=== PATIENT | female | born 1965 | race Caucasian/White ===

== ENCOUNTER 2021-10-08 17:11 | Inpatient (IN) | payer BC, SELFPAY ==
[2021-10-08] VITALS (8 sets, daily range): BP systolic 150–184; BP diastolic 95–110; PULSE 74–87; RESP 16–22; TEMP 36.3; O2SAT 95–100; BMI 22.3
--- NOTE | 2021-10-08 17:26 | CRLHL7_ITS ---
For Patients: As a result of the Century Cures Act, medical imaging exams and procedure reports are released immediately into your electronic medical record. You may view this report before your referring provider. If you have questions, please contact your health care provider. INDICATION: Abdominal pain. COMPARISON: CT dated August 09, 2015. TECHNIQUE: One view, 2 images of the abdomen. FINDINGS: Right lower lobe nodular opacity. Old right rib fracture. Right total hip arthroplasty. No definite acute osseous abnormality. Overall paucity of bowel gas limits evaluation of bowel gas pattern. Bilateral sacroiliac sclerosis. Scattered vascular calcifications. IMPRESSION: 1. Positive bowel gas limits evaluation of bowel gas pattern. 2. Nodular right lower lobe pulmonary opacity. Recommend further evaluation with cross-sectional imaging on a nonemergent basis. Dictated by Bay Cordero MD @ 10/08/2021 7:18:07 PM (Electronically Signed)
[2021-10-08 17:41] LABS: Lactate* 2.6 mmol/L (0.5-1.9)
[2021-10-08 17:42] LABS: Basophils Percent Auto 0.1 % (0.0-3.0); Eosinophils Percent Auto 0.2 % (0.0-7.0); Hematocrit 35.7 % (33.0-51.0); Hemoglobin* 12.1 gm/dL (12.0-16.0); Immature Granulocytes Abs Auto 0.04 K/uL (0.00-0.30); Lymphocytes Percent Auto 8.5 % (20-44); Mean Corpuscular HGB Conc 34 gm/dL (32-36); Mean Corpuscular Hemoglobin 32 pg (26-34); Mean Corpuscular Volume 96 fL (80-100); Monocytes Percent Auto 7.6 % (0.0-11.0); Neutrophils Percent Auto 83.3 % (42.0-72.0); Platelet Count* 247 K/uL (140-440); RDW Coefficient of Variation % 11.8 % (11.5-15.5); Red Blood Count 3.74 m/uL (4.00-5.20); White Blood Count* 11.77 K/uL (4.50-11.00)
[2021-10-08 17:43] LABS: Slide Review Reflex No
[2021-10-08] MEDS: FAMOTIDINE 20 MG TABLET PO (17:49)
[2021-10-08] MEDS: ONDANSETRON 2 MG/ML inj 4 MG IVP ×2 (17:51→20:37)
[2021-10-08] MEDS: 0.9 % SODIUM CHLORIDE 1000 ml 1,000 ML IV ×2 (17:51→20:14)
[2021-10-08] MEDS: LORazepam 2 MG/ML inj 0.5 MG IVP (17:52)
[2021-10-08 18:01] LABS: Ethanol* < 0.01 % (0.01-0.03)
[2021-10-08 18:18] LABS: Albumin* 2.9 g/dL (3.3-5.0); Chloride* 106 mmol/L (96-114)
--- NOTE | 2021-10-08 18:18 | ED.GENADULT ---
HPI - General Adult General Chief complaint: Nausea/Vomiting Stated complaint: Vomiting, Diarrhea Time Seen by Provider: 10/08/21 17:16 Source: patient History of Present Illness HPI narrative: 56-year-old female coming in today concerned about 3 days of vomiting. She states that she had a lot of diarrhea yesterday as well but has had no stool output today. She states that everything hurts from her neck all the way down to her pelvis. She states that this has happened to her many times in the past and has been occurring about every 2 months. She does have a history of alcohol use disorder, last drink was 4 days ago. She states that she has not been able to keep down anything in the last 3 days. She denies any fevers or chills. No headache or blurry vision. No blood in her vomit or stool. Related Data Home Medications Medication Instructions Recorded Confirmed famotidine 20 mg tablet mg 10/08/21 gabapentin 300 mg capsule mg 10/08/21 metoprolol tartrate 50 mg tablet mg 10/08/21 sertraline 100 mg tablet mg 10/08/21 Allergies Allergy/AdvReac Type Severity Reaction Status Date / Time No Known Allergies Allergy Verified 10/08/21 17:19 Review of Systems Status of ROS: Reports: 10 or more systems reviewed and unremarkable except as noted in History and below PFSH [facility] Social History Smoking Status: Unknown if ever smoked Do you use any of these nicotine containing products: None Second hand tobacco smoke exposure: No How often do you have a drink containing alcohol: 4 or more times a week How many standard drinks containing alcohol do you have on a typical day: 3 or 4 How often do you have six or more drinks on one occasion: Daily or almost daily AUDIT-C Alcohol total score: 9 Non-prescribed substance use: marijuana (any form) service: No Exam Narrative: Exam Narrative: Thin, well-developed patient. She is moaning and grunting uncontrollably and when I approached the bed she grabs my hand and tells me that she is going to hyperventilate. Answers questions appropriately between moans and groans. HEENT: Normocephalic atraumatic. Pupils are equally round reactive to light. Extraocular muscles are intact. Conjunctivae are moist without any icterus noted. Slightly dry mucous membranes. Posterior pharynx is normal. Neck is soft without any lymphadenopathy or thyromegaly. No masses are appreciated. Edentulous. Cardiovascular: Heart is regular rate and rhythm S1 and S2 are present without any murmurs. Lungs: Clear to auscultation bilaterally no wheezes rhonchi or rales are appreciated. Patient takes deep breaths without any discomfort. Abdomen: Soft nondistended with normal bowel sounds. There is no peritoneal signs and no guarding however the patient increases her moaning when gentle touching of the abdomen occurs. She also jumps in pain when I put the stethoscope gently on her chest wall. Extremities: Bilateral lower extremities are without edema. Normal DP and PT pulses. Skin: Well perfused without any obvious rashes. Const: Vital Signs, click to edit/add: Vital Signs - 24 hr 10/08/21 17:14 10/08/21 18:29 10/08/21 19:00 Temperature 97.3 F L Pulse Rate [Left P ulse Oximeter] 87 82 76 Respiratory Rate 22 16 16 Blood Pressure [Ri ght Upper Arm] 161/95 H 157/100 H 184/110 H Pulse Oximetry 100 100 99 Oxygen Delivery Me thod Room Air Room Air Room Air 10/08/21 19:04 10/08/21 19:30 10/08/21 20:17 Temperature Pulse Rate [Left P ulse Oximeter] 82 74 83 Respiratory Rate 16 16 22 Blood Pressure [Ri ght Upper Arm] 183/105 H 182/109 H 176/101 H Pulse Oximetry 95 100 100 Oxygen Delivery Me thod Room Air Room Air Room Air 10/08/21 20:30 Temperature Pulse Rate [Left P ulse Oximeter] 83 Respiratory Rate 20 Blood Pressure [Ri ght Upper Arm] 150/103 H Pulse Oximetry 100 Oxygen Delivery Me thod Room Air Course Course Hospital Course: IV was started and patient received a L of normal saline IV Zofran as well as IV Ativan. She felt significantly better after treatment. Her labs shows significantly elevated lipase at over 8000, hypokalemia, hypomagnesemia. Because of this she was also given magnesium replacement IV. And a 2 L of normal saline was started. In upright view of the abdomen was done which did not show any abnormality, did show some pulmonary nodularity which is not new. Vital Signs Vital signs: Initial Vital Signs Temperature 97.3 F L 10/08/21 17:14 Temperature Source Temporal Artery Scan 10/08/21 17:14 Pulse Rate 87 10/08/21 17:14 Pulse Rhythm 10/08/21 17:14 Pulse Strength 3+ Normal 10/08/21 17:14 Respiratory Rate 22 10/08/21 17:14 Blood Pressure 161/95 H 10/08/21 17:14 Blood Pressure Mean 117 10/08/21 17:14 Pulse Oximetry 100 10/08/21 17:14 Oxygen Delivery Method 10/08/21 17:14 Vital Signs Temperature 97.3 F L 10/08/21 17:14 Pulse Rate 87 10/08/21 17:14 Respiratory Rate 22 10/08/21 17:14 Blood Pressure 161/95 H 10/08/21 17:14 Pulse Oximetry 100 10/08/21 17:14 Oxygen Delivery Method 10/08/21 17:14 Temperature 97.3 F L 10/08/21 17:14 Pulse Rate 83 10/08/21 20:30 Respiratory Rate 20 10/08/21 20:30 Blood Pressure 150/103 H 10/08/21 20:30 Pulse Oximetry 100 10/08/21 20:30 Oxygen Delivery Method 10/08/21 20:30 Medical Decision Making MDM Narrative Medical decision making narrative: 56-year-old female with probable alcoholic pancreatitis. She also has hypokalemia, hypomagnesemia, malnutrition. Patient will be admitted for further management. Medical Records Medical records reviewed: Yes I reviewed the patient's medical records Lab Data Lab results reviewed: Yes I reviewed the patient's lab results Labs: Lab Results 10/08/21 10/08/21 10/08/21 Range/Units 17:27 17:36 17:36 WBC 11.77 H (4.50-11.00) K/uL RBC 3.74 L (4.00-5.20) m/uL Hgb 12.1 (12.0-16.0) gm/dL Hct 35.7 (33.0-51.0) % MCV 96 (80-100) fL MCH 32 (26-34) pg MCHC 34 (32-36) gm/dL RDW Coeff of Silvia 11.8 (11.5-15.5) % Plt Count 247 (140-440) K/uL Neut % (Auto) 83.3 H (42.0-72.0) % Lymph % (Auto) 8.5 L (20-44) % [place] % (Auto) 7.6 (0.0-11.0) % Eos % (Auto) 0.2 (0.0-7.0) % Baso % (Auto) 0.1 (0.0-3.0) % Neut # (Auto) 9.80 H (1.7-7.0) K/uL Lymph # (Auto) 1.00 (0.90-2.90) K/uL [place] # (Auto) 0.90 (0.00-0.90) K/UL Eos # (Auto) 0.00 (0.00-0.50) K/uL Baso # (Auto) 0.00 (0.00-0.30) K/uL Abs Immat Gran (auto) 0.04 (0.00-0.30) K/uL Sodium 136 (135-149) mmol/L Potassium 3.2 L (3.6-5.1) mmol/L Chloride 106 (96-114) mmol/L Carbon Dioxide 20 (20-32) mmol/L BUN 7 (7-30) mg/dL Creatinine 0.6 (0.5-1.5) mg/dL Estimated Creat Clear 90.41 Estimated GFR 105 ml/min Glucose 132 H (60-115) mg/dL Lactate (0.5-1.9) mmol/L Calcium 7.5 L (8.4-10.6) mg/dL Ionized Calcium Janette (1.11-1.30) mmol/L Magnesium 0.5 L* (1.5-2.6) mg/dL Total Bilirubin 0.5 (0.1-1.5) mg/dL Direct Bilirubin 0.2 (0.0-0.5) mg/dL AST 30 (12-35) U/L ALT 23 (4-35) U/L Alkaline Phosphatase 202 H (40-150) U/L C-Reactive Protein 1.9 H (0.5-1.0) mg/dL Total Protein 6.6 (6.0-8.3) g/dL Albumin 2.9 L (3.3-5.0) g/dL Lipase 8584 H (23-300) U/L Urine Color Yellow (Yellow) Urine Appearance Slightly Cloudy A (Clear) Urine pH 7.5 (5.0-8.5) Ur Specific [place] 1.020 (1.000-1.030) Urine Protein Negative (Negative) Urine Glucose (UA) Negative (Negative) Urine Ketones Negative (Negative) Urine Blood Trace-intact A (Negative) Urine Nitrite Positive A (Negative) Urine Bilirubin Negative (Negative) Urine Urobilinogen 0.2 (0.2-1.0) Ur Leukocyte Esterase 1+ A (Negative) Urine RBC 25-50 A (0-2) Urine WBC 5-10 A (0-5) Ur Squamous Epith Cells Moderate A (None-Few) Urine Bacteria Many A (None) Ethyl Alcohol (0.01-0.03) % SARS-CoV-2 (PCR) (Negative) 10/08/21 10/08/21 10/08/21 Range/Units 17:36 17:36 17:36 WBC (4.50-11.00) K/uL RBC (4.00-5.20) m/uL Hgb (12.0-16.0) gm/dL Hct (33.0-51.0) % MCV (80-100) fL MCH (26-34) pg MCHC (32-36) gm/dL RDW Coeff of Silvia (11.5-15.5) % Plt Count (140-440) K/uL Neut % (Auto) (42.0-72.0) % Lymph % (Auto) (20-44) % [place] % (Auto) (0.0-11.0) % Eos % (Auto) (0.0-7.0) % Baso % (Auto) (0.0-3.0) % Neut # (Auto) (1.7-7.0) K/uL Lymph # (Auto) (0.90-2.90) K/uL [place] # (Auto) (0.00-0.90) K/UL Eos # (Auto) (0.00-0.50) K/uL Baso # (Auto) (0.00-0.30) K/uL Abs Immat Gran (auto) (0.00-0.30) K/uL Sodium (135-149) mmol/L Potassium (3.6-5.1) mmol/L Chloride (96-114) mmol/L Carbon Dioxide (20-32) mmol/L BUN (7-30) mg/dL Creatinine (0.5-1.5) mg/dL Estimated Creat Clear Estimated GFR ml/min Glucose (60-115) mg/dL Lactate 2.6 H (0.5-1.9) mmol/L Calcium (8.4-10.6) mg/dL Ionized Calcium Janette 0.97 L (1.11-1.30) mmol/L Magnesium (1.5-2.6) mg/dL Total Bilirubin (0.1-1.5) mg/dL Direct Bilirubin (0.0-0.5) mg/dL AST (12-35) U/L ALT (4-35) U/L Alkaline Phosphatase (40-150) U/L C-Reactive Protein (0.5-1.0) mg/dL Total Protein (6.0-8.3) g/dL Albumin (3.3-5.0) g/dL Lipase (23-300) U/L Urine Color (Yellow) Urine Appearance (Clear) Urine pH (5.0-8.5) Ur Specific [place] (1.000-1.030) Urine Protein (Negative) Urine Glucose (UA) (Negative) Urine Ketones (Negative) Urine Blood (Negative) Urine Nitrite (Negative) Urine Bilirubin (Negative) Urine Urobilinogen (0.2-1.0) Ur Leukocyte Esterase (Negative) Urine RBC (0-2) Urine WBC (0-5) Ur Squamous Epith Cells (None-Few) Urine Bacteria (None) Ethyl Alcohol < 0.01 L (0.01-0.03) % SARS-CoV-2 (PCR) (Negative) 10/08/21 10/08/21 Range/Units 17:36 19:38 WBC (4.50-11.00) K/uL RBC (4.00-5.20) m/uL Hgb (12.0-16.0) gm/dL Hct (33.0-51.0) % MCV (80-100) fL MCH (26-34) pg MCHC (32-36) gm/dL RDW Coeff of Silvia (11.5-15.5) % Plt Count (140-440) K/uL Neut % (Auto) (42.0-72.0) % Lymph % (Auto) (20-44) % [place] % (Auto) (0.0-11.0) % Eos % (Auto) (0.0-7.0) % Baso % (Auto) (0.0-3.0) % Neut # (Auto) (1.7-7.0) K/uL Lymph # (Auto) (0.90-2.90) K/uL [place] # (Auto) (0.00-0.90) K/UL Eos # (Auto) (0.00-0.50) K/uL Baso # (Auto) (0.00-0.30) K/uL Abs Immat Gran (auto) (0.00-0.30) K/uL Sodium (135-149) mmol/L Potassium (3.6-5.1) mmol/L Chloride (96-114) mmol/L Carbon Dioxide (20-32) mmol/L BUN (7-30) mg/dL Creatinine (0.5-1.5) mg/dL Estimated Creat Clear Estimated GFR ml/min Glucose (60-115) mg/dL Lactate (0.5-1.9) mmol/L Calcium (8.4-10.6) mg/dL Ionized Calcium Janette (1.11-1.30) mmol/L Magnesium Cancelled (1.5-2.6) mg/dL Total Bilirubin (0.1-1.5) mg/dL Direct Bilirubin (0.0-0.5) mg/dL AST (12-35) U/L ALT (4-35) U/L Alkaline Phosphatase (40-150) U/L C-Reactive Protein (0.5-1.0) mg/dL Total Protein (6.0-8.3) g/dL Albumin (3.3-5.0) g/dL Lipase (23-300) U/L Urine Color (Yellow) Urine Appearance (Clear) Urine pH (5.0-8.5) Ur Specific [place] (1.000-1.030) Urine Protein (Negative) Urine Glucose (UA) (Negative) Urine Ketones (Negative) Urine Blood (Negative) Urine Nitrite (Negative) Urine Bilirubin (Negative) Urine Urobilinogen (0.2-1.0) Ur Leukocyte Esterase (Negative) Urine RBC (0-2) Urine WBC (0-5) Ur Squamous Epith Cells (None-Few) Urine Bacteria (None) Ethyl Alcohol (0.01-0.03) % SARS-CoV-2 (PCR) Negative SARS-CoV-2 (Negative) Discharge Plan Discharge Clinical Impression: Pancreatitis Patient Disposition: Admitted As Inpatient Condition: Stable
[2021-10-08 18:19] LABS: Potassium* 3.2 mmol/L (3.6-5.1); Sodium* 136 mmol/L (135-149)
[2021-10-08 18:21] LABS: Creatinine* 0.6 mg/dL (0.5-1.5); Est. Creatinine Clearance* 90.41; Estimated Glomerular Filt Rate 105 ml/min
[2021-10-08 18:22] LABS: Alanine Aminotransferase* 23 U/L (4-35); Alkaline Phosphatase* 202 U/L (40-150); Aspartate Amino Transferase* 30 U/L (12-35); Bilirubin Direct* 0.2 mg/dL (0.0-0.5); Bilirubin Total* 0.5 mg/dL (0.1-1.5); Blood Urea Nitrogen* 7 mg/dL (7-30); Calcium* 7.5 mg/dL (8.4-10.6); Carbon Dioxide* 20 mmol/L (20-32); Glucose* 132 mg/dL (60-115); Total Protein* 6.6 g/dL (6.0-8.3)
[2021-10-08 18:24] LABS: C Reactive Protein* 1.9 mg/dL (0.5-1.0)
[2021-10-08 18:28] LABS: Appearance Urine Slightly Cloudy (Clear); Bilirubin Urine Negative (Negative); Blood Urine Trace-intact (Negative); Color Urine Yellow (Yellow); Glucose Urine Negative (Negative); Ketones Urine Negative (Negative); Leukocyte Esterase Urine 1+ (Negative); Nitrite Urine Positive (Negative); Protein Urine Negative (Negative); Urobilinogen Urine 0.2 (0.2-1.0); pH Urine 7.5 (5.0-8.5)
[2021-10-08 18:36] LABS: Ionized Calcium* 0.97 mmol/L (1.11-1.30)
[2021-10-08 18:57] LABS: Bacteria Urine Many; RBC Urine 25-50 (0-2); Squamous Epithelial Cell Urine Moderate (None-Few)
[2021-10-08 19:22] LABS: Lipase* 8584 U/L (23-300)
[2021-10-08 19:23] LABS: Magnesium* 0.5 mg/dL (1.5-2.6)
[2021-10-08] MEDS: MAGNESIUM SULFATE 2 GM/50 ML PIGGYBACK IVPB (20:15)
[2021-10-08 20:33] LABS: SARS PCR* Negative SARS-CoV-2 (Negative)
--- NOTE | 2021-10-08 20:45 | CRLHL7_ITS ---
For Patients: As a result of the Cures Act, medical imaging exams and procedure reports are released immediately into your electronic medical record. You may view this report before your referring provider. If you have questions, please contact your health care provider. HISTORY: Pancreatitis. History of gallstones. TECHNIQUE: Limited abdominal ultrasound. COMPARISON: CT 08/09/2015. FINDINGS: The pancreatic tail is obscured by bowel gas. No abnormality involving the visualized portions of pancreas. There is no intrahepatic biliary ductal dilatation. The extrahepatic bile duct diameter is mildly prominent measuring 8 mm. No gallstones or gallbladder wall thickening. No surrounding fluid. There is a calcification within the right hepatic lobe adjacent to the gallbladder fossa which may reflect a calcified granuloma. A few hypoechoic liver lesions are present likely correlating with the cysts seen on the prior CT. These measure up to 1.7 cm in size. No abnormality involving the included portion the right kidney. IMPRESSION: 1. Normal gallbladder, without findings of cholelithiasis or acute cholecystitis. 2. Mildly prominent extrahepatic bile duct measuring 8 mm. No intrahepatic biliary ductal dilatation. 3. No pancreatic ductal dilatation or peripancreatic fluid. Dictated by Juan David Kelley MD @ 10/08/2021 10:42:19 PM Dictated by: Juan David Kelley MD @ 10/08/2021 22:42:25 (Electronically Signed)
[2021-10-08] MEDS: LORazepam 2 MG/ML inj 1 MG IVP (20:55)
--- NOTE | 2021-10-08 22:04 | P.IMHP_ITS ---
Hospitalist- H&P: HPI History of Present Illness Date Seen: 10/08/21 Chief complaint: Vomiting, Diarrhea Narrative: April Lucas is a 56 year old female [facility] Medical History (Updated 10/08/21 @ 22:38 by Robert Darling MD) Acalculous cholecystitis Alcoholism Chronic diarrhea Closed fracture of second cervical vertebra without spinal cord injury Clostridioides difficile diarrhea Gallstone pancreatitis Gastroesophageal reflux disease Generalized anxiety disorder Hypertension Hypomagnesemia Major depressive disorder Monoclonal gammopathy Nontoxic single thyroid nodule Pancreatitis, alcoholic, acute Peripheral neuropathy Sacroiliitis, not elsewhere classified Tobacco dependence Urinary tract infection Visual impairment Social History What is your current living situation: I presently have a place to live Smoking Status: Current every day smoker What tobacco products do you use: cigarettes Smoking packs per day: 1 Smoking cigarettes per day: 20.0 Years smoked: 30 Smoking pack-years: 30.00 Do you use any of these nicotine containing products: None Second hand tobacco smoke exposure: No How often do you have a drink containing alcohol: 4 or more times a week How many standard drinks containing alcohol do you have on a typical day: 5 or 6 How often do you have six or more drinks on one occasion: Daily or almost daily AUDIT-C Alcohol total score: 10 Non-prescribed substance use: marijuana (any form) Are you now , , , , never or living with a partner: Social isolation score (0-1 are the most socially isolated patients): 0 service: No Living Situation What is your current living situation: I presently have a place to live Tobacco Smoking Status: Current every day smoker What tobacco products do you use: cigarettes Smoking packs per day: 1 Smoking cigarettes per day: 20.0 Years smoked: 30 Smoking pack-years: 30.00 Do you use any of these nicotine containing products: None Second hand tobacco smoke exposure: No Alcohol - AUDIT-C How often do you have a drink containing alcohol: 4 or more times a week How many standard drinks containing alcohol do you have on a typical day: 5 or 6 How often do you have six or more drinks on one occasion: Daily or almost daily AUDIT-C Alcohol total score: 10 Source: Developed by Judith Blanchard DR et al (1998). The AUDIT alcohol consumption questions (AUDIT-C): An effective brief screening test for problem drinking. Card Tape Converter [employer] Quality Improvement Project (ACQUIP). [employer] Med. 158:1789- 95. Drugs Non-prescribed substance use: marijuana (any form) Family and Community Support - NHANES Are you now , , , , never or living with a partner: Social isolation score (0-1 are the most socially isolated patients): 0 US History service: No Meds Home Medications and Allergies Home Medications Medication Instructions Recorded Confirmed Type famotidine 20 mg tablet mg 10/08/21 History gabapentin 300 mg capsule mg 10/08/21 History metoprolol tartrate 50 mg tablet mg 10/08/21 History sertraline 100 mg tablet mg 10/08/21 History Allergies Allergy/AdvReac Type Severity Reaction Status Date / Time No Known Allergies Allergy Verified 10/08/21 17:19 Exam Const: Vital Signs, click to edit/add: Vital Signs - 24 hr 10/08/21 17:14 10/08/21 18:29 10/08/21 19:00 Temperature 97.3 F L Pulse Rate [Left P ulse Oximeter] 87 82 76 Respiratory Rate 22 16 16 Blood Pressure [Ri ght Upper Arm] 161/95 H 157/100 H 184/110 H Pulse Oximetry 100 100 99 Oxygen Delivery Me thod Room Air Room Air Room Air 10/08/21 19:04 10/08/21 19:30 10/08/21 20:17 Temperature Pulse Rate [Left P ulse Oximeter] 82 74 83 Respiratory Rate 16 16 22 Blood Pressure [Ri ght Upper Arm] 183/105 H 182/109 H 176/101 H Pulse Oximetry 95 100 100 Oxygen Delivery Hi thod Room Air Room Air Room Air 10/08/21 20:30 Temperature Pulse Rate [Left P ulse Oximeter] 83 Respiratory Rate 20 Blood Pressure [Ri ght Upper Arm] 150/103 H Pulse Oximetry [facility] - H&P: Result Labs Labs: Short CBC 10/08/21 Range/Units 17:36 WBC 11.77 H (4.50-11.00) K/uL Hgb 12.1 (12.0-16.0) gm/dL Hct 35.7 (33.0-51.0) % Plt Count 247 (140-440) K/uL BMP 10/08/21 17:36 Sodium 136 Potassium 3.2 L Chloride 106 Carbon Dioxide 20 BUN 7 Creatinine 0.6 Glucose 132 H Calcium 7.5 L Liver Function 10/08/21 Range/Units 17:36 Total Bilirubin 0.5 (0.1-1.5) mg/dL Direct Bilirubin 0.2 (0.0-0.5) mg/dL AST 30 (12-35) U/L ALT 23 (4-35) U/L Alkaline Phosphatase 202 H (40-150) U/L Albumin 2.9 L (3.3-5.0) g/dL Urine 10/08/21 Range/Units 17:27 Urine Color Yellow (Yellow) Urine Appearance Slightly Cloudy A (Clear) Urine pH 7.5 (5.0-8.5) Ur Specific [place] 1.020 (1.000-1.030) Urine Protein Negative (Negative) Urine Glucose (UA) Negative (Negative)
--- NOTE | 2021-10-08 22:07 | W.PC.EDHO ---
Primary Language: Preferred Language: Orientation Status: [x] Alert & Oriented [] Slight Confusion [] Known Dx Dementia Transfers By: [x] Assist of 1 [] Assist of 2 [] Lift Active Medications Discontinued Medications Generic Name Dose Route Start Last Admin Trade Name Akil PRN Reason Stop Dose Admin Famotidine 20 mg 10/08/21 17:31 10/08/21 17:49 Famotidine 20 Mg Tablet PO 10/08/21 17:32 20 mg ONCE ONE Administration Sodium Chloride 1,000 mls @ 1,000 mls/hr 10/08/21 17:30 10/08/21 20:00 0.9 % Sodium Chloride 1000 Ml IV 10/08/21 18:29 Infused .Q1H DEVEN Infusion Sodium Chloride 1,000 mls @ 1,000 mls/hr 10/08/21 19:30 10/08/21 20:14 0.9 % Sodium Chloride 1000 Ml IV 10/08/21 20:29 1,000 mls/hr .Q1H DEVEN Administration Lorazepam 0.5 mg 10/08/21 17:27 10/08/21 17:52 Lorazepam 2 Mg/Ml Inj IVP 10/08/21 17:28 0.5 mg ONCE ONE Administration Lorazepam 1 mg 10/08/21 20:45 10/08/21 20:55 Lorazepam 2 Mg/Ml Inj IVP 10/08/21 20:46 1 mg ONCE ONE Administration Magnesium Sulfate 2 gm 10/08/21 19:26 10/08/21 20:15 Magnesium Sulfate 2 Gm/50 Ml Piggyback IVPB 10/08/21 19:27 2 gm ONCE ONE Administration Ondansetron HCl 4 mg 10/08/21 17:26 10/08/21 17:51 Ondansetron 2 Mg/Ml Inj IVP 10/08/21 17:27 4 mg ONCE ONE Administration Ondansetron HCl 4 mg 10/08/21 20:23 10/08/21 20:37 Ondansetron 2 Mg/Ml Inj IVP 10/08/21 20:24 4 mg ONCE ONE Administration Description of Symptoms ED Triage Present Problem From home, called EMS due to N/V/D x3days - Has Description not improved. states it happened after eating a burger Pain Pain Intensity 8 Pain Scale Used Numeric (1 - 10) IV Insertion/Site Date of IV Line Insertion [ 10/08/21 Right Forearm] Oxygen Administration Pulse Oximetry 100 Pulse Oximetry 100 Pulse Oximetry 100 Pulse Oximetry 95 Pulse Oximetry 99 Pulse Oximetry 100 Pulse Oximetry 100 Oxygen Delivery Method Room Air Oxygen Delivery Method Room Air Oxygen Delivery Method Room Air Oxygen Delivery Method Room Air Oxygen Delivery Method Room Air Oxygen Delivery Method Room Air Oxygen Delivery Method Room Air
--- NOTE | 2021-10-08 22:10 | PM.IMHP1 ---
Hospitalist- H&P: HPI History of Present Illness Time Seen by Provider: 20:30 Date Seen: 10/08/21 Chief complaint: Vomiting, Diarrhea Narrative: April Lucas is a 56 year old woman who presents to our emergency department with the 3-4 day history of nausea, vomiting, diarrhea, dry heaves, decreased oral intake, inability to take her usual medications, abdominal pain. Claims to not have been able to keep anything down for the last 3 days. Denies fever, rigors, diaphoresis. No recent febrile illness. No recent trauma or injury. With a vomiting and diarrhea she denies any blood loss. On day 2 and 3 of her current illness she did have black stools. She tells me she has had several similar presentations in the past. She states that she has had these episodes roughly every 2-3 months over the past year. She acknowledges having a history of alcohol-induced pancreatitis. Her outside medical records also indicate that she has previously had gallstone induced pancreatitis. Denies having had a cholecystectomy in the past. Review of past imaging confirms presence of sludge in history of gallstones. Has not had imaging for a number of years that I am aware of. Patient ordinarily drinks a minimum of 5-6 beers per day. Denies history of alcohol withdrawal on the 1 hand. On the other hand she acknowledges chronic anxiety that worsens when she is not drinking. Denies history of delirium tremens or alcohol withdrawal seizures. Review of Systems Status of ROS: Reports: 10 or more systems reviewed and unremarkable except as noted in History and below Narrative: With the nausea, vomiting, dry heaves, and retching she states she has had more abdominal pain. She thought it was all muscular. When resolved. She presents for further assessment thinking it might be a recurrence of her pancreatitis. Additionally this past May she sustained a fall in which she had a closed fracture of her C2 vertebral body. Current heaving and retching seems to is exacerbated this discomfort. Heretofore she has been healing well in that regard. Most recently assessed for this at [facility], [place], [place], on 08/17/2021. Has had no complications from this aside from the pain. Specifically denies chest heaviness, pressure, tightness, or pain. Denies syncope or near-syncope. Denies orthostasis. Acknowledges sense of dry mouth. Becoming increasingly anxious. Denies cough or shortness of breath that is different from her baseline. Denies palpitations. Acknowledges a sense of increasing weakness. Has been unable to take any of her oral medications over the last 3-4 days. Denies any focal motor neurologic deficits. Denies any arthralgias. Has not had any recent trauma or injury, aside from the fall that she sustained on 06/16/2021 resulting in the C2 vertebral body closed fracture. No rashes. Denies heat or cold intolerance. Denies polyuria, polydipsia, or polyphagia. Denies any recent weight loss or weight gain. Over the last couple weeks has had intermittent dysuria, urgency, frequency. She states she feels like she has a bladder infection although she never sought medical attention for the same. [facility] Medical History (Updated 10/08/21 @ 22:38 by Robert Darling MD) Acalculous cholecystitis Alcoholism Chronic diarrhea Closed fracture of second cervical vertebra without spinal cord injury Clostridioides difficile diarrhea Gallstone pancreatitis Gastroesophageal reflux disease Generalized anxiety disorder Hypertension Hypomagnesemia Major depressive disorder Monoclonal gammopathy Nontoxic single thyroid nodule Pancreatitis, alcoholic, acute Peripheral neuropathy Sacroiliitis, not elsewhere classified Tobacco dependence Urinary tract infection Visual impairment Social History What is your current living situation: I presently have a place to live Smoking Status: Current every day smoker What tobacco products do you use: cigarettes Smoking packs per day: 1 Smoking cigarettes per day: 20.0 Years smoked: 30 Smoking pack-years: 30.00 Do you use any of these nicotine containing products: None Second hand tobacco smoke exposure: No How often do you have a drink containing alcohol: 4 or more times a week How many standard drinks containing alcohol do you have on a typical day: 5 or 6 How often do you have six or more drinks on one occasion: Daily or almost daily AUDIT-C Alcohol total score: 10 Non-prescribed substance use: marijuana (any form) Are you now , , , , never or living with a partner: Social isolation score (0-1 are the most socially isolated patients): 0 service: No Living Situation What is your current living situation: I presently have a place to live Tobacco Smoking Status: Current every day smoker What tobacco products do you use: cigarettes Smoking packs per day: 1 Smoking cigarettes per day: 20.0 Years smoked: 30 Smoking pack-years: 30.00 Do you use any of these nicotine containing products: None Second hand tobacco smoke exposure: No Alcohol - AUDIT-C How often do you have a drink containing alcohol: 4 or more times a week How many standard drinks containing alcohol do you have on a typical day: 5 or 6 How often do you have six or more drinks on one occasion: Daily or almost daily AUDIT-C Alcohol total score: 10 Source: Developed by Judith Blacnhard DR et al (1998). The AUDIT alcohol consumption questions (AUDIT-C): An effective brief screening test for problem drinking. [employer] (ACQUIP). [employer]. 158:1789-95. Drugs Non-prescribed substance use: marijuana (any form) Family and Community Support - NHANES Are you now , , , , never or living with a partner: Social isolation score (0-1 are the most socially isolated patients): 0 US History service: No Meds Home Medications and Allergies Home Medications Medication Instructions Recorded Confirmed Type famotidine 20 mg tablet mg 10/08/21 History gabapentin 300 mg capsule mg 10/08/21 History metoprolol tartrate 50 mg tablet mg 10/08/21 History sertraline 100 mg tablet mg 10/08/21 History Allergies Allergy/AdvReac Type Severity Reaction Status Date / Time No Known Allergies Allergy Verified 10/08/21 17:19 Exam Narrative: Exam Narrative: Appears uncomfortable. Unable to get comfortable. Appears anxious. Nevertheless is cooperative. Mood and affect are congruent. Alert, oriented to self, place, time, situation. No icterus, jaundice, petechiae, cyanosis, or other skin rashes. No tremor, asterixis, or ataxia. Moves all 4 extremities. Antalgia with movement. External auditory canals are clear tympanic membranes normal hearing is mildly decreased symmetrically bilaterally. Midline nasal septum. Buccal mucosa is dry. No oropharyngeal lesions. Neck is supple. Midline trachea. No JVD, hepatojugular reflux, or carotid bruits. Lungs are clear to auscultation, without any wheezing, rhonchi, or rales. Chest is hypertympanitic. No CVA tenderness. Heart tones with regular rhythm, normal S1-S2. No obvious murmur, gallop, or rub. Abdomen with active bowel sounds. Subjective discomfort to palpation in the epigastrium. No rebound or guarding. No obvious organomegaly. No masses. Extremities without edema. Palpable pulses upper and lower extremities. Const: Vital Signs, click to edit/add: Vital Signs - 24 hr 10/08/21 17:14 10/08/21 18:29 10/08/21 19:00 Temperature 97.3 F L Pulse Rate [Left P ulse Oximeter] 87 82 76 Respiratory Rate 22 16 16 Blood Pressure [Ri ght Upper Arm] 161/95 H 157/100 H 184/110 H Pulse Oximetry 100 100 99 Oxygen Delivery Me thod Room Air Room Air Room Air 10/08/21 19:04 10/08/21 19:30 10/08/21 20:17 Temperature Pulse Rate [Left P ulse Oximeter] 82 74 83 Respiratory Rate 16 16 22 Blood Pressure [Ri ght Upper Arm] 183/105 H 182/109 H 176/101 H Pulse Oximetry 95 100 100 Oxygen Delivery Me thod Room Air Room Air Room Air 10/08/21 20:30 Temperature Pulse Rate [Left P ulse Oximeter] 83 Respiratory Rate 20 Blood Pressure [Ri ght Upper Arm] 150/103 H Pulse Oximetry 100 Oxygen Delivery Me thod Room Air Hospitalist - H&P: Result Labs Labs: Short CBC 10/08/21 Range/Units 17:36 WBC 11.77 H (4.50-11.00) K/uL Hgb 12.1 (12.0-16.0) gm/dL Hct 35.7 (33.0-51.0) % Plt Count 247 (140-440) K/uL BMP 10/08/21 17:36 Sodium 136 Potassium 3.2 L Chloride 106 Carbon Dioxide 20 BUN 7 Creatinine 0.6 Glucose 132 H Calcium 7.5 L Liver Function 10/08/21 Range/Units 17:36 Total Bilirubin 0.5 (0.1-1.5) mg/dL Direct Bilirubin 0.2 (0.0-0.5) mg/dL AST 30 (12-35) U/L ALT 23 (4-35) U/L Alkaline Phosphatase 202 H (40-150) U/L Albumin 2.9 L (3.3-5.0) g/dL Urine 10/08/21 Range/Units 17:27 Urine Color Yellow (Yellow) Urine Appearance Slightly Cloudy A (Clear) Urine pH 7.5 (5.0-8.5) Ur Specific [place] 1.020 (1.000-1.030) Urine Protein Negative (Negative) Urine Glucose (UA) Negative (Negative) Assessment and Plan Assessment and plan (1) Pancreatitis, alcoholic, acute: Status: Acute Assessment and Plan: 1. History of alcohol-induced pancreatitis as well as gallstone pancreatitis. Has not had a prior cholecystectomy. 2. Last imaging of the abdomen in our system is from several years ago, CT scan as well as ultrasound. These have both demonstrated sludge in the gallbladder. 3. Will repeat ultrasound of the abdomen. 4. Consider CT scan of abdomen and pelvis. 5. NPO for now. Attempt to advance to clear liquids tomorrow morning. 6. Analgesics and antiemetics p.r.n.. (2) Personal history of gallstones: Status: Acute Assessment and Plan: 1. I ordered an ultrasound of the abdomen. Await this result. 2. Consider CT scan of abdomen and pelvis. (3) Alcoholism: Status: Acute Assessment and Plan: 1. Longstanding active problem for the patient. 2. No prior treatment. 3. Patient is pre-contemplative for getting help for this. 4. CIWA driven alcohol withdrawal protocol with lorazepam. 5. Ordinarily takes gabapentin 600 mg 3 times a day. Has not taking it for the last 3-4 days. Given her dehydrated state I will restarted at 300 mg 3 times a day for now. Ordinarily takes this for peripheral neuropathy. (4) Abdominal pain: Status: Acute Assessment and Plan: 1. Likely multifactorial including from the acute pancreatitis as well as her heaving. 2. From the musculoskeletal perspective will use warm pack and cold pack p.r.n.. (5) Nausea & vomiting: Status: Acute Assessment and Plan: 1. Antiemetics p.r.n.. 2. Lorazepam per CIWA driven protocol. 3. Treat with pantoprazole 40 mg IV daily while NPO for possible alcoholic gastritis. 4. Restart her famotidine 20 mg orally twice daily. (6) Dehydration: Status: Acute Assessment and Plan: 1. IV fluids. Bolus given. We will treat with normal saline overnight any way and consider extending IV fluids longer depending how she responds to interventions. 2. Check orthostatic blood pressures and pulses tomorrow morning. (7) Hypomagnesemia: Status: Acute Assessment and Plan: 1. Received 2 g of magnesium sulfate in the ER. 2. Ordered 2 more g of magnesium sulfate. 3. Restart her oral magnesium oxide. 4. Recheck magnesium in the morning. (8) Gastroesophageal reflux disease: Status: Acute Assessment and Plan: 1. Continue with her famotidine 20 mg orally twice daily (9) Tobacco dependence: Status: Acute Assessment and Plan: 1. Nicotine patch 21 mg daily. 2. Patient not interested in smoking cessation at this time. 3. Patient had what appears to be a nodule in the right lower lung with abdominal x-ray at this time. I compared to a screening CT scan of the chest that she just had in latter part of June of 2021 which was entirely normal. I do not believe there is the need to follow this at this time. (10) Generalized anxiety disorder: Status: Acute Assessment and Plan: 1. Restart sertraline 100 mg daily. 2. Lorazepam p.r.n. per CIWA driven protocol for now. (11) Major depressive disorder: Status: Acute Assessment and Plan: 1. Restart sertraline 100 mg daily. (12) Urinary tract infection: Status: Acute Assessment and Plan: 1. Await urine culture. 2. Start ceftriaxone 1 g IV daily for now. (13) Hypertension: Status: Acute Assessment and Plan: 1. Restart her metoprolol at half the usual dose. Ordinarily takes 50 mg of the tartrate formula twice daily. For now will restarted at 25 mg twice daily. Consider resume usual dose as warranted. (14) Hypokalemia: Status: Acute Assessment and Plan: 1. Potassium supplementation and monitoring. (15) Chronic diarrhea: Status: Acute Assessment and Plan: 1. Check stool for C diff. 2. Loperamide p.r.n. for diarrhea. Plan 1. Reviewed my impression and plans with the patient. 2. Patient agreeable to above stated plans and recommendations. 3. Patient directs that her best friend be her power of compliance attorney for health should that be necessary. Her best friend's 1st name is Ashely. Patient requests full resuscitation in the event of cardiopulmonary demise. Patient acknowledges having a daughter and a stepdaughter. of cancer in the past. 4. Her primary care physician is now Dr. Kwon at [facility] in [facility]. She will have follow-up with Dr. Kwon.
[2021-10-09] VITALS (9 sets, daily range): BP systolic 124–156; BP diastolic 72–93; PULSE 68–88; RESP 16–20; TEMP 36.4–37.2; O2SAT 97–99; BMI 22.3
[2021-10-09] MEDS: NICOTINE 21 MG PATCH 1 PATCH TRANSDERMA (01:15)
[2021-10-09] MEDS: THIAMINE 100 MG TABLET PO ×2 (01:16→21:54)
[2021-10-09] MEDS: PANTOPRAZOLE SODIUM 40 MG INJ IVP (01:17)
[2021-10-09] MEDS: ACETAMINOPHEN 325 MG TABLET 650 MG PO ×4 (01:17→19:01)
[2021-10-09] MEDS: 0.9 % SODIUM CHLORIDE 1000 ml 1,000 ML 125 ML IV ×2 (01:25→13:51)
[2021-10-09] MEDS: cefTRIAXone 1 GM in 0.9 % SODIUM CHLORIDE Mini-bag 100 ML IVPB ×2 (01:42→21:51)
[2021-10-09] MEDS: MAGNESIUM IV 2 GM/50 ML PIGGYBACK IVPB (02:26)
[2021-10-09] MEDS: POTASSIUM CHLORIDE 10 MEQ, LIDOCAINE 1 % 1 ML in 0.9 % SODIUM CHLORIDE 100 ml 100 ML 106 MEQ IVPB ×4 (04:51→20:28)
--- NOTE | 2021-10-09 05:45 | PC.NURSE ---
00-0700 Pt. rested well in between cares. Denies pain, mild Nausea w/dry heaves initially has since resolved. NPO during noc. Up to bathroom several times w/SBA w/cane tolerated activity fair. Still waiting for C-Diff sample.
[2021-10-09 06:46] LABS: HCO3 VBG 28 mmol/L (21-28); PCO2 VBG 39 mmHG (40-50); PO2 VBG 54.4 mmHG (25-47); pH VBG 7.464 (7.32-7.43)
[2021-10-09 07:00] LABS: Hematocrit 37.4 % (33.0-51.0); Hemoglobin* 12.6 gm/dL (12.0-16.0); Mean Corpuscular HGB Conc 34 gm/dL (32-36); Mean Corpuscular Hemoglobin 33 pg (26-34); Mean Corpuscular Volume 97 fL (80-100); Platelet Count* 234 K/uL (140-440); Red Blood Count 3.87 m/uL (4.00-5.20)
[2021-10-09 07:04] LABS: Slide Review Reflex No
[2021-10-09 07:06] LABS: Albumin* 2.9 g/dL (3.3-5.0); Chloride* 103 mmol/L (96-114)
[2021-10-09 07:07] LABS: Sodium* 136 mmol/L (135-149)
[2021-10-09 07:09] LABS: Creatinine* 0.5 mg/dL (0.5-1.5); Est. Creatinine Clearance* 108.49; Estimated Glomerular Filt Rate 110 ml/min
[2021-10-09 07:10] LABS: Alanine Aminotransferase* 13 U/L (4-35); Alkaline Phosphatase* 230 U/L (40-150); Aspartate Amino Transferase* 39 U/L (12-35); Bilirubin Direct* 0.3 mg/dL (0.0-0.5); Bilirubin Total* 0.5 mg/dL (0.1-1.5); Blood Urea Nitrogen* 4 mg/dL (7-30); Carbon Dioxide* 27 mmol/L (20-32); Glucose* 102 mg/dL (60-115); Phosphorus* 2.9 mg/dL (2.5-4.5); Total Protein* 6.6 g/dL (6.0-8.3)
[2021-10-09 07:11] LABS: Calcium* 7.1 mg/dL (8.4-10.6); Iron* 66 ug/dL (37-170); Magnesium* 2.2 mg/dL (1.5-2.6)
[2021-10-09 07:13] LABS: C Reactive Protein* 2.3 mg/dL (0.5-1.0)
[2021-10-09 07:16] LABS: Potassium* 2.8 mmol/L (3.6-5.1)
--- NOTE | 2021-10-09 07:19 | PC.NURSE ---
Critical value reported by lab - Potassium 2.8, Dr. Kirby notified.
[2021-10-09 07:20] LABS: Percent Iron Saturation 34 % (20-50); Total Iron Binding Capacity 198 ug/dL (265-497)
--- NOTE | 2021-10-09 07:23 | PM.IMPN1 ---
Progress Note: A&P Assessment and plan (1) Pancreatitis, alcoholic, acute: Status: Acute Assessment and Plan: Lipase is trending down. Continue IV fluids and sips and chips. May advanced clears as she tolerates. P.r.n. meds reviewed for pain and nausea control. Imaging reviewed from admission. (2) Peripheral neuropathy: Status: Acute Assessment and Plan: Gabapentin had not been taken for 3 days. We initially reduced her home dose at admission. I can increase this tomorrow back to her baseline home dose. (3) Generalized anxiety disorder: Status: Acute Assessment and Plan: Significant. Following. (4) Hypokalemia: Status: Acute Assessment and Plan: Lower this morning. However replacement had not yet completed. Checking again at 4:00 p.m. today. (5) C. difficile diarrhea: Status: Acute Assessment and Plan: Previous history. Will start oral vancomycin. (6) UTI (urinary tract infection): Status: Acute Assessment and Plan: ua is concerning for UTI. awaiting culture. on rocephin 1 gram q24 Subjective Date Seen: 10/09/21 Interval history: Daily Progress Note - Hospital Medicine Day #: 2 Rocephin Day 2 Vanco Day 1 CC: pancreatitis. abdominal pain. now +C. Diff. OVERNIGHT UPDATES FROM STAFF & MED, LAB, IMAGING UPDATES Patient was resting with lights off during rounds this morning. She states that she just had a small emesis. She is noting increased abdominal pain. OT and PT worked with patient. I saw her ambulating in the halls. She does report in falls in the last 6 months. However her alcohol intake is unpredictable. 00-0700 Pt. rested well in between cares. Denies pain, mild Nausea w/dry heaves initially has since resolved. NPO during noc. Up to bathroom several times w/SBA w/cane tolerated activity fair. Still waiting for C-Diff sample. I reviewed her vitals Afebrile. Pulse 68. Respirations 18. White count is about the same, 11,000 Venous blood gas reassuring Initially this morning there was a potassium that came back at 2.8, however she was in midst of IV replacement bumps. This will be recheck this afternoon. Lactate returned normal this morning. Magnesium returned normal this morning. CRP is only mildly elevated and essentially the same from last night Notably her lipase has dropped from 8500 down to 4000 The diff positive at 11 30 this morning Review of Systems: See subjective Cardiac: No new chest pain/pressure/palpitations. Respiratory: no new dyspnea. GI: Continued abdominal pain Objective: Older than stated age. Thin. Tired appearing Vitals: see above Lungs: Clear. Cardiac: S1S2. Abdomen: Soft but tender to palpation in the midepigastric and upper left quadrant. No edema Disposition/Potential discharge - Likely to return to previous living situation. Total time is 35 minutes with greater than 50% spent in counseling and coordination of care. Exam Const: Vital Signs, click to edit/add: Vital Signs - 24 hr 10/08/21 17:14 10/08/21 18:29 10/08/21 19:00 Temperature 97.3 F L Pulse Rate [Left P ulse Oximeter] 87 82 76 Respiratory Rate 22 16 16 Blood Pressure [Le ft Arm] Blood Pressure [Ri ght Upper Arm] 161/95 H 157/100 H 184/110 H Pulse Oximetry 100 100 99 Oxygen Delivery Me thod Room Air Room Air Room Air 10/08/21 19:04 10/08/21 19:30 10/08/21 20:17 Temperature Pulse Rate [Left P ulse Oximeter] 82 74 83 Respiratory Rate 16 16 22 Blood Pressure [Le ft Arm] Blood Pressure [Ri ght Upper Arm] 183/105 H 182/109 H 176/101 H Pulse Oximetry 95 100 100 Oxygen Delivery Me thod Room Air Room Air Room Air 10/08/21 20:30 10/08/21 23:22 10/09/21 00:30 Temperature 98.6 F Pulse Rate [Left P ulse Oximeter] 83 75 Respiratory Rate 20 18 20 Blood Pressure [Le ft Arm] Blood Pressure [Ri ght Upper Arm] 150/103 H 155/102 H Pulse Oximetry 100 99 99 Oxygen Delivery Me thod Room Air Room Air Room Air 10/09/21 00:00 10/09/21 02:00 10/09/21 03:00 Temperature 98.6 F 98.9 F 98.1 F Pulse Rate [Left P ulse Oximeter] 69 75 Respiratory Rate 20 20 18 Blood Pressure [Le ft Arm] 128/76 139/72 149/89 H Blood Pressure [Ri ght Upper Arm] Pulse Oximetry 99 98 97 Oxygen Delivery Me thod Room Air Room Air Room Air 10/09/21 01:00 Temperature Pulse Rate [Left P ulse Oximeter] Respiratory Rate 18 Blood Pressure [Le ft Arm] Blood Pressure [Ri ght Upper Arm] Pulse Oximetry 99 Oxygen Delivery Or thod Room Air Labs Labs: Laboratory Results - last 24 hr 10/08/21 10/08/21 10/08/21 17:27 17:36 17:36 WBC 11.77 H RBC 3.74 L Hgb 12.1 Hct 35.7 MCV 96 MCH 32 MCHC 34 RDW Coeff of Silvia 11.8 Plt Count 247 Neut % (Auto) 83.3 H Lymph % (Auto) 8.5 L [place] % (Auto) 7.6 Eos % (Auto) 0.2 Baso % (Auto) 0.1 Neut # (Auto) 9.80 H Lymph # (Auto) 1.00 [place] # (Auto) 0.90 Eos # (Auto) 0.00 Baso # (Auto) 0.00 Abs Immat Gran (auto) 0.04 VBG pH VBG pCO2 VBG pO2 VBG HCO3 Sodium 136 Potassium 3.2 L Chloride 106 Carbon Dioxide 20 BUN 7 Creatinine 0.6 Estimated Creat Clear 90.41 Estimated GFR 105 Glucose 132 H Lactate Calcium 7.5 L Ionized Calcium Janette Phosphorus Magnesium 0.5 L* Iron Total Bilirubin 0.5 Direct Bilirubin 0.2 AST 30 ALT 23 Alkaline Phosphatase 202 H C-Reactive Protein 1.9 H Total Protein 6.6 Albumin 2.9 L Lipase 8584 H Urine Color Yellow Urine Appearance Slightly Cloudy A Urine pH 7.5 Ur Specific [place] 1.020 Urine Protein Negative Urine Glucose (UA) Negative Urine Ketones Negative Urine Blood Trace-intact A Urine Nitrite Positive A Urine Bilirubin Negative Urine Urobilinogen 0.2 Ur Leukocyte Esterase 1+ A Urine RBC 25-50 A Urine WBC 5-10 A Ur Squamous Epith Cells Moderate A Urine Bacteria Many A Ethyl Alcohol SARS-CoV-2 (PCR) 10/08/21 10/08/21 10/08/21 17:36 17:36 17:36 WBC RBC Hgb Hct MCV MCH MCHC RDW Coeff of Silvia Plt Count Neut % (Auto) Lymph % (Auto) [place] % (Auto) Eos % (Auto) Baso % (Auto) Neut # (Auto) Lymph # (Auto) [place] # (Auto) Eos # (Auto) Baso # (Auto) Abs Immat Gran (auto) VBG pH VBG pCO2 VBG pO2 VBG HCO3 Sodium Potassium Chloride Carbon Dioxide BUN Creatinine Estimated Creat Clear Estimated GFR Glucose Lactate 2.6 H Calcium Ionized Calcium Janette 0.97 L Phosphorus Magnesium Iron Total Bilirubin Direct Bilirubin AST ALT Alkaline Phosphatase C-Reactive Protein Total Protein Albumin Lipase Urine Color Urine Appearance Urine pH Ur Specific [place] Urine Protein Urine Glucose (UA) Urine Ketones Urine Blood Urine Nitrite Urine Bilirubin Urine Urobilinogen Ur Leukocyte Esterase Urine RBC Urine WBC Ur Squamous Epith Cells Urine Bacteria Ethyl Alcohol < 0.01 L SARS-CoV-2 (PCR) 10/08/21 10/08/21 10/09/21 17:36 19:38 06:27 WBC 11.80 H RBC 3.87 L Hgb 12.6 Hct 37.4 MCV 97 MCH 33 MCHC 34 RDW Coeff of Silvia Plt Count 234 Neut % (Auto) Lymph % (Auto) [place] % (Auto) Eos % (Auto) Baso % (Auto) Neut # (Auto) Lymph # (Auto) [place] # (Auto) Eos # (Auto) Baso # (Auto) Abs Immat Gran (auto) VBG pH VBG pCO2 VBG pO2 VBG HCO3 Sodium Potassium Chloride Carbon Dioxide BUN Creatinine Estimated Creat Clear Estimated GFR Glucose Lactate Calcium Ionized Calcium Janette Phosphorus Magnesium Cancelled Iron Total Bilirubin Direct Bilirubin AST ALT Alkaline Phosphatase C-Reactive Protein Total Protein Albumin Lipase Urine Color Urine Appearance Urine pH Ur Specific [place] Urine Protein Urine Glucose (UA) Urine Ketones Urine Blood Urine Nitrite Urine Bilirubin Urine Urobilinogen Ur Leukocyte Esterase Urine RBC Urine WBC Ur Squamous Epith Cells Urine Bacteria Ethyl Alcohol SARS-CoV-2 (PCR) Negative SARS-CoV-2 10/09/21 10/09/21 10/09/21 06:27 06:27 06:27 WBC RBC Hgb Hct MCV MCH MCHC RDW Coeff of Silvia Plt Count Neut % (Auto) Lymph % (Auto) [place] % (Auto) Eos % (Auto) Baso % (Auto) Neut # (Auto) Lymph # (Auto) [place] # (Auto) Eos # (Auto) Baso # (Auto) Abs Immat Gran (auto) VBG pH 7.464 H VBG pCO2 39 L VBG pO2 54.4 H VBG HCO3 28 Sodium 136 Potassium 2.8 L* Chloride 103 Carbon Dioxide 27 BUN 4 L Creatinine 0.5 Estimated Creat Clear 108.49 Estimated GFR 110 Glucose 102 Lactate Calcium 7.1 L Ionized Calcium Janette Phosphorus 2.9 Magnesium 2.2 Iron 66 Total Bilirubin 0.5 Direct Bilirubin 0.3 AST 39 H ALT 13 Alkaline Phosphatase 230 H C-Reactive Protein 2.3 H Total Protein 6.6 Albumin 2.9 L Lipase Urine Color Urine Appearance Urine pH Ur Specific [place] Urine Protein Urine Glucose (UA) Urine Ketones Urine Blood Urine Nitrite Urine Bilirubin Urine Urobilinogen Ur Leukocyte Esterase Urine RBC Urine WBC Ur Squamous Epith Cells Urine Bacteria Ethyl Alcohol SARS-CoV-2 (PCR)
[2021-10-09 07:40] LABS: Lactate* 0.8 mmol/L (0.5-1.9)
[2021-10-09 07:41] LABS: Lipase* 3935 U/L (23-300)
[2021-10-09 07:43] LABS: Erythrocyte SedimentationRate* 48 mm/hr (2-20)
[2021-10-09] MEDS: MAGNESIUM OXIDE 400 MG TABLET PO ×2 (08:24→21:53)
[2021-10-09] MEDS: METOPROLOL TARTRATE 25 MG TABLET PO ×2 (08:24→21:53)
[2021-10-09] MEDS: GABAPENTIN 300 MG CAPSULE PO ×3 (08:25→21:52)
[2021-10-09] MEDS: MULTIVITAMIN/MINERALS 1 TABLET 1 TAB PO (08:25)
[2021-10-09] MEDS: FAMOTIDINE 20 MG TABLET PO (08:25)
[2021-10-09] MEDS: SERTRALINE 100 MG TABLET PO (08:26)
[2021-10-09] MEDS: FOLIC ACID 1 MG TABLET PO (08:26)
[2021-10-09] MEDS: OXYCODONE 5 MG TABLET PO ×2 (10:34→21:52)
[2021-10-09] MEDS: ONDANSETRON ODT 4 MG TAB PO ×2 (10:34→21:51)
[2021-10-09 12:59] LABS: CDIFFEPI 027 PRESUMPTIVE NEGATIVE (Negative)
[2021-10-09 13:04] LABS: C.Difficile POSITIVE (Negative)
[2021-10-09] MEDS: VANCOMYCIN 125 MG CAPSULE PO ×3 (14:46→22:11)
[2021-10-09] MEDS: 0.9 % SODIUM CHLORIDE 1000 ml 1,000 ML 75 ML IV (16:06)
[2021-10-09 17:18] LABS: Chloride* 100 mmol/L (96-114); Sodium* 135 mmol/L (135-149)
[2021-10-09 17:21] LABS: Creatinine* 0.5 mg/dL (0.5-1.5); Est. Creatinine Clearance* 108.49; Estimated Glomerular Filt Rate 110 ml/min
[2021-10-09 17:22] LABS: Blood Urea Nitrogen* 6 mg/dL (7-30); Calcium* 6.8 mg/dL (8.4-10.6); Carbon Dioxide* 27 mmol/L (20-32); Glucose* 90 mg/dL (60-115)
[2021-10-09 17:32] LABS: Potassium* 2.5 mmol/L (3.6-5.1)
[2021-10-09] MEDS: POTASSIUM BICARB 25 MEQ EFFERVESCENT TAB PO ×3 (19:00→22:53)
--- NOTE | 2021-10-09 19:22 | PC.NURSE ---
shift note 07-19: SBA with cane and IV pole. CDIff Pos, having liquid stools. Tolerating clear liquid diet. pt fatigued and napping throughout the day. C/o nausea in the AM, since has resolved after dose of Zofran. Oxy given x 1 for c/o 7/10 generalized pain. VSS. BP elevated.
--- NOTE | 2021-10-09 23:41 | PC.NURSE ---
Shift note [id number]. Patient was alert and oriented x4. VSS. Received potassium IV and oral for supplementation. Continues to have loose stools x1 this shift. She received zofran for nausea. She received oxycodone for abdominal and back pain. She was pleasant and cooperative with cares.
[2021-10-10] VITALS (18 sets, daily range): BP systolic 119–148; BP diastolic 80–85; PULSE 63–83; RESP 16; TEMP 36.6–37; O2SAT 96–98
[2021-10-10] MEDS: ACETAMINOPHEN 325 MG TABLET 650 MG PO ×4 (00:33→18:59)
[2021-10-10] MEDS: POTASSIUM BICARB 25 MEQ EFFERVESCENT TAB PO (00:33)
[2021-10-10] MEDS: 0.9 % SODIUM CHLORIDE 1000 ml 1,000 ML 75 ML IV ×2 (03:00→17:59)
[2021-10-10] MEDS: OXYCODONE 5 MG TABLET PO ×2 (05:12→20:50)
[2021-10-10 06:54] LABS: Ionized Calcium* 0.91 mmol/L (1.11-1.30)
[2021-10-10 07:00] LABS: Basophils Absolute Auto 0.01 K/uL (0.00-0.30); Basophils Percent Auto 0.1 % (0.0-3.0); Eosinophils Percent Auto 1.9 % (0.0-7.0); Hematocrit 36.7 % (33.0-51.0); Hemoglobin* 12.1 gm/dL (12.0-16.0); Immature Granulocytes Abs Auto 0.11 K/uL (0.00-0.30); Lymphocytes Absolute Auto 2.28 K/uL (0.90-2.90); Lymphocytes Percent Auto 21.1 % (20-44); Mean Corpuscular HGB Conc 33 gm/dL (32-36); Mean Corpuscular Hemoglobin 33 pg (26-34); Mean Corpuscular Volume 100 fL (80-100); Monocytes Percent Auto 7.4 % (0.0-11.0); Neutrophils Absolute Auto 7.39 K/uL (1.7-7.0); Neutrophils Percent Auto 68.5 % (42.0-72.0); Platelet Count* 205 K/uL (140-440); RDW Coefficient of Variation % 12.1 % (11.5-15.5); Red Blood Count 3.67 m/uL (4.00-5.20); White Blood Count* 10.79 K/uL (4.50-11.00)
[2021-10-10 07:12] LABS: Slide Review Reflex No
[2021-10-10 07:16] LABS: Albumin* 2.6 g/dL (3.3-5.0); Potassium* 3.9 mmol/L (3.6-5.1)
[2021-10-10 07:19] LABS: Magnesium* 1.3 mg/dL (1.5-2.6)
[2021-10-10 07:22] LABS: C Reactive Protein* 4.4 mg/dL (0.5-1.0)
[2021-10-10 07:29] LABS: NT Pro B Type NatriureticPept* 578 PG/mL (0-125)
--- NOTE | 2021-10-10 07:31 | PC.NURSE ---
Shift note: The pt had x2 liquid stool throughout the shift. She has been reporting mild to moderated abdominal pain, neck and back pain- the pain has been well managed with PRN pain medication. She denied short of breath and chest pain. She denied urine frequency, burn and urgency.
[2021-10-10] MEDS: FAMOTIDINE 20 MG TABLET PO (09:05)
[2021-10-10] MEDS: FOLIC ACID 1 MG TABLET PO (09:05)
[2021-10-10] MEDS: METOPROLOL TARTRATE 25 MG TABLET PO ×2 (09:05→20:50)
[2021-10-10] MEDS: SERTRALINE 100 MG TABLET PO (09:05)
[2021-10-10] MEDS: MAGNESIUM OXIDE 400 MG TABLET PO ×2 (09:05→18:00)
[2021-10-10] MEDS: MULTIVITAMIN/MINERALS 1 TABLET 1 TAB PO (09:05)
[2021-10-10] MEDS: GABAPENTIN 300 MG CAPSULE PO ×3 (09:05→20:50)
[2021-10-10] MEDS: VANCOMYCIN 125 MG CAPSULE PO ×4 (09:05→20:51)
--- NOTE | 2021-10-10 10:55 | PM.IMPN1 ---
Progress Note: A&P Assessment and plan (1) Pancreatitis, alcoholic, acute: Status: Acute Assessment and Plan: Clinically improving. Lipase is been decreasing. Next is due this afternoon. Advanced diet. (2) C. difficile diarrhea: Status: Acute Assessment and Plan: Oral vancomycin. Patient feels improved. Track I's and O's and volume status. (3) Hypokalemia: Status: Acute Assessment and Plan: Trend in follow (4) Hypocalcemia: Status: Acute Assessment and Plan: Calcium gluconate, trended follow-up (5) Hypomagnesemia: Status: Acute Assessment and Plan: IV magnesium replacement, trended follow (6) UTI (urinary tract infection): Status: Acute Assessment and Plan: Looked at the sensitivities. Stopping ceftriaxone. Starting ciprofloxacin. (7) Peripheral neuropathy: Status: Acute Assessment and Plan: Continue gabapentin (8) Generalized anxiety disorder: Status: Acute Assessment and Plan: Continue home meds Subjective Date Seen: 10/10/21 Interval history: Daily Progress Note - Hospital Medicine Day #: 3 Rocephin Day 2, completed therapy. Day 1 Cipro. UC pos for Klebsiella. Vanco Day 2 CC: pancreatitis. abdominal pain. now +C. Diff. several electrolyte abnl. OVERNIGHT UPDATES FROM STAFF & MED, LAB, IMAGING UPDATES Patient looks brighter today. She feels better. She is asking for advancement in her diet. She continued to have liquid stools. This is her 2nd lifetime occurrence for C diff. no evidence of alcohol withdrawal. Her abdominal pain is much less. 140/80 66 Afebrile Room air White count is down to 10.7 Hemoglobin stable Blood gas stable Potassium had dipped down to 2.5 and now today is up to 3.9 with supplementation Serum calcium 6.8, ionized calcium 0.9 Magnesium 1.3 Klebsiella growing in her urine culture, pansensitive other than ampicillin Review of Systems: See subjective Cardiac: No new chest pain/pressure/palpitations. Respiratory: no new dyspnea. GI: Continued abdominal pain Objective: Older than stated age. Thin. Tired appearing Vitals: see above Lungs: Clear. Cardiac: S1S2. Abdomen: Soft but tender to palpation in the midepigastric and upper left quadrant. No edema Disposition/Potential discharge - Likely to return to previous living situation. Total time is 35 minutes with greater than 50% spent in counseling and coordination of care. Exam Const: Vital Signs, click to edit/add: Vital Signs - 24 hr 10/09/21 11:00 10/09/21 15:00 10/09/21 15:00 Temperature 98.1 F 97.6 F Pulse Rate [Left P ulse Oximeter] 68 68 Respiratory Rate 18 18 18 Blood Pressure [Le ft Arm] 156/93 H 124/85 Pulse Oximetry 97 97 Oxygen Delivery Me thod Room Air Room Air 10/09/21 20:36 10/10/21 00:29 10/10/21 00:30 Temperature 98.3 F 98.4 F Pulse Rate [Left P ulse Oximeter] 76 75 75 Respiratory Rate 16 16 16 Blood Pressure [Le ft Arm] 142/85 H 148/81 H Pulse Oximetry 97 97 Oxygen Delivery Me thod Room Air Room Air 10/10/21 00:33 10/10/21 00:46 10/10/21 05:07 Temperature 98.4 F 98.4 F 98.6 F Pulse Rate [Left P ulse Oximeter] 75 63 Respiratory Rate 16 16 Blood Pressure [Le ft Arm] 148/81 H 128/80 Pulse Oximetry 97 96 Oxygen Delivery Me thod Room Air Room Air 10/10/21 05:11 10/10/21 07:00 10/10/21 07:48 Temperature 98.6 F 98.1 F Pulse Rate [Left P ulse Oximeter] 63 75 75 Respiratory Rate 16 16 16 Blood Pressure [Le ft Arm] 128/80 138/85 Pulse Oximetry 96 97 Oxygen Delivery Me thod Room Air Room Air 10/10/21 09:25 Temperature 98.1 F Pulse Rate [Left P ulse Oximeter] Respiratory Rate Blood Pressure [Le ft Arm] Pulse Oximetry Oxygen Delivery Me thod Labs Labs: Laboratory Results - last 24 hr 10/09/21 10/09/21 10/10/21 11:24 16:48 06:23 WBC 10.79 RBC 3.67 L Hgb 12.1 Hct 36.7 MCV 100 MCH 33 MCHC 33 RDW Coeff of Silvia 12.1 Plt Count 205 Neut % (Auto) 68.5 Lymph % (Auto) 21.1 Jackson % (Auto) 7.4 Eos % (Auto) 1.9 Baso % (Auto) 0.1 Neut # (Auto) 7.39 H Lymph # (Auto) 2.28 Jackson # (Auto) 0.80 Eos # (Auto) 0.20 Baso # (Auto) 0.01 Abs Immat Gran (auto) 0.11 Sodium 135 Potassium 2.5 L* Chloride 100 Carbon Dioxide 27 BUN 6 L Creatinine 0.5 Estimated Creat Clear 108.49 Estimated GFR 110 Glucose 90 Calcium 6.8 L Ionized Calcium Janette Magnesium C-Reactive Protein NT-Pro-B Natriuret Pep Albumin Stl C.difficile Tox PCR POSITIVE A* St C. diff Tox Epid 027 PRESUMPTIVE NEGATIVE 10/10/21 10/10/21 06:23 06:23 WBC RBC Hgb Hct MCV MCH MCHC RDW Coeff of Silvia Plt Count Neut % (Auto) Lymph % (Auto) Jackson % (Auto) Eos % (Auto) Baso % (Auto) Neut # (Auto) Lymph # (Auto) Jackson # (Auto) Eos # (Auto) Baso # (Auto) Abs Immat Gran (auto) Sodium Potassium 3.9 Chloride Carbon Dioxide BUN Creatinine Estimated Creat Clear Estimated GFR Glucose Calcium Ionized Calcium Janette 0.91 L Magnesium 1.3 L C-Reactive Protein 4.4 H NT-Pro-B Natriuret Pep 578 H Albumin 2.6 L Stl C.difficile Tox PCR St C. diff Tox Epid 027
[2021-10-10] MEDS: CIPROFLOXACIN 250 MG TABLET PO ×2 (10:58→20:50)
[2021-10-10] MEDS: MAGNESIUM IV 2 GM/50 ML PIGGYBACK IVPB (11:01)
--- NOTE | 2021-10-10 15:18 | PC.NURSE ---
shift note 07-15: SBA with gb and walker. Calls appropriately. Pt conversing more today, states she is feeling better. No c/o n/v. 200mL yellow urine output per void, x3. 1x loose green stool. Pt has been continent. Rating chronic back & neck pain 7/10. Stating abd pain is 5/10, scheduled tylenol & PRN oxy. BP 130s/80s. VSS.
[2021-10-10 16:57] LABS: Ionized Calcium* 1.07 mmol/L (1.11-1.30)
[2021-10-10 17:15] LABS: Chloride* 99 mmol/L (96-114); Potassium* 3.7 mmol/L (3.6-5.1); Sodium* 133 mmol/L (135-149)
[2021-10-10 17:17] LABS: Creatinine* 0.5 mg/dL (0.5-1.5); Est. Creatinine Clearance* 108.49; Estimated Glomerular Filt Rate 110 ml/min; Lipase* 1893 U/L (23-300)
[2021-10-10 17:18] LABS: Blood Urea Nitrogen* 9 mg/dL (7-30); Carbon Dioxide* 27 mmol/L (20-32); Glucose* 106 mg/dL (60-115); Magnesium* 2.1 mg/dL (1.5-2.6)
--- NOTE | 2021-10-10 18:45 | ED.NURSE ---
Addendum entered by Diana Whitt RN 10/10/21 18:47: MS shift nurse note. not ED Nurse note. Original Note: pt denies any concerns this shift, pt tolerated muffin without complaints - advanced to mac&cheese eating slowly -denies complaints.
[2021-10-10] MEDS: THIAMINE 100 MG TABLET PO (20:51)
[2021-10-11 00:52] VITALS: TEMP 36.6
[2021-10-11] MEDS: ACETAMINOPHEN 325 MG TABLET 650 MG PO ×2 (00:52→06:27)
[2021-10-11 02:37] VITALS: BP 128/77; PULSE 77; RESP 16; TEMP 36.6; O2SAT 97
[2021-10-11 02:38] VITALS: BP 128/77; PULSE 77; RESP 16; TEMP 36.6; O2SAT 97
--- NOTE | 2021-10-11 04:21 | PC.NURSE ---
Pt rested well this night. CIWA unremarkable. Mild to no Agitation. Pain controlled. No N/V. Pt up IND in room. Afebrile.
[2021-10-11 07:00] VITALS: BP 153/87; PULSE 76; RESP 16; TEMP 36.9; O2SAT 96
[2021-10-11 07:12] LABS: Hematocrit 36.9 % (33.0-51.0); Hemoglobin* 12.1 gm/dL (12.0-16.0); Mean Corpuscular HGB Conc 33 gm/dL (32-36); Mean Corpuscular Hemoglobin 33 pg (26-34); Mean Corpuscular Volume 100 fL (80-100); Platelet Count* 221 K/uL (140-440); Red Blood Count 3.69 m/uL (4.00-5.20); White Blood Count* 10.85 K/uL (4.50-11.00)
[2021-10-11 07:27] LABS: Slide Review Reflex No
[2021-10-11 07:32] LABS: Ionized Calcium* 0.99 mmol/L (1.11-1.30)
[2021-10-11] MEDS: 0.9 % SODIUM CHLORIDE 1000 ml 1,000 ML 75 ML IV (07:39)
[2021-10-11 08:10] LABS: Chloride* 101 mmol/L (96-114); Potassium* 3.8 mmol/L (3.6-5.1); Sodium* 132 mmol/L (135-149)
[2021-10-11 08:13] LABS: Creatinine* 0.5 mg/dL (0.5-1.5); Est. Creatinine Clearance* 108.49; Estimated Glomerular Filt Rate 110 ml/min; Lipase* 1432 U/L (23-300)
[2021-10-11 08:14] LABS: Blood Urea Nitrogen* 9 mg/dL (7-30); Calcium* 7.4 mg/dL (8.4-10.6); Carbon Dioxide* 28 mmol/L (20-32); Glucose* 83 mg/dL (60-115); Magnesium* 1.5 mg/dL (1.5-2.6)
[2021-10-11 08:17] LABS: C Reactive Protein* 8.8 mg/dL (0.5-1.0)
[2021-10-11] MEDS: SERTRALINE 100 MG TABLET PO (08:52)
[2021-10-11] MEDS: CIPROFLOXACIN 250 MG TABLET PO (08:52)
[2021-10-11] MEDS: FOLIC ACID 1 MG TABLET PO (08:52)
[2021-10-11] MEDS: GABAPENTIN 300 MG CAPSULE PO (08:52)
[2021-10-11] MEDS: FAMOTIDINE 20 MG TABLET PO (08:52)
[2021-10-11] MEDS: METOPROLOL TARTRATE 25 MG TABLET PO (08:52)
[2021-10-11] MEDS: VANCOMYCIN 125 MG CAPSULE PO (08:52)
--- NOTE | 2021-10-11 11:13 | PC.SOCIAL ---
[facility] transport will arrive at noon to [facility] pt. Pt.'s insurance covers transport.
--- NOTE | 2021-10-11 12:03 | PC.NURSE ---
Pt. discharged at 12:00. IV in right and left arm removed, intact. Discharge instructions given and signed. Belonging list signed. Pt. Alert and Oriented x3, ambulated in hallway with therapy and tolerated well. Pt. Afebrile this shift and vitals stable. Pt. has not had any loose BM this shift.
--- NOTE | 2021-10-11 12:58 | NUTR.NU ---
RDN with MD consult for EtOHism nausea, vomiting, diarrhea, and chronic low magnesium. RDN attempted to visit with patient, however patient was already discharged.
--- NOTE | 2021-10-11 13:37 | P.DS_ITS ---
DS: Providers Provider Date Seen: 10/11/21 Date of admission: 10/08/21 21:47 Primary care physician: Not a Local Provider Admitting Clinician: Robert Darling MD Consults: 10/08/21 21:47 Consult to Nutrition [CONS] Routine Comment: Reason for consult:: Miscellaneous Comment: alcoholism, n/v, diarrhea, chonic low Magnesium 10/09/21 05:34 Consult to Occupational Therapy [CONS] Routine Comment: Reason(s) for OT Consult:: Evaluate and Treat Any Restrictions?:: No Restrictions Consult to Physical Therapy [CONS] Routine Comment: Reason(s) for PT Consult:: Evaluate and Treat Any Restrictions?:: See Comment Comment: pt. uses cane and has past history of falls. Date unknown Attending Physician on discharge: Sherry Kirby MD [facility] Date of Discharge: 10/11/21 DS: Diagnosis Discharge Diagnosis (1) Pancreatitis, alcoholic, acute: Status: Acute (2) C. difficile diarrhea: Status: Acute (3) Hypokalemia: Status: Acute (4) Hypocalcemia: Status: Acute (5) Hypomagnesemia: Status: Acute (6) UTI (urinary tract infection): Status: Acute (7) Peripheral neuropathy: Status: Acute (8) Generalized anxiety disorder: Status: Acute DS: Summary Hospital Course Hospital Course: HOSPITALIST DISCHARGE SUMMARY ATTENDING PHYSICIAN: Sehrry Kirby MD FINAL DIAGNOSIS: Acute alcoholic pancreatitis C difficile colitis Urinary tract infection Hypokalemia Hypocalcemia Hypomagnesemia Chronic alcoholism HOSPITAL FOLLOWUP ISSUES: 1. Alcohol abstinence. Recommended patient return to outpatient treatment. Realign with a support group/a. 2. PCP to recheck electrolytes, refer to GI if diarrhea continues and to support alcohol abstinence REFERRALS WHILE ADMITTED: OT and PT REFERRALS AFTER DISCHARGE: Return to PCP BRIEF HOSPITAL COURSE: 56-year-old Yessy presented with acute abdominal pain. She was diagnosed with acute pancreatitis related to alcohol intake. She was managed conservatively with IV fluids, antiemetics and pain management. Unfortunately she was also diagnosed with a UTI and C difficile colitis. Her UTI was covered at 1st with IV Rocephin and then transition based sensitivities to oral ciprofloxacin. The patient had her 1st bout of C diff last spring. This was successfully treated. She started having diarrhea here during her pancreatitis convalescence, this was treated with oral vancomycin. She did not have any significant alcohol withdrawal. Alcohol abstinence was stressed to the patient. At discharge her diarrhea was already improving, she was tolerating a normal diet and her dysuria was also improved. VITAL SIGN, MEDICATION, LAB/MICRO, IMAGING SUMMARY (full details available in account tabs or by records request) 153/87. Pulse 77. Respiratory rate 16, unlabored. Room air sats 96%. Afe brile. On discharge, CBC was unremarkable. Sodium is chronically low but stable at 132 at discharge. Her calcium remains low. Ionized calcium 0.9. She was discharged on calcium carbonate. Her magnesium was normal. Potassium normal. Normal renal function. Lipase down trended. C reactive protein down trended. Urine culture grew Klebsiella, pansensitive except for ampicillin Abdominal ultrasound MPRESSION: 1. Normal gallbladder, without findings of cholelithiasis or acute cholecystitis. 2. Mildly prominent extrahepatic bile duct measuring 8 mm. No intrahepatic biliary ductal dilatation. 3. No pancreatic ductal dilatation or peripancreatic fluid. DISCHARGE MEDICATIONS: See Reconciled list REVIEW OF SYSTEMS No new chest pain or dyspnea Pain controlled No voiding difficulties Tolerating diet challenge PHYSICAL EXAM: CONSTITUTIONAL: No acute distress. Walking the halls. Tolerating a normal diet. VITAL SIGNS: see record. HEENT: Normocephalic, atraumatic. PERRL, EOMI, conjunctivae pink, no scleral icterus. Ears and nose externally normal. Pharynx normal. NECK: No JVD. No carotid bruit, no thyromegaly, no adenopathy. CHEST: Clear to auscultation bilaterally. HEART: S1 and S2 normal. No edema. ABDOMEN: Soft, nontender. Normal bowel sounds. MUSCULOSKELETAL: No gross joint deformity or swelling. NEURO: Cranial nerves intact. Grossly intact. No asymmetric findings. SKIN: No rashes, petechiae, concerning changes PSYCHIATRIC: Mood euthymic. DISPOSITION: home Time spent on discharge 37 minutes. Status at Discharge Functional status at discharge: independent ambulation Overall status at discharge: patient is progressing back to baseline Time Spent with Patient Time attestation: Total time spent providing and/or coordinating discharge services: Time spent: Greater than 30 minutes Exam Const: Vital Signs, click to edit/add: Vital Signs - 24 hr 10/10/21 15:23 10/10/21 16:02 10/10/21 19:32 Temperature 98.2 F 98.1 F Pulse Rate [Left P ulse Oximeter] 66 66 83 Respiratory Rate 16 16 16 Blood Pressure [Le ft Arm] 140/80 H 119/85 Pulse Oximetry 98 98 Oxygen Delivery Me thod Room Air Room Air 10/10/21 19:00 10/10/21 20:49 10/10/21 22:05 Temperature 98.1 F 98.1 F 98 F Pulse Rate [Left P ulse Oximeter] 83 73 Respiratory Rate 16 16 Blood Pressure [Le ft Arm] 119/85 143/80 H Pulse Oximetry 98 97 Oxygen Delivery Me thod Room Air Room Air 10/10/21 22:21 10/10/21 22:23 10/11/21 00:52 Temperature 98 F 98 F Pulse Rate [Left P ulse Oximeter] 73 73 Respiratory Rate 16 16 Blood Pressure [Le ft Arm] 143/80 H Pulse Oximetry 97 Oxygen Delivery Me thod Room Air 10/11/21 02:37 10/11/21 02:38 10/11/21 07:00 Temperature 98 F 98 F 98.4 F Pulse Rate [Left P ulse Oximeter] 77 77 76 Respiratory Rate 16 16 16 Blood Pressure [Le ft Arm] 128/77 128/77 153/87 H Pulse Oximetry 97 97 96 Oxygen Delivery Me thod Room Air Room Air Room Air 10/11/21 07:00 Temperature Pulse Rate [Left P ulse Oximeter] 76 Respiratory Rate 16 Blood Pressure [Le ft Arm] Pulse Oximetry Oxygen Delivery Me thod DS: Data Data Completed and Pending Labs on day of discharge: Labs from last 24 hours 10/11/21 10/11/21 10/11/21 06:25 06:25 06:25 WBC 10.85 RBC 3.69 L Hgb 12.1 Hct 36.9 MCV 100 MCH 33 MCHC 33 Plt Count 221 Sodium 132 L Potassium 3.8 Chloride 101 Carbon Dioxide 28 BUN 9 Creatinine 0.5 Estimated Creat Clear 108.49 Estimated GFR 110 Glucose 83 Calcium 7.4 L Ionized Calcium Janette 0.99 L Magnesium 1.5 C-Reactive Protein 8.8 H Lipase 1432 H 10/10/21 10/10/21 16:49 16:49 WBC RBC Hgb Hct MCV MCH MCHC Plt Count Sodium 133 L Potassium 3.7 Chloride 99 Carbon Dioxide 27 BUN 9 Creatinine 0.5 Estimated Creat Clear 108.49 Estimated GFR 110 Glucose 106 Calcium 8.0 L Ionized Calcium Janette 1.07 L Magnesium 2.1 C-Reactive Protein Lipase 1893 H Discharge Plan Discharge Disposition: Home, Self-Care Date of Admission: 10/08/21 21:47 Attending Provider on Discharge: Sherry Kirby Primary Care Provider: Provider,Not a Local Condition: Stable Anticipated Discharge Date/Time: 10/11/21 11:23 Discharge Medications: New ciprofloxacin HCl 250 mg Tablet 250 mg PO BID Qty: 10 0RF vancomycin 125 mg Capsule 125 mg PO QID Qty: 56 0RF folic acid 1 mg Tablet 1 mg PO DAILY Qty: 30 0RF ondansetron 4 mg Tablet,Disintegrating 4 mg PO Q4H PRNQty: 30 0RF calcium carbonate-vitamin D3 [Oyster Shell Calcium-Vit D3] 500 mg-5 mcg (200 unit) Tablet 2 tab PO BID@1200,1800 Qty: 120 0RF Continued sertraline 100 mg tablet 100 mg PO DAILY metoprolol tartrate 50 mg tablet 50 mg PO BID gabapentin 300 mg capsule 600 mg PO TID Rx Instructions: TOTAL DOSE = 700MG TID famotidine 20 mg tablet 20 mg PO BID gabapentin 100 mg capsule 100 mg PO TID Rx Instructions: TOTAL DOSE = 700MG TID acetaminophen 500 mg tablet 1,000 mg PO Q6H PRN cholecalciferol (vitamin D3) 50 mcg (2,000 unit) capsule 2,000 unit PO HS loperamide 2 mg capsule 2 mg PO PRN Mag-Delay 64 mg tablet,delayed release (DR/EC) 128 mg PO DAILY multivitamin with folic acid [Tab-A-Bob] 400 mcg tablet 1 tab PO DAILY Discharge Orders: Discharge Order (Routine); Ordered 10/11/21 Ordered By: Sherry Kirby Patient Education: Ciprofloxacin (By mouth), Folic Acid (By mouth), Ondansetron (By mouth), Vancomycin (By mouth), Calcium/Vitamin D Supplement (By mouth) (Lenin-Citrate, Lenin-Citrate..., Pancreatitis (DC) Activity Restrictions/Additional Instructions: 1. For the CDIFF diarrhea/loose stools. Please take all the oral vancomycin. It's tough to take a pill 4 times a day. If you forget, it's ok just take two the next dose. 2. For the UTI, complete all the Cipro. 3. For your health, join AA. Stop drinking 100%. Activity Level: Activity as Tolerated Discharge Diet: Regular Follow Up Appointments: Provider,Not a Local [Primary Care Provider] - Forms: [employer] Info Instructions
== END 2021-10-11 12:00 | disposition home or self-care (01) | DRG 282 ==
LOC: ED 21:08 → MEDSURG 22:16
PROVIDERS: Family Medicine; Admitting Provider Internal Medicine; Emergency Provider Family Medicine; Visit Provider Internal Medicine
DX: K85.20 Alcohol induced acute pancreatitis without necrosis or infection (principal); F10.20 Alcohol dependence, uncomplicated; E87.6 Hypokalemia; E46 Unspecified protein-calorie malnutrition; E83.42 Hypomagnesemia; E83.51 Hypocalcemia; E86.0 Dehydration; A04.72 Enterocolitis due to Clostridium difficile, not specified as recurrent; N39.0 Urinary tract infection, site not specified; B96.1 Klebsiella pneumoniae [K. pneumoniae] as the cause of diseases classified elsewhere; D47.2 Monoclonal gammopathy; F32.9 Major depressive disorder, single episode, unspecified; F41.1 Generalized anxiety disorder; F17.200 Nicotine dependence, unspecified, uncomplicated; E04.1 Nontoxic single thyroid nodule; G62.9 Polyneuropathy, unspecified; H54.7 Unspecified visual loss; I10 Essential (primary) hypertension; K21.9 Gastro-esophageal reflux disease without esophagitis; F17.210 Nicotine dependence, cigarettes, uncomplicated
CPT/HCPCS: 36415; 74019; 76705; 80048; 80076; 81001; 82040; 82077; 82330; 82803; 83540; 83550; 83605; 83690; 83735; 83880; 84100; 84132; 85025; 85027; 85651; 86140; 87086; 87186; 87493; 87635; 97110; 97116; 97161; 97165; 97535; 99284; 99285; A9153; A9270; C9113; J0610; J0696; J2060; J2405; J3475; J3480; J7030; S4990

== ENCOUNTER 2022-01-02 07:51 | Inpatient (IN) | payer BC, SELFPAY ==
[2022-01-02] VITALS (22 sets, daily range): BP systolic 144–178; BP diastolic 86–116; PULSE 83–126; RESP 12–32; TEMP 36.1–36.8; O2SAT 96–100; BMI 21.5; BMI 22.6
[2022-01-02 08:19] LABS: HCO3 VBG 21 mmol/L (21-28); Lactate* 1.9 mmol/L (0.5-1.9); PCO2 VBG 21 mmHG (40-50); PO2 VBG 47.6 mmHG (25-47); pH VBG 7.597 (7.32-7.43)
[2022-01-02 08:22] LABS: Basophils Absolute Auto 0.01 K/uL (0.00-0.30); Basophils Percent Auto 0.1 % (0.0-3.0); Eosinophils Absolute Auto 0.01 K/uL (0.00-0.50); Eosinophils Percent Auto 0.1 % (0.0-7.0); Hematocrit 41.1 % (33.0-51.0); Hemoglobin* 13.9 gm/dL (12.0-16.0); Immature Granulocytes Abs Auto 0.05 K/uL (0.00-0.30); Immature Granulocytes Pct Auto 0.5 %; Lymphocytes Percent Auto 9.8 % (20-44); Mean Corpuscular HGB Conc 34 gm/dL (32-36); Mean Corpuscular Hemoglobin 32 pg (26-34); Mean Corpuscular Volume 95 fL (80-100); Monocytes Percent Auto 6.9 % (0.0-11.0); Neutrophils Percent Auto 82.6 % (42.0-72.0); Platelet Count* 278 K/uL (140-440); RDW Coefficient of Variation % 12.7 % (11.5-15.5); Red Blood Count 4.33 m/uL (4.00-5.20); White Blood Count* 10.39 K/uL (4.50-11.00)
[2022-01-02 08:24] LABS: Slide Review Reflex No
--- NOTE | 2022-01-02 08:24 | ED_ITS ---
HPI - General Adult General Time Seen by Provider: 08:25 Date Seen: 01/02/22 Chief complaint: Abdominal Pain Stated complaint: NVD Time Seen by Provider: 01/02/22 08:03 Source: patient and RN notes reviewed Mode of arrival: EMS Limitations: no limitations History of Present Illness HPI narrative: Patient is a 56-year-old female brought in by EMS from home for abdominal pain, pain going into her chest and going into her neck. She has had nausea vomiting diarrhea reportedly but no blood. No fevers. She states she is coughing some. She was hospitalized this past September with pancreatitis and she wonders if it is pancreatitis. She had told this to EMS and nursing. She is quietly resting but is soon as I walk in and introduced myself she started moaning loudly. Her moaning interferes with her ability to converse with me. She sits up an states she has a cramp in her side and is feeling nauseated. She attempts to dry heaves but has no vomiting. She has been drinking vodka daily until Monday. She is a smoker as well. She tells me that she has never went to treatment for alcohol but AC notation of outpatient treatment in her last records in September. Related Data Home Medications Medication Instructions Recorded Confirmed famotidine 20 mg tablet 20 mg PO BID 10/08/21 10/09/21 gabapentin 300 mg capsule 600 mg PO TID 10/08/21 10/09/21 metoprolol tartrate 50 mg tablet 50 mg PO BID 10/08/21 10/09/21 sertraline 100 mg tablet 100 mg PO DAILY 10/08/21 10/09/21 acetaminophen 500 mg tablet 1,000 mg PO Q6H PRN 10/09/21 10/09/21 cholecalciferol (vitamin D3) 50 2,000 unit PO HS 10/09/21 10/09/21 mcg (2,000 unit) capsule gabapentin 100 mg capsule 100 mg PO TID 10/09/21 10/09/21 loperamide 2 mg capsule 2 mg PO PRN 10/09/21 10/09/21 magnesium chloride 64 mg 128 mg PO DAILY 10/09/21 10/09/21 (magnesium chloride) tablet,delayed release (Mag-Delay) multivitamin with folic acid 400 1 tab PO DAILY 10/09/21 10/09/21 mcg tablet (Tab-A-Bob) Previous Rx's Medication Instructions Recorded calcium carbonate 500 mg-vitamin 2 tab PO BID@1200,1800 #120 tabs 10/11/21 D3 5 mcg (200 unit) tablet (Oyster Shell Calcium-Vitamin D3) ciprofloxacin HCl 250 mg tablet 250 mg PO BID #10 tabs 10/11/21 folic acid 1 mg tablet 1 mg PO DAILY #30 tabs 10/11/21 ondansetron 4 mg disintegrating 4 mg PO Q4H PRN #30 tabs 10/11/21 tablet vancomycin 125 mg capsule 125 mg PO QID #56 caps 10/11/21 Allergies Allergy/AdvReac Type Severity Reaction Status Date / Time No Known Allergies Allergy Verified 10/08/21 17:19 Review of Systems Status of ROS: Reports: unobtainable due to medical condition [facility] Medical History (Updated 01/02/22 @ 12:59 by Kirstie Walker MD) Acalculous cholecystitis Alcoholism Chronic diarrhea Closed fracture of second cervical vertebra without spinal cord injury Clostridioides difficile diarrhea Gallstone pancreatitis Gastroesophageal reflux disease Generalized anxiety disorder Hypertension Hypokalemia Hypomagnesemia Major depressive disorder Monoclonal gammopathy Nontoxic single thyroid nodule Pancreatitis, alcoholic, acute Peripheral neuropathy Personal history of gallstones Sacroiliitis, not elsewhere classified Tobacco dependence Urinary tract infection Visual impairment Social History What is your current living situation: I presently have a place to live Highest level of school completed/degree received: GED or equivalent Smoking Status: Current every day smoker What tobacco products do you use: cigarettes Smoking packs per day: 1 Smoking cigarettes per day: 20.0 Years smoked: 30 Smoking pack-years: 30.00 Do you use any of these nicotine containing products: None Second hand tobacco smoke exposure: Yes How often do you have a drink containing alcohol: 4 or more times a week Alcohol type: hard liquor Alcohol type details: vodka How many standard drinks containing alcohol do you have on a typical day: 5 or 6 How often do you have six or more drinks on one occasion: Daily or almost daily AUDIT-C Alcohol total score: 10 Non-prescribed substance use: marijuana (any form) Caffeine: Yes (1 cup a day) Are you now , , , , never or living with a partner: Social isolation score (0-1 are the most socially isolated patients): 0 service: No Exam Const: Vital Signs, click to edit/add: Vital Signs - 24 hr 01/02/22 07:57 01/02/22 08:07 01/02/22 13:04 Temperature 97 F L Pulse Rate 104 H Pulse Rate [Apical ] 100 Respiratory Rate 24 Blood Pressure 169/96 H Blood Pressure [Le ft Upper Arm] 168/100 H Pulse Oximetry 100 99 97 Oxygen Delivery Me thod Room Air 01/02/22 13:05 Temperature Pulse Rate 126 H Pulse Rate [Apical ] Respiratory Rate Blood Pressure Blood Pressure [Le ft Upper Arm] Pulse Oximetry 97 Oxygen Delivery Me thod Documenting provider has reviewed patient's vital signs: yes Common normals: oriented x3 and alert General appearance: in distress and appears older than stated age HENMT: Common normals: normocephalic, head/scalp atraumatic, hearing grossly normal bilaterally, external ears normal, external nose normal, nasal mucous membranes and turbinates normal and moist oral mucous membranes Head and scalp: normocephalic and atraumatic Nose: external nose normal and nasal mucous membranes and turbinates normal External ear: external ears normal Eye: Common normals: PERRL, EOMs intact bilaterally, conjunctivae normal and no scleral icterus Conjunctiva: conjunctiva(e) normal Pupil: PERRL Neck & C-Spine: Common normals: full ROM, no lymphadenopathy, supple, no meningeal signs, no JVD and thyroid normal Thyroid: thyroid normal Chest: Common normals: inspection of chest normal and palpation of chest normal Resp: Common normals: normal respiratory effort, no retractions, no use of accessory muscles and clear to auscultation bilaterally Auscultation: clear to auscultation bilaterally Other: Is able to roll to her side to allow me to listen to her lungs. She is able to refrain from moaning when asked to do so I could listen to her heart and lungs. Cardio: Common normals: no JVD GI: Common normals: Normal to inspection, nondistended, normoactive bowel sounds present and soft to palpation Palpation: soft Other: Moans throughout abdominal exam. She had abdominal cramp in the muscle when she attempted to sit up which confounded the examination. An never did fill palpable muscle spasm. She had some generalized tenderness throughout her upper abdomen but I cannot say that there was any rebound or guarding. Did not feel any masses. Extremity: Other: Her lower extremities are quite thin. She has some bruising on the left outer leg. Muscle mass is minimal but there is no calf tenderness. Neuro: Common normals: oriented x3, moves all extremities, no focal motor deficits and no sensory deficits noted Sensorium/orientation: alert Meningeal signs: no meningeal signs Course Course Hospital Course: She had abdominal imaging with an ultrasound last hospitalization to rule out gallstone pancreatitis. Will get appropriate labs. EMS did start a L of fluid in the a given her Zofran and fentanyl EN route. With this muscle cramping in her history of hypo magnesemia, I am going to order 2 g IV magnesium. She will be on cardiac monitoring and pulse oximetry. Will look at EKG as well as troponin to ensure no complicating cardiac disease. My presumption is she has pancreatitis with pain radiating to chest and neck. I will do portable chest x- ray, will screen for COVID. Alcoholic gastritis is always a possibility as well. There is reportedly no blood with emesis which is reassuring. She reportedly had C difficile and a UTI last hospitalization in September. We will certainly check for C diff if we see any evidence of diarrhea, will obtain a urinalysis. Reevaluation(s) Reevaluation #1: Repeat EKG at 11:24 a.m. is showing sinus rhythm, 95 beats per minute. Nonspecific ST changes. QTC remains prolonged at 505 milliseconds. Her magnesium came back critically low at 0.8. She is already completed her 1st 2 g IV magnesium when this 2nd EKG was done. Follow-up 3 hour troponin is negative. I have just spoken with the hospitalist and she will assume care. I am ordering 4 g IV magnesium upon my discussion with her. Dr. Kirby will be assuming care. Time: 12:57 Vital Signs Vital signs: Initial Vital Signs Temperature 97 F L 01/02/22 07:57 Temperature Source Temporal Artery Scan 01/02/22 07:57 Pulse Rate 100 01/02/22 07:57 Pulse Rhythm 01/02/22 07:57 Respiratory Rate 24 01/02/22 07:57 Blood Pressure 168/100 H 01/02/22 07:57 Blood Pressure Mean 122 01/02/22 07:57 Blood Pressure Position Supine 01/02/22 07:57 Pulse Oximetry 100 01/02/22 07:57 Oxygen Delivery Method 01/02/22 07:57 Vital Signs Temperature 97 F L 01/02/22 07:57 Pulse Rate 100 01/02/22 07:57 Respiratory Rate 24 01/02/22 07:57 Blood Pressure 168/100 H 01/02/22 07:57 Pulse Oximetry 100 01/02/22 07:57 Oxygen Delivery Method 01/02/22 07:57 Temperature 97 F L 01/02/22 07:57 Pulse Rate 126 H 01/02/22 13:05 Respiratory Rate 24 01/02/22 07:57 Blood Pressure 169/96 H 01/02/22 13:04 Pulse Oximetry 97 01/02/22 13:05 Oxygen Delivery Method 01/02/22 07:57 Medical Decision Making Medical Records Medical records reviewed: Yes I reviewed the patient's medical records Medical records narrative: Did go back and the patient's old chart an EKG from 01/27/2019 was sinus tachycardia 111 beats per minute, QT corrected was 448 milliseconds. In June of 2014 her QT corrected was 453 milliseconds and she was in normal sinus rhythm at 73 beats per minute. Old chart reviewed at 10:20 a.m.. Lab Data Lab results reviewed: Yes I reviewed the patient's lab results Labs: Lab Results 01/02/22 01/02/22 01/02/22 Range/Units 08:08 08:13 08:13 WBC 10.39 (4.50-11.00) K/uL RBC 4.33 (4.00-5.20) m/uL Hgb 13.9 (12.0-16.0) gm/dL Hct 41.1 (33.0-51.0) % MCV 95 (80-100) fL MCH 32 (26-34) pg MCHC 34 (32-36) gm/dL RDW Coeff of Silvia 12.7 (11.5-15.5) % Plt Count 278 (140-440) K/uL Neut % (Auto) 82.6 H (42.0-72.0) % Lymph % (Auto) 9.8 L (20-44) % Vermilion % (Auto) 6.9 (0.0-11.0) % Eos % (Auto) 0.1 (0.0-7.0) % Baso % (Auto) 0.1 (0.0-3.0) % Neut # (Auto) 8.60 H (1.7-7.0) K/uL Lymph # (Auto) 1.00 (0.90-2.90) K/uL Vermilion # (Auto) 0.70 (0.00-0.90) K/UL Eos # (Auto) 0.01 (0.00-0.50) K/uL Baso # (Auto) 0.01 (0.00-0.30) K/uL Abs Immat Gran (auto) 0.05 (0.00-0.30) K/uL Imm/Tot Granulo (auto) 0.5 % ESR 48 H (2-20) mm/hr VBG pH (7.32-7.43) VBG pCO2 (40-50) mmHG VBG pO2 (25-47) mmHG VBG HCO3 (21-28) mmol/L Sodium (135-149) mmol/L Potassium (3.6-5.1) mmol/L Chloride (96-114) mmol/L Carbon Dioxide (20-32) mmol/L BUN (7-30) mg/dL Creatinine (0.5-1.5) mg/dL Estimated Creat Clear Estimated GFR ml/min Glucose (60-115) mg/dL Lactate (0.5-1.9) mmol/L Calcium (8.4-10.6) mg/dL Magnesium (1.5-2.6) mg/dL Total Bilirubin (0.1-1.5) mg/dL AST (12-35) U/L ALT (4-35) U/L Alkaline Phosphatase (40-150) U/L C-Reactive Protein (0.5-1.0) mg/dL Total Protein (6.0-8.3) g/dL Albumin (3.3-5.0) g/dL Lipase (23-300) U/L Ethyl Alcohol (0.01-0.03) % SARS-CoV-2 (PCR) Negative SARS-CoV-2 (Negative) POC Troponin I (0.01-0.04) ng/ml 01/02/22 01/02/22 01/02/22 Range/Units 08:13 08:13 08:13 WBC (4.50-11.00) K/uL RBC (4.00-5.20) m/uL Hgb (12.0-16.0) gm/dL Hct (33.0-51.0) % MCV (80-100) fL MCH (26-34) pg MCHC (32-36) gm/dL RDW Coeff of Silvia (11.5-15.5) % Plt Count (140-440) K/uL Neut % (Auto) (42.0-72.0) % Lymph % (Auto) (20-44) % Vermilion % (Auto) (0.0-11.0) % Eos % (Auto) (0.0-7.0) % Baso % (Auto) (0.0-3.0) % Neut # (Auto) (1.7-7.0) K/uL Lymph # (Auto) (0.90-2.90) K/uL Vermilion # (Auto) (0.00-0.90) K/UL Eos # (Auto) (0.00-0.50) K/uL Baso # (Auto) (0.00-0.30) K/uL Abs Immat Gran (auto) (0.00-0.30) K/uL Imm/Tot Granulo (auto) % ESR (2-20) mm/hr VBG pH 7.597 H (7.32-7.43) VBG pCO2 21 L (40-50) mmHG VBG pO2 47.6 H (25-47) mmHG VBG HCO3 21 (21-28) mmol/L Sodium 137 (135-149) mmol/L Potassium 3.6 (3.6-5.1) mmol/L Chloride 102 (96-114) mmol/L Carbon Dioxide 18 L (20-32) mmol/L BUN 10 (7-30) mg/dL Creatinine 0.6 (0.5-1.5) mg/dL Estimated Creat Clear 90.41 Estimated GFR 105 ml/min Glucose 130 H (60-115) mg/dL Lactate 1.9 (0.5-1.9) mmol/L Calcium 9.0 (8.4-10.6) mg/dL Magnesium 0.8 L* (1.5-2.6) mg/dL Total Bilirubin 1.0 (0.1-1.5) mg/dL AST 36 H (12-35) U/L ALT 23 (4-35) U/L Alkaline Phosphatase 184 H (40-150) U/L C-Reactive Protein 2.9 H (0.5-1.0) mg/dL Total Protein 8.2 (6.0-8.3) g/dL Albumin 4.1 (3.3-5.0) g/dL Lipase 124 (23-300) U/L Ethyl Alcohol < 0.01 L (0.01-0.03) % SARS-CoV-2 (PCR) (Negative) POC Troponin I 0.00 L (0.01-0.04) ng/ml 01/02/22 Range/Units 11:15 WBC (4.50-11.00) K/uL RBC (4.00-5.20) m/uL Hgb (12.0-16.0) gm/dL Hct (33.0-51.0) % MCV (80-100) fL MCH (26-34) pg MCHC (32-36) gm/dL RDW Coeff of Silvia (11.5-15.5) % Plt Count (140-440) K/uL Neut % (Auto) (42.0-72.0) % Lymph % (Auto) (20-44) % Vermilion % (Auto) (0.0-11.0) % Eos % (Auto) (0.0-7.0) % Baso % (Auto) (0.0-3.0) % Neut # (Auto) (1.7-7.0) K/uL Lymph # (Auto) (0.90-2.90) K/uL Vermilion # (Auto) (0.00-0.90) K/UL Eos # (Auto) (0.00-0.50) K/uL Baso # (Auto) (0.00-0.30) K/uL Abs Immat Gran (auto) (0.00-0.30) K/uL Imm/Tot Granulo (auto) % ESR (2-20) mm/hr VBG pH (7.32-7.43) VBG pCO2 (40-50) mmHG VBG pO2 (25-47) mmHG VBG HCO3 (21-28) mmol/L Sodium (135-149) mmol/L Potassium (3.6-5.1) mmol/L Chloride (96-114) mmol/L Carbon Dioxide (20-32) mmol/L BUN (7-30) mg/dL Creatinine (0.5-1.5) mg/dL Estimated Creat Clear Estimated GFR ml/min Glucose (60-115) mg/dL Lactate (0.5-1.9) mmol/L Calcium (8.4-10.6) mg/dL Magnesium (1.5-2.6) mg/dL Total Bilirubin (0.1-1.5) mg/dL AST (12-35) U/L ALT (4-35) U/L Alkaline Phosphatase (40-150) U/L C-Reactive Protein (0.5-1.0) mg/dL Total Protein (6.0-8.3) g/dL Albumin (3.3-5.0) g/dL Lipase (23-300) U/L Ethyl Alcohol (0.01-0.03) % SARS-CoV-2 (PCR) (Negative) POC Troponin I 0.00 L (0.01-0.04) ng/ml Imaging Data Chest x-ray: Attestation: I have reviewed the pertinent imaging results. My impression: I see no evidence of congestive changes, pneumonia my preliminary read. Radiologist's impression: Patient: ALYX CORDOBA Facility:?[facility] Patient ID:?[id number] Site Patient ID:?[id number]. Site :?[id number] Study:?XRay Chest PORTABLE-01/02/2022 9:10:27 AM Ordering Physician:?Aaron Thacker Final Report: INDICATION: Chest pain TECHNIQUE: Chest 1 view. COMPARISON: 10/06/2019 FINDINGS: The heart size and central vascular pattern remains stable and within the normal range. The lungs are clear. No pleural effusion is evident. Old healed left posterior lateral rib fractures are again seen. IMPRESSION: Stable radiographic findings without acute cardiopulmonary disease noted. Dictated by Brandon Méndez MD @ 01/02/2022 10:27:50 AM (Electronic Signature) ECG Data Attestation: I personally reviewed and interpreted this ECG as follows: (Sinus tachycardia, 101 beats per minute. QT corrected 508 milliseconds. Flipped T- waves V1 through V3. Nonspecific ST segment changes.) Prior ECG tracings: not available for review Critical Care Time Critical Care Time Critical Care Time: No Discharge Plan Discharge Clinical Impression: Alcohol use disorder, Cramps, muscle, general, Hypomagnesemia Patient Disposition: Admitted As Inpatient Condition: Improved
[2022-01-02 08:38] LABS: Albumin* 4.1 g/dL (3.3-5.0); Chloride* 102 mmol/L (96-114)
[2022-01-02 08:39] LABS: Potassium* 3.6 mmol/L (3.6-5.1); Sodium* 137 mmol/L (135-149)
[2022-01-02 08:41] LABS: Alkaline Phosphatase* 184 U/L (40-150); Aspartate Amino Transferase* 36 U/L (12-35); Carbon Dioxide* 18 mmol/L (20-32); Creatinine* 0.6 mg/dL (0.5-1.5); Est. Creatinine Clearance* 90.41; Estimated Glomerular Filt Rate 105 ml/min; Total Protein* 8.2 g/dL (6.0-8.3)
[2022-01-02 08:42] LABS: Alanine Aminotransferase* 23 U/L (4-35); Blood Urea Nitrogen* 10 mg/dL (7-30); Glucose* 130 mg/dL (60-115); Lipase* 124 U/L (23-300)
[2022-01-02] MEDS: LORazepam 2 MG/ML inj 0.5 MG IVP (08:43)
--- NOTE | 2022-01-02 08:43 | CRLHL7_ITS ---
For Patients: As a result of the Century Cures Act, medical imaging exams and procedure reports are released immediately into your electronic medical record. You may view this report before your referring provider. If you have questions, please contact your health care provider. INDICATION: Chest pain TECHNIQUE: Chest 1 view. COMPARISON: 10/06/2019 FINDINGS: The heart size and central vascular pattern remains stable and within the normal range. The lungs are clear. No pleural effusion is evident. Old healed left posterior lateral rib fractures are again seen. IMPRESSION: Stable radiographic findings without acute cardiopulmonary disease noted. Dictated by Brandon Méndez MD @ 01/02/2022 10:27:50 AM (Electronically Signed)
[2022-01-02 08:44] LABS: C Reactive Protein* 2.9 mg/dL (0.5-1.0)
[2022-01-02] MEDS: MAGNESIUM SULFATE 2 GM/50 ML PIGGYBACK IVPB (08:45)
[2022-01-02 08:55] LABS: Ethanol* < 0.01 % (0.01-0.03)
[2022-01-02 09:05] LABS: Erythrocyte SedimentationRate* 48 mm/hr (2-20)
[2022-01-02 09:06] LABS: SARS PCR* Negative SARS-CoV-2 (Negative)
[2022-01-02 09:08] LABS: Magnesium* 0.8 mg/dL (1.5-2.6)
[2022-01-02] MEDS: PANTOPRAZOLE SODIUM 40 MG INJ IVP (09:29)
--- NOTE | 2022-01-02 09:41 | ED.NURSE ---
is much quieter now. did have 1000 ns hanging from ems. is to complete this liter that was to be given over [address] mosqueda. this is being done. is getting 2 grams over 2 hours of magnesium.
[2022-01-02 13:27] LABS: Appearance Urine Cloudy (Clear); Bilirubin Urine Negative (Negative); Blood Urine Negative (Negative); Color Urine Yellow (Yellow); Glucose Urine Negative (Negative); Ketones Urine Trace (Negative); Leukocyte Esterase Urine Trace (Negative); Nitrite Urine Negative (Negative); Protein Urine Negative (Negative); Specific Gravity Urine 1.025 (1.000-1.030); Urobilinogen Urine 0.2 (0.2-1.0); pH Urine 7.5 (5.0-8.5)
--- NOTE | 2022-01-02 13:31 | ED.NURSE ---
Bed request sent and floor notified.
--- NOTE | 2022-01-02 13:50 | ED.NURSE ---
has been feeling better, less cramping. report was given to indira gonzáles.
[2022-01-02 14:03] LABS: Fine Granular Casts Urine Few; RBC Urine 0-2 (0-2); Squamous Epithelial Cell Urine Many (None-Few)
--- NOTE | 2022-01-02 14:05 | W.PC.EDHO ---
Primary Language: Preferred Language: Orientation Status: [] Alert & Oriented [] Slight Confusion [] Known Dx Dementia Transfers By: [] Assist of 1 [] Assist of 2 [] Lift Active Medications Discontinued Medications Generic Name Dose Route Start Last Admin Trade Name Akil PRN Reason Stop Dose Admin Lorazepam 0.5 mg 01/02/22 08:33 01/02/22 08:43 Lorazepam 2 Mg/Ml Inj IVP 01/02/22 08:34 0.5 mg ONCE ONE Administration Magnesium Sulfate 2 gm 01/02/22 08:32 01/02/22 08:45 Magnesium Sulfate 2 Gm/50 Ml Piggyback IVPB 01/02/22 08:33 2 gm ONCE ONE Administration Magnesium Sulfate 4 gm 01/02/22 12:54 01/02/22 13:24 Magnesium Sulf 4 G/100 Ml Bag IVPB 01/02/22 12:55 4 gm ONCE ONE Administration Pantoprazole Sodium 40 mg 01/02/22 08:45 01/02/22 09:29 Pantoprazole Sodium 40 Mg Inj IVP 01/02/22 08:46 40 mg ONCE ONE Administration Description of Symptoms ED Triage Present Problem known alcoholic comes to ed via ems with n/v/d, Description upper abd and neck pain. is moaning upon arrival. has been ill for 2-3 days. unable to take her meds and last drink was monday. drinks daily along with marijuana use. lives alone. thinks this may be pancreatitis. has cramping in abd and legs. ED Triage Date of Onset of 12/31/21 Symptoms Female History Patient No Patient No Pain Pain Description [Upper Sharp,Dull, Achy Abdomen] Pain Description [Upper Sharp,Dull, Achy,Acute Abdomen] Pain Intensity [Upper Abdomen] 9 Pain Intensity [Upper Abdomen] 9 Pain Intensity 4 Pain Intensity 4 Pain Intensity 8 Pain Intensity 9 Pain Scale Used [Upper Abdomen Numeric (1 - 10) ] Pain Scale Used [Upper Abdomen Numeric (1 - 10) ] Pain Scale Used Numeric (1 - 10) Pain Scale Used Numeric (1 - 10) Oxygen Administration Pulse Oximetry 97 Pulse Oximetry 97 Pulse Oximetry 96 Pulse Oximetry 96 Pulse Oximetry 100 Pulse Oximetry 98 Pulse Oximetry 96 Pulse Oximetry 96 Pulse Oximetry 97 Pulse Oximetry 98 Pulse Oximetry 99 Pulse Oximetry 100 Oxygen Delivery Method Room Air Oxygen Delivery Method Room Air Oxygen Delivery Method Room Air Oxygen Delivery Method Room Air Oxygen Delivery Method Room Air Oxygen Delivery Method Room Air Oxygen Delivery Method Room Air Oxygen Delivery Method Room Air Oxygen Delivery Method Room Air Oxygen Delivery Method Room Air Cardiac Monitoring EKG Method 12 Lead EKG Method 12 Lead
--- NOTE | 2022-01-02 14:15 | PM.IMHP1 ---
Hospitalist- H&P: HPI History of Present Illness Date Seen: 01/03/22 Chief complaint: NVD Narrative: ADMISSION HISTORY AND PHYSICAL - HOSPITALIST Chief Complaint: Overall body pain nausea. I am dehydrated. HPI: April is a 56-year-old chronic alcoholic, chronic hypertension chronic pain who presents with 2 days of nausea vomiting and body pain. Her pain is everywhere, [id number]. She states she was in her baseline health 3 nights ago and that was her last drink. She woke up Monday morning which was 2 days ago, 12/31/2021, with nausea and vomiting. She said she had a mucousy emesis that was unfamiliar to anything she has ever seen before. No blood. She is having some diarrhea. She has had no appetite. She has been trying to take sips of water. She smokes marijuana daily for chronic pain. She denies any significant past history with alcohol withdrawal. No history of seizures. No falls or recent trauma. She has adentulous wearing upper and lower dentures for some time. She lives alone. She recognizes her daughter who lives in done this, as her point of contact. I've updated the PFSH, medications and allergies in the [place] tabs. INVESTIGATIONS: LABS/MICRO/ECG/IMAGING Afebrile Hypertensive at 169/96, 68/104 Tachycardic 93-126 Respiratory rate 12 Pulse ox 97% on room air CBC unremarkable. Hemoglobin 13.9 Metabolic alkalosis with a pH of 7.6, pCO2 21, bicarb 21 Electrolytes reveal an acidosis with a CO2 of 18 Glucose 130 Magnesium 0.8 Normal calcium Mild bump in her AST which is not new, 36 Mild bump in her CRP, 2.9 Normal lipase Negative troponin UA shows trace ketones, trace LE, negative nitrite no evidence of infection with white blood cells or bacteria Portable chest x-ray No new acute disease Alcohol level, undetectable REVIEW OF SYSTEMS: 12-point ROS completed with patient and negative unless otherwise stated in HPI or below. PHYSICAL EXAM: CODE STATUS: CONSTITUTIONAL: Conversive, good historian. A/O. Knows setting and context. VITAL SIGNS: see record. HEENT: Normocephalic, atraumatic. PERRL, EOMI, conjunctivae pink, no scleral icterus. Ears and nose externally normal. Pharynx normal. NECK: No JVD. No carotid bruit, no thyromegaly, no adenopathy. CHEST: Clear to auscultation bilaterally HEART: S1 and S2 normal. No harsh murmurs. Edema MUSCULOSKELETAL: No gross joint deformity or swelling. NEURO: Cranial nerves intact. Grossly intact. No asymmetric findings. SKIN: No rashes, petechiae, concerning changes PSYCHIATRIC: Euthymic. ADMIT TO MEDSURG: CCU FLOOR CARE DVT: Lovenox GI: PO intake Time spent: 70 minutes examining patient, conferring with family and patient, care staff, developing care plan [facility] Medical History (Updated 01/02/22 @ 14:58 by Sherry Kirby MD) Acalculous cholecystitis Chronic diarrhea Closed fracture of second cervical vertebra without spinal cord injury Clostridioides difficile diarrhea Edentulous Gallstone pancreatitis Gastroesophageal reflux disease Generalized anxiety disorder Hypertension Hypokalemia Hypomagnesemia Major depressive disorder Marijuana dependence Monoclonal gammopathy Nontoxic single thyroid nodule Pancreatitis, alcoholic, acute Peripheral neuropathy Personal history of gallstones Sacroiliitis, not elsewhere classified Tobacco dependence Visual impairment Social History What is your current living situation: I presently have a place to live Highest level of school completed/degree received: GED or equivalent Smoking Status: Current every day smoker What tobacco products do you use: cigarettes Smoking packs per day: 20 Smoking cigarettes per day: 400.0 Years smoked: 30 Smoking pack-years: 600.00 Do you use any of these nicotine containing products: None Second hand tobacco smoke exposure: Yes How often do you have a drink containing alcohol: 4 or more times a week Alcohol type: hard liquor Alcohol type details: vodka How many standard drinks containing alcohol do you have on a typical day: 5 or 6 How often do you have six or more drinks on one occasion: Daily or almost daily AUDIT-C Alcohol total score: 10 Non-prescribed substance use: marijuana (any form) Non-prescribed substance use details: 3-4 pinches per day Caffeine: Yes (1 cup a day) Are you now , , , , never or living with a partner: Social isolation score (0-1 are the most socially isolated patients): 0 service: No Meds Home Medications and Allergies Home Medications Medication Instructions Recorded Confirmed Type famotidine 20 mg tablet 20 mg PO BID 10/08/21 01/02/22 History gabapentin 300 mg capsule 600 mg PO TID 10/08/21 01/02/22 History metoprolol tartrate 50 mg tablet 50 mg PO BID 10/08/21 01/02/22 History sertraline 100 mg tablet 100 mg PO DAILY 10/08/21 01/02/22 History acetaminophen 500 mg tablet 500 mg PO DAILY 10/09/21 01/02/22 History cholecalciferol (vitamin D3) 50 2,000 unit PO HS 10/09/21 01/02/22 History mcg (2,000 unit) capsule gabapentin 100 mg capsule 100 mg PO TID 10/09/21 01/02/22 History loperamide 2 mg capsule 2 mg PO QID PRN 10/09/21 01/02/22 History multivitamin with folic acid 400 1 tab PO DAILY 10/09/21 01/02/22 History mcg tablet (Tab-A-Bob) lisinopril 5 mg tablet 5 mg PO DAILY 01/02/22 01/02/22 History meloxicam 7.5 mg tablet 7.5 mg PO DAILY 01/02/22 01/02/22 History Allergies Allergy/AdvReac Type Severity Reaction Status Date / Time No Known Allergies Allergy Verified 10/08/21 17:19 Exam Const: Vital Signs, click to edit/add: Vital Signs - 24 hr 01/02/22 07:57 01/02/22 08:07 01/02/22 13:04 Temperature 97 F L Pulse Rate 104 H Pulse Rate [Apical ] 100 Respiratory Rate 24 Blood Pressure 169/96 H Blood Pressure [Le ft Upper Arm] 168/100 H Pulse Oximetry 100 99 97 Oxygen Delivery Me od Room Air 01/02/22 13:05 01/02/22 08:30 01/02/22 11:00 Temperature Pulse Rate 126 H Pulse Rate [Apical ] 106 H Respiratory Rate 32 H 17 Blood Pressure Blood Pressure [Le ft Upper Arm] 151/116 H 157/87 H Pulse Oximetry 97 98 98 [facility] 01/02/22 09:00 01/02/22 09:30 01/02/22 10:00 Temperature Pulse Rate Pulse Rate [Apical ] 96 100 104 H Respiratory Rate 17 23 18 Blood Pressure Blood Pressure [Le ft Upper Arm] 178/95 H 158/91 H 157/86 H Pulse Oximetry 97 96 Oxygen Delivery Me thod Room Air Room Air Room Air 01/02/22 10:30 01/02/22 11:30 01/02/22 12:00 Temperature Pulse Rate Pulse Rate [Apical ] 103 H 113 H 100 Respiratory Rate 13 18 26 H Blood Pressure Blood Pressure [Le ft Upper Arm] 151/96 H 168/104 H 164/95 H Pulse Oximetry 96 100 96 Oxygen Delivery Me thod Room Air Room Air Room Air 01/02/22 12:30 Temperature Pulse Rate Pulse Rate [Apical ] 93 Respiratory Rate 12 Blood Pressure Blood Pressure [Le ft Upper Arm] 162/96 H Pulse Oximetry 96 Oxygen Delivery Me thod Room Air Hospitalist - H&P: Result Labs Labs: Short CBC 01/02/22 Range/Units 08:13 WBC 10.39 (4.50-11.00) K/uL Hgb 13.9 (12.0-16.0) gm/dL Hct 41.1 (33.0-51.0) % Plt Count 278 (140-440) K/uL BMP 01/02/22 08:13 Sodium 137 Potassium 3.6 Chloride 102 Carbon Dioxide 18 L BUN 10 Creatinine 0.6 Glucose 130 H Calcium 9.0 Liver Function 01/02/22 Range/Units 08:13 Total Bilirubin 1.0 (0.1-1.5) mg/dL AST 36 H (12-35) U/L ALT 23 (4-35) U/L Alkaline Phosphatase 184 H (40-150) U/L Albumin 4.1 (3.3-5.0) g/dL Urine 01/02/22 Range/Units 13:20 Urine Color Yellow (Yellow) Urine Appearance Cloudy A (Clear) Urine pH 7.5 (5.0-8.5) Ur Specific [place] 1.025 (1.000-1.030) Urine Protein Negative (Negative) Urine Glucose (UA) Negative (Negative) Assessment and Plan Assessment and plan (1) Hypomagnesemia: Problem comment: -severe. 0.8 upon arrival to the ED. questionable QT prolongation. Place her on telemetry. IV replacement ongoing today. Will recheck tonight. Continue oral replacement. Significant volume contraction secondary to nausea and vomiting. Ongoing IV replacement. Protonix, Zofran. Status: Acute (2) Alcohol use disorder: Problem comment: -[place] protocols. IV thiamin. P.o. of folic acid. P.o. multivitamin. Status: Acute (3) Marijuana dependence: Problem comment: Noted Status: Acute (4) Hypertension: Problem comment: Restart home meds. If she has to nauseous or vomits, we can do Lopressor IV Status: Acute (5) Major depressive disorder: Status: Acute (6) Generalized anxiety disorder: Status: Acute (7) Peripheral neuropathy: Status: Acute (8) Gastroesophageal reflux disease: Status: Acute (9) Tobacco dependence: Problem comment: Patient declined tobacco supplementation Status: Acute (10) Edentulous: Status: Acute
[2022-01-02] MEDS: THIAMINE 250 MG in 0.9 % SODIUM CHLORIDE 100 ml 100 ML 102.5 MG IVPB (16:48)
[2022-01-02] MEDS: 0.9 % SODIUM CHLORIDE 1000 ml 1,000 ML IV (16:48)
[2022-01-02] MEDS: ONDANSETRON ODT 4 MG TAB PO (17:18)
--- NOTE | 2022-01-02 18:35 | PC.NURSE ---
shift note: pt admit to rm [facility]3 via wc. pt states she has a DOTY. Pt states nausea resolved. IV to rt hand. #22 to lt FA placed. LS dim. HR regular. scattered scabbing to rt foot and lower lira.
[2022-01-02 20:33] LABS: Magnesium* 2.5 mg/dL (1.5-2.6)
[2022-01-02] MEDS: GABAPENTIN 100 MG CAPSULE PO (21:06)
[2022-01-02] MEDS: METOPROLOL TARTRATE 50 MG TABLET PO (21:07)
[2022-01-02] MEDS: FAMOTIDINE 20 MG TABLET PO (21:07)
[2022-01-02] MEDS: GABAPENTIN 300 MG CAPSULE 600 MG PO (21:07)
[2022-01-02 21:49] LABS: Barbiturate Screen Urine Negative (Negative); Cocaine Screen Urine Negative (Negative); Methadone Screen Urine Negative (Negative); Opiate Screen Urine Negative (Negative); Oxycodone Screen Urine Negative (Negative); Phencyclidine Screen Urine Negative (Negative); Tricyclic Antidepressant Urine Negative (Negative)
[2022-01-02 21:51] LABS: Amphetamine Screen Urine POSITIVE (Negative); Benzodiazepines Screen Urine POSITIVE (Negative); Cannabinoid Screen Urine POSITIVE (Negative); Methamphetamines Screen Urine POSITIVE (Negative)
[2022-01-03 03:00] VITALS: BP 135/84; PULSE 74; RESP 18; TEMP 36.6; O2SAT 97
--- NOTE | 2022-01-03 05:11 | PC.NURSE ---
Shift note: Pt is calm in room. Ambulate independently with standby assist. Denied any pain, n/v. Systolic Bp has been recorded above 140. Pt was awake most of the shift. Daily wt checked thi morning was 131.8Lb.
[2022-01-03 07:16] VITALS: PULSE 91
[2022-01-03 07:30] VITALS: BP 145/91; PULSE 77; RESP 16; RESP 18; TEMP 37; O2SAT 98
[2022-01-03 07:47] LABS: HCO3 VBG 25 mmol/L (21-28); Ionized Calcium* 1.04 mmol/L (1.11-1.30); PCO2 VBG 34 mmHG (40-50); PO2 VBG 62.2 mmHG (25-47); pH VBG 7.468 (7.32-7.43)
[2022-01-03 08:03] LABS: Albumin* 3.6 g/dL (3.3-5.0)
[2022-01-03 08:04] LABS: Chloride* 100 mmol/L (96-114); Potassium* 3.2 mmol/L (3.6-5.1); Sodium* 130 mmol/L (135-149)
[2022-01-03 08:06] LABS: Aspartate Amino Transferase* 30 U/L (12-35); Bilirubin Total* 0.6 mg/dL (0.1-1.5); Carbon Dioxide* 23 mmol/L (20-32); Creatinine* 0.6 mg/dL (0.5-1.5); Est. Creatinine Clearance* 90.41; Estimated Glomerular Filt Rate 105 ml/min; INR 0.97 (0.91-1.10); Prothrombin Time 13.5 Seconds; Total Protein* 7.2 g/dL (6.0-8.3)
[2022-01-03 08:07] LABS: Alanine Aminotransferase* 18 U/L (4-35); Alkaline Phosphatase* 152 U/L (40-150); Blood Urea Nitrogen* 7 mg/dL (7-30); Calcium* 7.9 mg/dL (8.4-10.6); Glucose* 93 mg/dL (60-115); Magnesium* 1.7 mg/dL (1.5-2.6)
[2022-01-03] MEDS: MAGNESIUM OXIDE 400 MG TABLET 800 MG PO (09:03)
[2022-01-03] MEDS: ACETAMINOPHEN 500 MG TABLET PO (09:03)
[2022-01-03] MEDS: FAMOTIDINE 20 MG TABLET PO (09:03)
[2022-01-03] MEDS: SERTRALINE 100 MG TABLET PO (09:04)
[2022-01-03] MEDS: GABAPENTIN 100 MG CAPSULE PO (09:04)
[2022-01-03] MEDS: GABAPENTIN 300 MG CAPSULE 600 MG PO (09:04)
[2022-01-03] MEDS: METOPROLOL TARTRATE 50 MG TABLET PO (09:04)
[2022-01-03] MEDS: MULTIVITAMIN/MINERALS 1 TABLET 1 TAB PO (09:04)
[2022-01-03] MEDS: lisinopriL 5 MG TABLET PO (09:04)
[2022-01-03] MEDS: KETOROLAC 30 MG/ML inj IVP (09:05)
[2022-01-03] MEDS: FOLIC ACID 1 MG TABLET PO (09:05)
[2022-01-03] MEDS: OMEPRAZOLE 20 MG CAPSULE DR 40 MG PO (09:21)
[2022-01-03] MEDS: MAGNESIUM OXIDE 400 MG TABLET PO (10:31)
[2022-01-03] MEDS: SODIUM CHLORIDE 1 GM TABLET PO (10:31)
[2022-01-03 10:38] VITALS: BP 169/96; PULSE 83; RESP 18; TEMP 36.6
[2022-01-03 11:00] VITALS: BP 133/92; PULSE 81; RESP 18; TEMP 36.6; O2SAT 96
--- NOTE | 2022-01-03 12:10 | PC.SOCIAL ---
Addendum entered by ROSY Fish 01/03/22 12:18: Crm System Administrator has viewed and agrees with this note. Original Note: Discharge planning: Social work met with pt. this morning to arrange for discharge transportation. Pt. is familiar with using medical assistance transportation, and requested that social work arrange this for her. Social work arranged transport through [employer] ([phone]) for discharge at 1pm today. Social work to follow up as needed.
--- NOTE | 2022-01-03 13:57 | P.DS_ITS ---
DS: Providers Provider Date Seen: 01/03/22 Date of admission: 01/02/22 14:59 Primary care physician: Nick Kwon MD Admitting Clinician: Sherry Kirby MD Consults: 01/02/22 14:19 Consult to Occupational Therapy [CONS] Routine Comment: Reason(s) for OT Consult:: Evaluate and Treat Any Restrictions?:: No Restrictions Consult to Physical Therapy [CONS] Routine Comment: Reason(s) for PT Consult:: Evaluate and Treat Any Restrictions?:: No Restrictions Consult to [employer] [CONS] Routine Comment: Reason for Consult:: Social Service Consult Attending Physician on discharge: Sherry Kirby MD Date of Discharge: 01/03/22 DS: Diagnosis Discharge Diagnosis (1) Hypomagnesemia: Status: Acute Problem details: -severe. replaced with 6 grams IV. clinically much improved. (2) Alcohol use disorder: Status: Acute Problem details: -[place] protocols. IV thiamin. P.o. of folic acid. P.o. multivitamin. NO EVIDENCE OF WITHDRAWAL DURING THIS ADMISSION (3) Substance abuse: Status: Acute Problem details: meth, alcohol, THC, tobacco UDS showed meth, THC (4) Edentulous: Status: Acute (5) Major depressive disorder: Status: Acute (6) Generalized anxiety disorder: Status: Acute (7) Hypertension: Status: Acute Problem details: (8) Peripheral neuropathy: Status: Acute DS: Summary Hospital Course Hospital Course: HOSPITALIST DISCHARGE SUMMARY ATTENDING PHYSICIAN: Sherry Kirby MD FINAL DIAGNOSIS: Hypomagnesemia, severe Multiple substance abuse history HOSPITAL FOLLOWUP ISSUES: 1. Electrolyte management: Patient should have her magnesium and BMP followed up in the next week. 2. Healthy living: Patient looks malnourished, edentulous, multiple substance abuse noted. REFERRALS WHILE ADMITTED: None REFERRALS AFTER DISCHARGE: PCP BRIEF HOSPITAL COURSE: 56-year-old with a known history of multiple substance abuse dependence presented by EMS for abdominal pain. Etiology was felt to be severe hypomagnesemia, dehydration from nausea vomiting x2 days. Patient felt much improved with magnesium replacement in IV fluids. She was observed overnight and on discharge had a normal magnesium. It was noted that she did have a mildly depressed sodium and potassium. She is on supplements for all of these electrolyte disorders. She should have a follow-up within 1-2 weeks to recheck these especially if she begins to have vomiting or any problems eating. We explained the role of drugs and destruction on her body. Patient seemed noncommittal. SUBSTANTIVE NOTATIONS ON IMAGING, LAB, MICROBIOLOGY/PATHOLOGY STUDIES: DISCHARGE MEDICATIONS: See Reconciled list - SIGNIFICANT CHANGES: Taking magnesium in smaller but more frequent doses was suggested. Four hundred t.i.d. to q.i.d.. Salt tabs. REVIEW OF SYSTEMS No new chest pain or dyspnea Pain controlled No voiding difficulties Tolerating diet challenge PHYSICAL EXAM: CONSTITUTIONAL: Stable. No pain. VITAL SIGNS: see record. HEENT: Normocephalic, atraumatic. PERRL, EOMI, conjunctivae pink, no scleral icterus. Ears and nose externally normal. Pharynx normal. NECK: No JVD. No carotid bruit, no thyromegaly, no adenopathy. CHEST: Clear to auscultation bilaterally. HEART: S1 and S2 normal. ABDOMEN: Soft, nontender. Normal bowel sounds. MUSCULOSKELETAL: No gross joint deformity or swelling. NEURO: Cranial nerves intact. Grossly intact. No asymmetric findings. SKIN: No rashes, petechiae, concerning changes PSYCHIATRIC: Mood euthymic. DISPOSITION: Home by medical assistance transport Time spent on discharge 37 minutes. Status at Discharge Functional status at discharge: independent ambulation Overall status at discharge: patient is progressing back to baseline Time Spent with Patient Time attestation: Total time spent providing and/or coordinating discharge services: Time spent: Greater than 30 minutes Exam Const: Vital Signs, click to edit/add: Vital Signs - 24 hr 01/02/22 14:10 01/02/22 14:19 01/02/22 14:19 Temperature 98.1 F 98.2 F Pulse Rate Pulse Rate [Left B rachial] 106 H 106 H Respiratory Rate 16 18 Blood Pressure Blood Pressure [Le ft Arm] 157/93 H 157/93 H Pulse Oximetry 100 100 100 Oxygen Delivery Me thod Room Air Room Air Room Air 01/02/22 14:23 01/02/22 18:27 01/02/22 15:00 Temperature 98.2 F Pulse Rate Pulse Rate [Left B rachial] 106 H Respiratory Rate 18 18 Blood Pressure Blood Pressure [Le ft Arm] 157/93 H Pulse Oximetry 100 100 Oxygen Delivery Me thod Room Air Room Air 01/02/22 19:00 01/02/22 23:00 01/02/22 23:00 Temperature 98.1 F 98.1 F Pulse Rate 83 Pulse Rate [Left B rachial] 96 83 Respiratory Rate 18 18 Blood Pressure Blood Pressure [Le ft Arm] 144/90 H 164/94 H Pulse Oximetry 100 98 Oxygen Delivery Id thod Room Air Room Air 01/03/22 03:00 01/02/22 19:30 01/02/22 23:30 Temperature 98 F 98.1 F 98 F Pulse Rate Pulse Rate [Left B rachial] 74 96 83 Respiratory Rate 18 18 18 Blood Pressure Blood Pressure [Le ft Arm] 135/84 144/90 H 165/94 H Pulse Oximetry 97 100 98 Oxygen Delivery Id thod Room Air Room Air Room Air 01/03/22 03:00 01/03/22 10:38 01/03/22 07:30 Temperature 98 F 98 F 98.6 F Pulse Rate 83 Pulse Rate [Left B rachial] 74 77 Respiratory Rate 18 18 16 Blood Pressure 169/96 H Blood Pressure [Le ft Arm] 135/84 145/91 H Pulse Oximetry 97 [facility] 01/03/22 07:30 01/03/22 07:16 01/03/22 11:00 Temperature 98.6 F 98 F Pulse Rate 91 Pulse Rate [Left B rachial] 77 81 Respiratory Rate 18 18 Blood Pressure Blood Pressure [Le ft Arm] 145/91 H 133/92 H Pulse Oximetry 98 [facility] 01/03/22 11:00 Temperature 98 F Pulse Rate Pulse Rate [Left B rachial] 81 Respiratory Rate 18 Blood Pressure Blood Pressure [Le ft Arm] 133/92 H Pulse Oximetry 96 [facility] DS: Data Data Completed and Pending Labs on day of discharge: Labs from last 24 hours 01/03/22 01/03/22 01/03/22 07:41 07:41 07:41 INR VBG pH 7.468 H VBG pCO2 34 L VBG pO2 62.2 H VBG HCO3 25 Sodium 130 L Potassium 3.2 L Chloride 100 Carbon Dioxide 23 BUN 7 Creatinine 0.6 Estimated Creat Clear 90.41 Estimated GFR 105 Glucose 93 Calcium 7.9 L Ionized Calcium Janette 1.04 L Magnesium 1.7 Total Bilirubin 0.6 AST 30 ALT 18 Alkaline Phosphatase 152 H Total Protein 7.2 Albumin 3.6 TSH 2.330 Urine Color Urine Appearance Urine pH Ur Specific [place] Urine Protein Urine Glucose (UA) Urine Ketones Urine Blood Urine Nitrite Urine Bilirubin Urine Urobilinogen Ur Leukocyte Esterase Urine RBC Urine WBC Ur Squamous Epith Cells Urine Bacteria Fine Granular Casts Urine Opiates Screen Ur Oxycodone Screen Urine Methadone Screen Ur Propoxyphene Screen Ur Barbiturates Screen U Tricyclic Antidepress Ur Phencyclidine Scrn Ur Amphetamines Screen U Methamphetamines Scrn U Benzodiazepines Scrn Urine Cocaine Screen U Marijuana (THC) Screen Ur Drug Screen Comment 01/03/22 01/02/22 01/02/22 07:41 20:12 14:23 INR 0.97 VBG pH VBG pCO2 VBG pO2 VBG HCO3 Sodium Potassium Chloride Carbon Dioxide BUN Creatinine Estimated Creat Clear Estimated GFR Glucose Calcium Ionized Calcium Janette Magnesium 2.5 Total Bilirubin AST ALT Alkaline Phosphatase Total Protein Albumin TSH Urine Color Urine Appearance Urine pH Ur Specific [place] Urine Protein Urine Glucose (UA) Urine Ketones Urine Blood Urine Nitrite Urine Bilirubin Urine Urobilinogen Ur Leukocyte Esterase Urine RBC Urine WBC Ur Squamous Epith Cells Urine Bacteria Fine Granular Casts Urine Opiates Screen Negative Ur Oxycodone Screen Negative Urine Methadone Screen Negative Ur Propoxyphene Screen Negative Ur Barbiturates Screen Negative U Tricyclic Antidepress Negative Ur Phencyclidine Scrn Negative Ur Amphetamines Screen POSITIVE A* U Methamphetamines Scrn POSITIVE A* U Benzodiazepines Scrn POSITIVE A* Urine Cocaine Screen Negative U Marijuana (THC) Screen POSITIVE A* Ur Drug Screen Comment See Note 01/02/22 13:20 INR VBG pH VBG pCO2 VBG pO2 VBG HCO3 Sodium Potassium Chloride Carbon Dioxide BUN Creatinine Estimated Creat Clear Estimated GFR Glucose Calcium Ionized Calcium Janette Magnesium Total Bilirubin AST ALT Alkaline Phosphatase Total Protein Albumin TSH Urine Color Yellow Urine Appearance Cloudy A Urine pH 7.5 Ur Specific [place] 1.025 Urine Protein Negative Urine Glucose (UA) Negative Urine Ketones Trace A Urine Blood Negative Urine Nitrite Negative Urine Bilirubin Negative Urine Urobilinogen 0.2 Ur Leukocyte Esterase Trace A Urine RBC 0-2 Urine WBC 2-5 Ur Squamous Epith Cells Many A Urine Bacteria None Fine Granular Casts Few A Urine Opiates Screen Ur Oxycodone Screen Urine Methadone Screen Ur Propoxyphene Screen Ur Barbiturates Screen U Tricyclic Antidepress Ur Phencyclidine Scrn Ur Amphetamines Screen U Methamphetamines Scrn U Benzodiazepines Scrn Urine Cocaine Screen U Marijuana (THC) Screen Ur Drug Screen Comment Discharge Plan Discharge Disposition: Home, Self-Care Date of Admission: 01/02/22 14:59 Attending Provider on Discharge: Sherry Kirby Primary Care Provider: Nick Kwon Condition: Improved Anticipated Discharge Date/Time: 01/03/22 09:37 Discharge Medications: New magnesium oxide 400 mg (241.3 mg magnesium) Tablet 400 mg PO TID Qty: 90 11RF sodium chloride 1,000 mg Tablet,Soluble 1 g PO TIDWM Qty: 90 11RF Continued lisinopril 5 mg tablet 5 mg PO DAILY meloxicam 7.5 mg tablet 7.5 mg PO DAILY sertraline 100 mg tablet 100 mg PO DAILY metoprolol tartrate 50 mg tablet 50 mg PO BID gabapentin 300 mg capsule 600 mg PO TID Rx Instructions: TOTAL DOSE = 700MG TID famotidine 20 mg tablet 20 mg PO BID gabapentin 100 mg capsule 100 mg PO TID Rx Instructions: TOTAL DOSE = 700MG TID acetaminophen 500 mg tablet 500 mg PO DAILY cholecalciferol (vitamin D3) 50 mcg (2,000 unit) capsule 2,000 unit PO HS loperamide 2 mg capsule 2 mg PO QID PRN multivitamin with folic acid [Tab-A-Bob] 400 mcg tablet 1 tab PO DAILY folic acid 1 mg Tablet 1 mg PO DAILY Qty: 30 0RF ondansetron 4 mg Tablet,Disintegrating 4 mg PO Q4H PRNQty: 30 0RF calcium carbonate-vitamin D3 [[place]yster [place] Calcium-Vit D3] 500 mg-5 mcg (200 unit) Tablet 2 tab PO BID@1200,1800 Qty: 120 0RF Discontinued Mag-Delay 64 mg tablet,delayed release (DR/EC) 128 mg PO DAILY Discharge Orders: Discharge Order (Routine); Ordered 01/03/22 Ordered By: Sherry Kirby Patient Education: Magnesium Oxide (By mouth), Sodium Chloride (By mouth), Pancreatitis (DC), Abuse of Alcohol (DC) Additional Instructions: Your magnesium and sodium are low (chronically low, but at times severely low) - please stop drinking alcohol and using amphetamines. These are affecting your essential electrolytes. Please eat a balance of protein, vegetables, fruits. Stay hydrated. Salty snacks are definitely recommended. Your magnesium supplement works better in 3-4x a day in smaller (400mg) doses. Activity Level: Activity as Tolerated Discharge Diet: High Protein/High Calorie Follow Up Appointments: Nick Kwon MD [Primary Care Provider] - 01/17/22 10:20 am (PLEASE ARRIVE AT 10:00AM FOR A 10:20AM APPOINTMENT) Forms: [employer] Info Instructions
--- NOTE | 2022-01-03 14:01 | PC.NURSE ---
Pt calm and cooperative with nsg interventions. Eval by Dr. Kirby hospitalist this am. Please see Emar for medications given on day shift. Tele indicates NSR. Pt denied CP or SOB. Poor appetite persists. Pt verbalized understanding of d/c diagnosis, home meds, new prescriptions, f/up appt and sx to report urgently. Pt counseled to stop drinking secondary to pancreatitis, stop smoking I have the patches at home. Dietary instruction on high protein choices. Pt received her green wallet back with 279 dollars in mancini. Discharged via w/c per outside transporting service to [facility] in [place] at 13:37 pm.
== END 2022-01-03 13:37 | disposition home or self-care (01) | DRG 425 ==
LOC: ED 12:59 → MEDSURG 13:20
PROVIDERS: Admitting Provider Family Medicine; Emergency Provider Family Medicine; PCP Family Medicine; Visit Provider Family Medicine
DX: E83.42 Hypomagnesemia (principal); F10.20 Alcohol dependence, uncomplicated; F12.20 Cannabis dependence, uncomplicated; E86.0 Dehydration; E87.3 Alkalosis; R25.2 Cramp and spasm; G89.29 Other chronic pain; G62.9 Polyneuropathy, unspecified; F41.1 Generalized anxiety disorder; I10 Essential (primary) hypertension; F32.9 Major depressive disorder, single episode, unspecified; D47.2 Monoclonal gammopathy; E04.1 Nontoxic single thyroid nodule; F15.10 Other stimulant abuse, uncomplicated; F17.210 Nicotine dependence, cigarettes, uncomplicated; K21.9 Gastro-esophageal reflux disease without esophagitis
CPT/HCPCS: 36415; 71045; 80053; 80306; 81001; 82077; 82330; 82803; 83605; 83690; 83735; 84443; 85025; 85610; 85651; 86140; 87635; 93005; 94761; 97161; 97165; 99284; 99285; A9153; A9270; C9113; J1885; J2060; J3411; J3475; J7030

== ENCOUNTER 2022-07-22 06:05 | Observation (INO) | payer BC, SELFPAY ==
[2022-07-22] VITALS (8 sets, daily range): BP systolic 138–170; BP diastolic 72–104; PULSE 66–91; RESP 16–24; TEMP 36.1–36.9; O2SAT 96–99; BMI 22.7
--- NOTE | 2022-07-22 06:27 | ED.GENADULT ---
HPI - General Adult General Date Seen: 07/22/22 <Brandon Amaya MD - Last Filed: 07/22/22 23:02> Chief complaint: Abdominal Pain <Brandon Amaya MD - Last Filed: 07/22/22 23:02> Stated complaint: abdominal pain <Brandon Amaya MD - Last Filed: 07/22/22 23:02> Time Seen by Provider: 07/22/22 06:08 <Brandon Amaya MD - Last Filed: 07/22/22 23:02> Source: patient <Brandon Amaya MD - Last Filed: 07/22/22 23:02> Mode of arrival: EMS <Brandon Amaya MD - Last Filed: 07/22/22 23:02> Limitations: no limitations <Brandon Amaya MD - Last Filed: 07/22/22 23:02> History of Present Illness HPI narrative: Patient is a 57-year-old female with a history of marijuana, methamphetamine, alcohol abuse who comes in with complaints of nausea, vomiting, abdominal pain for the past two days. She claims to have had no alcohol since 07/19/2022 but says that she drank a lot that night. She smokes marijuana daily. She denies methamphetamine use. Her PCP is Dr. Kwon in [place] but she tells me that she likes the [facility] better. She is brought in by EMS. She complains of abdominal pain but cannot localize that. She has not taken anything for pain or for nausea. She says that she has not had anything to eat or drink for the past two days. She is moaning constantly while I am in the room but stops as soon as I leave. <Brandon Amaya MD - Last Filed: 07/22/22 23:02> Related Data Home medications: Home Medications Medication Instructions Recorded Confirmed famotidine 20 mg tablet 20 mg PO BID 10/08/21 07/22/22 gabapentin 300 mg capsule 600 mg PO TID 10/08/21 07/22/22 metoprolol tartrate 50 mg tablet 50 mg PO BID 10/08/21 07/22/22 sertraline 100 mg tablet 100 mg PO DAILY 10/08/21 07/22/22 acetaminophen 500 mg tablet 500 mg PO DAILY 10/09/21 07/22/22 cholecalciferol (vitamin D3) 50 2,000 unit PO HS 10/09/21 07/22/22 mcg (2,000 unit) capsule gabapentin 100 mg capsule 100 mg PO TID 10/09/21 07/22/22 loperamide 2 mg capsule 2 mg PO QID PRN 10/09/21 07/22/22 multivitamin with folic acid 400 1 tab PO DAILY 10/09/21 07/22/22 mcg tablet (Tab-A-Bob) lisinopril 5 mg tablet 5 mg PO DAILY 01/02/22 07/22/22 meloxicam 7.5 mg tablet 7.5 mg PO DAILY 01/02/22 07/22/22 Previous Rx's Medication Instructions Recorded calcium carbonate 500 mg-vitamin 2 tab PO BID@1200,1800 #120 tabs 10/11/21 D3 5 mcg (200 unit) tablet (Oyster Shell Calcium-Vitamin D3) folic acid 1 mg tablet 1 mg PO DAILY #30 tabs 10/11/21 ondansetron 4 mg disintegrating 4 mg PO Q4H PRN #30 tabs 10/11/21 tablet magnesium oxide 400 mg (241.3 mg 400 mg PO TID #90 tabs 01/03/22 magnesium) tablet sodium chloride 1,000 mg soluble 1 g PO TIDWM #90 tabs 01/03/22 tablet magnesium gluconate 27.5 mg 27.5 mg PO BID #60 tabs 07/22/22 magnesium (500 mg) tablet ondansetron 4 mg disintegrating 4 mg PO BID-TID PRN nausea and 07/22/22 tablet vomiting #14 tabs potassium chloride 10 mEq 10 meq PO BID #60 caps 07/22/22 capsule,extended release <Brandon Amaya MD - Last Filed: 07/22/22 23:02> Allergies/adverse reactions: Allergies Allergy/AdvReac Type Severity Reaction Status Date / Time No Known Allergies Allergy Verified 10/08/21 17:19 <Brandon Amaya MD - Last Filed: 07/22/22 23:02> Review of Systems Narrative: She acknowledges anxiety, depression, chronic abdominal pain. No recent changes in her medication. She was last seen here about six months ago. Review of systems is difficult to obtain because of the continuous moaning. <Brandon Amaya MD - Last Filed: 07/22/22 23:02> [facility] Medical History: Medical History Substance abuse ?F19.10 - Other psychoactive substance abuse, uncomplicated (ICD-10) Marijuana dependence ?F12.20 - Cannabis dependence, uncomplicated (ICD-10) Edentulous ?K08.109 - Complete loss of teeth, unspecified cause, unspecified class (ICD-10) Chronic diarrhea ?K52.9 - Noninfective gastroenteritis and colitis, unspecified (ICD-10) Hypokalemia ?E87.6 - Hypokalemia (ICD-10) Personal history of gallstones ?Z87.19 - Personal history of other diseases of the digestive system (ICD-10) Visual impairment ?H54.7 - Unspecified visual loss (ICD-10) Closed fracture of second cervical vertebra without spinal cord injury ?S12.100A - Unspecified displaced fracture of second cervical vertebra, initial encounter for closed fracture (ICD-10) Major depressive disorder ?F32.9 - Major depressive disorder, single episode, unspecified (ICD-10) Generalized anxiety disorder ?F41.1 - Generalized anxiety disorder (ICD-10) Hypertension ?I10 - Essential (primary) hypertension (ICD-10) Hypomagnesemia ?E83.42 - Hypomagnesemia (ICD-10) Sacroiliitis, not elsewhere classified ?M46.1 - Sacroiliitis, not elsewhere classified (ICD-10) Peripheral neuropathy ?G62.9 - Polyneuropathy, unspecified (ICD-10) Monoclonal gammopathy ?D47.2 - Monoclonal gammopathy (ICD-10) Gastroesophageal reflux disease ?K21.9 - Gastro-esophageal reflux disease without esophagitis (ICD-10) Nontoxic single thyroid nodule ?E04.1 - Nontoxic single thyroid nodule (ICD-10) Acalculous cholecystitis ?K81.9 - Cholecystitis, unspecified (ICD-10) Clostridioides difficile diarrhea ?A04.72 - Enterocolitis due to Clostridium difficile, not specified as recurrent (ICD-10) Tobacco dependence ?F17.200 - Nicotine dependence, unspecified, uncomplicated (ICD-10) Pancreatitis, alcoholic, acute ?K85.20 - Alcohol induced acute pancreatitis without necrosis or infection (ICD-10) Gallstone pancreatitis ?K85.10 - Biliary acute pancreatitis without necrosis or infection (ICD-10) <Brandon Amaya MD - Last Filed: 07/22/22 23:02> Family History: Family History (Updated 07/22/22 @ 15:18 by Tejas Vinson MD) Mother Lung cancer Ovarian cancer <Brandon Amaya MD - Last Filed: 07/22/22 23:02> Social History: Social History (Updated 07/22/22 @ 15:20 by Tejas Vinson MD) Narrative: She lives alone in [place]. She sees a doctor at the [facility] in [place] for primary care. Her daughter Lauren Sanabria is healthcare power of contracts attorney. Code status is full. She drinks about 5 alcoholic beverages a day. She uses cannabis about twice a day. She has 2 children and 5 grandchildren. She is disabled. What is your current living situation: I presently have a place to live Highest level of school completed/degree received: GED or equivalent Smoking Status: Current every day smoker What tobacco products do you use: cigarettes Smoking packs per day: 20 Smoking cigarettes per day: 400.0 Years smoked: 30 Smoking pack-years: 600.00 Do you use any of these nicotine containing products: None Second hand tobacco smoke exposure: Yes How often do you have a drink containing alcohol: 4 or more times a week Alcohol type: hard liquor Alcohol type details: vodka How many standard drinks containing alcohol do you have on a typical day: 5 or 6 How often do you have six or more drinks on one occasion: Daily or almost daily AUDIT-C Alcohol total score: 10 Non-prescribed substance use: marijuana (any form) Non-prescribed substance use details: 3-4 pinches per day Caffeine: Yes (1 cup a day) Are you now , , , , never or living with a partner: Social isolation score (0-1 are the most socially isolated patients): 0 service: No <Brandon Amaya MD - Last Filed: 07/22/22 23:02> Exam Narrative: Exam Narrative: Vitals noted. She is moaning constantly but can stop and answer questions. HEENT: Conjunctiva clear. Tympanic membranes are pearly white bilaterally. She is edentulous. Posterior pharynx is clear without erythema or exudate. She does not appear dehydrated. Neck is supple without adenopathy, thyromegaly, carotid bruit. Lungs: Clear to auscultation in all ken. No wheezes, rales, rhonchi. Heart: Regular rate and rhythm without murmur. Abdomen: Soft with complaints of mild diffuse tenderness. Bowel sounds are normal. No palpable masses. Extremities: No cyanosis or edema. Good distal pulses. Skin: She has scattered bruises. Neurologic: Moaning constantly. She does answer questions appropriately. No localizing numbness, weakness. No tremor. Neurologic exam is nonfocal. <Brandon Amaya MD - Last Filed: 07/22/22 23:02> Const: Vital Signs, click to edit/add: Vital Signs - 24 hr 07/22/22 06:08 07/22/22 10:58 07/22/22 13:47 Temperature 96.9 F L Pulse Rate [Left P ulse Oximeter] 91 78 80 Respiratory Rate 24 18 18 Blood Pressure [Ri ght Upper Arm] 145/104 H 170/103 H 168/97 H Pulse Oximetry 99 96 Oxygen Delivery Me thod Room Air Room Air <Brandon Amaya MD - Last Filed: 07/22/22 23:02> Vital Signs, click to edit/add: Vital Signs - 24 hr 07/22/22 06:08 07/22/22 10:58 07/22/22 13:47 Temperature 96.9 F L Pulse Rate [Left P ulse Oximeter] 91 78 80 Respiratory Rate 24 18 18 Blood Pressure [Ri ght Upper Arm] 145/104 H 170/103 H 168/97 H Pulse Oximetry 99 96 Oxygen Delivery Me thod Room Air Room Air <Jerrod Aponte MD - Last Filed: 07/22/22 13:26> Course Course Hospital Course: Patient seen and examined. She is given 1 L of lactated Ringer's. She received fentanyl and Zofran from EMS. I will hold off on a CT at this time and see what her labs show 1st. <Brandon Amaya MD - Last Filed: 07/22/22 23:02> Reevaluation(s) Reevaluation #1: Magnesium level came back at 0.7. He is given 2 g of magnesium sulfate IV. During her last hospitalization she required a total of 6 g. CBC is unremarkable. Potassium is 3.2 and replacement is ordered. <Brandon Amaya MD - Last Filed: 07/22/22 23:02> Reevaluation #2: Patient is still having nausea. Compazine 10 mg IV is given. CT of the abdomen and pelvis with IV contrast is ordered. <Brandon Amaya MD - Last Filed: 07/22/22 23:02> Reevaluation #3: Patient is a benign examination on exam today. She is taking oral fluids we will increase her diet. If she is able to tolerate a diet, we can discharge her, on oral magnesium potassium replacement. I had social Work see her also, to talk to her about her alcohol intake, and the need for treatment. Patient was very noncommittal over this. <Jerrod Aponte MD - Last Filed: 07/22/22 13:26> Time: 12:45 <Jerrod Aponte MD - Last Filed: 07/22/22 13:26> Additional Reevaluation(s): Patient is still nauseated, does not think she can go home, and says she does not feel safe I do not think it is unreasonable to mid her, but I do think it is going to be a very short-term admission, and she needs to really strongly consider getting treatment for her issues that are causing this. I did discuss this with hospitalist. is accepting <Jerrod Aponte MD - Last Filed: 07/22/22 13:26> Vital Signs Vital signs: Initial Vital Signs Temperature 96.9 F L 07/22/22 06:08 Temperature Source Temporal Artery Scan 07/22/22 06:08 Pulse Rate 91 07/22/22 06:08 Pulse Rhythm Regular 07/22/22 06:08 Respiratory Rate 24 07/22/22 06:08 Blood Pressure 145/104 H 07/22/22 06:08 Blood Pressure Mean 117 H 07/22/22 06:08 Blood Pressure Position Semi-Fowlers 07/22/22 06:08 Pulse Oximetry 99 07/22/22 06:08 Oxygen Delivery Method Room Air 07/22/22 06:08 Vital Signs Temperature 96.9 F L 07/22/22 06:08 Pulse Rate 91 07/22/22 06:08 Respiratory Rate 24 07/22/22 06:08 Blood Pressure 145/104 H 07/22/22 06:08 Pulse Oximetry 99 07/22/22 06:08 Oxygen Delivery Method Room Air 07/22/22 06:08 Temperature 98 F 07/22/22 19:00 Pulse Rate 88 07/22/22 19:00 Respiratory Rate 16 07/22/22 19:00 Blood Pressure 143/72 H 07/22/22 19:00 Pulse Oximetry 96 07/22/22 19:00 Oxygen Delivery Method Room Air 07/22/22 19:00 <Brandon Amaya MD - Last Filed: 07/22/22 23:02> Initial Vital Signs Temperature 96.9 F L 07/22/22 06:08 Temperature Source Temporal Artery Scan 07/22/22 06:08 Pulse Rate 91 07/22/22 06:08 Pulse Rhythm Regular 07/22/22 06:08 Respiratory Rate 24 07/22/22 06:08 Blood Pressure 145/104 H 07/22/22 06:08 Blood Pressure Mean 117 H 07/22/22 06:08 Blood Pressure Position Semi-Fowlers 07/22/22 06:08 Pulse Oximetry 99 07/22/22 06:08 Oxygen Delivery Method Room Air 07/22/22 06:08 Vital Signs Temperature 96.9 F L 07/22/22 06:08 Pulse Rate 91 07/22/22 06:08 Respiratory Rate 24 07/22/22 06:08 Blood Pressure 145/104 H 07/22/22 06:08 Pulse Oximetry 99 07/22/22 06:08 Oxygen Delivery Method Room Air 07/22/22 06:08 Temperature 98 F 07/22/22 19:00 Pulse Rate 88 07/22/22 19:00 Respiratory Rate 16 07/22/22 19:00 Blood Pressure 143/72 H 07/22/22 19:00 Pulse Oximetry 96 07/22/22 19:00 Oxygen Delivery Method Room Air 07/22/22 19:00 <Jerrod Aponte MD - Last Filed: 07/22/22 13:26> Medical Decision Making Lab Data Labs: Lab Results 07/22/22 07/22/22 07/22/22 Range/Units 06:39 06:39 07:30 WBC 8.72 (4.50-11.00) K/uL RBC 3.71 L (4.00-5.20) m/uL Hgb 12.5 (12.0-16.0) gm/dL Hct 37.6 (33.0-51.0) % MCV 101 H (80-100) fL MCH 34 (26-34) pg MCHC 33 (32-36) gm/dL RDW Coeff of Silvia 11.8 (11.5-15.5) % Plt Count 293 (140-440) K/uL Neut % (Auto) 81.7 H (42.0-72.0) % Lymph % (Auto) 8.8 L (20-44) % Boyd % (Auto) 8.7 (0.0-11.0) % Eos % (Auto) 0.1 (0.0-7.0) % Baso % (Auto) 0.1 (0.0-3.0) % Neut # (Auto) 7.10 H (1.7-7.0) K/uL Lymph # (Auto) 0.80 L (0.90-2.90) K/uL Boyd # (Auto) 0.80 (0.00-0.90) K/UL Eos # (Auto) 0.01 (0.00-0.50) K/uL Baso # (Auto) 0.01 (0.00-0.30) K/uL Sodium 139 (135-149) mmol/L Potassium 3.2 L (3.6-5.1) mmol/L Chloride 106 (96-114) mmol/L Carbon Dioxide 21 (20-32) mmol/L BUN 9 (7-30) mg/dL Creatinine 0.6 (0.5-1.5) mg/dL Estimated GFR 105 ml/min Glucose 140 H (60-115) mg/dL Calcium 8.3 L (8.4-10.6) mg/dL Magnesium 0.7 L* Cancelled (1.5-2.6) mg/dL Total Bilirubin 0.9 (0.1-1.5) mg/dL AST 25 (12-35) U/L ALT 18 (4-35) U/L Alkaline Phosphatase 158 H (40-150) U/L Total Protein 7.2 (6.0-8.3) g/dL Albumin 3.4 (3.3-5.0) g/dL Amylase 82 (18-89) U/L Lipase 168 (23-300) U/L Urine Opiates Screen Negative (Negative) Ur Oxycodone Screen Negative (Negative) Urine Methadone Screen Negative (Negative) Ur Propoxyphene Screen Negative (Negative) Ur Barbiturates Screen Negative (Negative) U Tricyclic Antidepress Negative (Negative) Ur Phencyclidine Scrn Negative (Negative) Ur Amphetamines Screen Negative (Negative) U Methamphetamines Scrn Negative (Negative) U Benzodiazepines Scrn Negative (Negative) Urine Cocaine Screen Negative (Negative) U Marijuana (THC) Screen POSITIVE A* (Negative) Ur Drug Screen Comment See Note Ethyl Alcohol < 0.01 L (0.01-0.03) % 07/22/22 Range/Units 10:20 WBC (4.50-11.00) K/uL RBC (4.00-5.20) m/uL Hgb (12.0-16.0) gm/dL Hct (33.0-51.0) % MCV (80-100) fL MCH (26-34) pg MCHC (32-36) gm/dL RDW Coeff of Silvia (11.5-15.5) % Plt Count (140-440) K/uL Neut % (Auto) (42.0-72.0) % Lymph % (Auto) (20-44) % Boyd % (Auto) (0.0-11.0) % Eos % (Auto) (0.0-7.0) % Baso % (Auto) (0.0-3.0) % Neut # (Auto) (1.7-7.0) K/uL Lymph # (Auto) (0.90-2.90) K/uL Boyd # (Auto) (0.00-0.90) K/UL Eos # (Auto) (0.00-0.50) K/uL Baso # (Auto) (0.00-0.30) K/uL Sodium (135-149) mmol/L Potassium (3.6-5.1) mmol/L Chloride (96-114) mmol/L Carbon Dioxide (20-32) mmol/L BUN (7-30) mg/dL Creatinine (0.5-1.5) mg/dL Estimated GFR ml/min Glucose (60-115) mg/dL Calcium (8.4-10.6) mg/dL Magnesium 1.3 L (1.5-2.6) mg/dL Total Bilirubin (0.1-1.5) mg/dL AST (12-35) U/L ALT (4-35) U/L Alkaline Phosphatase (40-150) U/L Total Protein (6.0-8.3) g/dL Albumin (3.3-5.0) g/dL Amylase (18-89) U/L Lipase (23-300) U/L Urine Opiates Screen (Negative) Ur Oxycodone Screen (Negative) Urine Methadone Screen (Negative) Ur Propoxyphene Screen (Negative) Ur Barbiturates Screen (Negative) U Tricyclic Antidepress (Negative) Ur Phencyclidine Scrn (Negative) Ur Amphetamines Screen (Negative) U Methamphetamines Scrn (Negative) U Benzodiazepines Scrn (Negative) Urine Cocaine Screen (Negative) U Marijuana (THC) Screen (Negative) Ur Drug Screen Comment Ethyl Alcohol (0.01-0.03) % <Brandon Amaya MD - Last Filed: 07/22/22 23:02> Lab Results 07/22/22 07/22/22 07/22/22 Range/Units 06:39 06:39 07:30 WBC 8.72 (4.50-11.00) K/uL RBC 3.71 L (4.00-5.20) m/uL Hgb 12.5 (12.0-16.0) gm/dL Hct 37.6 (33.0-51.0) % MCV 101 H (80-100) fL MCH 34 (26-34) pg MCHC 33 (32-36) gm/dL RDW Coeff of Silvia 11.8 (11.5-15.5) % Plt Count 293 (140-440) K/uL Neut % (Auto) 81.7 H (42.0-72.0) % Lymph % (Auto) 8.8 L (20-44) % Boyd % (Auto) 8.7 (0.0-11.0) % Eos % (Auto) 0.1 (0.0-7.0) % Baso % (Auto) 0.1 (0.0-3.0) % Neut # (Auto) 7.10 H (1.7-7.0) K/uL Lymph # (Auto) 0.80 L (0.90-2.90) K/uL Boyd # (Auto) 0.80 (0.00-0.90) K/UL Eos # (Auto) 0.01 (0.00-0.50) K/uL Baso # (Auto) 0.01 (0.00-0.30) K/uL Sodium 139 (135-149) mmol/L Potassium 3.2 L (3.6-5.1) mmol/L Chloride 106 (96-114) mmol/L Carbon Dioxide 21 (20-32) mmol/L BUN 9 (7-30) mg/dL Creatinine 0.6 (0.5-1.5) mg/dL Estimated GFR 105 ml/min Glucose 140 H (60-115) mg/dL Calcium 8.3 L (8.4-10.6) mg/dL Magnesium 0.7 L* Cancelled (1.5-2.6) mg/dL Total Bilirubin 0.9 (0.1-1.5) mg/dL AST 25 (12-35) U/L ALT 18 (4-35) U/L Alkaline Phosphatase 158 H (40-150) U/L Total Protein 7.2 (6.0-8.3) g/dL Albumin 3.4 (3.3-5.0) g/dL Amylase 82 (18-89) U/L Lipase 168 (23-300) U/L Urine Opiates Screen Negative (Negative) Ur Oxycodone Screen Negative (Negative) Urine Methadone Screen Negative (Negative) Ur Propoxyphene Screen Negative (Negative) Ur Barbiturates Screen Negative (Negative) U Tricyclic Antidepress Negative (Negative) Ur Phencyclidine Scrn Negative (Negative) Ur Amphetamines Screen Negative (Negative) U Methamphetamines Scrn Negative (Negative) U Benzodiazepines Scrn Negative (Negative) Urine Cocaine Screen Negative (Negative) U Marijuana (THC) Screen POSITIVE A* (Negative) Ur Drug Screen Comment See Note Ethyl Alcohol < 0.01 L (0.01-0.03) % 07/22/22 Range/Units 10:20 WBC (4.50-11.00) K/uL RBC (4.00-5.20) m/uL Hgb (12.0-16.0) gm/dL Hct (33.0-51.0) % MCV (80-100) fL MCH (26-34) pg MCHC (32-36) gm/dL RDW Coeff of Silvia (11.5-15.5) % Plt Count (140-440) K/uL Neut % (Auto) (42.0-72.0) % Lymph % (Auto) (20-44) % Boyd % (Auto) (0.0-11.0) % Eos % (Auto) (0.0-7.0) % Baso % (Auto) (0.0-3.0) % Neut # (Auto) (1.7-7.0) K/uL Lymph # (Auto) (0.90-2.90) K/uL Boyd # (Auto) (0.00-0.90) K/UL Eos # (Auto) (0.00-0.50) K/uL Baso # (Auto) (0.00-0.30) K/uL Sodium (135-149) mmol/L Potassium (3.6-5.1) mmol/L Chloride (96-114) mmol/L Carbon Dioxide (20-32) mmol/L BUN (7-30) mg/dL Creatinine (0.5-1.5) mg/dL Estimated GFR ml/min Glucose (60-115) mg/dL Calcium (8.4-10.6) mg/dL Magnesium 1.3 L (1.5-2.6) mg/dL Total Bilirubin (0.1-1.5) mg/dL AST (12-35) U/L ALT (4-35) U/L Alkaline Phosphatase (40-150) U/L Total Protein (6.0-8.3) g/dL Albumin (3.3-5.0) g/dL Amylase (18-89) U/L Lipase (23-300) U/L Urine Opiates Screen (Negative) Ur Oxycodone Screen (Negative) Urine Methadone Screen (Negative) Ur Propoxyphene Screen (Negative) Ur Barbiturates Screen (Negative) U Tricyclic Antidepress (Negative) Ur Phencyclidine Scrn (Negative) Ur Amphetamines Screen (Negative) U Methamphetamines Scrn (Negative) U Benzodiazepines Scrn (Negative) Urine Cocaine Screen (Negative) U Marijuana (THC) Screen (Negative) Ur Drug Screen Comment Ethyl Alcohol (0.01-0.03) % <Jerrod Aponte MD - Last Filed: 07/22/22 13:26> ECG Data Attestation: I personally reviewed and interpreted this ECG as follows: <Jerrod Aponte MD - Last Filed: 07/22/22 13:26> Prior ECG tracings: not available for review <Jerrod Aponte MD - Last Filed: 07/22/22 13:26> Interpretation: EKG shows normal sinus rhythm, there is some and min no acute changes ventricular rate 78 QT and QTC are normal <Jerrod Aponte MD - Last Filed: 07/22/22 13:26> Discharge Plan Discharge Clinical Impression: Marijuana dependence, Alcohol use disorder, Abdominal pain, Vomiting, Hypomagnesemia <Brandon Amaya MD - Last Filed: 07/22/22 23:02> Patient Disposition: Admitted As Inpatient <Brandon Amaya MD - Last Filed: 07/22/22 23:02> Condition: Improved <Brandon Amaya MD - Last Filed: 07/22/22 23:02> Discharge Diet: Regular <Brandon Amaya MD - Last Filed: 07/22/22 23:02> Regular <Jerrod Aponte MD - Last Filed: 07/22/22 13:26>
[2022-07-22 06:53] LABS: Basophils Absolute Auto 0.01 K/uL (0.00-0.30); Basophils Percent Auto 0.1 % (0.0-3.0); Eosinophils Absolute Auto 0.01 K/uL (0.00-0.50); Eosinophils Percent Auto 0.1 % (0.0-7.0); Hematocrit 37.6 % (33.0-51.0); Hemoglobin* 12.5 gm/dL (12.0-16.0); Immature Granulocytes Abs Auto 0.05 K/uL (0.00-0.30); Immature Granulocytes Pct Auto 0.6 %; Lymphocytes Percent Auto 8.8 % (20-44); Mean Corpuscular HGB Conc 33 gm/dL (32-36); Mean Corpuscular Hemoglobin 34 pg (26-34); Mean Corpuscular Volume 101 fL (80-100); Monocytes Percent Auto 8.7 % (0.0-11.0); Neutrophils Percent Auto 81.7 % (42.0-72.0); Platelet Count* 293 K/uL (140-440); RDW Coefficient of Variation % 11.8 % (11.5-15.5); Red Blood Count 3.71 m/uL (4.00-5.20); White Blood Count* 8.72 K/uL (4.50-11.00)
[2022-07-22 06:55] LABS: Slide Review Reflex No
[2022-07-22 07:02] LABS: Albumin* 3.4 g/dL (3.3-5.0)
[2022-07-22 07:03] LABS: Chloride* 106 mmol/L (96-114); Potassium* 3.2 mmol/L (3.6-5.1); Sodium* 139 mmol/L (135-149)
[2022-07-22 07:05] LABS: Amylase* 82 U/L (18-89); Bilirubin Total* 0.9 mg/dL (0.1-1.5); Carbon Dioxide* 21 mmol/L (20-32); Creatinine* 0.6 mg/dL (0.5-1.5); Estimated Glomerular Filt Rate 105 ml/min; Total Protein* 7.2 g/dL (6.0-8.3)
[2022-07-22 07:06] LABS: Alanine Aminotransferase* 18 U/L (4-35); Alkaline Phosphatase* 158 U/L (40-150); Aspartate Amino Transferase* 25 U/L (12-35); Blood Urea Nitrogen* 9 mg/dL (7-30); Calcium* 8.3 mg/dL (8.4-10.6); Glucose* 140 mg/dL (60-115); Lipase* 168 U/L (23-300)
[2022-07-22 07:14] LABS: Ethanol* < 0.01 % (0.01-0.03); Magnesium* 0.7 mg/dL (1.5-2.6)
[2022-07-22 07:46] LABS: Amphetamine Screen Urine Negative (Negative); Barbiturate Screen Urine Negative (Negative); Benzodiazepines Screen Urine Negative (Negative); Cocaine Screen Urine Negative (Negative); Methadone Screen Urine Negative (Negative); Methamphetamines Screen Urine Negative (Negative); Opiate Screen Urine Negative (Negative); Oxycodone Screen Urine Negative (Negative); Phencyclidine Screen Urine Negative (Negative); Tricyclic Antidepressant Urine Negative (Negative)
--- NOTE | 2022-07-22 07:48 | CRLHL7_ITS ---
For Patients: As a result of the Century Cures Act, medical imaging exams and procedure reports are released immediately into your electronic medical record. You may view this report before your referring provider. If you have questions, please contact your health care provider. INDICATION: Abdomen pain and vomiting TECHNIQUE: Axial images were obtained from the diaphragm to the pubic symphysis. Reformats were obtained in the coronal and sagittal plane. IV Contrast: 66 cc Isovue 370 Oral Contrast: None COMPARISON: Abdomen and pelvis CT 08/09/2015 FINDINGS: Lower chest: Unremarkable. Liver: Normal in contour with multiple cysts within the right lobe, largest measuring 16 millimeters. Several hypodense lesions measure less than 1 centimeter and are too small for characterization. Statistically speaking, in the absence of a known primary malignancy these would likely represent incidental findings. Gallbladder and bile ducts: Gallbladder wall thickness upper normal. No pericholecystic inflammation or calcified stones. Spleen: Unremarkable. Normal in size without mass. Pancreas: Unremarkable. No mass or inflammation. Adrenal glands: Unremarkable. No nodules. Kidneys: Mild renal cortical thinning, no hydronephrosis. Vasculature: Atherosclerosis without abdominal aortic aneurysm. GI tract: Stomach is unremarkable. No dilated loops of large or small intestine. Appendix unremarkable. Colonic diverticulosis Pelvis: Pelvic floor laxity noted (series 5, image 85). Bones: Status post right total hip replacement. IMPRESSION: 1. Colonic diverticulosis without CT evidence of diverticulitis. 2. Pelvic floor laxity with low position of the bladder and cervix. 3. Status post right total hip replacement. Please note that all CT scans at this facility use dose modulation, iterative reconstruction, and/or weight-based dosing when appropriate to reduce radiation dose to as low as reasonably achievable. Dictated by Amilcar Lopez MD @ 07/22/2022 9:18:47 AM (Electronically Signed)
[2022-07-22 07:49] LABS: Cannabinoid Screen Urine POSITIVE (Negative)
[2022-07-22] MEDS: LACTATED RINGERS 500 ML 500 ML IV (08:00)
[2022-07-22] MEDS: PROCHLORPERAZINE 5 MG/ML VIAL 10 MG IV (08:00)
[2022-07-22] MEDS: POTASSIUM CHLORIDE 10 MEQ CAPSULE ER 40 MEQ PO (08:30)
--- NOTE | 2022-07-22 11:52 | PC.SOCIAL ---
Received referral from Dirk Metcalf. Met with patient and discussed stressors and addictions. Patient with think about getting help. 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 Offered to call. Patient declined and would like to take information home and look at it herself.
[2022-07-22 12:53] LABS: Magnesium* 1.3 mg/dL (1.5-2.6)
[2022-07-22] MEDS: MAGNESIUM OXIDE 400 MG TABLET PO ×2 (13:14→20:17)
--- NOTE | 2022-07-22 15:11 | PM.IMHP1 ---
Hospitalist- H&P: HPI History of Present Illness Date Seen: 07/22/22 Chief complaint: abdominal pain Narrative: April Lucas is a 57 year old female with alcohol use disorder admitted from the hospital for 2-3 days of generalized abdominal pain and intractable nausea vomiting and diarrhea. Patient reports that she was generally doing well up until about 3 days ago. At that time she had onset of vomiting and diarrhea. It was nonbloody emesis and no blood in her stool or melena. She has felt hot and cold but is not aware of having a definite fever. The abdominal pain is generalized. She thinks it might be recurrent pancreatitis which she has had in the past from ongoing alcohol abuse. She was also found to have severe hypo magnesemia. She has ongoing daily use of cannabis. She has had no alcohol in the last 3 days. She was last hospitalized here December of 2021 for similar problems. Review of Systems Narrative: She reports generally doing well other than the problems noted above. No chest pain, shortness of breath. No altered mental status. No trauma. [facility] Medical History Substance abuse ?F19.10 - Other psychoactive substance abuse, uncomplicated (ICD-10) Marijuana dependence ?F12.20 - Cannabis dependence, uncomplicated (ICD-10) Edentulous ?K08.109 - Complete loss of teeth, unspecified cause, unspecified class (ICD-10) Chronic diarrhea ?K52.9 - Noninfective gastroenteritis and colitis, unspecified (ICD-10) Hypokalemia ?E87.6 - Hypokalemia (ICD-10) Personal history of gallstones ?Z87.19 - Personal history of other diseases of the digestive system (ICD-10) Visual impairment ?H54.7 - Unspecified visual loss (ICD-10) Closed fracture of second cervical vertebra without spinal cord injury ?S12.100A - Unspecified displaced fracture of second cervical vertebra, initial encounter for closed fracture (ICD-10) Major depressive disorder ?F32.9 - Major depressive disorder, single episode, unspecified (ICD-10) Generalized anxiety disorder ?F41.1 - Generalized anxiety disorder (ICD-10) Hypertension ?I10 - Essential (primary) hypertension (ICD-10) Hypomagnesemia ?E83.42 - Hypomagnesemia (ICD-10) Sacroiliitis, not elsewhere classified ?M46.1 - Sacroiliitis, not elsewhere classified (ICD-10) Peripheral neuropathy ?G62.9 - Polyneuropathy, unspecified (ICD-10) Monoclonal gammopathy ?D47.2 - Monoclonal gammopathy (ICD-10) Gastroesophageal reflux disease ?K21.9 - Gastro-esophageal reflux disease without esophagitis (ICD-10) Nontoxic single thyroid nodule ?E04.1 - Nontoxic single thyroid nodule (ICD-10) Acalculous cholecystitis ?K81.9 - Cholecystitis, unspecified (ICD-10) Clostridioides difficile diarrhea ?A04.72 - Enterocolitis due to Clostridium difficile, not specified as recurrent (ICD-10) Tobacco dependence ?F17.200 - Nicotine dependence, unspecified, uncomplicated (ICD-10) Pancreatitis, alcoholic, acute ?K85.20 - Alcohol induced acute pancreatitis without necrosis or infection (ICD-10) Gallstone pancreatitis ?K85.10 - Biliary acute pancreatitis without necrosis or infection (ICD-10) Family History (Updated 07/22/22 @ 15:18 by Tejas Vinson MD) Mother Lung cancer Ovarian cancer Social History (Updated 07/22/22 @ 15:20 by Tejas Vinson MD) Narrative: She lives alone in [place]. She sees a doctor at the [facility] in [place] for primary care. Her daughter Lauren Lucas is healthcare power of insurance defense attorney. Code status is full. She drinks about 5 alcoholic beverages a day. She uses cannabis about twice a day. She has 2 children and 5 grandchildren. She is disabled. What is your current living situation: I presently have a place to live Highest level of school completed/degree received: GED or equivalent Smoking Status: Current every day smoker What tobacco products do you use: cigarettes Smoking packs per day: 20 Smoking cigarettes per day: 400.0 Years smoked: 30 Smoking pack-years: 600.00 Do you use any of these nicotine containing products: None Second hand tobacco smoke exposure: Yes How often do you have a drink containing alcohol: 4 or more times a week Alcohol type: hard liquor Alcohol type details: vodka How many standard drinks containing alcohol do you have on a typical day: 5 or 6 How often do you have six or more drinks on one occasion: Daily or almost daily AUDIT-C Alcohol total score: 10 Non-prescribed substance use: marijuana (any form) Non-prescribed substance use details: 3-4 pinches per day Caffeine: Yes (1 cup a day) Are you now , , , , never or living with a partner: Social isolation score (0-1 are the most socially isolated patients): 0 service: No Meds Home Medications and Allergies Home Medications Medication Instructions Recorded Confirmed Type famotidine 20 mg tablet 20 mg PO BID 10/08/21 07/22/22 History gabapentin 300 mg capsule 600 mg PO TID 10/08/21 07/22/22 History metoprolol tartrate 50 mg tablet 50 mg PO BID 10/08/21 07/22/22 History sertraline 100 mg tablet 100 mg PO DAILY 10/08/21 07/22/22 History acetaminophen 500 mg tablet 500 mg PO DAILY 10/09/21 07/22/22 History cholecalciferol (vitamin D3) 50 2,000 unit PO HS 10/09/21 07/22/22 History mcg (2,000 unit) capsule gabapentin 100 mg capsule 100 mg PO TID 10/09/21 07/22/22 History loperamide 2 mg capsule 2 mg PO QID PRN 10/09/21 07/22/22 History multivitamin with folic acid 400 1 tab PO DAILY 10/09/21 07/22/22 History mcg tablet (Tab-A-Bob) lisinopril 5 mg tablet 5 mg PO DAILY 01/02/22 07/22/22 History meloxicam 7.5 mg tablet 7.5 mg PO DAILY 01/02/22 07/22/22 History Allergies Allergy/AdvReac Type Severity Reaction Status Date / Time No Known Allergies Allergy Verified 10/08/21 17:19 Exam Narrative: Exam Narrative: She is alert and appears in no distress. She is not anxious or tremulous or agitated. Speech is normal. She is oriented to her circumstances. She gives her own history with fairly good detail. Head is without apparent external signs of trauma. Eyes normal. Sclerae nonicteric. Oropharynx is edentulous. Somewhat dry mucous membranes. No mucosal abnormalities. Neck is supple without mass or adenopathy. Respirations are clear to auscultation. Cardiovascular: S1, S2, regular rate and rhythm. No murmur gallop or rub. Abdomen: Bowel sounds active. Abdomen is soft. She reports mild diffuse tenderness. No focal tenderness. No peritonitis. I do not palpate a mass. External genitalia normal. Upper extremities are normal without apparent tremor. Lower extremities notable for no edema. She has intact sensation and pulses. Feet are warm to touch. She moves all 4 extremities well. Const: Vital Signs, click to edit/add: Vital Signs - 24 hr 07/22/22 06:08 07/22/22 10:58 07/22/22 13:47 Temperature 96.9 F L Pulse Rate [Left P ulse Oximeter] 91 78 80 Respiratory Rate 24 18 18 Blood Pressure [Ri ght Upper Arm] 145/104 H 170/103 H 168/97 H Pulse Oximetry 99 96 Oxygen Delivery Me thod Room Air Room Air Documenting provider has reviewed patient's vital signs: yes Hospitalist - H&P: Result Labs Labs: Short CBC 07/22/22 Range/Units 06:39 WBC 8.72 (4.50-11.00) K/uL Hgb 12.5 (12.0-16.0) gm/dL Hct 37.6 (33.0-51.0) % Plt Count 293 (140-440) K/uL BMP 07/22/22 06:39 Sodium 139 Potassium 3.2 L Chloride 106 Carbon Dioxide 21 BUN 9 Creatinine 0.6 Glucose 140 H Calcium 8.3 L Liver Function 07/22/22 Range/Units 06:39 Total Bilirubin 0.9 (0.1-1.5) mg/dL AST 25 (12-35) U/L ALT 18 (4-35) U/L Alkaline Phosphatase 158 H (40-150) U/L Albumin 3.4 (3.3-5.0) g/dL Imaging CT scan - abdomen: Radiologist's impression: INDICATION: Abdomen pain and vomiting TECHNIQUE: Axial images were obtained from the diaphragm to the pubic symphysis. Reformats were obtained in the coronal and sagittal plane. IV Contrast: 66 cc Isovue 370 Oral Contrast: None COMPARISON: Abdomen and pelvis CT 08/09/2015 FINDINGS: Lower chest: Unremarkable. Liver: Normal in contour with multiple cysts within the right lobe, largest measuring 16 millimeters. Several hypodense lesions measure less than 1 centimeter and are too small for characterization. Statistically speaking, in the absence of a known primary malignancy these would likely represent incidental findings. Gallbladder and bile ducts: Gallbladder wall thickness upper normal. No pericholecystic inflammation or calcified stones. Spleen: Unremarkable. Normal in size without mass. Pancreas: Unremarkable. No mass or inflammation. Adrenal glands: Unremarkable. No nodules. Kidneys: Mild renal cortical thinning, no hydronephrosis. Vasculature: Atherosclerosis without abdominal aortic aneurysm. GI tract: Stomach is unremarkable. No dilated loops of large or small intestine. Appendix unremarkable. Colonic diverticulosis Pelvis: Pelvic floor laxity noted (series 5, image 85). Bones: Status post right total hip replacement. IMPRESSION: 1. Colonic diverticulosis without CT evidence of diverticulitis. 2. Pelvic floor laxity with low position of the bladder and cervix. 3. Status post right total hip replacement. Assessment and Plan Assessment and plan (1) Vomiting: Problem comment: Cause for this is uncertain. Considerations include gastritis from alcohol abuse. Benign findings on CT scan make surgical emergency less likely. Lipase is also normal. Will attempt to feed tonight as her electrolytes and volume status are corrected. Symptomatic measures. Re-evaluate and further testing depending on her clinical course Status: Acute (2) Abdominal pain: Problem comment: Uncertain cause. Relatively benign exam. Symptomatic measures an outpatient followup Status: Acute (3) Substance abuse: Problem comment: meth, alcohol, THC, tobacco UDS showed meth, THC Status: Acute (4) Marijuana dependence: Problem comment: Noted. Uncertain if vomiting is related to chronic cannabis use Status: Acute (5) Alcohol use disorder: Problem comment: -CIWA protocols. IV thiamin. P.o. of folic acid. P.o. multivitamin. Does not currently appear to be in withdrawal Status: Acute (6) Hypomagnesemia: Problem comment: -severe. Recurrent problem over the past year. Status: Acute Plan Admit to the hospital for IV fluids including potassium, dextrose, magnesium. Monitor for nausea and vomiting and worsening abdominal pain. Alcohol withdrawal protocol with CIWA. Total time spent today is 70 minutes, 40 minutes in coordination of care discussing with patient other providers ongoing evaluation management of alcohol withdrawal, vomiting and electrolyte disorders
[2022-07-22] MEDS: 5 % DEX/0.9 SOD CHL+KCL 20 mEq 1,000 ML 200 ML IV (15:14)
[2022-07-22] MEDS: OMEPRAZOLE 20 MG CAPSULE DR 40 MG PO (15:52)
--- NOTE | 2022-07-22 19:46 | PC.NURSE ---
[id number]: Patient admitted to floor with n/v and abdominal pain. Patient had no episodes of n/v or abdominal since being admitted to floor. Patient continues to have diarrhea and patient states she has had this for 3 days now. Patient reports history of drinking alcohol. Patient has no tremors, hallucinations, sweats, and is vitally stable at this time. Patient with continuous fluids at this time. Patient with poor appetite but denies losing weight. Patient on tele and NSR. Will continue to monitor.
[2022-07-22] MEDS: MAGNESIUM IV 4 GM/100 ML PIGGYBACK IVPB (20:09)
[2022-07-22] MEDS: SODIUM CHLORIDE 0.9 % (FLUSH) 10 ML SYRINGE 5 ML IVF (20:10)
[2022-07-22] MEDS: GABAPENTIN 100 MG CAPSULE PO (20:16)
[2022-07-22] MEDS: GABAPENTIN 300 MG CAPSULE 600 MG PO (20:16)
[2022-07-22] MEDS: FAMOTIDINE 20 MG TABLET PO (20:17)
[2022-07-22] MEDS: METOPROLOL TARTRATE 50 MG TABLET PO (20:17)
[2022-07-22 20:26] LABS: Chloride* 106 mmol/L (96-114); Potassium* 3.4 mmol/L (3.6-5.1); Sodium* 137 mmol/L (135-149)
[2022-07-22 20:29] LABS: Calcium* 8.1 mg/dL (8.4-10.6)
[2022-07-22 20:30] LABS: Blood Urea Nitrogen* 5 mg/dL (7-30); Carbon Dioxide* 23 mmol/L (20-32); Creatinine* 0.5 mg/dL (0.5-1.5); Estimated Glomerular Filt Rate 109 ml/min
[2022-07-22 20:31] LABS: Glucose* 119 mg/dL (60-115)
[2022-07-22] MEDS: ACETAMINOPHEN 325 MG TABLET 650 MG PO (21:58)
[2022-07-22] MEDS: POTASSIUM BICARB 25 MEQ EFFERVESCENT TAB 50 MEQ PO (21:58)
[2022-07-23] MEDS: ACETAMINOPHEN 325 MG TABLET 650 MG PO (02:40)
[2022-07-23 03:00] VITALS: BP 142/84; PULSE 65; RESP 16; TEMP 36.7; O2SAT 96
[2022-07-23] MEDS: OMEPRAZOLE 20 MG CAPSULE DR 40 MG PO (06:18)
--- NOTE | 2022-07-23 06:37 | PC.NURSE ---
END OF SHIFT NOTE: PT PLEASANT AND COOPERATIVE WITH CARES. PT DENIES CP, SOB, N/V. AMBULATES INDEPENDENTLY WITHIN ROOM. VSS ON RA; AFEBRILE. PT C/O CHRONIC NECK & BACK PAIN 8-11/06 WITH RELIEF FROM PRN PAIN RELIEVER. CALL LIGHT WITHIN PT?S REACH.
[2022-07-23 06:46] LABS: Basophils Absolute Auto 0.02 K/uL (0.00-0.30); Basophils Percent Auto 0.2 % (0.0-3.0); Eosinophils Absolute Auto 0.16 K/uL (0.00-0.50); Eosinophils Percent Auto 1.5 % (0.0-7.0); Hematocrit 36.3 % (33.0-51.0); Hemoglobin* 11.9 gm/dL (12.0-16.0); Immature Granulocytes Abs Auto 0.03 K/uL (0.00-0.30); Immature Granulocytes Pct Auto 0.3 %; Lymphocytes Absolute Auto 2.37 K/uL (0.90-2.90); Lymphocytes Percent Auto 22.5 % (20-44); Mean Corpuscular HGB Conc 33 gm/dL (32-36); Mean Corpuscular Hemoglobin 34 pg (26-34); Mean Corpuscular Volume 104 fL (80-100); Monocytes Percent Auto 7.6 % (0.0-11.0); Neutrophils Absolute Auto 7.17 K/uL (1.7-7.0); Neutrophils Percent Auto 67.9 % (42.0-72.0); Platelet Count* 297 K/uL (140-440); RDW Coefficient of Variation % 11.9 % (11.5-15.5); White Blood Count* 10.55 K/uL (4.50-11.00)
[2022-07-23 06:47] LABS: Slide Review Reflex No
[2022-07-23 06:58] LABS: Chloride* 101 mmol/L (96-114)
[2022-07-23 06:59] LABS: Potassium* 3.8 mmol/L (3.6-5.1); Sodium* 134 mmol/L (135-149)
[2022-07-23 07:00] VITALS: BP 163/97; PULSE 73; RESP 16; TEMP 36.4; O2SAT 99
[2022-07-23 07:01] LABS: Creatinine* 0.5 mg/dL (0.5-1.5); Estimated Glomerular Filt Rate 109 ml/min
[2022-07-23 07:02] LABS: Blood Urea Nitrogen* 3 mg/dL (7-30); Calcium* 8.2 mg/dL (8.4-10.6); Carbon Dioxide* 25 mmol/L (20-32); Glucose* 86 mg/dL (60-115); Magnesium* 2.4 mg/dL (1.5-2.6)
[2022-07-23 07:34] VITALS: PULSE 63
[2022-07-23] MEDS: FOLIC ACID 1 MG TABLET PO (08:34)
[2022-07-23] MEDS: lisinopriL 5 MG TABLET PO (08:34)
[2022-07-23] MEDS: MULTIVITAMIN/MINERALS 1 TABLET 1 TAB PO (08:34)
[2022-07-23] MEDS: FAMOTIDINE 20 MG TABLET PO (08:34)
[2022-07-23] MEDS: METOPROLOL TARTRATE 50 MG TABLET PO (08:34)
[2022-07-23] MEDS: SERTRALINE 100 MG TABLET PO (08:35)
[2022-07-23] MEDS: MAGNESIUM OXIDE 400 MG TABLET PO (08:35)
[2022-07-23] MEDS: GABAPENTIN 100 MG CAPSULE PO (08:35)
[2022-07-23] MEDS: GABAPENTIN 300 MG CAPSULE 600 MG PO (08:37)
[2022-07-23] MEDS: SODIUM CHLORIDE 0.9 % (FLUSH) 10 ML SYRINGE 5 ML IVF (08:37)
[2022-07-23] MEDS: MELOXICAM 15 MG TABLET PO (08:51)
[2022-07-23] MEDS: POTASSIUM CHLORIDE 10 MEQ/100 ML PIGGYBACK 100 MEQ IVPB ×2 (10:03→12:05)
[2022-07-23 11:00] VITALS: BP 134/100; PULSE 88; RESP 18; TEMP 36.7; O2SAT 97
--- NOTE | 2022-07-23 12:56 | P.DS_ITS ---
DS: Providers Provider Time Seen by Provider: 09:08 Date Seen: 07/23/22 Date of admission: 07/22/22 14:27 Primary care physician: Nick Kwon MD Admitting Clinician: Tejas Vinson MD Attending Physician on discharge: Raine Floyd MD Date of Discharge: 07/23/22 DS: Diagnosis Discharge Diagnosis (1) Vomiting: Status: Resolved Problem details: Cause for this is uncertain. Considerations include gastritis from alcohol abuse. Benign findings on CT scan make surgical emergency less likely. Lipase is also normal. Resolved with symptomatic measures. (2) Abdominal pain: Status: Resolved Problem details: Uncertain cause. Relatively benign exam. Resolved with symptomatic measures. (3) Substance abuse: Status: Chronic Problem details: meth, alcohol, THC, tobacco UDS showed meth, THC (4) Marijuana dependence: Status: Chronic Problem details: Noted. Uncertain if vomiting is related to chronic cannabis use (5) Edentulous: Status: Chronic (6) Alcohol use disorder: Status: Chronic Problem details: Did not appear to go through withdrawal here - Discussed cessation and abstinence. Patient is in pre contemplation stage and declines any help quitting; she does not think she will quit. (7) Hypomagnesemia: Status: Acute Problem details: -severe. Recurrent problem over the past year. (8) Hypokalemia: Status: Acute Problem details: Improving with supplementation. Did not tolerate oral supplements due to probable GERD. (9) Major depressive disorder: Status: Chronic (10) Generalized anxiety disorder: Status: Chronic (11) Hypertension: Status: Chronic Problem details: (12) Peripheral neuropathy: Status: Chronic (13) Gastroesophageal reflux disease: Status: Chronic (14) Tobacco dependence: Status: Chronic Problem details: Patient declined tobacco supplementation DS: Summary Hospital Course Hospital Course: This is a 57-year-old female with history of alcohol use disorder who was admitted to the hospital for couple days of generalized abdominal pain and intractable vomiting and diarrhea. It was nonbloody. The she did not have a definite fever. She has a history of recurrent pancreatitis, but lipase was unremarkable. She did have severe hypo magnesemia, similar to what she has had in the past. She has ongoing daily use of cannabis. Her last drink of alcohol was 3 days prior to admission. She was admitted on IV fluid with potassium and magnesium replacement. She tolerated only some of the potassium orally, but had severe GERD symptoms for which he was switched to IV replacement. Her magnesium normalized with replacement. Nausea vomiting and abdominal pain resolved and she was able to tolerate a regular diet. She is discharged home in stable condition. Time Spent with Patient Time attestation: Total time spent providing and/or coordinating discharge services: Exam Narrative: Exam Narrative: General: No acute distress. Awake, alert, oriented x3. No pallor. No jaundice. Oropharynx: Clear. Mucous membranes moist. Cardiovascular: Regular rate and rhythm. No murmurs, gallops, or rubs. Respiratory: Clear to auscultation bilaterally. No wheezes or crackles. Abdomen: Bowel sounds present. Soft, nondistended, nontender. Extremities: No pedal edema. Const: Vital Signs, click to edit/add: Vital Signs - 24 hr 07/22/22 13:47 07/22/22 15:00 07/22/22 15:07 Temperature 97 F L 97 F L Pulse Rate Pulse Rate [Left P ulse Oximeter] 80 Pulse Rate [Pulse Oximeter] 81 81 Respiratory Rate 18 18 18 Blood Pressure [Le ft Arm] 167/94 H 167/94 H Blood Pressure [Ri ght Upper Arm] 168/97 H Pulse Oximetry 98 [facility] 07/22/22 15:07 07/22/22 16:12 07/22/22 19:00 Temperature 98 F Pulse Rate 72 Pulse Rate [Left P ulse Oximeter] Pulse Rate [Pulse Oximeter] 88 Respiratory Rate 18 16 Blood Pressure [Le ft Arm] 143/72 H Blood Pressure [Ri ght Upper Arm] Pulse Oximetry 98 96 [facility] Room Air 07/22/22 23:00 07/22/22 23:00 07/22/22 23:00 Temperature 98.4 F Pulse Rate 67 Pulse Rate [Left P ulse Oximeter] Pulse Rate [Pulse Oximeter] 66 66 Respiratory Rate 20 20 Blood Pressure [Le ft Arm] 138/80 Blood Pressure [Ri ght Upper Arm] Pulse Oximetry 97 Oxygen Delivery Mi thod Room Air 07/23/22 03:00 07/23/22 07:00 07/23/22 07:34 Temperature 98.1 F 97.6 F Pulse Rate 63 Pulse Rate [Left P ulse Oximeter] Pulse Rate [Pulse Oximeter] 65 73 Respiratory Rate 16 16 Blood Pressure [Le ft Arm] 142/84 H 163/97 H Blood Pressure [Ri ght Upper Arm] Pulse Oximetry 96 99 Oxygen Delivery Me thod Room Air Room Air Documenting provider has reviewed patient's vital signs: yes DS: Data Data Completed and Pending Labs on day of discharge: Labs from last 24 hours 07/23/22 07/22/22 06:01 20:09 WBC 10.55 RBC 3.50 L Hgb 11.9 L Hct 36.3 MCV 104 H MCH 34 MCHC 33 RDW Coeff of Silvia 11.9 Plt Count 297 Neut % (Auto) 67.9 Lymph % (Auto) 22.5 [place] % (Auto) 7.6 Eos % (Auto) 1.5 Baso % (Auto) 0.2 Neut # (Auto) 7.17 H Lymph # (Auto) 2.37 [place] # (Auto) 0.80 Eos # (Auto) 0.16 Baso # (Auto) 0.02 Sodium 134 L 137 Potassium 3.8 3.4 L Chloride 101 106 Carbon Dioxide 25 23 BUN 3 L 5 L Creatinine 0.5 0.5 Estimated Creat Clear 107.20 107.20 Estimated GFR 109 109 Glucose 86 119 H Calcium 8.2 L 8.1 L Magnesium 2.4 Discharge Plan Discharge Disposition: Home, Self-Care Date of Admission: 07/22/22 14:27 Attending Provider on Discharge: Raine Floyd Primary Care Provider: Nick Kwon Condition: Improved Anticipated Discharge Date/Time: 07/23/22 13:06 Discharge Medications: New magnesium gluconate 27.5 mg magne- sium (500 mg) tablet 27.5 mg PO BID Qty: 60 0RF potassium chloride 10 mEq capsule, extended release 10 meq PO BID Qty: 60 3RF ondansetron 4 mg tablet,disintegrating 4 mg PO BID-TID PRN (Reason: nausea and vomiting) Qty: 14 0RF omeprazole 20 mg Capsule,Delayed Release(Dr/Ec) 40 mg PO DAILY@0700 Qty: 60 0RF Continued lisinopril 5 mg tablet 5 mg PO DAILY meloxicam 7.5 mg tablet 7.5 mg PO DAILY magnesium oxide 400 mg (241.3 mg magnesium) Tablet 400 mg PO TID Qty: 90 11RF sodium chloride 1,000 mg Tablet,Soluble 1 g PO TIDWM Qty: 90 11RF sertraline 100 mg tablet 100 mg PO DAILY metoprolol tartrate 50 mg tablet 50 mg PO BID gabapentin 300 mg capsule 600 mg PO TID Rx Instructions: TOTAL DOSE = 700MG TID famotidine 20 mg tablet 20 mg PO BID gabapentin 100 mg capsule 100 mg PO TID Rx Instructions: TOTAL DOSE = 700MG TID acetaminophen 500 mg tablet 500 mg PO DAILY cholecalciferol (vitamin D3) 50 mcg (2,000 unit) capsule 2,000 unit PO HS loperamide 2 mg capsule 2 mg PO QID PRN multivitamin with folic acid [Tab-A-Bob] 400 mcg tablet 1 tab PO DAILY folic acid 1 mg Tablet 1 mg PO DAILY Qty: 30 0RF ondansetron 4 mg Tablet,Disintegrating 4 mg PO Q4H PRNQty: 30 0RF calcium carbonate-vitamin D3 [Oyster Shell Calcium-Vit D3] 500 mg-5 mcg (200 unit) Tablet 2 tab PO BID@1200,1800 Qty: 120 0RF Discharge Orders: Discharge Order (Routine); Ordered 07/23/22 Ordered By: Raine Floyd Patient Education: Abuse of Alcohol (DC), At-Risk Alcohol Use (ED), Cannabis Use Disorder (ED), Alcohol Withdrawal (DC), Abdominal Pain (ED), Polysubstance Use Disorder (ED), Hypomagnesemia (ED), Alcohol Use Disorder (ED) Additional Instructions: Home rest and use of potassium and magnesium, strongly suggest treatment for your alcohol issues. This is going to get better on its own, would recommend do talk with her primary care physician about this. I have given you prescription for some nausea medicine you may use also. Again please see the words of the social group worker also and considering some options available. Strongly suggest abstaining from Cannabis, alcohol, and methamphetamines. Take all medications as prescribed. Activity Level: No Restrictions Discharge Diet: Regular Follow Up Appointments: Nick Kwon MD [Primary Care Provider] - (5-7 days) Forms: [facility] Info Instructions
[2022-07-23 13:28] VITALS: PULSE 63; RESP 16; TEMP 36.4
--- NOTE | 2022-07-23 15:36 | PC.NURSE ---
Alert and oriented x 3. Denies any abdominal pain or nausea. Patient does report pain to neck and back, which is chronic pain for her at baseline. Bowel sounds active x 4 quadrants, patient ate breakfast at 1100 and consumed 50%, tolerated well. Lung sounds clear. Left wrist IV infiltrated, IV discontinued and new IV placed in right wrist. Patient received IV potassium prior to discharge. Discharged to home, wheelchair and transported in friend's private vehicle.
== END 2022-07-23 14:55 | disposition home or self-care (01) ==
LOC: ED 13:23 → MEDSURG 14:28
PROVIDERS: Family Medicine; Admitting Provider Family Medicine; Emergency Provider Family Medicine; PCP Family Medicine; Visit Provider Family Medicine
DX: E83.42 Hypomagnesemia (principal); R11.10 Vomiting, unspecified; R10.9 Unspecified abdominal pain; E87.6 Hypokalemia; F10.90 Alcohol use, unspecified, uncomplicated; F19.10 Other psychoactive substance abuse, uncomplicated; F12.20 Cannabis dependence, uncomplicated; K08.109 Complete loss of teeth, unspecified cause, unspecified class; F32.9 Major depressive disorder, single episode, unspecified; F41.1 Generalized anxiety disorder; I10 Essential (primary) hypertension; G62.9 Polyneuropathy, unspecified; K21.9 Gastro-esophageal reflux disease without esophagitis; R11.0 Nausea; F17.200 Nicotine dependence, unspecified, uncomplicated; Z87.19 Personal history of other diseases of the digestive system; Z80.1 Family history of malignant neoplasm of trachea, bronchus and lung; Z80.41 Family history of malignant neoplasm of ovary; Z96.641 Presence of right artificial hip joint
CPT/HCPCS: 36415; 74177; 80048; 80053; 80306; 82077; 82150; 83690; 83735; 85025; 93005; 99283; 99285; G0378; A9153; A9270; J0780; J3411; J3475; J3480; J7030; J7120; Q9967

== ENCOUNTER 2022-12-31 03:24 | Emergency (ER) | payer OTHER, SELFPAY ==
[2022-12-31] VITALS (8 sets, daily range): BP systolic 145–158; BP diastolic 87–100; PULSE 89–108; RESP 16–22; TEMP 36.7; O2SAT 94–100
--- NOTE | 2022-12-31 03:31 | CRLHL7_ITS ---
For Patients: As a result of the Century Cures Act, medical imaging exams and procedure reports are released immediately into your electronic medical record. You may view this report before your referring provider. If you have questions, please contact your health care provider. INDICATION: Abdominal pain. Vomiting. TECHNIQUE: CT abdomen and pelvis acquired with 64 cc Isovue 370 IV contrast. COMPARISON: 07/22/2022, 08/09/2015. FINDINGS: Lower chest: Unremarkable. Liver: Unchanged multiple circumscribed homogeneous low-density findings scattered throughout the liver consistent with cysts. Focal fatty infiltration in the medial segment of the left hepatic lobe adjacent to the intersegmental fissure. Gallbladder and bile ducts: Unremarkable. No stones or inflammation. No biliary dilatation. Pancreas: Unremarkable. No mass or inflammation. Spleen: Unremarkable. Normal in size. No masses. Adrenal glands: Unremarkable. No nodules. Kidneys: Unremarkable. No suspicious masses, stones, or hydronephrosis. GI tract: Sigmoid diverticulosis. Normal bowel caliber. No sign inflammation. Normal appendix. Vasculature: Abdominal aorta is normal in caliber. Mesenteric arteries are patent. Lymph nodes: No lymphadenopathy. Peritoneum/Abdominal Wall: Unremarkable. No sign of mass or infiltration. No free air or significant free fluid. Pelvis: Unchanged low lying urinary bladder, vagina and rectum on the sagittal series consistent with pelvic organ prolapse. Bones: Unchanged L1 anterior inferior vertebral body Schmorl`s node. IMPRESSION: No imaging findings to explain the clinical history. No significant interval changes compared to the most recent prior study of 07/22/2022. Please note that all CT scans at this facility use dose modulation, iterative reconstruction, and/or weight-based dosing when appropriate to reduce radiation dose to as low as reasonably achievable. Dictated by Abundio Sheets MD @ 12/31/2022 4:25:16 AM (Electronically Signed)
--- NOTE | 2022-12-31 03:33 | ED_ITS ---
HPI - General Adult General Chief complaint: Nausea/Vomiting Stated complaint: Nausea Vomiting Time Seen by Provider: 12/31/22 03:31 History of Present Illness HPI narrative: Patient is a 57-year-old woman with history of pancreatitis as well as chronic alcohol use who presents with acute abdominal pain. She was seen yesterday at the [place] emergency room apparently had long evaluation was told to go home. Patient then called for an ambulance and was transported at her request is [facility] although she lives in [place]. She states she has had some occasional loose stools. She has been vomiting as well. She has had no fevers no chills no night sweats no chest pain no shortness of breath. The pain is in the mid abdomen and sharp with radiation through to her back. She states that she has not been drinking recently. No other symptoms been noted. Patient has had this same presentation many times. Related Data Home Medications Medication Instructions Recorded Confirmed famotidine 20 mg tablet 20 mg PO BID 10/08/21 07/22/22 gabapentin 300 mg capsule 600 mg PO TID 10/08/21 07/22/22 metoprolol tartrate 50 mg tablet 50 mg PO BID 10/08/21 07/22/22 sertraline 100 mg tablet 100 mg PO DAILY 10/08/21 07/22/22 acetaminophen 500 mg tablet 500 mg PO DAILY 10/09/21 07/22/22 cholecalciferol (vitamin D3) 50 2,000 unit PO HS 10/09/21 07/22/22 mcg (2,000 unit) capsule gabapentin 100 mg capsule 100 mg PO TID 10/09/21 07/22/22 loperamide 2 mg capsule 2 mg PO QID PRN 10/09/21 07/22/22 multivitamin with folic acid 400 1 tab PO DAILY 10/09/21 07/22/22 mcg tablet (Tab-A-Bob) lisinopril 5 mg tablet 5 mg PO DAILY 01/02/22 07/22/22 meloxicam 7.5 mg tablet 7.5 mg PO DAILY 01/02/22 07/22/22 Previous Rx's Medication Instructions Recorded calcium carbonate 500 mg-vitamin 2 tab PO BID@1200,1800 #120 tabs 10/11/21 D3 5 mcg (200 unit) tablet (Oyster Shell Calcium-Vitamin D3) folic acid 1 mg tablet 1 mg PO DAILY #30 tabs 10/11/21 ondansetron 4 mg disintegrating 4 mg PO Q4H PRN #30 tabs 10/11/21 tablet magnesium oxide 400 mg (241.3 mg 400 mg PO TID #90 tabs 01/03/22 magnesium) tablet sodium chloride 1,000 mg soluble 1 g PO TIDWM #90 tabs 01/03/22 tablet magnesium gluconate 27.5 mg 27.5 mg PO BID #60 tabs 07/22/22 magnesium (500 mg) tablet ondansetron 4 mg disintegrating 4 mg PO BID-TID PRN nausea and 07/22/22 tablet vomiting #14 tabs potassium chloride 10 mEq 10 meq PO BID #60 caps 07/22/22 capsule,extended release omeprazole 20 mg capsule,delayed 40 mg (2 x 20 mg) PO DAILY@0700 07/23/22 release #60 caps Allergies Allergy/AdvReac Type Severity Reaction Status Date / Time No Known Allergies Allergy Verified 10/08/21 17:19 Review of Systems Status of ROS: Reports: 10 or more systems reviewed and unremarkable except as noted in History and below [facility] Medical History Substance abuse ?F19.10 - Other psychoactive substance abuse, uncomplicated (ICD-10) Marijuana dependence ?F12.20 - Cannabis dependence, uncomplicated (ICD-10) Edentulous ?K08.109 - Complete loss of teeth, unspecified cause, unspecified class (ICD- 10) Chronic diarrhea ?K52.9 - Noninfective gastroenteritis and colitis, unspecified (ICD-10) Personal history of gallstones ?Z87.19 - Personal history of other diseases of the digestive system (ICD-10) Visual impairment ?H54.7 - Unspecified visual loss (ICD-10) Closed fracture of second cervical vertebra without spinal cord injury ?S12.100A - Unspecified displaced fracture of second cervical vertebra, initial encounter for closed fracture (ICD-10) Major depressive disorder ?F32.9 - Major depressive disorder, single episode, unspecified (ICD-10) Generalized anxiety disorder ?F41.1 - Generalized anxiety disorder (ICD-10) Hypertension ?I10 - Essential (primary) hypertension (ICD-10) Hypomagnesemia ?E83.42 - Hypomagnesemia (ICD-10) Sacroiliitis, not elsewhere classified ?M46.1 - Sacroiliitis, not elsewhere classified (ICD-10) Peripheral neuropathy ?G62.9 - Polyneuropathy, unspecified (ICD-10) Monoclonal gammopathy ?D47.2 - Monoclonal gammopathy (ICD-10) Gastroesophageal reflux disease ?K21.9 - Gastro-esophageal reflux disease without esophagitis (ICD-10) Nontoxic single thyroid nodule ?E04.1 - Nontoxic single thyroid nodule (ICD-10) Acalculous cholecystitis ?K81.9 - Cholecystitis, unspecified (ICD-10) Clostridioides difficile diarrhea ?A04.72 - Enterocolitis due to Clostridium difficile, not specified as recurrent (ICD-10) Tobacco dependence ?F17.200 - Nicotine dependence, unspecified, uncomplicated (ICD-10) Pancreatitis, alcoholic, acute ?K85.20 - Alcohol induced acute pancreatitis without necrosis or infection (ICD-10) Gallstone pancreatitis ?K85.10 - Biliary acute pancreatitis without necrosis or infection (ICD-10) Family History Mother Lung cancer Ovarian cancer Social History Narrative: She lives alone in [place]. She sees a doctor at the [facility] in [place] for primary care. Her daughter Lauren Sanabria is healthcare power of criminal defense attorney. Code status is full. She drinks about 5 alc oholic beverages a day. She uses cannabis about twice a day. She has 2 children and 5 grandchildren. She is disabled. What is your current living situation?: I presently have a place to live Highest level of school completed/degree received: GED or equivalent Smoking Status: Current every day smoker What tobacco products do you use: cigarettes Smoking packs per day: 20 Smoking cigarettes per day: 400.0 Years smoked: 30 Smoking pack-years: 600.00 Do you use any of these nicotine containing products: None Second hand tobacco smoke exposure: Yes How often do you have a drink containing alcohol: 4 or more times a week Alcohol type: hard liquor Alcohol type details: vodka How many standard drinks containing alcohol do you have on a typical day: 5 or 6 How often do you have six or more drinks on one occasion: Daily or almost daily AUDIT-C Alcohol total score: 10 Non-prescribed substance use: marijuana (any form) Non-prescribed substance use details: 3-4 pinches per day Caffeine: Yes (1 cup a day) Are you now , , , , never or living with a partner: Social isolation score (0-1 are the most socially isolated patients): 0 service: No Exam Narrative: Exam Narrative: EXAM GENERAL: Patient is hysterically moaning. EYES: No scleral icterus. LYMPH: No supraclavicular or cervical lymphadenopathy. SKIN: Visible skin seen during exam normal or with benign process only. EXT: No dependent lower extremity pedal edema. HEART: Regular rate and rhythm with no murmurs, rubs, or gallops. LUNGS: Clear to auscultation bilaterally with no crackles or wheezes. ABD: Soft, non tender, non distended. PSYCH: Good eye contact, speech is not pressured. Neurologic cranial nerves 2-12 grossly intact no focal deep Const: Vital Signs, click to edit/add: Vital Signs - 24 hr 12/31/22 03:33 Temperature 98.1 F Pulse Rate [Right Pulse Oximeter] 108 H Respiratory Rate 22 Blood Pressure [Le ft Upper Arm] 145/94 H Pulse Oximetry 98 Oxygen Delivery Me thod Room Air Course Course ED Course: Patient seen and examined. Will treat with normal saline Ativan and bowel rest for now. CBC CMP amylase lipase UA lactate CT of the abdomen pelvis pending. Vital Signs Vital signs: Initial Vital Signs Temperature 98.1 F 12/31/22 03:33 Temperature Source Temporal Artery Scan 12/31/22 03:33 Pulse Rate 108 H 12/31/22 03:33 Pulse Rhythm Regular 12/31/22 03:33 Respiratory Rate 22 12/31/22 03:33 Blood Pressure 145/94 H 12/31/22 03:33 Blood Pressure Mean 111 H 12/31/22 03:33 Blood Pressure Position High-Fowlers 12/31/22 03:33 Pulse Oximetry 98 12/31/22 03:33 Oxygen Delivery Method Room Air 12/31/22 03:33 Vital Signs Temperature 98.1 F 12/31/22 03:33 Pulse Rate 108 H 12/31/22 03:33 Respiratory Rate 22 12/31/22 03:33 Blood Pressure 145/94 H 12/31/22 03:33 Pulse Oximetry 98 12/31/22 03:33 Oxygen Delivery Method Room Air 12/31/22 03:33 Temperature 98.1 F 12/31/22 03:33 Pulse Rate 108 H 12/31/22 03:33 Respiratory Rate 22 12/31/22 03:33 Blood Pressure 145/94 H 12/31/22 03:33 Pulse Oximetry 98 12/31/22 03:33 Oxygen Delivery Method Room Air 12/31/22 03:33 Medical Decision Making MDM Narrative Medical decision making narrative: Patient is a 57-year-old woman who does hours ago was discharged from the [place] ER with abdominal pain. She comes in tonight writhing in screening with abdominal pain. Her CT of the abdomen pelvis is normal. She does have some mild leukocytosis as well as a potassium of 2.8. Patient is treated with hydration as well as supplementation of potassium both oral and IV. She is now asymptomatic would like to go home. She states she has a primary care and can falls and has noted low potassium in the past. I would, rather than sending her home with potassium as I do think that he is somewhat of a risk for med management, prefer that we have her potassium checked early this coming week at her primary care office. She does have a primary care and can falls. Other than that she is feeling much better she is no longer screaming or writhing. Workup is otherwise unremarkable she will receive both IV and oral potassium will be discharged home with close outpatient follow-up and repeat potassium. Differential Diagnosis Differential Diagnosis: Acute abdomen appendicitis perforated viscus bowel obstruction urinary tra Lab Data Labs: Lab Results 12/31/22 Range/Units 03:47 WBC 12.35 H (4.50-11.00) K/uL RBC 3.60 L (4.00-5.20) m/uL Hgb 11.7 L (12.0-16.0) gm/dL Hct 35.4 (33.0-51.0) % MCV 98 (80-100) fL MCH 33 (26-34) pg MCHC 33 (32-36) gm/dL RDW Coeff of Silvia 12.6 (11.5-15.5) % Plt Count 443 H (140-440) K/uL Neut % (Auto) 81.5 H (42.0-72.0) % Lymph % (Auto) 12.1 L (20-44) % [place] % (Auto) 5.7 (0.0-11.0) % Eos % (Auto) 0.2 (0.0-7.0) % Baso % (Auto) 0.1 (0.0-3.0) % Neut # (Auto) 10.10 H (1.7-7.0) K/uL Lymph # (Auto) 1.50 (0.90-2.90) K/uL [place] # (Auto) 0.70 (0.00-0.90) K/UL Eos # (Auto) 0.00 (0.00-0.50) K/uL Baso # (Auto) 0.00 (0.00-0.30) K/uL Abs Immat Gran (auto) 0.00 (0.00-0.30) K/uL Imm/Tot Granulo (auto) 0.4 % Sodium 134 L (135-149) mmol/L Potassium 2.8 L* (3.6-5.1) mmol/L Chloride 97 (96-114) mmol/L Carbon Dioxide 20 (20-32) mmol/L Anion Gap 17 H (7-15) mEq/L BUN 4 L (7-30) mg/dL Creatinine 0.5 (0.5-1.5) mg/dL Estimated GFR 109 ml/min Glucose 126 H (60-115) mg/dL Lactate 1.6 (0.5-1.9) mmol/L Calcium 8.4 (8.4-10.6) mg/dL Total Bilirubin 0.6 (0.1-1.5) mg/dL AST 54 H (12-35) U/L ALT 19 (4-35) U/L Alkaline Phosphatase 224 H (40-150) U/L Total Protein 7.4 (6.0-8.3) g/dL Albumin 3.2 L (3.3-5.0) g/dL Amylase 70 (18-89) U/L Lipase 43 (23-300) U/L Discharge Plan Discharge Clinical Impression: Abdominal pain Patient Disposition: Home, Self-Care Condition: Stable Instructions: Abdominal Pain (ED) Additional Instructions: Advanced diet as tolerate Continue current medications Avoid alcohol Follow-up with primary care in the next 2-3 days with repeat potassium. Activity Level: No Restrictions Discharge Diet: Regular Prescriptions: No Action lisinopril 5 mg tablet 5 mg PO DAILY meloxicam 7.5 mg tablet 7.5 mg PO DAILY magnesium oxide 400 mg (241.3 mg magnesium) Tablet 400 mg PO TID Qty: 90 11RF sodium chloride 1,000 mg Tablet,Soluble 1 g PO TIDWM Qty: 90 11RF magnesium gluconate 27.5 mg magne- sium (500 mg) tablet 27.5 mg PO BID Qty: 60 0RF potassium chloride 10 mEq capsule, extended release 10 meq PO BID Qty: 60 3RF ondansetron 4 mg tablet,disintegrating 4 mg PO BID-TID PRN (Reason: nausea and vomiting) Qty: 14 0RF omeprazole 20 mg Capsule,Delayed Release(Dr/Ec) 40 mg PO DAILY@0700 Qty: 60 0RF sertraline 100 mg tablet 100 mg PO DAILY metoprolol tartrate 50 mg tablet 50 mg PO BID gabapentin 300 mg capsule 600 mg PO TID Rx Instructions: TOTAL DOSE = 700MG TID famotidine 20 mg tablet 20 mg PO BID gabapentin 100 mg capsule 100 mg PO TID Rx Instructions: TOTAL DOSE = 700MG TID acetaminophen 500 mg tablet 500 mg PO DAILY cholecalciferol (vitamin D3) 50 mcg (2,000 unit) capsule 2,000 unit PO HS loperamide 2 mg capsule 2 mg PO QID PRN multivitamin with folic acid [Tab-A-Bob] 400 mcg tablet 1 tab PO DAILY folic acid 1 mg Tablet 1 mg PO DAILY Qty: 30 0RF ondansetron 4 mg Tablet,Disintegrating 4 mg PO Q4H PRNQty: 30 0RF calcium carbonate-vitamin D3 [Oyster Shell Calcium-Vit D3] 500 mg-5 mcg (200 unit) Tablet 2 tab PO BID@1200,1800 Qty: 120 0RF Follow Up/Referrals: Nick Kwon MD [Primary Care Provider] - Stand Alone Forms: [facility] Info Instructions
[2022-12-31] MEDS: LORazepam 2 MG/ML inj 1 MG IVP (03:46)
[2022-12-31] MEDS: 0.9 % SODIUM CHLORIDE 1000 ml 1,000 ML IV (03:47)
[2022-12-31 03:53] LABS: Lactate* 1.6 mmol/L (0.5-1.9)
[2022-12-31 03:55] LABS: Basophils Percent Auto 0.1 % (0.0-3.0); Eosinophils Percent Auto 0.2 % (0.0-7.0); Hematocrit 35.4 % (33.0-51.0); Hemoglobin* 11.7 gm/dL (12.0-16.0); Immature Granulocytes Pct Auto 0.4 %; Lymphocytes Percent Auto 12.1 % (20-44); Mean Corpuscular HGB Conc 33 gm/dL (32-36); Mean Corpuscular Hemoglobin 33 pg (26-34); Mean Corpuscular Volume 98 fL (80-100); Monocytes Percent Auto 5.7 % (0.0-11.0); Neutrophils Percent Auto 81.5 % (42.0-72.0); Platelet Count* 443 K/uL (140-440); RDW Coefficient of Variation % 12.6 % (11.5-15.5); White Blood Count* 12.35 K/uL (4.50-11.00)
[2022-12-31 04:04] LABS: Slide Review Reflex No
[2022-12-31 04:08] LABS: Albumin* 3.2 g/dL (3.3-5.0); Chloride* 97 mmol/L (96-114)
[2022-12-31 04:09] LABS: Sodium* 134 mmol/L (135-149)
[2022-12-31 04:11] LABS: Alkaline Phosphatase* 224 U/L (40-150); Amylase* 70 U/L (18-89); Anion Gap 17 mEq/L (7-15); Aspartate Amino Transferase* 54 U/L (12-35); Bilirubin Total* 0.6 mg/dL (0.1-1.5); Blood Urea Nitrogen* 4 mg/dL (7-30); Carbon Dioxide* 20 mmol/L (20-32); Creatinine* 0.5 mg/dL (0.5-1.5); Estimated Glomerular Filt Rate 109 ml/min; Glucose* 126 mg/dL (60-115); Total Protein* 7.4 g/dL (6.0-8.3)
[2022-12-31 04:12] LABS: Alanine Aminotransferase* 19 U/L (4-35); Calcium* 8.4 mg/dL (8.4-10.6); Lipase* 43 U/L (23-300)
[2022-12-31 04:15] LABS: Potassium* 2.8 mmol/L (3.6-5.1)
[2022-12-31 04:51] LABS: Appearance Urine Cloudy (Clear); Bilirubin Urine 1+ (Negative); Blood Urine Trace-intact (Negative); Color Urine Yellow (Yellow); Glucose Urine Negative (Negative); Ketones Urine Negative (Negative); Leukocyte Esterase Urine 1+ (Negative); Nitrite Urine Negative (Negative); Protein Urine 1+ (Negative); Specific Gravity Urine 1.015 (1.000-1.030); Urobilinogen Urine 0.2 (0.2-1.0); pH Urine 7.5 (5.0-8.5)
[2022-12-31] MEDS: POTASSIUM CHLORIDE 10 MEQ/100 ML PIGGYBACK 100 MEQ IVPB (05:05)
[2022-12-31 05:11] LABS: Bacteria Urine Many; RBC Urine 0-2 (0-2); Squamous Epithelial Cell Urine Few (None-Few); WBC Urine 25-50 (0-5)
[2022-12-31] MEDS: POTASSIUM CHLORIDE 10 MEQ CAPSULE ER 20 MEQ PO (06:06)
[2022-12-31] MEDS: ONDANSETRON 2 MG/ML inj 4 MG IVP (07:16)
--- NOTE | 2022-12-31 07:28 | ED.NURSE ---
pt dc done by previous shift. pt then had vomitting and diarrhea. will recheck labs. pt lying in bed moaning. speech difficult to understand due to moaning and no teetch. c/o abd pain 12/06
[2022-12-31 08:04] LABS: Ethanol* < 0.01 % (0.01-0.03)
[2022-12-31] MEDS: LORazepam 2 MG/ML inj 0.5 MG IVP (08:09)
[2022-12-31 08:10] LABS: Chloride* 105 mmol/L (96-114); Sodium* 134 mmol/L (135-149)
[2022-12-31] MEDS: cefTRIAXone 1 GM in 0.9 % SODIUM CHLORIDE Mini-bag 100 ML IVPB (08:10)
[2022-12-31 08:13] LABS: Anion Gap 10 mEq/L (7-15); Blood Urea Nitrogen* 4 mg/dL (7-30); Carbon Dioxide* 19 mmol/L (20-32); Creatinine* 0.5 mg/dL (0.5-1.5); Estimated Glomerular Filt Rate 109 ml/min; Glucose* 116 mg/dL (60-115)
[2022-12-31 08:17] LABS: Potassium* 2.9 mmol/L (3.6-5.1)
--- NOTE | 2022-12-31 08:20 | ED.NURSE ---
Dr Pulido informed of K+ of 2.9.
[2022-12-31] MEDS: POTASSIUM BICARB 25 MEQ EFFERVESCENT TAB PO (08:28)
--- NOTE | 2022-12-31 09:21 | ED.NURSE ---
pt expected cab voucher to get home. said she tried calling for ride and could not find one. states she has no money with her. asked pt what her plan was to get home when she came here from [place]. pt says she knows we always give vouchers and planned on that. pt told that is not appropriate. told her this will be the last time we can give her a voucher. pt did not have money to get for zofran instymeds, paper copy given for pt to take to pharmacy.
== END 2022-12-31 09:32 | disposition home or self-care (01) ==
LOC: ED 05:27
PROVIDERS: Emergency Provider Internal Medicine; PCP Family Medicine
DX: R10.9 Unspecified abdominal pain (principal)
CPT/HCPCS: 36415; 74177; 80048; 80053; 81003; 81015; 82077; 82150; 83605; 83690; 85025; 87086; 87186; 96365; 96367; 96375; 99283; 99284; 99285; A9270; J0696; J2060; J2405; J3480; J7030; Q9967

== ENCOUNTER 2024-08-20 18:32 | Outpatient (CLI) | payer OTHER, SELFPAY | END 2024-08-20 18:33 | disposition home or self-care (01) | LOC: AMB 08-22 12:13 | PROVIDERS: PCP Family Medicine; Visit Provider Emergency Medicine Emergency Medical Services | DX: M54.9 Dorsalgia, unspecified (principal); R11.0 Nausea; R19.7 Diarrhea, unspecified | CPT/HCPCS: A0425; A0429 ==

== ENCOUNTER 2024-08-20 19:16 | Emergency (ER) | payer OTHER, SELFPAY ==
--- OUTSIDE RECORDS SUMMARY | 2024-07-15 14:45 | XMS_ITS | Encounter Summary ---
Author Organization [facility] er Address [address] [place] [address] Care Team Providers Care Laminating Machine Operator Name Role Phone Nick Kwon MD Primary Care Provider [phone] Encounter Details Date Type Department Care Team (Late st Contact Info) Description 07/15/2024 2:45 PM CDT Lab [place] [address] [place] [address] Exocrine pancreatic insufficiency; Essential hypertension Social History Tobacco Use Types Packs/Day Years Used Date Smoking Tobacco: Every Day Cigarettes 1 30 Smokeless Tobacco: Never Alcohol Use Standard Drinks/Week Comments Yes 7 (1 standard drink = 0.6 oz pur e alcohol) Social Connection and Isolat ion Panel [NHANES] Answer Date Recorded In a typical week, how many times do you talk on the phone with family, friends, or neighbors? More than three times a week 06/08/2023 How often do you get togethe r with friends or relatives? Twice a week 06/08/2023 How often do you attend [facility] or judaism services? Never 06/08/2023 Do you belong to any clubs o r organizations such as orthodox groups, unions, fraternal or athletic groups, or school groups? No 06/08/2023 How often do you attend meet ings of the clubs or organizations you belong to? Patient declined 06/08/2023 Are you , , di vorced, , never , or living with a partner? 06/08/2023 AUDIT-C Answer Date Recorded Q1: How often do you have a drink containing alcohol? 4 or more times a week 06/08/2023 Q2: How many drinks containi ng alcohol do you have on a typical day when you are drinking? 3 or 4 4 Q3: How often do you have si x or more drinks on one occasion? Daily or almost daily 06/08/2023 Overall Financial Resource Strain (CARDIA) Answe r Date Recorded How hard is it for you to pa y for the very basics like food, housing, medical care, and heating? Somewhat hard 06/08/2023 PHQ-2 Answer Date Recorded PHQ-9 Total Score 14 02/07/2024 [facility] - Occupational Stress Questionnaire Answer Date Recorded Do you feel stress - tense, restless, nervous, or anxious, or unable to sleep at night because your mind is troubled all the time - these days? Very much 06/08/2023 Exercise Vital Sign Answer Date Recorde d On average, how many days pe r week do you engage in moderate to strenuous exercise (like a brisk walk)? 0 days 06/08/2023 On average, how many minutes do you engage in exercise at this level? 10 min 06/08/2023 Hunger Vital Sign Answer Date Recorded Within the past 12 months, y ou worried that your food would run out before you got the money to buy more. Patient declined Within the past 12 months, t he food you bought just didn't last and you didn't have money to get more. Patient declined 12/2023 PRAPARE - Transportation Answer Date Re corded In the past 12 months, has l ack of transportation kept you from medical appointments or from getting medications? No 05/28 In the past 12 months, has l ack of transportation kept you from meetings, work, or from getting things needed for daily living? Yes 06/08/2023 Housing Stability Vital Sign Answer Gino e Recorded In the last 12 months, was t here a time when you were not able to pay the mortgage or rent on time? Yes 06/08/2023 In the last 12 months, how many places have you lived? 1 06/08/2023 In the last 12 months, was t here a time when you did not have a steady place to sleep or slept in a senior care (including now)? No 06/08/2023 Comments No Sex and Gender Information Value Date Recorded Sex Assigned at Not on file Legal Sex Female 11:28 AM CDT Gender Identity Not on file Sexual Orientation Not on file documented as of this encounter Plan of Treatment Not on file documented as of this encounter Procedures Procedure Name Priority Date/Time Associated Diagnosis Comments LIPID PANEL Routine 07/15/2024 2:50 PM CDT Essential hypertension ESTIMATED GLOMERULAR FILTRATION RATE (EGFR) Routine 07/15/2024 2:49 PM CDT Exocrine pancreatic insufficiency PHOSPHORUS Routine 07/15/2024 2:49 PM CDT Exocrine pancreatic insufficiency MAGNESIUM Routine 07/15/2024 2:49 PM CDT Exocrine pancreatic insufficiency CK Routine 07/15/2024 2:49 PM CDT Exocrine pancreatic insufficiency ALBUMIN Routine 07/15/2024 2:49 PM CDT Exocrine pancreatic insufficiency BASIC METABOLIC PANEL Routine 07/15/2024 2:49 PM CDT Exocrine pancreatic insufficiency documented in this encounter Results * Lipid panel (07/15/2024 2:50 PM CDT) Cholesterol 194 0 - 199 mg/dL 07/16/2024 1:47 PM CDT [facility] Comment: Recommended by National Cholesterol Education Program (ATP III) -------- Cholesterol Ranges -------- <200 Desirable 200-239 Borderline high >=240 High Triglycerides 104 0 - 149 mg/dL 07/16/2024 1:47 PM CDT [facility] Comment: -------- TRIG Ranges -------- <150 Normal 150-199 Borderline high 200-499 High >=500 Very high HDL 119 40 - 250 mg/dL 07/16/2024 1:58 PM T [facility] Comment: -------- HDL Ranges -------- <40 Low 40-59 Normal >=60 Optimal LDL Calculated 54 0 - 99 mg/dL 07/16/2024 1:58 PM CDT [facility] Comment: -------- LDL Ranges -------- <100 Optimal 100-129 Near optimal/above optimal 130-159 Borderline high 160-189 High >=190 Very high Fasting? Yes 07/15/2024 2:50 PM CDT [facility] Blood 07/15/2024 2:50 PM CDT 07/16/2024 12:50 PM CDT Nick Kwon MD LAB BLOOD ORDERABLES Final R esult Performing Organization Address [facility] de Phone Number [facility] [address] [place] [phone] * Estimated Glomerular Filtration Rate (eGFR) (07/15/2024 2:49 PM CDT) Estimated Glomerular Filtration Rate (eGFR) >60 07/16/2024 1:48 PM CDT [facility] Comment: GFR calculated from serum creatinine value Chronic Kidney Disease less than 60 mL/min/1.73 m2 Kidney Failure less than 15 mL/min/1.73 m2 Note: effective 02/23/2022: 2020 CKD-EPI Equation used 07/15/2024 2:49 PM CDT 07/15/2024 2:49 PM CDT Nick Kwon MD LAB BLOOD ORDERABLES Final R esult Performing Organization Address [facility] Co de Phone Number [facility] [address] [place] [address] * CK (07/15/2024 2:49 PM CDT) Total CK 149 30 - 159 U/L 07/16/2024 2:13 PM CDT [facility] Blood (Blood, Venous) 07/15/2024 2:49 PM CDT 07/16/2024 12:53 PM CDT Nick Kwon MD LAB BLOOD ORDERABLES Final R esult Performing Organization Address [facility] de Phone Number [facility] [address] [place] [phone] * (ABNORMAL) Magnesium (07/15/2024 2:49 PM CDT) Magnesium 1.5(L) 1.6 - 2.3 mg/dL 07/16/2024 1:48 PM CDT [facility] Blood (Blood, Venous) 07/15/2024 2:49 PM CDT 07/16/2024 12:53 PM CDT Nick Kwon MD LAB BLOOD ORDERABLES Final R esult Performing Organization Address [facility] Phone Number [facility] [address] [place] [phone] * (ABNORMAL) Phosphorus (07/15/2024 2:49 PM CDT) Phosphorus 4.7(H) 2.5 - 4.5 mg/dL 07/16/2024 1:48 PM CDT [facility] Blood (Blood, Venous) 07/15/2024 2:49 PM CDT 07/16/2024 12:53 PM CDT Nick Kwon MD LAB BLOOD ORDERABLES Final R esult Performing Organization Address [facility] de Phone Number [facility] [address] [place] [phone] * (ABNORMAL) Albumin (07/15/2024 2:49 PM CDT) Albumin, Serum 3.4(L) 3.5 - 5.0 g/dL 07/16/2024 1:48 PM CDT [facility] Blood (Blood, Venous) 07/15/2024 2:49 PM CDT 07/16/2024 12:53 PM CDT Nick Kwon MD LAB BLOOD ORDERABLES Final R esult Performing Organization Address [facility] Co de Phone Number [facility] [address] [place] [address] * (ABNORMAL) Basic metabolic panel (07/15/2024 2:49 PM CDT) Sodium 131(L) 135 - 145 mEq/L 07/16/2024 1:48 PM CDT [facility] Potassium 3.9 3.5 - 5.1 mEq/L 07/16/2024 1:48 PM CDT [facility] Chloride 96(L) 98 - 107 mEq/L 07/16/2024 1:48 PM CDT [facility] CO2 25 22 - 29 mmol/L 07/16/2024 1:48 PM T [facility] Creatinine 0.73 0.40 - 1.20 mg/dL 07/16/2024 1:48 PM CDT [facility] BUN 8 5 - 25 mg/dL 07/16/2024 1:48 PM T [facility] Glucose 109(H) 70 - 100 mg/dL 07/16/2024 1:48 PM T [facility] Calcium, Total,S 9.3 8.4 - 10.2 mg/dL 07/16/2024 1:48 PM T [facility] Anion Gap 10 4 - 13 07/16/2024 1:48 PM T [facility] Comment: The anion gap is calculated with the following formula: AGAP = Na ? (Cl + CO2). Fasting? Yes 07/15/2024 2:49 PM CDT [facility] ATCHISON Blood (Blood, Venous) 07/15/2024 2:49 PM CDT 07/16/2024 12:53 PM CDT us Nick Kwon MD LAB BLOOD ORDERABLES Final R esult [facility]IND[facility] MOROCHO [address] [place] [address] [facility] [address] [place] [address] documented in this encounter Visit Diagnoses Diagnosis Exocrine pancreatic insufficiency Other specified disease of pancreas Essential hypertension Unspecified essential hypertension documented in this encounter Care Teams Laminating Machine Operator Relationship Specialty Start Date End Date Nick Kwon MD [address] [place] [id number] PCP - General 12/15/22 documented as of this encounter
--- OUTSIDE RECORDS SUMMARY | 2024-08-20 19:18 | XMS_ITS | Encounter Summary ---
Author Organization [facility] er Address [address] [place] [address] Care Team Providers Care Dental Technologist Name Role Phone Nick Kwon MD Primary Care Provider [phone] Reason for Visit * Reason Comments Med Refill Encounter Details Date Type Department Care Team (Late st Contact Info) Description 02/13/2024 Refill [place] [address] [place] [address] Nick Kwon MD [address] [facility] [address] [place] [address] Essential hypertension Social History Tobacco Use Types Packs/Day Years Used Date Smoking Tobacco: Every Day Cigarettes 1 30 Smokeless Tobacco: Never Alcohol Use Standard Drinks/Week Comments Yes 20 (1 standard drink = 0.6 oz pu re alcohol) Social Connection and Isolat ion Panel [NHANES] Answer Date Recorded In a typical week, how many times do you talk on the phone with family, friends, or neighbors? More than three times a week 06/08/2023 How often do you get togethe r with friends or relatives? Twice a week 06/08/2023 How often do you attend chur ch or mandaen services? Never 06/08/2023 Do you belong to any clubs o r organizations such as gnosticist groups, unions, fraternal or athletic groups, or [...] when you are drinking? 3 or 4 Q3: How often do you have si x or more drinks on one occasion? Daily or almost daily 06/08/2023 Overall Financial Resource Strain (CARDIA) Answe r Date Recorded How hard is it for you to pa y for the very basics like food, housing, medical care, and heating? Somewhat hard 06/08/2023 PHQ-2 Answer Date Recorded PHQ-9 Total Score 14 02/07/2024 [facility] - Occupational Stress Questionnaire Answer Date Recorded [...] place to sleep or slept in a usp (including now)? No 06/08/2023 Comments No Sex and Gender Information Value Date Recorded Sex Assigned at Not on file Legal Sex Female 11:28 AM CDT Gender Identity Not on file Sexual Orientation Not on file documented as of this encounter Miscellaneous Notes * Telephone Encounter - lAyssa BartonSHIRA - 02/15/2024 3:12 PM CST Upcoming appointment with provider: none Last visit in provider department: 02/07/2024 Last visit requested medication was discussed: 02/07/2024 Last Rx: Discontinued by: Nick Kwon MD on 02/07/2024 Requested Prescriptions Pending Prescriptions Disp Refills amLODIPine (NORVASC) 2.5 MG tablet [Pharmacy Med Name: AMLODIPINE BESYLATE 2.5MG TABS] 30 tablet 0 Sig: TAKE ONE TABLET BY MOUTH EVERY DAY Labs: 01/26/24 1150 Potassium, P 3.6 - 5.2 mmol/L 3.6 Sodium, P 135 - 145 mmol/L 137 Chloride, P 98 - 107 mmol/L 102 Bicarbonate, P 22 - 29 mmol/L 23 Anion Gap, P 7 - 15 12 BUN (Blood Urea Nitrogen), P 6 - 21 mg/dL 5 Low Creatinine 0.59 - 1.04 mg/dL 0.69 Estimated GFR (eGFR) >=60 mL/min/BSA >90 Comment: Estimated GFR calculated using the 2020 CKD_EPI creatinine equation. Calcium, Total, P 8.6 - 10.0 mg/dL 8.2 Low Glucose, P 70 - 140 mg/dL 108 Protein, Total, P 6.3 - 7.9 g/dL 6.8 Albumin, P 3.5 - 5.0 g/dL 2.8 Low Aspartate Aminotransferase (AST), P 8 - 43 U/L 51 High Alkaline Phosphatase, P 35 - 104 U/L 229 High Alanine Aminotransferase (ALT), P 7 - 45 U/L 23 Bilirubin, Total, P 0.0 - 1.2 mg/dL 0.4 Vitals: BP Readings from Last 2 Encounters: 02/07/24 102/69 06/08/23 (!) 142/89 Last Controlled Substance Agreement (CSA): Last Random Urine Drug Screen (RUDS): RANCE POLICY ISSUE CLERK documented in this encounter Plan of Treatment Not on file documented as of this encounter Visit Diagnoses Diagnosis Essential hypertension Unspecified essential hypertension documented in this encounter Care Teams Dental Technologist Relationship Specialty Start Date End Date Nick Kwon MD [address] [place] [address] PCP - General 12/15/22 documented as of this encounter
--- OUTSIDE RECORDS SUMMARY | 2024-08-20 19:18 | XMS_ITS | Encounter Summary ---
Author Organization [facility] er Address [address] [place] [address] Care Team Providers Care Obgyn Specialist Name Role Phone Nick Kwon MD Primary Care Provider [phone] Reason for Visit * Reason Comments Med Refill Encounter Details Date Type Department Care Team (Late st Contact Info) Description 11/21/2023 Refill [place] [address] [place] [id number] Nick Kwon MD [address] [facility] [address] [place] [address] Degenerative joint disease of sacroiliac joint Social History Tobacco Use Types Packs/Day Years [...] often do you attend chur ch or taoist services? Never 06/08/2023 Do you belong to any clubs o r organizations such as episcopalian groups, unions, fraternal or athletic groups, or [...] PHQ-2 Answer Date Recorded PHQ-9 Total Score 9 06/08/2023 [facility] of Occupat ional Health - Occupational Stress Questionnaire Answer Date [...] place to sleep or slept in a custodial (including now)? No 06/08/2023 Comments No Sex and Gender Information Value Date Recorded Sex Assigned at Not on file Legal Sex Female 11:28 AM CDT Gender Identity Not on file Sexual Orientation Not on file documented as of this encounter Miscellaneous Notes * Telephone Encounter - Donna Moreira - 11/27/2023 7:55 AM CDT Duplicate encounter - see prior registry message. * Telephone Encounter - Venus Stephenson RN - 11/24/2023 4:52 PM CDT Please call patient to assist with scheduling appointment * Telephone Encounter - Tee Lambert LPN - 11/22/2023 11:32 AM CDT Patient is due for OV and fasting lab appointment now . PSR: Please contact patient to assist with scheduling. Upcoming appointment with provider: Visit date not found Last visit in provider department: 06/08/2023 Last visit requested medication was discussed: 06/08/2023 Last Rx: #100 with 3 refills 06/08/2023 Requested Prescriptions Pending Prescriptions Disp Refills acetaminophen (TYLENOL) 500 MG tablet [Pharmacy Med Name: ACETAMINOPHEN 500MG TABS] 100 tablet 3 Sig: TAKE ONE TABLET BY MOUTH EVERY 6 HOURS NEEDED; MAXIMUM ACETAMINOPHEN DOSE: 4000MG IN 24 HOURS. Labs: n/a Vitals: BP Readings from Last 2 Encounters: 06/08/23 (!) 142/89 03/09/23 125/76 Last Controlled Substance Agreement (CSA): Last Random Urine Drug Screen (RUDS): documented in this encounter Plan of Treatment Not on file documented as of this encounter Visit Diagnoses Diagnosis Degenerative joint disease of sacroiliac joint documented in this encounter Care Teams Obgyn Specialist Relationship Specialty Start Date End Date Nick Kwon MD [address] [place] [address] PCP - General 12/15/22 documented as of this encounter
--- OUTSIDE RECORDS SUMMARY | 2024-08-20 19:18 | XMS_ITS | Clinical Summary ---
Author Organization [facility] er Address [address] [place] [address] Care Team Providers Care Yoke Setter Name Role Phone Nick Kwon MD Primary Care Provider Allergies No known active allergies Medications sertraline (ZOLOFT) 100 MG tabletIndication s:Anxiety disorder, unspecified type Take 1 tablet (100 mg total) by mouth 1 (one) time each day 90 tablet 3 024 Active acetaminophen (TYLENOL) 500 MG tabletIndication s:Degenerative joint disease of sacroiliac joint TAKE ONE TABLET BY MOUTH EVERY 6 HOURS NEEDED - MAXIMUM ACETAMINOPHEN DOSE 4000MG/24 HOURS. 100 tablet 024 Active magnesium oxide (MAG-OX) 400 MG tabletIndication s:Hypomagnesemia TAKE 1 TABLET (400 MG) BY MOUTH 3 TIMES A DAY 270 tablet 3 024 Active metoprolol tartrate (LOPRESSOR) 50 MG tabletIndication s:Primary hypertension Take 1 tablet (50 mg total) by mouth 2 (two) times a day 180 tablet 3 024 Active Cholecalciferol (Vitamin D) 50 MCG (2000 UT) capsuleIndicatio ns:Vitamin D deficiency Take 2,000 Units by mouth 1 (one) time each day 90 capsule 3 024 Active famotidine (PEPCID/ZANTAC 360) 20 MG tabletIndication s:Gastroesophage al reflux disease without esophagitis Take 1 tablet (20 mg total) by mouth 2 (two) times a day if needed for heartburn 180 tablet 3 024 Active folic acid (FOLVITE) 1 MG tabletIndication s:Alcohol abuse Take 1 tablet (1 mg total) by mouth 1 (one) time each day 90 tablet 3 024 Active Multiple Vitamin (tab-a-lakeisha/beta carotene) tabletIndication s:Diarrhea, unspecified type TAKE ONE TABLET BY MOUTH EVERY DAY 90 tablet 3 025 Active Thiamine HCl (vitamin B-1) 100 MG tabletIndication s:Exocrine pancreatic insufficiency Take 1 tablet (100 mg total) by mouth 1 (one) time each day 30 tablet 2 025 2025 Active pancrelipase, Rxd-Yzlk-Pcew, (CREON) [id number] units capsuleIndicatio ns:Exocrine pancreatic insufficiency Take 1 capsule (24,000 Units total) by mouth 2 (two) times a day with meals 60 capsule 2 025 Active oxybutynin (DITROPAN) 5 MG tabletIndication s:Urge incontinence Take 1 tablet (5 mg total) by mouth 2 (two) times a day 60 tablet 2 025 Active pancrelipase, Ihs-Trah-Xfzn, (Creon) [id number] units capsuleIndicatio ns:Exocrine pancreatic insufficiency Take 1 capsule (12,000 Units total) by mouth with snacks for snacks (2 snacks per day) 60 capsule 2 025 Active loperamide (IMODIUM) 2 MG capsuleIndicatio ns:Chronic diarrhea TAKE ONE CAPSULE BY MOUTH FOUR TIMES A DAY FOR DIARRHEA 120 capsule 025 Active gabapentin (NEURONTIN) 300 MG capsuleIndicatio ns:Neuropathy TAKE ONE CAPSULE BY MOUTH THREE TIMES A DAY 90 capsule 1 025 Active meloxicam (MOBIC) 15 MG tabletIndication s:Pain in joint, multiple sites TAKE ONE TABLET BY MOUTH EVERY DAY WITH FOOD 90 tablet 025 Active meloxicam (MOBIC) 15 MG tabletIndication s:Pain in joint, multiple sites TAKE 1 TABLET (15 MG) BY MOUTH ONE TIME EACH DAY. Take with food. 30 tablet 5 024 2024 Discontinued gabapentin (NEURONTIN) 300 MG capsuleIndicatio ns:Neuropathy TAKE ONE CAPSULE BY MOUTH THREE TIMES A DAY 99 capsule 025 2024 Discontinued Active Problems Problem Noted Date Diagnosed Date Protein-calorie malnutrition 06/07/2024 Exocrine pancreatic insufficiency 06/07/2024 Urge incontinence 06/07/2024 Arthropathy of both hips 06/07/2024 Infection of right prosthetic hip joint 06/13/19 24 H/O degenerative disc disease 06/24/2022 Closed fracture of second cervical vertebra 05/29 Enterocolitis due to Clostri dium difficile, not specified as recurrent 06/20/2021 Osteoporosis 06/17/2021 Acute pancreatitis 02/27/2021 Ganglion cyst of wrist, left 11/10/2020 Anxiety disorder, unspecified 10/10/2019 Displaced fracture of base o f neck of right femur, subsequent encounter for closed fracture with routine healing 10/10/2019 Low back pain 10/10/2019 Other idiopathic peripheral autonomic neuropathy 10/10/2019 Presence of right artificial hip joint 0 Unspecified fracture of the lower end of right radius, subsequent encounter for closed fracture with routine healing 10/10/2019 Primary osteoarthritis of right hip 03/25/2015 Degenerative joint disease of sacroiliac joint 0 03/25/2015 Overview (04/14/2020): Neg and spondylolarthropathy workup with rheum in 2013. GERD (gastroesophageal reflux disease) 5 Acalculous cholecystitis 07/11/2014 Thyroid nodule 12/23/2013 Overview (04/14/2020): Small cystic nodule in the superior right lobe of the thyroid measuring 5 mm Normal thyroid labs 12/20/2013 Nontoxic single thyroid nodule 12/23/2013 Overview (06/29/2021): Small cystic nodule in the superior right lobe of the thyroid measuring 5 mm Normal thyroid labs 12/20/2013 Small cystic nodule in the superior right lobe of the thyroid measuring 5 mm Normal thyroid labs 12/20/2013 Chronic right hip pain 05/08/2013 Overview (11/10/2020): Greater Trochanteric Bursitis vs other. Greater Trochanteric Bursa injections: Mar 15, 2011, Sep 2012, April 2013, September 2013, June 2014. Inflammatory arthropathy 03/24/2013 Overview (04/14/2020): MRI shows inflammatory Arthropathy Feb 2013, referred to Rheumatology. Monoclonal gammopathy 03/15/2013 Overview (11/10/2020): Feb 2013: Diagnosis per Dr. Melendrez, neurologist, Patient to See Dr. Rosa for consult. Right shoulder pain 01/07/2013 Overview (11/10/2020): Nov 2012: right subacromial bursa injection with 80% improvement. Dec 2013: right subacromial bursa injection. Neuropathy 09/18/2012 Overview (04/14/2020): Hands and feet. January 2013: neurology consult, Dr. Melendrez. April 2013: gabapentin (neurontin) increased to 300mg three times daily. Hypomagnesemia 04/15/2011 Tobacco use disorder 04/15/2011 Nicotine dependence 04/15/2011 Osteitis condensans 03/15/2011 Overview (04/14/2020): 2011: left > right iliac spine. Alcohol use disorder 12/15/2009 Overview (06/07/2024): 4 mixed drinks per day Essential hypertension 12/15/2009 Encounters Date Type Department Care Team Description 08/14/2024 Refill [place] [address] [place] [address] Nick Kwon MD Pain in joint, multiple sites 07/23/2024 Results Follow-Up [place] [address] [place] [address] Nick Kwon MD 07/20/2024 Refill [place] [address] [place] [address] Nick Kwon MD Neuropathy 07/15/2024 2:45 PM CDT Lab [place] [address] [place] [address] Exocrine pancreatic insufficiency; Essential hypertension 06/16/[address] [address] Nick Kwon MD Neuropathy 06/14/2024 Telephone [facility] [address] [place] [phone] Nilda Waters MD medical cannabis certification 06/10/2024 Refill [place] [address] [address] Nick Kwon MD Chronic diarrhea 06/07/[address] [address] Nick Kwon MD [place] [phone] sweet ([facility]) 06/06/2024 3:20 PM CDT Office Visit [address] [address] Nick Kwon MD Exocrine pancreatic insufficiency (Primary Dx); Protein-calorie malnutrition, unspecified severity; Urge incontinence; Presence of right artificial hip joint; Chronic right hip pain; Degenerative joint disease of sacroiliac joint; Arthropathy of both hips; Alcohol use disorder 06/06/[address] [address] Nick Kwon MD DME from Last 3 Months Immunizations Immunization Administration Dates Next Due DTaP 12/15/2009 PPD Test 10/11/2019 Tdap 12/15/2009 Family History Medical History Relation Comments Hypertension Maternal Grandfather Cancer Mother OVARIAN, STOMACH , LUNG Relation Status Comments Brother CAR ACCIDENT Daughter Alive Father Alive Maternal Grandfather Mother Social History Tobacco Use Types Packs/Day Years Used Date Smoking Tobacco: Every Day Cigarettes 1 30 Smokeless Tobacco: Never Tobacco Cessation:Ready to Q uit: Not Asked; Counseling Given: Not Answered Alcohol Use Standard Drinks/Week Comments Yes 7 [...] often do you attend chur ch or adventist services? Never 06/08/2023 Do you belong to any clubs o r organizations such as buddhist groups, unions, fraternal or athletic groups, or [...] Date Recorded PHQ-9 Total Score 14 02/07/2024 [facility]at ional Health - Occupational Stress [...] place to sleep or slept in a halfway (including now)? No 06/08/2023 Comments No Sex and Gender Information Value Date Recorded Sex Assigned at Not on file Legal Sex Female 11:28 AM CDT Gender Identity Not on file Sexual Orientation Not on file Last Filed Vital Signs Vital Sign Reading Time Taken Comments Blood Pressure 123/73 07/18/2024 2:32 PM CDT Pulse 88 07/18/2024 2:32 PM CDT Temperature 36.4 C (97.5 F) 07/18/2024 2:32 PM CDT Respiratory Rate 14 07/18/2024 2:32 PM CDT Oxygen Saturation 94% 07/18/2024 2:32 PM CDT Inhaled Oxygen Concentration - - Weight 59 kg (130 lb) 07/18/2024 2:32 PM CDT Height 162.6 cm (5' 4) 07/18/2024 2:32 PM CDT Body Mass Index 22.31 07/18/2024 2:32 PM CDT Plan of Treatment Health Maintenance Due Date Last Done Comments CT Colonography 1965 FIT-DNA 1965 Sigmoidoscopy 1965 iFOBT 1965 Pneumococcal Vaccine: 50+ Years (1 of 2 - PCV) 01/24/1984 Zoster Vaccines (1 of 2) 2015 Mammogram 02/06/2018 02/06/2017, 02/06/2017 DTaP,Tdap,and Td Vaccines (3 - Td or Tdap) 12/16/2019 12/15/2009, 12/15/2009 Pap Smear 02/01/2020 01/31/2017 COVID-19 Vaccine (2023-2 5 season) 2023 06/06/2020, 05/16/2020 Colonoscopy 08/18/2024 08/18/2014 Colorectal Cancer Screening 08/18/2024 Influenza Vaccine (Season Ended) 2024 HPV Vaccines Aged Out No longer eligi ble based on patient's age to complete this topic Procedures Procedure Name Priority Date/Time Associated Diagnosis [...] 07/15/2024 2:49 PM CDT Exocrine pancreatic insufficiency from Last 3 Months Results * Lipid panel (07/15/2024 2:50 PM CDT) Cholesterol 194 0 - 199 mg/dL 07/16/2024 1:47 PM CDT [facility] Comment: Recommended by National Cholesterol Education Program (ATP III) -------- Cholesterol Ranges -------- <200 Desirable 200-239 Borderline high >=240 High Triglycerides 104 0 - 149 mg/dL 07/16/2024 1:47 PM CDT [facility] Comment: -------- TRIG Ranges -------- <150 Normal 150-199 Borderline high 200-499 High >=500 Very high HDL 119 40 - 250 mg/dL 07/16/2024 1:58 PM CDT [facility] Comment: -------- HDL Ranges -------- <40 Low 40-59 Normal >=60 Optimal LDL Calculated 54 0 - 99 mg/dL 07/16/2024 1:58 PM CDT [facility] Comment: -------- LDL Ranges -------- <100 Optimal 100-129 Near optimal/above optimal 130-159 Borderline high 160-189 High >=190 Very high Fasting? Yes 07/15/2024 2:50 PM CDT [facility] Blood 07/15/2024 2:50 PM CDT 07/16/2024 12:50 PM CDT Nick Kwon MD LAB BLOOD ORDERABLES Final R [facility] Performing Organization Address [facility] de Phone Number [facility] [address] [place] [address] * Estimated Glomerular Filtration Rate (eGFR) (07/15/2024 2:49 PM CDT) Estimated Glomerular Filtration Rate (eGFR) >60 07/16/2024 1:48 PM CDT [facility] Comment: GFR calculated from serum creatinine value Chronic Kidney Disease less than 60 mL/min/1.73 m2 Kidney Failure less than 15 mL/min/1.73 m2 Note: effective 02/23/2022: 2020 CKD-EPI Equation used 07/15/2024 2:49 PM CDT 07/15/2024 2:49 PM CDT Nick Kwon MD LAB BLOOD ORDERABLES Final R esult Performing Organization Address [facility] de Phone Number [facility] [address] [place] [phone] * (ABNORMAL) Phosphorus (07/15/2024 2:49 PM CDT) Phosphorus 4.7(H) 2.5 - 4.5 mg/dL 07/16/2024 1:48 PM CDT [facility] Blood (Blood, Venous) 07/15/2024 2:49 PM CDT 07/16/2024 12:53 PM CDT Nick Kwon MD LAB BLOOD ORDERABLES Final R esult Performing Organization Address [facility]/ZIP Co de Phone Number [facility] [address] [place] [phone] * (ABNORMAL) Magnesium (07/15/2024 2:49 PM CDT) Magnesium 1.5(L) 1.6 - 2.3 mg/dL 07/16/2024 1:48 PM CDT [facility] Blood (Blood, Venous) 07/15/2024 2:49 PM CDT 07/16/2024 12:53 PM CDT Nick Kwon MD LAB BLOOD ORDERABLES Final R esult Performing Organization Address [facility]/ZIP Co de Phone Number [facility] [address] [place] [phone] * CK (07/15/2024 2:49 PM CDT) Total CK 149 30 - 159 U/L 07/16/2024 2:13 PM CDT [facility] Blood (Blood, Venous) 07/15/2024 2:49 PM CDT 07/16/2024 12:53 PM CDT Nick Kwon MD LAB BLOOD ORDERABLES Final R esult Performing Organization Address [facility] Co de Phone Number [facility] [address] [place] [phone] * (ABNORMAL) Albumin (07/15/2024 2:49 PM CDT) Albumin, Serum 3.4(L) 3.5 - 5.0 g/dL 07/16/2024 1:48 PM CDT [facility] Blood (Blood, Venous) 07/15/2024 2:49 PM CDT 07/16/2024 12:53 PM CDT Nick Kwon MD LAB BLOOD ORDERABLES Final R esult [facility] [address] [place] [address] * (ABNORMAL) Basic metabolic panel (07/15/2024 2:49 PM CDT) Sodium 131(L) 135 - 145 mEq/L 07/16/2024 1:48 PM CDT [facility] Potassium 3.9 3.5 - 5.1 mEq/L 07/16/2024 1:48 PM CDT [facility] Chloride 96(L) 98 - 107 mEq/L 07/16/2024 1:48 PM T [facility] CO2 25 22 - 29 mmol/L 07/16/2024 1:48 PM T [facility] Creatinine 0.73 0.40 - 1.20 mg/dL 07/16/2024 1:48 PM T [facility] BUN 8 5 - 25 mg/dL 07/16/2024 1:48 PM T [facility] Glucose 109(H) 70 - 100 mg/dL 07/16/2024 1:48 PM T [facility] Calcium, Total,S 9.3 8.4 - 10.2 mg/dL 07/16/2024 1:48 PM T [facility] Anion Gap 10 4 - 13 07/16/2024 1:48 PM T [facility] Comment: The anion gap is calculated with the following formula: AGAP = Na ? (Cl + CO2). Fasting? Yes 07/15/2024 2:49 PM CDT [facility] Blood (Blood, Venous) 07/15/2024 2:49 PM CDT 07/16/2024 12:53 PM CDT Nick Kwon MD LAB BLOOD ORDERABLES Final R esult [facility] RAJINDER MOROCHO [address] [place] [address] [facility] [address] [place] [address] from Last 3 Months Insurance [facility] [employer] Care Teams Yoke Setter Relationship Specialty Start Date End Date Nick Kwon MD [address] [place] [address] PCP - General 12/15/22
--- OUTSIDE RECORDS SUMMARY | 2024-08-20 19:18 | XMS_ITS | Encounter Summary ---
Author Organization [facility] er Address [address] [place] [address] Care Team Providers Care Information Systems Supervisor Name Role Phone Nick Kwon MD Primary Care Provider Reason for Visit * Reason Onset Date Comments medical cannabis certification 06/14/2024 Encounter Details Date Type Department Care Team (Late st Contact Info) Description 06/14/2024 Telephone [facility] [address] [place] [phone] Nilda Waters MD [address] [place] [address] medical cannabis certification Social History Tobacco Use Types Packs/Day Years [...] often do you attend chur ch or jainism services? Never 06/08/2023 Do you belong to any clubs o r organizations such as muslim groups, unions, fraternal or athletic groups, or [...] Date Recorded PHQ-9 Total Score 14 02/07/2024 [facility] [place] [facility] Occupat ional [facility] - Occupational Stress [...] place to sleep or slept in a nursing home (including now)? No 06/08/2023 Comments No Sex and Gender Information Value Date Recorded Sex Assigned at Not on file Legal Sex Female 11:28 AM CDT Gender Identity Not on file Sexual Orientation Not on file documented as of this encounter Miscellaneous Notes * Telephone Encounter - Malou Burleson - 06/20/2024 3:30 PM CDT Patient called back and was notified she is not eligible for medical cannabis through [facility] at this time. She was given the phone number for [facility]. Patient verbalized understanding. * Telephone Encounter - Kia Terrell RN - 06/18/2024 9:43 AM CDT Phone message left for April to call AAS office regarding medical cannabis certification and thatrico does not qualify for certification at this tiime * Telephone Encounter - Bethany Gutiérrez APRN, CNP - 06/14/2024 12:34 PM CDT Given current alcohol use she would not be a candidate for medical cannabis certification through [facility]. * Telephone Encounter - Kia Terrell RN - 06/14/2024 11:30 AM CDT Medical Cannabis Screening Referring provider: Nick Kwon MD Referred Diagnosis: Chronic right hip pain Exclusion Criteria for Medical Cannabis - uncontrolled hypertension - chronic liver disease - Schizophrenia or Schizoaffective Disorder - Psychosis or family history of psychosis - Bipolar Disorder - History of polysubstance abuse/alcohol abuse/2+ alcoholic drinks daily. - History of DVT/Coagulation Disorder/Pulmonary Embolism. - /Breast- Feeding. - Age <25 years ago. - History of stroke or HI in the past year. Patient does not qualify for medical cannabis if any of the above are present. Progress note 06/06/24: Alcohol Use Disorder. Unable to cut down and has consequential medical problems. Consumes 4 mixed drinks daily, DX: Alcohol use disorder Please advise documented in this encounter Plan of Treatment Not on file documented as of this encounter Visit Diagnoses Not on filedocumented in this encounter Care Teams Information Systems Supervisor Relationship Specialty Start Date End Date Nick Kwon MD [address] [place] [address] PCP - General 12/15/22 documented as of this encounter
--- OUTSIDE RECORDS SUMMARY | 2024-08-20 19:18 | XMS_ITS | Encounter Summary ---
Author Organization [facility] er Address [address] [place] [address] Care Team Providers Care Miller Head Name Role Phone Nick Kwon MD Primary Care Provider Reason for Visit * Reason Comments Med Refill Encounter Details Date Type Department Care Team (Late st Contact Info) Description 09/22/2022 Refill [place] [address] [place] [id number] Nick Kwon MD [address] [facility] [address] [place] [address] Pain in joint, multiple sites Social History Tobacco Use Types Packs/Day Years Used Date Smoking Tobacco: Every Day Cigarettes 1 30 Smokeless Tobacco: Never Alcohol Use Standard Drinks/Week Comments Yes 20 (1 standard drink = 0.6 oz pu re alcohol) AUDIT-C Answer Date Recorded Q1: How often do you have a drink containing alcohol? 4 or more times a week 04/20/2020 Q2: How many drinks containi ng alcohol do you have on a typical day when you are drinking? 3 or 4 Q3: How often do you have si x or more drinks on one occasion? Not asked 04/20/2020 PHQ-2 Answer Date Recorded PHQ-9 Total Score 16 06/23/2022 Comments No Sex and Gender Information Value Date Recorded Sex Assigned at Not on file Legal Sex Female 11:28 AM CDT Gender Identity Not on file Sexual Orientation Not on file documented as of this encounter Miscellaneous Notes * Telephone Encounter - L, Tee Naranjo LPN - 09/22/2022 8:57 AM CDT Upcoming appointment with provider: Visit date not found Last visit in provider department: 06/23/2022 Last visit requested medication was discussed: 06/23/2022 Last Rx: #30 with 5 refills 01/17/2022 Requested Prescriptions Pending Prescriptions Disp Refills meloxicam (MOBIC) 15 MG tablet [Pharmacy Med Name: MELOXICAM 15MG TABS] 30 tablet 5 Sig: TAKE 1 TABLET (15 MG) BY MOUTH ONE TIME EACH DAY Labs: n/a Vitals: BP Readings from Last 2 Encounters: 06/23/22 (!) 146/86 04/15/22 (!) 155/98 Last Controlled Substance Agreement (CSA): not completed in last 12 months. Last Random Urine Drug Screen (RUDS): not completed in last 12 months. documented in this encounter Plan of Treatment Not on file documented as of this encounter Visit Diagnoses Diagnosis Pain in joint, multiple sites documented in this encounter Care Teams Miller Head Relationship Specialty Start Date End Date Nick Kwon MD [address] [place] [address] PCP - General 12/15/22 documented as of this encounter
--- OUTSIDE RECORDS SUMMARY | 2024-08-20 19:18 | XMS_ITS | Encounter Summary ---
Author Organization [facility] er Address [address] [place] [address] Care Team Providers Care Script Worker Name Role Phone Nick Kwon MD Primary Care Provider [phone] Reason for Visit * Reason Comments Med Refill Encounter Details Date Type Department Care Team (Late st Contact Info) Description 08/14/2024 Refill [place] [address] [place] [address] Nick Kwon MD [address] [facility] [address] [place] [address] Pain in joint, multiple sites Social History [...] often do you attend chur ch or moravian services? Never 06/08/2023 Do you belong to any clubs o r organizations such as alevism groups, unions, fraternal or athletic groups, or [...] Date Recorded PHQ-9 Total Score 14 02/07/2024 [facility] of Occupat ional [facility] - Occupational Stress Questionnaire Answer Date [...] place to sleep or slept in a mcc (including now)? No 06/08/2023 Comments No Sex and Gender Information Value Date Recorded Sex Assigned at Not on file Legal Sex Female 11:28 AM CDT Gender Identity Not on file Sexual Orientation Not on file documented as of this encounter Miscellaneous Notes * Telephone Encounter - Lashonda López - 08/20/2024 11:27 AM CDT LMTCB to schedule re-check OV. * Telephone Encounter - Elizabeth Dunbar MA - 08/20/2024 10:27 AM CDT Patient is due for appointment. PSR: Please contact patient to assist with scheduling. Return in about 1 month (around 07/06/2024). Upcoming appointment with provider: Visit date not found Last visit in provider department: 06/06/2024 Last visit requested medication was discussed: 06/06/2024 Last Rx: 02/07/2024 # 30, 5 refill Requested Prescriptions Pending Prescriptions Disp Refills meloxicam (MOBIC) 15 MG tablet [Pharmacy Med Name: MELOXICAM 15MG TABS] 30 tablet 5 Sig: TAKE ONE TABLET BY MOUTH EVERY DAY WITH FOOD Labs: Vitals: BP Readings from Last 2 Encounters: 07/18/24 123/73 06/06/24 118/69 Last Controlled Substance Agreement (CSA): Last Random Urine Drug Screen (RUDS): documented in this encounter Plan of Treatment Not on file documented as of this encounter Visit Diagnoses Diagnosis Pain in joint, multiple sites documented in this encounter Care Teams Script Worker Relationship Specialty Start Date End Date Nick Kwon MD [address] [facility] [address] [place] [address] PCP - General 12/15/22 documented as of this encounter
--- OUTSIDE RECORDS SUMMARY | 2024-08-20 19:18 | XMS_ITS | Encounter Summary ---
Author Organization [facility] er Address [address] [place] [address] Care Team Providers Care Bender Machine Operator Name Role Phone Nick Kwon MD Primary Care Provider [phone] Reason for Visit * Reason Comments Med Refill Encounter Details Date Type Department Care Team (Late st Contact Info) Description 06/10/2024 Refill [place] [address] [place] [phone] Nick Kwon MD [address] [facility] 20 [place] [address] Chronic diarrhea Social History Tobacco Use Types Packs/Day Years [...] often do you attend chur ch or orthodoxy services? Never 06/08/2023 Do you belong to any clubs o r organizations such as yarsanism groups, unions, fraternal or athletic groups, or [...] Date Recorded PHQ-9 Total Score 14 02/07/2024 [facility] of Occupat ional [facility] - Occupational Stress Questionnaire Answer Date Recorded [...] place to sleep or slept in a retirement (including now)? No 06/08/2023 Comments No Sex and Gender Information Value Date Recorded Sex Assigned at Not on file Legal Sex Female 11:28 AM CDT Gender Identity Not on file Sexual Orientation Not on file documented as of this encounter Miscellaneous Notes * Telephone Encounter - Kanchan Vicente - 07/10/2024 3:03 PM CDT scheduled * Telephone Encounter - Italia Souza LPN, RN Student - 07/09/2024 3:09 PM CDT Please call patient and set up and appointment for her a few days prior to the appointment (lab draw). * Telephone Encounter - Nick Kwon MD - 07/09/2024 3:04 PM CDT Yes to be done prior to appointment a few days * Telephone Encounter - Lashonda López - 07/09/2024 2:30 PM CDT Scheduled re-check appt w/Dr. Kwon on 07.18.24. Lab orders had been entered; are these to be done prior to the above appt date (was on worklist). Advise. * Telephone Encounter - Shelly Floyd - 07/03/2024 11:25 AM CDT Tried calling patient, unable to get through and will try again later. * Telephone Encounter - Mecca Kwok LPN - 06/13/2024 3:29 PM CDT Patient will be due for appointment. Return in about 1 month (around 07/06/2024) PSR: Please contact patient to assist with scheduling. Upcoming appointment with provider: Visit date not found Last visit in provider department: 06/06/24 -follow-up after hospitalization for dehydration with diarrhea, nausea, vomiting, and cough Last visit requested medication was discussed: 06/06/24 Post-discharge, managed diarrhea with loperamide, no further vomiting, normal bowel movements except slightly loose stool today. Last Rx: LOPERAMIDE HCL 2MG CAPS 05/07/24 #120 no refills Dx: Chronic diarrhea [K52.9] Requested Prescriptions Pending Prescriptions Disp Refills loperamide (IMODIUM) 2 MG capsule [Pharmacy Med Name: LOPERAMIDE HCL 2MG CAPS] 120 capsule 0 Sig: TAKE ONE CAPSULE BY MOUTH FOUR TIMES A DAY FOR DIARRHEA Vitals: BP Readings from Last 2 Encounters: 06/06/24 118/69 02/07/24 102/69 documented in this encounter Plan of Treatment Not on file documented as of this encounter Visit Diagnoses Diagnosis Chronic diarrhea Diarrhea documented in this encounter Care Teams Bender Machine Operator Relationship Specialty Start Date End Date Nick Kwon MD [address] [facility] [address] [place] [address] PCP - General 12/15/22 documented as of this encounter
--- OUTSIDE RECORDS SUMMARY | 2024-08-20 19:18 | XMS_ITS | Encounter Summary ---
Author Organization [facility] er Address [address] [place] [address] Care Team Providers Care Electric Brain Wave Equipment Mechanic Name Role Phone Nick Kwon MD Primary Care Provider [phone] Reason for Visit * Reason Comments Med Refill Encounter Details Date Type Department Care Team (Late st Contact Info) Description 07/20/2024 Refill [place] [address] [address] Nick Kwon MD [facility] [address] [place] [address] Neuropathy Social History Tobacco Use Types Packs/Day Years [...] often do you attend chur ch or zoroastrian services? Never 06/08/2023 Do you belong to any clubs o r organizations such as presybeterian groups, unions, fraternal or athletic groups, or [...] Date Recorded PHQ-9 Total Score 14 02/07/2024 [facility] - [facility]ational [facility] Questionnaire Answer Date [...] * Telephone Encounter - Lashonda López - 07/25/2024 9:33 AM CDT LMTCB to schedule F/U OV w/Dr. [facility]. * Telephone Encounter - Lashon Orozco RN - 07/24/2024 2:27 PM CDT Patient is due for (follow up for pancreatic insufficiency) appointment. PSR: Please contact patient to assist with scheduling. Upcoming appointment with provider: Visit date not found Last visit in provider department: 06/07/2024 Last visit requested medication was discussed:06/06/24 Last Rx: 06/21/24 Requested Prescriptions Pending Prescriptions Disp Refills gabapentin (NEURONTIN) 300 MG capsule [Pharmacy Med Name: GABAPENTIN 300MG CAPS] 99 capsule 0 Sig: TAKE ONE CAPSULE BY MOUTH THREE TIMES A DAY Labs: Vitals: BP Readings from Last 2 Encounters: 07/18/24 123/73 06/06/24 118/69 documented in this encounter Plan of Treatment Not on file documented as of this encounter Visit Diagnoses Diagnosis Neuropathy Mononeuritis of unspecified site documented in this encounter Care Teams Electric Brain Wave Equipment Mechanic Relationship Specialty Start Date End Date Nick Kwon MD [address] [facility] [address] [place] [address] PCP - General 12/15/22 documented as of this encounter
--- OUTSIDE RECORDS SUMMARY | 2024-08-20 19:18 | XMS_ITS | Clinical Summary ---
Author Organization [employer] [facility] Address [facility] [place] [address] Care Team Providers Care Tube Blower Name Role Phone Yung Melendrez MD Unavailable Jonnie Nichole DO Unavailable [phone] Timbo Rosa MD Unavailable Rupert Mcdermott MD Unavailable Jose Juan Espino MD Unavailable Freeman Ayala MD Unavailable [phone] Cher JONES MD, [facility] Provi edward Allergies No known active allergies Medications multivitamin (MVI) tabletIndications: Alcohol abuse TAKE 1 TABLET BY MOUTH EVERY DAY 90 tablet 2 04/03/19 20 Active famotidine (PEPCID) 20 mg tablet Take 1 Tablet (20 mg) by mouth 2 times daily. 0 07/21/19 22 Active loperamide (IMODIUM) 2 mg capsule Take 2 mg by mouth 4 times daily if needed for Diarrhea. Take 2 capsules (4mg) orally with 1st loose stool, then 1 capsule (2mg) with other loose stools. Max 16 mg in 24 hrs. Active metoprolol tartrate (LOPRESSOR) 50 mg tabletIndications: Hypertension, unspecified type Take 1 Tablet (50 mg) by mouth two times daily. 120 Tablet 3 12:40 PM PRISON GUARD 02/25/20 23 Active sertraline (ZOLOFT) 100 mg tabletIndications: Anxiety Take 1 Tablet (100 mg) by mouth every morning. 60 Tablet 3 12:40 PM PRISON GUARD 02/25/20 23 Active sennosides-docusat e (SENOKOT S) (8.6-50 mg) tabletIndications: Prosthetic hip infection, initial encounter Take 1-3 Tablets by mouth 2 times daily if needed for Constipation. 20 Tablet 3 3:44 PM PRISON GUARD 02/25/20 23 Active magnesium oxide (MAG-OX 400) 400 mg tabletIndications: Hypomagnesemia Take 1 Tablet (400 mg) by mouth three times daily. 03/06/19 24 Active Side RailsIndications:D islocation of prosthesis of right hip joint As directed. Bed rail 03/06/19 24 Active durable medical equipment (DME)Indications:D islocation of prosthesis of right hip joint Mobility standing aide for couch 03/06/19 24 Active durable medical equipment (DME)Indications:D islocation of prosthesis of right hip joint Wheelchair cushion 03/06/19 24 Active Elevated Toilet Seat with ArmsIndications:Di slocation of prosthesis of right hip joint Oval toilet seat with arms for home use. 03/07/19 24 Active acetaminophen (TYLENOL EXTRA STRGTH) 500 mg tabletIndications: Closed dislocation of right hip, initial encounter (HC) Take 2 Tablets (1,000 mg) by mouth 4 times daily if needed for Pain. Max acetaminophen dose: 4000mg in 24 hrs. 03/20/19 24 Active meloxicam 15 mg tablet Take 15 mg by mouth once daily. 03/04/19 25 Active cholecalciferol 2,000 unit capsule Take 2,000 units by mouth once daily. Active folic acid 1 mg tablet Take 1 mg by mouth once daily. Active gabapentin 300 mg capsule Take 300 mg by mouth three times daily. Active ondansetron 4 mg disintegrating tabletIndications: Vomiting and diarrhea Place 1 Tablet (4 mg) on the tongue every 8 hours if needed for Nausea/Vomiting. 20 Tablet 05/27/19 25 Active Active Problems Problem Noted Date Diagnosed Date Hypomagnesemia 05/24/2024 Overview (05/24/2024): 05/24/2024 Magnesium=0.9 Hypokalemia 05/24/2024 Overview (05/24/2024): POTASSIUM (mmol/L) Date Value 05/24/2024 2.8 (L) 02/02/2021 4.0 Gastroenteritis 05/24/2024 Bacteriuria with pyuria 05/24/2024 Hypophosphatemia 05/24/2024 Overview (05/24/2024): 05/24/2024 Phosphorus=1.9 Acute alcohol intoxication 03/19/2023 Overview (03/19/2023): 03/18/23 BAL 0.153 Hyponatremia 03/19/2023 Overview (03/19/2023): SODIUM (mmol/L) Date Value 03/18/2023 131 (L) 02/02/2021 137 Closed dislocation of right hip 03/06/2023 Overview (03/19/2023): 03/19/2023 reduced in emergency department. 03/19/2023 xray: Successful reduction of previous dislocated right hip arthroplasty components. Alignment now appears normal on this single projection. No fractures. Anemia 03/06/2023 Overview (03/19/2023): HEMOGLOBIN (g/dL) Date Value 03/19/2023 8.6 (L) S/p I & D of R.HARISH; R.total hip revision w/ revision of R.hip acetabular liner & R. femoral head. Biopsy hip capsule for microbiology & pathology; wound vac for 12x2cm wound on02/17/[address] 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 MGUS (monoclonal gammopathy of unknown significa nce) 02/17/2023 Anxiety 10/07/2014 Neuropathy 09/18/2012 Vitamin D deficiency 04/15/2011 Tobacco use disorder 04/15/2011 Alcohol abuse 12/15/2009 HTN (hypertension) 12/15/2009 Resolved Problems Problem Noted Date Diagnosed Date Resolved Date Hypokalemia 03/06/2023 03/19/2023 Hypomagnesemia 03/06/2023 03/19/2023 Prosthetic hip infection, initial encounter 02/21/2023 03/19/2023 Infection and inflammatory r eaction due to internal right hip prosthesis, initial encounter 02/21/2023 03/19/2023 Mild osteoarthritis of right hip 03/25/2015 02/17/2023 Advanced bilateral sacroiliitis 03/25/2015 02/17/2023 Overview (03/25/2015): Neg and spondylolarthropathy workup with rheum in 2013. GERD (gastroesophageal reflux disease) 10/07/2014 02/17/2023 Acalculous cholecystitis 07/11/2014 Thyroid nodule 12/23/2013 02/17/2023 Overview (12/23/2013): Small cystic nodule in the superior right lobe of the thyroid measuring 5 mm Normal thyroid labs 12/20/2013 Right hip pain 05/08/2013 02/17/2023 Overview (07/02/2014): Greater Trochanteric Bursitis vs other. Greater Trochanteric Bursa injections: Mar 15, 2011, Sep 2012, April 2013, September 2013, June 2014. Inflammatory arthropathy 03/24/2013 Overview (03/24/2013): MRI shows inflammatory Arthropathy Feb 2013, referred to Rheumatology. Monoclonal gammopathy 03/15/20132022 Overview (03/15/2013): Feb 2013: Diagnosis per Dr. Melendrez, neurologist, Patient to See Dr. Rosa for consult. Right shoulder pain 01/07/2013 02/18/20 Overview (01/15/2014): Nov 2012: right subacromial bursa injection with 80% improvement. Dec 2013: right subacromial bursa injection. 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 Heartburn 12/15/2009 10/07/2014 Encounters Date Type Department Care Team Description 05/26/2024 9:00 AM CDT - 05/26/2024 11:59 PM CDT [facility] [facility] [place] [address] [place] [address] Cesar Amaya MD 05/25/2024 10:00 AM CDT - 05/25/2024 11:59 PM CDT Hospital Encounter [facility] [place] [facility] [address] [place] [address] Cesar Amaya MD 05/24/2024 11:22 AM CDT - 05/26/2024 2:42 PM CDT Hospital Encounter [facility] [address] [place] [address] Larissa Vyas PA Dubay, Kelly Sue, MD Hospitalist, [facility] Md Amaya, MD Meek Potter, Leonardo Brown, DO Vomiting and diarrhea (Primary Dx); Hypokalemia; Hypomagnesemia Discharge Disposition: Home Self Care 05/24/2024 Travel from Last 3 Months Immunizations Immunization Administration Dates Next Due Tdap 12/15/2009 Family History Medical History Relation Name Comments Cancer Mother ovarian in 30's , stomach CA/lung Lung cancer Mother terminal, 02/19/17 at age 74 Other Other No HD. No known anesthesia rxn, bleeding disorders, or blood clots Cancer-breast No Family History Relation Name Status Comments Brother (Age 17) car accide nt Father Mother Other Social History Tobacco Use Types Packs/Day Years Used Date Smoking Tobacco: Every Day Cigarettes 1 40 Smokeless Tobacco: Never Tobacco Cessation:Ready to Q uit: Not Asked; Counseling Given: Not Answered Alcohol Use Standard Drinks/Week Comments Yes 35 (1 standard drink = 0.6 oz pu re alcohol) about 4-[address] Dew/day PHQ-2 Answer Date Recorded PHQ-2 Score 2 11/01/2018 Social Connections Answer Date Recorded Do you often feel lonely or isolated from those around you? 0 05/24/2024 Financial Resource Strain Answer Date R ecorded Difficulty of Paying Living Expenses 3 05/24/2024 Difficulty of Paying Living Expenses Not on file 05/24/2024 Food Insecurity Answer Date Recorded Do you worry your food will run out before you are able to buy more? 1 05/24/2024 Transportation Needs Answer Date Record ed Does lack of transportation keep you from medica l appointments? 1 05/24/2024 Does lack of transportation keep you from work, meetings or getting things that you need? 1 05/24/2024 Housing Stability Answer Date Recorded What is your housing situation today? 1 05/24/2024 Interpersonal Safety Answer Date Record ed Are you being hit, kicked, p ushed or yelled at (see row info)? No 05/24/2024 Interpersonal Safety Abuse 12 - 18 Not on file 05/24/2024 Interpersonal Safety Ambulatory Vulnerability No t on file 05/24/2024 Utilities Answer Date Recorded Do you have trouble paying f or utilities (for example, heat, electricity, water, phone)? 1 05/24/2024 Comments No Sex and Gender Information Value Date Recorded Sex Assigned at Not on file Legal Sex Female 5:24 AM PRISON GUARD Gender Identity Not on file Sexual Orientation Not on file Obstetrics History Para Term AB IAB SAB Ectopic Multiple Livin g Live Births 1 1 1 Date Outcome GA Total Labor Labor/2nd/3rd Weight Sex Type Anes PTL Kristi A1 A5 Name Clin Living Last Filed Vital Signs Vital Sign Reading Time Taken Comments Blood Pressure 135/81 05/26/2024 7:51 AM CDT Pulse 94 05/26/2024 8:14 AM CDT Temperature 36.8 C (98.3 F) 05/26/2024 7:51 AM CDT Respiratory Rate 16 05/26/2024 7:51 AM CDT Oxygen Saturation 94% 05/26/2024 7:51 AM CDT Inhaled Oxygen Concentration - - Weight 60.8 kg (134 lb 0.6 oz) 05/26/2024 6:00 A M CDT Height 163.8 cm (5' 4.5) 05/25/2024 7:00 AM CDT Body Mass Index 22.65 05/25/2024 7:00 AM CDT Plan of Treatment Health Maintenance Due Date Last Done Comments HIV for age 15-65 01/24/1980 Hepatitis C screening for ag e 18-79 1983 Hepatitis B series for 19+ ( 1 of 3 - 19+ 3-dose series) 01/24/1984 Pneumococcal series for age 50+ (1 of 2 - PCV) 01/24/1984 Zoster (shingles) series for age 50+ (1 of 2) 2015 Mammogram for age 45-75 02/06/2018 02/07/20 17, 08/06/2015, 10/23/2013, Additional history exists BMI (ht and wt on same day) for age 18+ 11/02/2019 11/01/2018, 03/01/2018, 06/15/2017, Additional history exists Tetanus booster 12/16/2019 12/15/2009 Pap test for age 21-65 02/01/2020 7, 09/18/2012, 12/15/2009 Depression screening for age 12+ 02/02/2020 02/01/2019, 11/01/2018, 06/15/2017, Additional history exists Lipids for age 45-75 03/01/2023 03/01/2018, 01/31/2017, 07/24/2015, Additional history exists COVID-19 vaccine series ( season) 2023 06/06/2020, 05/16/2020 Influenza Vaccine (Season Ended) 2024 Colonoscopy through age 75 08/06/202508/06 (Completed outside of [facility]) Tdap Completed 12/15/2009 Medical Devices Implanted Type Area Revenue Stamp Cutter Device Identifier Shelf Expiration Date Model / Serial / Lot Head Hip Od32mm +5 02/09 Biolox Delta Ts Ceramic - [id number] Implanted:Qty: 1 on 02/17/2023 by Herber Abad MD at [facility] Right: Hip J [employer] J [employer] 12/27/2026 [id number] / / [id number] Pack[employer] Altrx Polyethylene Acet Liner Neutral 32mmid 48mmod Implanted:Qty: 1 on 02/17/2023 by Hreber Abad MD at [facility] Right: Hip 05/27/2025 [id number] / / [id number] Description:PINNACLE ALTRX P OLYETHYLENE ACET LINER NEUTRAL 32MMID 48MMOD Explanted Type Area Revenue Stamp Cutter Device Identifier Shelf Expiration Date Model / Serial / Lot Explant Explanted:Qty: 2 on 02/17/2023 by Herber Abad MD at [facility] Right: Hip Description:HEAD AND LINER Packwood Canc Bone Screw [id number] Explanted:Qty: 1 on 02/17/2023 at [facility] Right: Hip 10/28/2031 [id number] / / [id number] Description:PINNACLE CANC POLY NE SCREW [id number] Procedures Procedure Name Priority Date/Time Associated Diagnosis Comments SODIUM Early AM 05/26/2024 7:29 AM CDT CREATININE Early AM 05/26/2024 7:29 AM CDT WHITE BLOOD COUNT Early AM 05/26/2024 7:2 9 AM CDT HEMOGLOBIN Early AM 05/26/2024 7:29 AM CDT CK TOTAL Early AM 05/26/2024 7:29 AM CDT POTASSIUM Early AM 05/26/2024 7:29 AM CDT PHOSPHORUS Early AM 05/26/2024 7:29 AM CDT MAGNESIUM Early AM 05/26/2024 7:29 AM CDT PANCREATIC ELASTASE FECAL Today 05/25/2024 11:07 AM CDT CK TOTAL ZACKARY 05/25/2024 6:08 AM CDT PHOSPHORUS Timed 05/25/2024 6:08 AM CDT PLATELET COUNT Early AM 05/25/2024 6:08 AM CDT HEMOGLOBIN Early AM 05/25/2024 6:08 AM CDT WHITE BLOOD COUNT Early AM 05/25/2024 6:0 8 AM CDT MAGNESIUM Early AM 05/25/2024 6:08 AM CDT CREATININE Early AM 05/25/2024 6:08 AM CDT POTASSIUM Early AM 05/25/2024 6:08 AM CDT SODIUM Early AM 05/25/2024 6:08 AM CDT POTASSIUM Today 05/24/2024 7:21 PM CDT URINALYSIS MICROSCOPIC Timed 05/24/2024 2:36 PM CDT UA W/ SEDIMENT EXAM REFLEXED PER CRITERIA Today 05/24/2024 2:36 PM CDT URINE CULTURE ZACKARY 05/24/2024 12:20 PM CDT URINALYSIS MICROSCOPIC Timed 05/24/2024 12:20 PM CDT UA W/ SEDIMENT EXAM REFLEXED PER CRITERIA Today 05/24/2024 12:20 PM CDT PHOSPHORUS ZACKARY 05/24/2024 11:52 AM CDT MAGNESIUM STAT 05/24/2024 11:52 AM CDT BASIC METABOLIC PANEL STAT 05/24/2024 11:52 AM CDT COVID-19 MOLECULAR Today 05/24/2024 11 :42 AM CDT INFLUENZA A/B PCR Today 05/24/2024 11: 42 AM CDT EKG 12 LEAD STAT 05/24/2024 11:25 AM CDT SCAN-CARDIAC STRIP 05/24/2024 12 :00 AM CDT LIPID PANEL W REFLEX MEASURED LDL Routine 03/01/2018 12:10 PM PRISON GUARD Hypertension, unspecified type XR MAMMO BILAT SCREENING Routine 02/06/2017 10:14 AM PRISON GUARD Visit for screening mammogram DOLLY PUSHER THIN PREP PAP SCREEN IMAGED Routine 01/31/2017 2:59 PM PRISON GUARD Cervical cancer screening from Last 3 Months or Most Recently Relevant to Health Maintenance Results * WHITE BLOOD COUNT (05/26/2024 7:29 AM CDT) Only the most recent of2 resultswithin the time period is included. WHITE BLOOD COUNT 10.2 4.5 - 11.0 thou/cu mm 05/26/2024 8:09 AM CDT [facility] NRBC 0.0 % 05/26/2024 8:09 AM CDT [facility] ABS NRBC 0.0 thou /cu mm 05/26/2024 8:09 AM CDT [facility] Blood BLOOD SPECIMEN / Unknown Butterfly / Unknown 05/26/2024 7:29 AM CDT 05/26/2024 7:33 AM CDT us Leonardo Eden DO HEMATOLOGY Final Resu lt [facility] [address] [place] [address], * (ABNORMAL) HEMOGLOBIN (05/26/2024 7:29 AM CDT) Only the most recent of2 resultswithin the time period is included. HEMOGLOBIN 10.4(L) 12.0 - 16.0 g/dL 05/26/2024 8:11 AM CDT [facility] MCV 114(H) 80 - 100 fL 05/26/2024 8:11 AM CDT [facility] Blood BLOOD SPECIMEN / Unknown Butterfly / Unknown 05/26/2024 7:29 AM CDT 05/26/2024 7:33 AM CDT Leonardo Eden DO HEMATOLOGY Final Resu lt [facility] [address] [place] [address], * SODIUM (05/26/2024 7:29 AM CDT) Only the most recent of2 resultswithin the time period is included. SODIUM 137 136 - 145 mmol/L 05/26/2024 7:58 AM CDT [facility] Blood BLOOD SPECIMEN / Unknown Butterfly / Unknown 05/26/2024 7:29 AM CDT 05/26/2024 7:33 AM CDT Leonardo Eden DO CHEMISTRY Final Resu lt [facility] [address] [place] [address], [place] [phone] * POTASSIUM (05/26/2024 7:29 AM CDT) Only the most recent of3 resultswithin the time period is included. POTASSIUM 3.9 3.5 - 5.1 mmol/L 05/26/2024 7:58 AM CDT [facility] Blood BLOOD SPECIMEN / Unknown Butterfly / Unknown 05/26/2024 7:29 AM CDT 05/26/2024 7:33 AM CDT Leonardo Brown Meek DO CHEMISTRY Final Resu lt [facility] [address] [place] [address], * CREATININE (05/26/2024 7:29 AM CDT) Only the most recent of2 resultswithin the time period is included. eGFR >90 >90 mL/min/1.7 3m2 05/26/2024 7:58 AM CDT [facility] Comment:As of 2021, eG FR is calculated by the CKD-EPI creatinine equation without race adjustment. eGFR can be influenced by muscle mass, exercise, and diet. The reported eGFR is an estimation only and is only applicable if the renal function is stable. CREATININE 0.56 0.50 - 0.90 mg/dL 05/26/2024 7:58 AM CDT [facility] Blood BLOOD SPECIMEN / Unknown Butterfly / Unknown 05/26/2024 7:29 AM CDT 05/26/2024 7:33 AM CDT Leonardojavi Eden DO CHEMISTRY Final Resu lt [facility] [address] [place] [address], * PHOSPHORUS (05/26/2024 7:29 AM CDT) Only the most recent of3 resultswithin the time period is included. PHOSPHORUS 4.0 2.5 - 4.5 mg/dL 05/26/2024 7:58 AM CDT [facility] Blood BLOOD SPECIMEN / Unknown Butterfly / Unknown 05/26/2024 7:29 AM CDT 05/26/2024 7:33 AM CDT us Leonardo Eden DO CHEMISTRY Final Resu lt Performing Organization Address City/[facility]/ZIP Co de Phone Number [facility] [address] [place] [address], [place] [phone] * MAGNESIUM (05/26/2024 7:29 AM CDT) Only the most recent of3 resultswithin the time period is included. MAGNESIUM 1.7 1.6 - 2.6 mg/dL 05/26/2024 8:10 AM CDT [facility] Blood BLOOD SPECIMEN / Unknown Butterfly / Unknown 05/26/2024 7:29 AM CDT 05/26/2024 7:33 AM CDT us Leonardo Eden DO CHEMISTRY Final Resu lt Performing Organization Address [facility] Co de Phone Number [facility] [address] [place] [address], [place] [phone] * (ABNORMAL) CK TOTAL (05/26/2024 7:29 AM CDT) Only the most recent of2 resultswithin the time period is included. CK,TOTAL 2,450(H) 26 - 192 IU/L 05/26/2024 8:26 AM CDT [facility] Blood BLOOD SPECIMEN / Unknown Butterfly / Unknown 05/26/2024 7:29 AM CDT 05/26/2024 7:33 AM CDT us Leonardo Eden DO CHEMISTRY Final Resu lt Performing Organization Address City/[facility]/ZIP Co de Phone Number [facility] [address] [place] [address], [place] [phone] * (ABNORMAL) PANCREATIC ELASTASE FECAL (05/25/2024 11:07 AM CDT) Pancreatic Elast Fecal 24(L) >200 ug Elast./g 05/29/2024 2:08 PM CDT [facility] Comment: Stool of watery consistency received. Since watery stool is inherently dilute, low test results should be interpreted with caution. Retesting on formed stool, if possible, is recommended. Severe Pancreatic Insufficiency: <100 Moderate Pancreatic Insufficiency: 100 - 200 Normal: >200 Stool STOOL SPECIMEN / Unknown Non-Blood / Unknown 05/25/2024 11:07 AM CDT 05/25/2024 11:12 AM CDT Narrative [facility] - 05/29/2024 2:08 PM CDT Performed at: [address] [place], [place] [address] [address] [place] [id number] Casey Saw Operator: Tin Garcia MD, Phone: [phone] Leonardo Eden DO MICROBIOLOGY Final Resu lt [facility] [address] [place] [address], * PLATELET COUNT (05/25/2024 6:08 AM CDT) Pathologist [facility] PLATELET COUNT 235 140 - 440 thou/cu mm 05/25/2024 7:00 AM CDT [facility] MPV 9.7 6.5 - 11.0 fL 05/25/2024 7:00 AM CDT [facility] Blood BLOOD SPECIMEN / Unknown Butterfly / Unknown 05/25/2024 6:08 AM CDT 05/25/2024 6:29 AM CDT us Cesar Amaya MD HEMATOLOGY Final Resu lt [facility] [address] [place] [address], [place] [phone] * URINALYSIS MICROSCOPIC (05/24/2024 2:36 PM CDT) Only the most recent of2 resultswithin the time period is included. RBC 0-2 0-2, None Seen /HPF 05/24/2024 2:58 PM CDT [facility] WBC 3-5 0-2, 3-5, None Seen /HPF 05/24/2024 2:58 PM CDT [facility] BACTERIA Rare None Seen, Rare, Few Bacteria/H PF 05/24/2024 2:58 PM CDT [facility] EPITHELIAL CELLS None Seen None Seen, Few Epi/HPF 05/24/2024 2:58 PM CDT [facility] Urine URINE SPECIMEN / Unknown Non-Blood / Unknown 05/24/2024 2:36 PM CDT 05/24/2024 2:42 PM CDT us Larissa AGUIRRE URINE Final R esult [facility] [address] [place] [address], * (ABNORMAL) UA W/ SEDIMENT EXAM REFLEXED PER CRITERIA (05/24/2024 2:36 PM CDT) Only the most recent of2 resultswithin the time period is included. COLOR Yellow Yellow Color 05/24/2024 2:58 PM CDT [facility] CLARITY Clear Clear Clarity 05/24/2024 2:58 PM CDT [facility] SPECIFIC GRAVITY,URINE 1.015 1.010, 1.015, 1.020, 1.025 05/24/2024 2:58 PM CDT [facility] PH,URINE 6.5 6.0, 7.0, 8.0, 5.5, 6.5, 7.5, 8.5 05/24/2024 2:58 PM CDT [facility] UROBILINOGEN,Q UALITATIVE Normal Normal EU/dl 05/24/2024 2:58 PM CDT [facility] PROTEIN, URINE Negative Negative mg/dL 05/24/2024 2:58 PM CDT [facility] GLUCOSE, URINE Negative Negative mg/dL 05/24/2024 2:58 PM CDT [facility] KETONES,URINE Negative Negative mg/dL 05/24/2024 2:58 PM CDT [facility] BILIRUBIN,URIN E Negative Negative 05/24/2024 2:58 PM CDT [facility] OCCULT BLOOD,URINE Large(A) Negative 05/24/2024 2:58 PM CDT [facility] NITRITE Negative Negative 05/24/2024 2:58 PM CDT [facility] LEUKOCYTE ESTERASE Negative Negative 05/24/2024 2:58 PM CDT [facility] Urine URINE SPECIMEN / Unknown Non-Blood / Unknown 05/24/2024 2:36 PM CDT 05/24/2024 2:42 PM CDT Larissa AGUIRRE URINE Final R esult [facility] [address] [place] [address], * URINE CULTURE (05/24/2024 12:20 PM CDT) CULTURE 10-50,000 CFU/mL of multiple organisms, probable contaminants 05/25/2024 8:11 PM CDT [facility] Urine URINE SPECIMEN / Unknown Non-Blood / Unknown 05/24/2024 12:20 PM CDT 05/24/2024 12:23 PM CDT us Larissa AGUIRRE MICROBIOLOGY Final R esult [facility] [address] [place] [address], [place] * (ABNORMAL) BASIC METABOLIC PANEL (05/24/2024 11:52 AM CDT) SODIUM 139 136 - 145 mmol/L 05/24/2024 12:18 PM CDT [facility] POTASSIUM 2.8(L) 3.5 - 5.1 mmol/L 05/24/2024 12:18 PM CDT [facility] CHLORIDE 100 98 - 107 mmol/L 05/24/2024 12:18 PM CDT [facility] CO2,TOTAL 20(L) 22 - 29 mmol/L 05/24/2024 12:18 PM CDT [facility] ANION GAP 19(H) 5 - 18 05/24/2024 12:18 PM CDT [facility] GLUCOSE 138(H) 70 - 99 mg/dL 05/24/2024 12:18 PM CDT [facility] CALCIUM 8.3(L) 8.8 - 10.4 mg/dL 05/24/2024 12:18 PM CDT [facility] Comment: Reference ranges for this test were updated on 01/02/2024 to reflect our healthy population more accurately. Reference range changes are not retroactively applied to results, but previous results using the same methodology can be interpreted in the context of the new reference range. BUN 6 6 - 20 mg/dL 05/24/2024 12:18 PM CDT [facility] CREATININE 0.82 0.50 - 0.90 mg/dL 05/24/2024 12:18 PM CDT [facility] BUN/CREAT RATIO 7(L) 10 - 20 12:18 PM CDT [facility] eGFR 83(L) >90 mL/min/1.7 3m2 05/24/2024 12:18 PM CDT [facility] Comment:As of 2021, eG FR is calculated by the CKD-EPI creatinine equation without race adjustment. eGFR can be influenced by muscle mass, exercise, and diet. The reported eGFR is an estimation only and is only applicable if the renal function is stable. Blood BLOOD SPECIMEN / Unknown Venipuncture / Unknown 05/24/2024 11:52 AM CDT 05/24/2024 11:55 AM CDT Larissa AGUIRRE CHEMISTRY Final R esult Performing Organization Address City/[facility]/ZIP Co de Phone Number [facility] [address] [place] [address], * COVID-19 MOLECULAR (05/24/2024 11:42 AM CDT) COVID 19 [facility] MOLECULAR Not detected Not detected 05/24/2024 12:50 PM CDT [facility] TESTING LABORATORY [facility] 05/24/2024 12:50 PM CDT [facility] Comment:Specimen submitted t o [facility] for testing. Other SPECIMEN FROM NASOPHARYNGEAL STRUCTURE / Unknown Non-Blood / Unknown 05/24/2024 11:42 AM CDT 05/24/2024 11:45 AM CDT Larissa AGUIRRE MICROBIOLOGY Final R esult Performing Organization Address City/[facility]/ZIP Co de Phone Number [facility] [address] [place] [id number], * INFLUENZA A/B PCR (05/24/2024 11:42 AM CDT) INFLUENZA A PCR NOT Detected 05/24/2024 12:50 PM CDT [facility] INFLUENZA B PCR NOT Detected 05/24/2024 12:50 PM CDT [facility] Other SPECIMEN FROM NASOPHARYNGEAL STRUCTURE / Unknown Non-Blood / Unknown 05/24/2024 11:42 AM CDT 05/24/2024 11:45 AM CDT us Larissa AGUIRRE MICROBIOLOGY Final R esult [facility] [address] [place] [address], * EKG 12 LEAD (05/24/2024 11:25 AM CDT) Pathologist [facility] Interpretation Sinus tachycardia Nonspecific ST and T wave abnormality Abnormal ECG No previous ECGs available BEYOND NOW Ventricular Rate 105 BPM BEYOND NOW Atrial Rate 105 BPM BEYOND NOW P-R Interval 126 ms BEYOND NOW QRS Duration 58 ms BEYOND NOW QT 362 ms BEYOND NOW QTc 478 ms BEYOND NOW P [place] 62 degrees BEYOND NOW R [place] 74 degrees BEYOND NOW T [place] 90 degrees BEYOND NOW 05/24/2024 11:2 5 AM CDT 05/25/2024 12:15 AM CDT Narrative BEY[facility] NOW - 05/25/2024 12:15 AM CDT Test Indication: IRREGULAR HEART RATE us Cher Mclaughlin MD EKG ORD Final Result [facility] NOW [place], [place] * SCAN-CARDIAC STRIP (05/24/2024 12:00 AM CDT) Narrative 05/24/2024 12:00 AM CDT Ordered by an unspecified provider. us Other Clinical Staff OTHER Final Resul t * LIPID PANEL W REFLEX MEASURED LDL (03/01/2018 12:10 PM PRISON GUARD) CHOLESTEROL,TOTAL 174 100 - 199 mg/dL 03/01/2018 5:22 PM PRISON GUARD [facility] TRIGLYCERIDES 112 <150 mg/dL 03/01/2018 5:22 PM PRISON GUARD [facility] HDL CHOLESTEROL 77 >40 mg/dL 9 5:22 PM PRISON GUARD [facility] NON-HDL CHOLESTEROL 97 <145 mg/dl 03/01/2018 5:22 PM PRISON GUARD [facility] CHOL/HDL RATIO 2.26 <4.50 03/01/2018 5:22 PM PRISON GUARD [facility] LDL CHOLESTEROL 75 <=130 mg/dL 03/01/2018 5:22 PM PRISON GUARD [facility] PROVIDER ORDERED STATUS RANDOM 03/01/2018 5:22 PM PRISON GUARD [facility] Blood BLOOD SPECIMEN / Unknown Venipuncture / Unknown 03/01/2018 12:10 PM PRISON GUARD 03/01/2018 12:11 PM PRISON GUARD us Odalis Esteban MD CHEMISTRY Final R esult [facility] [address] [place] [address], [place] * XR MAMMO BILAT SCREENING (02/06/2017 10:14 AM PRISON GUARD) Anatomical Region Laterality Modality BREASTS, Breast Left, Breast Right Bilateral Mammography Impressions 02/06/2017 12:20 PM PRISON GUARD There is no radiographic evidence for malignancy. Recommend annual mammograms. A lay language report of this examination will be provided to the patient. MAMMOGRAM ASSESSMENT: ACR 2 Benign Narrative 02/06/2017 12:20 PM PRISON GUARD XR MAMMO BILAT SCREENING [[id number]] CLINICAL HISTORY: This is an asymptomatic 52 y.o. patient. INDICATION FOR EXAM: Mammogram Screening. TECHNIQUE: CC & MLO views were obtained. This digital study was evaluated with the assistance of Computer-Aided Detection. COMPARISON FILMS: Yes 08/06/15 [facility] 10/23/13 [facility] FINDINGS: Mammographically, the breast tissue is heterogeneously dense, which could obscure detection of small masses. No suspicious masses or microcalcifications. Benign appearing calcifications within both breasts. Jayla Lee NP MAMMO F inal Result * DOLLY PUSHER THIN PREP PAP SCREEN IMAGED (01/31/2017 2:59 PM PRISON GUARD) Case Report Gynecologic Cytology Report Case: [id number] Authorizing Provider: Jayla Williamson Collected: 01/31/2017 [facility] SAROJ Westfall Ordering Location: [facility] Received: 01/31/2017 [facility] First Screen: Wilbur Enrique Specimen: DOLLY PUSHER ThinPrep Vial Screening, Cervical 02/09/2017 11:37 AM PR[facility] GUARD [facility] INTERPRETATION/ RESULT NEGATIVE FOR INTRAEPITHELIAL LESION OR MALIGNANCY (NIL) (none) 02/09/2017 11:37 AM PR[facility] GUARD [facility] at [address] PRISON GUARD ORGANISM(S) Fungal organisms morphologically consistent with [place] species 02/09/2017 11:37 AM PRISON GUARD [facility] SPECIMEN ADEQUACY Satisfactory for evaluation Endocervical component present 02/09/2017 11:37 AM PR[facility] GUARD [facility] HPV REQUEST HPV if ASCUS 02/09/2017 11:37 AM PR[facility] GUARD [facility] Date of LMP Postmenopausal 7 11:37 AM PR[facility] GUARD [facility] Last Pap Date 201302/09/2017 11:37 AM PR[facility] GUARD [facility] Last Pap Result NIL 7 11:37 AM PR[facility] GUARD [facility] Abnormal Pap or Irving Bx in last 5 years No 02/09/2017 11:37 AM PR[facility] GUARD [facility] Menstrual Status Postmenopausal 02/09/2017 11:37 AM PR[facility] GUARD [facility] Irving Bx Done Today No 02/09/2017 11:37 AM PR[facility] GUARD [facility] Additional Information None given 02/09/2017 11:37 AM [facility] Automated Review Successful 02/09/2017 11:37 AM PRISON GUARD [facility]MS [facility]ORY Comment:Specimen processed s uccessfully by automated cyber security manager device, [employer] System, [employer] Note The pap test is a screening technique, not a diagnostic procedure. It is used primarily to screen for squamous cancers and precursor lesions. Published studies have shown that it is subject to both false negative and false positive results. The pap test should not be used as the sole means to diagnose or exclude pre-malignant and malignant lesions. Interpreted at [facility] (Central Lab, [facility], [facility], [facility], [facility], [facility], [facility]) 02/09/2017 11:37 AM [facility] Other (Cervical) 01/31/2017 2:59 PM PRISON GUARD 01/31/2017 3:00 PM PRISON GUARD Jayla Lee NP PATHOLOGY/CYTOLOG Y Final Result [facility] [address] [place] [address], from Last 3 Months or Most Recently Relevant to Health Maintenance Insurance [facility] Advance Directives * Full Code (Latest Code Status on File) Date Activated Date Inactivated Comments 05/24/2024 3:27 PM 05/26/2024 4:48 PM Question Answer Comments Code Status Discussion: Reviewed Preferences * Full Code Date Activated Date Inactivated Comments 03/19/2023 1:42 AM 03/20/2023 1:26 PM Question Answer Comments Code Status Discussion: Reviewed Preferences * Full Code Date Activated Date Inactivated Comments 03/06/2023 2:20 AM 03/07/2023 5:56 PM Question Answer Comments Code Status Discussion: Reviewed Preferences * Full Code Date Activated Date Inactivated Comments 02/17/2023 1:25 AM 02/24/2023 6:02 PM Question Answer Comments Code Status Discussion: Reviewed Preferences Care Teams Tube Blower Relationship Specialty Start Date End Date Nick Kwon II, MD [address] [place] [address] PCP - General Family Practice 02/24/23 Yung Melendrez MD Neurology 10/23/13 Jonnie Nichole DO Rheumatology 10/23/13 Timbo Rosa MD Oncology 10/23/13 Rupert Mcdermott MD [address] [place] [address] Family Practice 10/23/13 Jose Juan Espino MD [address] [place] [address] Sports Medicine 07/24/15 Freeman Ayala MD [address] [place] [address] Internal Medicine 07/24/15
--- OUTSIDE RECORDS SUMMARY | 2024-08-20 19:18 | XMS_ITS | Encounter Summary ---
Author Organization [facility] er Address [address] [place] [address] Care Team Providers Care Sales Developer Name Role Phone Nick Kwon MD Primary Care Provider [phone] Encounter Details Date Type Department Care Team (Late st Contact Info) Description 07/23/2024 Results Follow-Up [place] [address] [place] [address] [place] [address] [place] [phone] Social History Tobacco Use Types Packs/Day Years [...] 06/08/2023 How often do you attend chur or buddhism services? Never 06/08/2023 Do you belong to any clubs o r organizations such as sabianist groups, unions, fraternal or athletic groups, or [...] Date Recorded PHQ-9 Total Score 14 02/07/2024 [facility] - Occupational Stress [...] place to sleep or slept in a group home (including now)? No 06/08/2023 Comments No Sex and Gender Information Value Date Recorded Sex Assigned at Not on file Legal Sex Female 11:28 AM CDT Gender Identity Not on file Sexual Orientation Not on file documented as of this encounter Miscellaneous Notes * Telephone Encounter - López Lashonda - 07/29/2024 1:53 PM CDT Letter printed and put into rocket propellant plant supervisor bag to be mailed. * Result Encounter Note - Nick Kwon MD - 07/23/2024 10:52 AM CDT Please call patient and let her know that her sodium chloride (salt) levels are slightly low, her albumin (protein) level is slightly low and her phosphorus level is slightly elevated. I encourage her to schedule a follow up visit for high risk medication management (gabapentin, history of falls and alcohol use). I believe she was in clinic recently but left prior to being seen as we were runninga little late that day. documented in this encounter Plan of Treatment Not on file documented as of this encounter Visit Diagnoses Not on filedocumented in this encounter Care Teams Sales Developer Relationship Specialty Start Date End Date Nick Kwon MD [address] [place] [address] PCP - General 12/15/22 documented as of this encounter
[2024-08-20 19:19] VITALS: BP 123/94; PULSE 82; RESP 18; TEMP 36.7; O2SAT 97; BMI 21.5
--- OUTSIDE RECORDS SUMMARY | 2024-08-20 19:19 | XMS_ITS | Encounter Summary ---
Author Organization [facility] er Address [address] [place] [address] Care Team Providers Care Rug Weaver Name Role Phone Nick Kwon MD Primary Care Provider [phone] Reason for Visit * Reason Comments Med Refill Encounter Details Date Type Department Care Team (Late st Contact Info) Description 11/29/2021 Refill [place] [address] [address] Nick Kwon MD [address] [facility] [address] [place] [address] Anxiety disorder, unspecified type Social History Tobacco Use Types Packs/Day Years [...] Answer Date Recorded PHQ-9 Total Score 16 06/29/2021 Comments Unknown Sex and Gender Information Value Date Recorded Sex Assigned at Not on file Legal Sex Female 11:28 AM CDT Gender Identity Not on file Sexual Orientation Not on file documented as of this encounter Miscellaneous Notes * Telephone Encounter - Bethany Dunlap, MELISSA - 11/30/2021 3:38 PM CDT Last visit in provider department: 07/12/21 Last visit requested medication was discussed:06/29/21 Last Rx: 06/28/21 #90 1 refill Requested Prescriptions Pending Prescriptions Disp Refills ??? sertraline (ZOLOFT) 100 MG tablet [Pharmacy Med Name: SERTRALINE HCL 100MG TABS] 90 tablet 1 Sig: TAKE ONE-HALF TABLET BY MOUTH EVERY DAY FOR 8 DAYS, THEN TAKE 1 TABLET BY MOUTH EVERY DAY THEREAFTER Labs: Vitals: BP Readings from Last 2 Encounters: 07/12/21 100/60 06/29/21 124/80 06/29/21 PHQ9- 16 GAD7- 9 Upcoming appointment with provider: 12/02/2021 documented in this encounter Plan of Treatment Not on file documented as of this encounter Visit Diagnoses Diagnosis Anxiety disorder, unspecified type documented in this encounter Care Teams Rug Weaver Relationship Specialty Start Date End Date Nick Kwon MD [address] [place] [address] PCP - General 12/15/22 documented as of this encounter
--- OUTSIDE RECORDS SUMMARY | 2024-08-20 19:19 | XMS_ITS | Encounter Summary ---
Author Organization [facility] er Address [address] [place] [address] Care Team Providers Care Nursery Manager Name Role Phone Nick Kwon MD Primary Care Provider [phone] Reason for Visit * Reason Comments Med Refill Encounter Details Date Type Department Care Team (Late st Contact Info) Description 09/30/2021 Refill [place] [address] [address] Nick Kwon MD [address]05 [facility] [address] [place] [address] Diarrhea, unspecified type Social History Tobacco Use Types [...] encounter Miscellaneous Notes * Telephone Encounter - Elizabeth Dunbar MA - 10/01/2021 9:34 AM CDT Last visit in provider department: 07/12/2021 Last visit requested medication was discussed: 07/12/2021 Last Rx: 08/16/2021 # 30, no refill Requested Prescriptions Pending Prescriptions Disp Refills ??? loperamide (IMODIUM) 2 MG capsule [Pharmacy Med Name: LOPERAMIDE HCL 2MG CAPS] 30 capsule 0 Sig: TAKE 1 CAPSULE BY MOUTH 4 TIMES A DAY NEEDED FOR DIARRHEA Vitals: BP Readings from Last 2 Encounters: 07/12/21 100/60 06/29/21 124/80 Upcoming appointment with provider: Visit date not found documented in this encounter Plan of Treatment Not on file documented as of this encounter Visit Diagnoses Diagnosis Diarrhea, unspecified type documented in this encounter Care Teams Nursery Manager Relationship Specialty Start Date End Date Nick Kwon MD [address] [place] [address] PCP - General 12/15/22 documented as of this encounter
--- OUTSIDE RECORDS SUMMARY | 2024-08-20 19:19 | XMS_ITS | Encounter Summary ---
Author Organization [facility] er Address [address] [place] [address] Care Team Providers Care Printed Circuit Board Drafter Name Role Phone Nick Kwon MD Primary Care Provider [phone] Encounter Details Date Type Department Care Team ([facility] st Contact Info) Description 11/26/2021 Telephone [place] [address] [facility] [address] [place] [address] Charleen Figueroa MD Social History Tobacco Use Types Packs/Day Years [...] on filedocumented in this encounter Care Teams Printed Circuit Board Drafter Relationship Specialty Start Date End Date Nick Kwon MD [address] [facility] [address] [place] [address] PCP - General 12/15/22 documented as of this encounter
--- OUTSIDE RECORDS SUMMARY | 2024-08-20 19:19 | XMS_ITS | Encounter Summary ---
Author Organization [facility] er Address [address] [place] [address] Care Team Providers Care Automotive Warranty Administrator Name Role Phone Nick Kwon MD Primary Care Provider [phone] Reason for Visit * Reason Comments Med Refill Encounter Details Date Type Department Care Team (Late st Contact Info) Description 04/25/2022 Refill [place] [address] [address] Nick Kwon MD [address] [facility] [address] [place] [address] Diarrhea, unspecified type Social History Tobacco Use [...] Recorded PHQ-9 Total Score 16 06/29/2021 Comments No Sex and Gender Information Value Date Recorded Sex Assigned at Not on file Legal Sex Female 11:28 AM CDT Gender Identity Not on file Sexual Orientation Not on file documented as of this encounter Miscellaneous Notes * Telephone Encounter - Lucrecia Nash LPN - 04/29/2022 5:00 AM CST Upcoming appointment with provider: none Last visit in provider department: 04/15/2022 Last visit requested medication was discussed:01/17/2022 Last Rx: loperamide (IMODIUM) 2 MG 03/01/2022 # 30, 0 refills Requested Prescriptions Pending Prescriptions Disp Refills loperamide (IMODIUM) 2 MG capsule [Pharmacy Med Name: LOPERAMIDE HCL 2MG CAPS] 30 capsule 0 Sig: TAKE ONE CAPSULE BY MOUTH FOUR TIMES A DAY FOR DIARRHEA Labs: N/a Vitals: BP Readings from Last 2 Encounters: 04/15/22 (!) 155/98 01/17/22 (!) 152/91 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
--- OUTSIDE RECORDS SUMMARY | 2024-08-20 19:19 | XMS_ITS ---
Author Organization [facility] Care Team Providers Care Lifter Name Role Phone Danish Figueroa Unavailable Unavailable Allergies and adverse reactions No Known Allergies Care Team Name Role Address Phone Organization Dates [place] , [address], [place] (Office): : : : [facility] 10/10/2019 - 10/16/2019 Immunizations Immunization Status Vaccine Details Vaccine Code CodeSystem Gino e Notes TB 2 Step Mantoux Skin Test completed tuberculin skin test; unspecified formulation lotNumber: [id number] expiry: 11/26/2020 Given 0.1 ml Left Forearm intradermally Step 1 of Multi-step with next step required 98 CVX created date: 10/12/2019 consent date: 10/11/2019 administere d date: 10/12/2019 DTap completed created date: 10/11/2019 consent date: 10/11/2019 administere d date: 12/15/2009 Mental Status Section Date Assessment Total Score Description 10/16/2019 BIMS 15 cognitively int act CAM 0 No delirium ind icated PHQ-9 11 moderate depres jackson Problems Problem # Description Date of onset Resolved Date Code CodeSystem Concern Status 1 ALCOHOL ABUSE, UNCOMPLICATED 10/10/[address] active 2 ANXIETY DISORDER, UNSPECIFIED 10/10/[address] active 3 DISPLACED FRACTURE OF BASE OF NECK OF RIGHT FEMUR, SUBSEQUENT ENCOUNTER FOR CLOSED FRACTURE WITH ROUTINE HEALING 10/10/[address] active 4 ESSENTIAL (PRIMARY) HYPERTENSION 10/10/[address] active 5 GASTRO-ESOPHAGEAL REFLUX DISEASE WITHOUT ESOPHAGITIS 10/10/[address] active 6 HYPOMAGNESEMIA 10/10/[address] ac tive 7 LOW BACK PAIN 10/10/[address] act germania 8 NICOTINE DEPENDENCE, UNSPECIFIED, UNCOMPLICATED 10/10/[address] active 9 OTHER IDIOPATHIC PERIPHERAL AUTONOMIC NEUROPATHY 10/10/[address] active 10 PRESENCE OF RIGHT ARTIFICIAL HIP JOINT 10/10/[address] active 11 SACROILIITIS, NOT ELSEWHERE CLASSIFIED 10/10/[address] active 12 UNSPECIFIED FRACTURE OF THE LOWER END OF RIGHT RADIUS, SUBSEQUENT ENCOUNTER FOR CLOSED FRACTURE WITH ROUTINE HEALING 10/10/[address] active Reason for Referral No Reasons for Referral Entered Social History Social History Observation Description Start Date End Date Code Code System Current Smoking Status Tobacco smoking consumption unknown 917060813 SNOMED CT Sex Assigned At Female 1965 23178-5 [facility] Gender Identity Vital Signs Code Code System Vitals Name Values and Units Timing Information 9279-1 [facility] Respiratory Rate Value=16.0 Units=/m in 10/16/2019 8310-5 [facility] Body Temperature Value=97.3 Units= F 10/16/2019 8867-4 [facility] Heart rate Value=84.0 Units=/min 60310-8 [facility] O2 % BldC Oximetry Value=98.0 Units= % 10/16/2019 38924-4 [facility] Weight Yabkp=490.2 Units=Lbs 8302-2 [facility] Height Value=64.0 Units=Inches 10/12/2019 8462-4 [facility] Blood Pressure-Diastolic Value=66 Un its=mmHg 10/11/2019 8480-6 [facility] Blood Pressure-Systolic Ccxvt=211 Un its=mmHg 10/11/2019 62065-2 [facility] Pain Level Value=7.0 10/10/2019
--- NOTE | 2024-08-20 19:40 | ED.GENADULT ---
HPI - General Adult General Chief complaint: Nausea/Vomiting Stated complaint: Nausea, vomiting, back pain Time Seen by Provider: 08/20/24 19:26 History of Present Illness HPI narrative: This 59-year-old female comes in reporting nausea and vomiting and also states that she has chronic back pain which is severe at the moment. She does not report any particular injury event to trigger this. She states that she has had nausea and vomiting in the past. She reports that she did take Zofran this morning with some relief. She does use marijuana. She arrives here with normal vital signs. She did come by ambulance an IV has been established and she did already receive some IV fluids. Related Data Home Medications ?Medication ?Instructions ?Recorded ?Confirmed famotidine 20 mg tablet 20 mg PO BID 10/08/21 08/20/24 gabapentin 300 mg capsule 600 mg PO TID 10/08/21 08/20/24 metoprolol tartrate 50 mg tablet 50 mg PO BID 10/08/21 08/20/24 sertraline 100 mg tablet 100 mg PO DAILY 10/08/21 08/20/24 acetaminophen 500 mg tablet 500 mg PO DAILY 10/09/21 08/20/24 cholecalciferol (vitamin D3) 50 2,000 unit PO HS 10/09/21 08/20/24 mcg (2,000 unit) capsule gabapentin 100 mg capsule 100 mg PO TID 10/09/21 08/20/24 loperamide 2 mg capsule 2 mg PO QID PRN 10/09/21 08/20/24 multivitamin with folic acid 400 1 tab PO DAILY 10/09/21 08/20/24 mcg tablet (Tab-A-Bob) meloxicam 7.5 mg tablet 7.5 mg PO DAILY 01/02/22 08/20/24 Previous Rx's ?Medication ?Instructions ?Recorded calcium 500 mg (as 2 tab PO BID@1200,1800 #120 tabs 10/11/21 carbonate)-vitamin D3 5 mcg (200 unit) tablet (Oyster Shell Calcium-Vitamin D3) folic acid 1 mg tablet 1 mg PO DAILY #30 tabs 10/11/21 ondansetron 4 mg disintegrating 4 mg PO Q4H PRN #30 tabs 10/11/21 tablet magnesium oxide 400 mg (241.3 mg 400 mg PO TID #90 tabs 01/03/22 magnesium) tablet sodium chloride 1,000 mg soluble 1 g PO TIDWM #90 tabs 01/03/22 tablet magnesium gluconate 27.5 mg 27.5 mg PO BID #60 tabs 07/22/22 magnesium (500 mg) tablet potassium chloride 10 mEq 10 meq PO BID #60 caps 07/22/22 capsule,extended release omeprazole 20 mg capsule,delayed 40 mg (2 x 20 mg) PO DAILY@0700 07/23/22 release #60 caps Allergies Allergy/AdvReac Type Severity Reaction Status Date / Time No Known Allergies Allergy Verified 08/20/24 19:25 Review of Systems Status of ROS: Reports: 10 or more systems reviewed and unremarkable except as noted in History and below Narrative: Constitutional: No fevers, no weight gain or loss. Eyes: No discharge. No vision changes. HENT: No congestion, no sore throat, no ear pain. Cardiovascular: No chest pain, no palpitations. Respiratory: No shortness of breath, no wheezes, no cough. Gastrointestinal: Nausea and vomiting. Genitourinary: No dysuria, no hematuria. Musculoskeletal: Chronic low back pain. Skin: No rashes, no pruritis. Neurological: No dizziness, weakness, sensory change, speech change. Endo/Heme/Allergies: No bruising or bleeding. No polydipsia. Pysch: no suicidality, no anxiety, no insomnia. All other systems reviewed and are negative. [facility] Medical History Substance abuse ?F19.10 - Other psychoactive substance abuse, uncomplicated (ICD-10) Marijuana dependence ?F12.20 - Cannabis dependence, uncomplicated (ICD-10) Edentulous ?K08.109 - Complete loss of teeth, unspecified cause, unspecified class (ICD-10) Chronic diarrhea ?K52.9 - Noninfective gastroenteritis and colitis, unspecified (ICD-10) Personal history of gallstones ?Z87.19 - Personal history of other diseases of the digestive system (ICD-10) Visual impairment ?H54.7 - Unspecified visual loss (ICD-10) Closed fracture of second cervical vertebra without spinal cord injury ?S12.100A - Unspecified displaced fracture of second cervical vertebra, initial encounter for closed fracture (ICD-10) Major depressive disorder ?F32.9 - Major depressive disorder, single episode, unspecified (ICD-10) Generalized anxiety disorder ?F41.1 - Generalized anxiety disorder (ICD-10) Hypertension ?I10 - Essential (primary) hypertension (ICD-10) Hypomagnesemia ?E83.42 - Hypomagnesemia (ICD-10) Sacroiliitis, not elsewhere classified ?M46.1 - Sacroiliitis, not elsewhere classified (ICD-10) Peripheral neuropathy ?G62.9 - Polyneuropathy, unspecified (ICD-10) Monoclonal gammopathy ?D47.2 - Monoclonal gammopathy (ICD-10) Gastroesophageal reflux disease ?K21.9 - Gastro-esophageal reflux disease without esophagitis (ICD-10) Nontoxic single thyroid nodule ?E04.1 - Nontoxic single thyroid nodule (ICD-10) Acalculous cholecystitis ?K81.9 - Cholecystitis, unspecified (ICD-10) Clostridioides difficile diarrhea ?A04.72 - Enterocolitis due to Clostridium difficile, not specified as recurrent (ICD-10) Tobacco dependence ?F17.200 - Nicotine dependence, unspecified, uncomplicated (ICD-10) Pancreatitis, alcoholic, acute ?K85.20 - Alcohol induced acute pancreatitis without necrosis or infection (ICD-10) Gallstone pancreatitis ?K85.10 - Biliary acute pancreatitis without necrosis or infection (ICD-10) Family History Mother Lung cancer Ovarian cancer Social History Narrative: She lives alone in [place]. She sees a doctor at the [facility] in [place] for primary care. Her daughter Lauren Sanabria is healthcare power of patent attorney. Code status is full. She drinks about 5 alcoholic beverages a day. She uses cannabis about twice a day. She has 2 children and 5 grandchildren. She is disabled. What is your current living situation?: I presently have a place to live Highest level of school completed/degree received: GED or equivalent Smoking Status: Current every day smoker What tobacco products do you use: cigarettes Smoking packs per day: 20 Smoking cigarettes per day: 400.0 Years smoked: 30 Smoking pack-years: 600.00 Do you use any of these nicotine containing products: None Second hand tobacco smoke exposure: Yes How often do you have a drink containing alcohol: 4 or more times a week Alcohol type: hard liquor Alcohol type details: vodka How many standard drinks containing alcohol do you have on a typical day: 5 or 6 How often do you have six or more drinks on one occasion: Daily or almost daily AUDIT-C Alcohol total score: 10 Non-prescribed substance use: marijuana (any form) Non-prescribed substance use details: 3-4 pinches per day Caffeine: Yes (1 cup a day) Are you now , , , , never or living with a partner: Social isolation score (0-1 are the most socially isolated patients): 0 service: No Exam Narrative: Exam Narrative: Constitutional: Well-developed, well-nourished. HEENT: Normocephalic, atraumatic. Neck: Normal range of motion. Nontender. Supple. Heart: Intact distal pulses. Lungs: No chest discomfort. No wheezes, rhonchi, or rales. Abdomen: Nontender. Back: Normal range of motion. Extremities: Normal range of motion. No injury. Skin: Intact. No rash. Warm. No erythema or pallor. Neurologic: No altered sensation. No weakness. Alert and oriented. Psychiatric: No suicidality. No anxiety or depression. No insomnia. Nursing notes and vitals signs are reviewed. Const: Vital Signs, click to edit/add: Vital Signs - 24 hr 08/20/24 19:19 Temperature 98.0 F Pulse Rate [Pulse Oximeter] 82 Respiratory Rate 18 Blood Pressure [Ri ght Upper Arm] 123/94 H Pulse Oximetry 97 Oxygen Delivery Me thod Room Air Course Vital Signs Vital signs: Initial Vital Signs Temperature 98.0 F 08/20/24 19:19 Temperature Source Temporal Artery Scan 08/20/24 19:19 Pulse Rate 82 08/20/24 19:19 Respiratory Rate 18 08/20/24 19:19 Blood Pressure 123/94 H 08/20/24 19:19 Blood Pressure Mean 103 08/20/24 19:19 Pulse Oximetry 97 08/20/24 19:19 Oxygen Delivery Method Room Air 08/20/24 19:19 Vital Signs Temperature 98.0 F 08/20/24 19:19 Pulse Rate 82 08/20/24 19:19 Respiratory Rate 18 08/20/24 19:19 Blood Pressure 123/94 H 08/20/24 19:19 Pulse Oximetry 97 08/20/24 19:19 Oxygen Delivery Method Room Air 08/20/24 19:19 Temperature 98.0 F 08/20/24 19:19 Pulse Rate 82 08/20/24 19:19 Respiratory Rate 18 08/20/24 19:19 Blood Pressure 123/94 H 08/20/24 19:19 Pulse Oximetry 97 08/20/24 19:19 Oxygen Delivery Method Room Air 08/20/24 19:19 Medications Administered Medications: Discontinued Medications Generic Name Dose Route Start Last Admin Trade Name Freq PRN Reason Stop Dose Admin Sodium Chloride 1,000 mls @ 1,000 mls/hr 08/20/24 19:45 08/20/24 19:53 0.9 % Sodium Chloride 1000 Ml IV 08/20/24 20:44 1,000 mls/hr .Q1H DEVEN Administration Ketorolac Tromethamine 15 mg 08/20/24 19:37 08/20/24 19:53 Ketorolac 30 Mg/Ml Inj IVP 08/20/24 19:38 15 mg ONCE ONE Administration Ondansetron HCl 4 mg 08/20/24 19:37 08/20/24 19:54 Ondansetron 2 Mg/Ml Inj IVP 08/20/24 19:38 4 mg ONCE ONE Administration Medical Decision Making MDM Narrative Medical decision making narrative: This patient comes in because of nausea and vomiting today. She also reports chronic back pain. She came in by ambulance at who established an IV. She did receive a L of normal saline here along with Zofran 4 mg and Toradol 15 mg. This brought sufficient relief to of her symptoms. She feels okay to return home. I did also administer a 1 time dose of methylprednisolone 125 mg intravenously. Discharge Plan Discharge Clinical Impression: Nausea & vomiting, Chronic back pain Patient Disposition: Home, Self-Care Condition: Improved Additional Instructions: Continue current plans. Increase diet as tolerated. Follow up with MD return if worsening. Prescriptions: No Action meloxicam 7.5 mg tablet 7.5 mg PO DAILY magnesium oxide 400 mg (241.3 mg magnesium) Tablet 400 mg PO TID Qty: 90 11RF sodium chloride 1,000 mg Tablet,Soluble 1 g PO TIDWM Qty: 90 11RF magnesium gluconate 27.5 mg magne- sium (500 mg) tablet 27.5 mg PO BID Qty: 60 0RF potassium chloride 10 mEq capsule, extended release 10 meq PO BID Qty: 60 3RF omeprazole 20 mg Capsule,Delayed Release(Dr/Ec) 40 mg PO DAILY@0700 Qty: 60 0RF sertraline 100 mg tablet 100 mg PO DAILY metoprolol tartrate 50 mg tablet 50 mg PO BID gabapentin 300 mg capsule 600 mg PO TID Rx Instructions: TOTAL DOSE = 700MG TID famotidine 20 mg tablet 20 mg PO BID gabapentin 100 mg capsule 100 mg PO TID Rx Instructions: TOTAL DOSE = 700MG TID acetaminophen 500 mg tablet 500 mg PO DAILY cholecalciferol (vitamin D3) 50 mcg (2,000 unit) capsule 2,000 unit PO HS loperamide 2 mg capsule 2 mg PO QID PRN multivitamin with folic acid [Tab-A-Bob] 400 mcg tablet 1 tab PO DAILY folic acid 1 mg Tablet 1 mg PO DAILY Qty: 30 0RF ondansetron 4 mg Tablet,Disintegrating 4 mg PO Q4H PRNQty: 30 0RF calcium carbonate-vitamin D3 [Oyster Shell Calcium-Vit D3] 500 mg-5 mcg (200 unit) Tablet 2 tab PO BID@1200,1800 Qty: 120 0RF Follow Up/Referrals: Nick Kwon MD [Primary Care Provider, Family Practice] Stand Alone Forms: MyHealth Info Instructions
[2024-08-20] MEDS: KETOROLAC 30 MG/ML inj 15 MG IVP (19:53)
[2024-08-20] MEDS: 0.9 % SODIUM CHLORIDE 1000 ml 1,000 ML IV (19:53)
[2024-08-20] MEDS: ONDANSETRON 2 MG/ML inj 4 MG IVP (19:54)
--- OUTSIDE RECORDS SUMMARY | 2024-08-20 19:54 | XMS_ITS ---
Author Organization [facility] Care Team Providers Care Italian Lecturer Name Role Phone Danish Figueroa Unavailable Unavailable Allergies and adverse reactions No Known Allergies Care Team Name Role Address Phone Organization Dates [place] , [address], [place] (Office): : : : [facility] 10/10/2019 - 10/16/2019 Immunizations Immunization Status Vaccine Details Vaccine Code CodeSystem Gino e Notes TB 2 Step Mantoux Skin Test completed tuberculin skin test; unspecified formulation lotNumber: [id number] expiry: 11/26/2020 Given 0.1 ml Left Forearm [...] Concern Status 1 ALCOHOL ABUSE, UNCOMPLICATED 10/10/[address] active 2 ANXIETY DISORDER, UNSPECIFIED 10/10/[address] active 3 DISPLACED FRACTURE OF BASE OF NECK OF RIGHT FEMUR, SUBSEQUENT ENCOUNTER FOR CLOSED FRACTURE WITH ROUTINE HEALING 10/10/[address] active 4 ESSENTIAL (PRIMARY) HYPERTENSION 10/10/[address] active 5 GASTRO-ESOPHAGEAL REFLUX DISEASE WITHOUT ESOPHAGITIS 10/10/[address] active 6 HYPOMAGNESEMIA 10/10/[address] ac tive 7 LOW BACK PAIN 10/10/[address] act germania 8 NICOTINE DEPENDENCE, UNSPECIFIED, UNCOMPLICATED 10/10/[address] active 9 OTHER IDIOPATHIC PERIPHERAL AUTONOMIC NEUROPATHY 10/10/[address] active 10 PRESENCE OF RIGHT ARTIFICIAL HIP JOINT 10/10/[address] active 11 SACROILIITIS, NOT ELSEWHERE CLASSIFIED 10/10/[address] active 12 UNSPECIFIED FRACTURE OF THE LOWER END OF RIGHT RADIUS, SUBSEQUENT ENCOUNTER FOR CLOSED FRACTURE WITH ROUTINE HEALING 10/10/[address] active Reason for Referral No Reasons for Referral Entered Social History Social History Observation Description Start Date End Date Code Code System Current Smoking Status Tobacco smoking consumption unknown 290409389 SNOMED CT Sex Assigned At Female 1965 97314-7 [facility] Gender Identity Vital Signs Code Code System Vitals Name Values and Units Timing Information 9279-1 [facility] Respiratory Rate Value=16.0 Units=/m in 10/16/2019 8310-5 [facility] Body Temperature Value=97.3 Units= F 10/16/2019 8867-4 [facility] Heart rate Value=84.0 Units=/min 91284-9 [facility] O2 % BldC Oximetry Value=98.0 Units= % 10/16/2019 03247-8 [facility] Weight Uclyl=767.2 Units=Lbs 8302-2 [facility] Height Value=64.0 Units=Inches 10/12/2019 8462-4 [facility] Blood Pressure-Diastolic Value=66 Un its=mmHg 10/11/2019 8480-6 [facility] Blood Pressure-Systolic Ohsji=592 Un its=mmHg 10/11/2019 93489-7 [facility] Pain Level Value=7.0 10/10/2019
[2024-08-20] MEDS: METHYLPREDNISOLONE SOD SUCC 62.5 MG/ML (125) 125 MG IVP (21:02)
[2024-08-20 21:08] VITALS: BP 128/75; PULSE 93; RESP 18; O2SAT 100
[2024-08-20] MEDS: LORazepam 0.5 MG TABLET PO (22:14)
== END 2024-08-20 22:17 | disposition home or self-care (01) ==
PROVIDERS: Emergency Provider Emergency Medicine Emergency Medical Services; PCP Family Medicine
DX: R11.2 Nausea with vomiting, unspecified (principal); M54.9 Dorsalgia, unspecified; G89.29 Other chronic pain; F12.90 Cannabis use, unspecified, uncomplicated
CPT/HCPCS: 96361; 96374; 96375; 99284; A9270; J1885; J2405; J2919; J7030

== ENCOUNTER 2024-10-12 12:26 | Inpatient (IN) | payer OTHER, SELFPAY ==
[2024-10-12] VITALS (7 sets, daily range): BP systolic 111–128; BP diastolic 69–88; PULSE 94–98; RESP 16–18; TEMP 36.3–37; O2SAT 96–100; BMI 20.6; BMI 20.5
--- OUTSIDE RECORDS SUMMARY | 2024-10-12 12:29 | XMS_ITS | Clinical Summary ---
Author Organization [facility] er Address [address] [place] [address] Care Team Providers Care Tech Writer Name Role Phone Nick Kwon MD Primary Care Provider [phone] Allergies No known active allergies Medications sertraline (ZOLOFT) 100 MG tabletIndications :Anxiety disorder, unspecified type Take 1 tablet (100 mg total) by mouth 1 (one) time each day 90 tablet 3 02/07/20 24 Active acetaminophen (TYLENOL) 500 MG tabletIndications :Degenerative joint disease of sacroiliac joint TAKE ONE TABLET BY MOUTH EVERY 6 HOURS NEEDED - MAXIMUM ACETAMINOPHEN DOSE 4000MG/24 HOURS. 100 tablet 02/07/20 24 Active magnesium oxide (MAG-OX) 400 MG tabletIndications :Hypomagnesemia TAKE 1 TABLET (400 MG) BY MOUTH 3 TIMES A DAY 270 tablet 3 02/07/20 24 Active metoprolol tartrate (LOPRESSOR) 50 MG tabletIndications :Primary hypertension Take 1 tablet (50 mg total) by mouth 2 (two) times a day 180 tablet 3 02/07/20 24 Active Cholecalciferol (Vitamin D) 50 MCG (1999 UT) capsuleIndication s:Vitamin D deficiency Take 2,000 Units by mouth 1 (one) time each day 90 capsule 3 02/07/20 24 Active famotidine (PEPCID/ZANTAC 360) 20 MG tabletIndications :Gastroesophageal reflux disease without esophagitis Take 1 tablet (20 mg total) by mouth 2 (two) times a day if needed for heartburn 180 tablet 3 02/07/20 24 Active folic acid (FOLVITE) 1 MG tabletIndications :Alcohol abuse Take 1 tablet (1 mg total) by mouth 1 (one) time each day 90 tablet 3 02/07/20 24 Active Multiple Vitamin (tab-a-lakeisha/beta carotene) tabletIndications :Diarrhea, unspecified type TAKE ONE TABLET BY MOUTH EVERY DAY 90 tablet 3 04/01/19 25 Active Thiamine HCl (vitamin B-1) 100 MG tabletIndications :Exocrine pancreatic insufficiency Take 1 tablet (100 mg total) by mouth 1 (one) time each day 30 tablet 2 06/07/19 25 026 Active pancrelipase, Ked-Xaic-Rknc, (CREON) 75790-00417 units capsuleIndication s:Exocrine pancreatic insufficiency Take 1 capsule (24,000 Units total) by mouth 2 (two) times a day with meals 60 capsule 2 06/07/19 25 Active pancrelipase, Dsp-Ygry-Uoos, (Creon) 85982-95325 units capsuleIndication s:Exocrine pancreatic insufficiency Take 1 capsule (12,000 Units total) by mouth with snacks for snacks (2 snacks per day) 60 capsule 2 06/07/19 25 Active loperamide (IMODIUM) 2 MG capsuleIndication s:Chronic diarrhea TAKE ONE CAPSULE BY MOUTH FOUR TIMES A DAY FOR DIARRHEA 120 capsule 06/14/19 25 Active gabapentin (NEURONTIN) 300 MG capsuleIndication s:Neuropathy TAKE ONE CAPSULE BY MOUTH THREE TIMES A DAY 90 capsule 1 07/25/19 25 Active meloxicam (MOBIC) 15 MG tabletIndications :Pain in joint, multiple sites TAKE ONE TABLET BY MOUTH EVERY DAY WITH FOOD 90 tablet 08/21/19 25 Active oxybutynin (DITROPAN) 5 MG tabletIndications :Urge incontinence TAKE ONE TABLET BY MOUTH TWICE A DAY 60 tablet 09/03/19 25 Active Active Problems Problem Noted Date [...] Encounters Date Type Department Care Team Description 08/27/2024 Refill [facility] [address] [place] [address] Nick Kwon MD Urge incontinence 08/14/2024 Refill [facility] [address] [place] [address] Nick Kwon MD Pain in joint, multiple sites 07/23/2024 Results Follow-Up [facility] [address] [place] [address] Nick Kwon MD Basic metabolic panel, Albumin, Phosphorus, Additional followed-up results: 4 07/20/2024 Refill [facility] [address] [place] [address] Nick Kwon MD Neuropathy 07/15/2024 2:45 PM CDT Lab [facility] [address] [place] [address] Exocrine pancreatic insufficiency; Essential hypertension from Last 3 Months Immunizations Immunization Administration [...] often do you attend chur ch or jewish services? Never 06/08/2023 Do you belong to any clubs o r organizations such as rastafari groups, unions, fraternal or athletic groups, or [...] Date Recorded PHQ-9 Total Score 14 02/07/2024 [facility] - Occupational Stress [...] place to sleep or slept in a jail (including now)? No 06/08/2023 Comments No Sex [...] 12/15/2009 Pap Smear 02/01/2020 01/31/2017 COVID-19 Vaccine (3 - 2023-2 5 season) 2023 06/06/2020, 05/16/2020 Colonoscopy 08/18/2024 08/18/2014 Colorectal Cancer Screening 08/18/2024 Influenza Vaccine (#1) 2024 HPV Vaccines Aged Out No longer [...] - 199 mg/dL 07/16/2024 1:47 PM CDT [facility] Comment: Recommended by National Cholesterol Education Program (ATP III) -------- Cholesterol Ranges -------- <200 Desirable 200-239 Borderline high >=240 High Triglycerides 104 0 - 149 mg/dL 07/16/2024 1:47 PM CDT [facility] Comment: -------- TRIG Ranges -------- <150 Normal 150-199 Borderline high 200-499 High >=500 Very high HDL 119 40 - 250 mg/dL 07/16/2024 1:58 PM CDT [facility] Comment: -------- HDL Ranges -------- <40 Low 40-59 Normal >=60 Optimal LDL Calculated 54 0 - 99 mg/dL 07/16/2024 1:58 PM CDT [facility] Comment: -------- LDL Ranges -------- <100 Optimal 100-129 Near optimal/above optimal 130-159 Borderline high 160-189 High >=190 Very high Fasting? Yes 07/15/2024 2:50 PM CDT [facility] Blood 07/15/2024 2:50 PM CDT 07/16/2024 12:50 PM CDT us Nick Kwon MD LAB BLOOD ORDERABLES Final R esult [facility] [address] [place] [address] * Estimated Glomerular Filtration Rate (eGFR) (07/15/2024 2:49 PM CDT) Estimated Glomerular Filtration Rate (eGFR) >60 07/16/2024 1:48 PM CDT [facility] Comment: GFR calculated from serum creatinine value Chronic Kidney Disease less than 60 mL/min/1.73 m2 Kidney Failure less than 15 mL/min/1.73 m2 Note: effective 02/23/2022: 2020 CKD-EPI Equation used 07/15/2024 2:49 PM CDT 07/15/2024 2:49 PM CDT Nick Kwon MD LAB BLOOD ORDERABLES Final R [facility] Performing Organization Address [facility] de Phone Number [facility] [address] [place] [phone] * (ABNORMAL) Phosphorus (07/15/2024 2:49 PM CDT) Phosphorus 4.7(H) 2.5 - 4.5 mg/dL 07/16/2024 1:48 PM CDT [facility] Blood (Blood, Venous) 07/15/2024 2:49 PM CDT 07/16/2024 12:53 PM CDT Nick Kwon MD LAB BLOOD ORDERABLES Final R [facility] Performing Organization Address [facility] Phone Number [facility] [address] [place] [phone] * (ABNORMAL) Magnesium (07/15/2024 2:49 PM CDT) Magnesium 1.5(L) 1.6 - 2.3 mg/dL 07/16/2024 1:48 PM CDT [facility] Blood (Blood, Venous) 07/15/2024 2:49 PM CDT 07/16/2024 12:53 PM CDT Nick Kwon MD LAB BLOOD ORDERABLES Final R [facility] Performing Organization Address [facility] de Phone Number [facility] [address] [place] [phone] * CK (07/15/2024 2:49 PM CDT) Total CK 149 30 - 159 U/L 07/16/2024 2:13 PM CDT [facility] Blood (Blood, Venous) 07/15/2024 2:49 PM CDT 07/16/2024 12:53 PM CDT Nick Kwon MD LAB BLOOD ORDERABLES Final R esult Performing Organization Address City/[facility]/ZIP Co de Phone Number [facility] [address] [place] [address] * (ABNORMAL) Albumin (07/15/2024 2:49 PM CDT) Pathologist [facility] Albumin, Serum 3.4(L) 3.5 - 5.0 g/dL 07/16/2024 1:48 PM T [facility] Blood (Blood, Venous) 07/15/2024 2:49 PM CDT 07/16/2024 12:53 PM CDT Nick Kwon MD LAB BLOOD ORDERABLES Final R esult Performing Organization Address City/[facility]/ZIP Co de Phone Number [facility] [address] [place] [phone] * (ABNORMAL) Basic metabolic panel (07/15/2024 2:49 PM CDT) Pathologist [facility] Sodium 131(L) 135 - 145 mEq/L 07/16/2024 1:48 PM [facility] Potassium 3.9 3.5 - 5.1 mEq/L 07/16/2024 1:48 PM [facility] Chloride 96(L) 98 - 107 mEq/L 07/16/2024 1:48 PM [facility] CO2 25 22 - 29 mmol/L 07/16/2024 1:48 PM [facility] Creatinine 0.73 0.40 - 1.20 mg/dL 07/16/2024 1:48 PM [facility] BUN 8 5 - 25 mg/dL 07/16/2024 1:48 PM [facility] Glucose 109(H) 70 - 100 mg/dL 07/16/2024 1:48 PM [facility] Calcium, Total,S 9.3 8.4 - 10.2 mg/dL 07/16/2024 1:48 PM [facility] Anion Gap 10 4 - 13 07/16/2024 1:48 PM CDT [facility] Comment: The anion gap is calculated with the following formula: AGAP = Na ? (Cl + CO2). Fasting? Yes 07/15/2024 2:49 PM CDT [facility] Blood (Blood, Venous) 07/15/2024 2:49 PM CDT 07/16/2024 12:53 PM CDT us Nick Kwon MD LAB BLOOD ORDERABLES Final R esult [facility] [address] [place] [address] [facility] [address] [place] [address] from Last 3 Months Insurance [facility] [employer] Care Teams Tech Writer Relationship Specialty Start Date End Date Nick Kwon MD [address] [place] [address] PCP - General 12/15/22
--- OUTSIDE RECORDS SUMMARY | 2024-10-12 12:29 | XMS_ITS | Encounter Summary ---
Author Organization [facility] er Address [address] [place] [address] Care Team Providers Care Steel Rule Die Maker Name Role Phone Nick Kwon MD Primary Care Provider Reason for Visit * Reason Comments Med Refill Encounter Details Date Type Department Care Team (Late st Contact Info) Description 09/22/2022 Refill [facility] [address] [place] [address] Nick Kwon MD [address] [facility] [address] [place] [address] Pain in joint, multiple sites Social History [...] sites documented in this encounter Care Teams Steel Rule Die Maker Relationship Specialty Start Date End Date Nick Kwon MD [address] [place] [address] PCP - General 12/15/22 documented as of this encounter
--- OUTSIDE RECORDS SUMMARY | 2024-10-12 12:29 | XMS_ITS | Clinical Summary ---
Author Organization [facility] [facility] Address [facility] [place] [address] Care Team Providers Care Abrasive Band Winder Name Role Phone Yung Melendrez MD Unavailable [phone] Jonnie Nichole DO Unavailable [phone] iTmbo Rosa MD Unavailable Rupert Mcdermott MD Unavailable Jose Juan Espino MD Unavailable [phone] Freeman Ayala MD Unavailable Cher JONES MD, [facility] Primary Care Provi edward Allergies No [...] times daily. 120 Tablet 3 12:40 PM BATHHOUSE KEEPER 02/25/20 23 Active sertraline (ZOLOFT) 100 mg tabletIndications: Anxiety Take 1 Tablet (100 mg) by mouth every morning. 60 Tablet 3 12:40 PM BATHHOUSE KEEPER 02/25/20 23 Active sennosides-docusat e (SENOKOT S) (8.6-50 mg) tabletIndications: Prosthetic hip infection, initial encounter Take 1-3 Tablets by mouth 2 times daily if needed for Constipation. 20 Tablet 3 3:44 PM BATHHOUSE KEEPER 02/25/20 23 Active magnesium oxide (MAG-OX 400) [...] > right iliac spine. Heartburn 12/15/2009 10/07/2014 Immunizations Immunization Administration Dates Next Due Tdap [...] on file Legal Sex Female 5:24 AM BATHHOUSE KEEPER Gender Identity Not on file Sexual Orientation [...] ( season) 2023 06/06/2020, 05/16/2020 Influenza Vaccine (#1) 2024 Colonoscopy through age 75 08/06/202508/06 (Completed outside of [facility]) Medical Devices Implanted Type Area Nurses' Aide Device Identifier Shelf Expiration Date Model / Serial / Lot Head Hip Od32mm +5 02/09 Biolox Delta Ts Ceramic - [id number] Implanted:Qty: 1 on 02/17/2023 by Herber Abad MD at [facility] Right: Hip J [employer] J [employer] 12/27/2026 [id number] / / [id number] [place] Altrx Polyethylene Acet Liner Neutral 32mmid 48mmod Implanted:Qty: 1 on 02/17/2023 by Herber Abad MD at [facility] Right: Hip 05/27/2025 [id number] / / [id number] Description:PINNA[place] ALTRX P OLYETHYLENE ACET LINER NEUTRAL 32MMID 48MMOD Explanted Type Area Nurses' Aide Device Identifier Shelf Expiration Date Model / Serial / Lot Explant Explanted:Qty: 2 on 02/17/2023 by Herber Abad MD at [facility] Right: Hip Description:HEAD AND LINER [place] Canc Bone Screw [id number] Explanted:Qty: 1 on 02/17/2023 at [facility] Right: Hip 10/28/2031 [id number] / / [id number] Description:[place] CANC POLY NE SCREW [id number] Procedures Procedure Name Priority Date/Time Associated Diagnosis Comments LIPID PANEL W REFLEX MEASURED LDL Routine 03/01/2018 12:10 PM BATHHOUSE KEEPER Hypertension, unspecified type XR MAMMO BILAT SCREENING Routine 02/06/2017 10:14 AM BATHHOUSE KEEPER Visit for screening mammogram FILING MACHINE OPERATOR THIN PREP PAP SCREEN IMAGED Routine 01/31/2017 2:59 PM BATHHOUSE KEEPER Cervical cancer screening from Last 3 Months or Most Recently Relevant to Health Maintenance Results * LIPID PANEL W REFLEX MEASURED LDL (03/01/2018 12:10 PM BATHHOUSE KEEPER) CHOLESTEROL,TOTAL 174 100 - 199 mg/dL 03/01/2018 5:22 PM BATHHOUSE KEEPER [facility] TRIGLYCERIDES 112 <150 mg/dL 03/01/2018 5:22 PM BATHHOUSE KEEPER [facility] HDL CHOLESTEROL 77 >40 mg/dL 9 5:22 PM BATHHOUSE KEEPER [facility] NON-HDL CHOLESTEROL 97 <145 mg/dl 03/01/2018 5:22 PM BATHHOUSE KEEPER [facility] CHOL/HDL RATIO 2.26 <4.50 03/01/2018 5:22 PM [facility] LDL CHOLESTEROL 75 <=130 mg/dL 03/01/2018 5:22 PM BATHHOUSE KEEPER [facility] PROVIDER ORDERED STATUS RANDOM 03/01/2018 5:22 PM BATHHOUSE KEEPER [facility] Blood BLOOD SPECIMEN / Unknown Venipuncture / Unknown 03/01/2018 12:10 PM BATHHOUSE KEEPER 03/01/2018 12:11 PM BATHHOUSE KEEPER us Odalis Esteban MD CHEMISTRY Final R esult [facility] [address] [place] [address], * XR MAMMO BILAT SCREENING (02/06/2017 10:14 AM BATHHOUSE KEEPER) Anatomical Region Laterality Modality BREASTS, Breast Left, Breast Right Bilateral Mammography Impressions 02/06/2017 12:20 PM BATHHOUSE KEEPER There is no radiographic evidence for malignancy. Recommend annual mammograms. A lay language report of this examination will be provided to the patient. MAMMOGRAM ASSESSMENT: ACR 2 Benign Narrative 02/06/2017 12:20 PM BATHHOUSE KEEPER XR MAMMO BILAT SCREENING [[id number]] CLINICAL HISTORY: This is an asymptomatic 52 y.o. patient. INDICATION FOR EXAM: Mammogram Screening. TECHNIQUE: CC & MLO views were obtained. This digital study was evaluated with the assistance of Computer-Aided Detection. COMPARISON FILMS: Yes 08/06/[address] [facility] [place] 10/23/[address] [facility] FINDINGS: Mammographically, the breast tissue is heterogeneously dense, which could obscure detection of small masses. No suspicious masses or microcalcifications. Benign appearing calcifications within both breasts. Jayla Lee NP MAMMO F inal Result * FILING MACHINE OPERATOR THIN PREP PAP SCREEN IMAGED (01/31/2017 2:59 PM BATHHOUSE KEEPER) Case Report Gynecologic Cytology Report Case: [id number] Authorizing Provider: Jayla Williamson Collected: 01/31/2017 [address] Ordering Location: [facility] Received: 01/31/[address] [facility] First Screen: Wilbur Enrique Specimen: FILING MACHINE OPERATOR ThinPrep Vial Screening, Cervical 02/09/2017 11:37 AM BATHHOUSE KEEPER [facility] (?[facility] INTERPRETATION/ RESULT NEGATIVE FOR INTRAEPITHELIAL LESION OR MALIGNANCY (NIL) (none) 02/09/2017 11:37 AM BATHHOUSE KEEPER [facility] (?[facility] EN[facility] at [address] BATHHOUSE KEEPER ORGANISM(S) Fungal organisms morphologically consistent with [place] species 02/09/2017 11:37 AM BATHHOUSE KEEPER [facility] (?[facility] SPECIMEN ADEQUACY Satisfactory for evaluation Endocervical component present 02/09/2017 11:37 AM BATHHOUSE KEEPER [facility] (?[facility] HPV REQUEST HPV if ASCUS 02/09/2017 11:37 AM BATHHOUSE KEEPER [facility] (?[facility] Date of LMP Postmenopausal 11:37 AM BATHHOUSE KEEPER [facility] (?[facility] Last Pap Date 201302/09/2017 11:37 AM BATHHOUSE KEEPER [facility] (?[facility] Last Pap Result NIL 11:37 AM BATHHOUSE KEEPER [facility] (?[facility] Abnormal Pap or Apison Bx in last 5 years No 02/09/2017 11:37 AM BATHHOUSE KEEPER [facility] (?[facility] Menstrual Status Postmenopausal 02/09/2017 11:37 AM [facility] Apison Bx Done Today No 02/09/2017 11:37 AM [facility] Additional Information None given 02/09/2017 11:37 AM [facility] Automated Review Successful 02/09/2017 11:37 AM [facility] Comment:Specimen processed s uccessfully by automated rn managed care device, ThinPrep Imaging System, [employer] Note The pap test is a screening technique, not a diagnostic procedure. It is used primarily to screen for squamous cancers and precursor lesions. Published studies have shown that it is subject to both false negative and false positive results. The pap test should not be used as the sole means to diagnose or exclude pre-malignant and malignant lesions. Interpreted at [facility] ([facility], [facility], [facility], [facility], [facility], [facility], [facility]) 02/09/2017 11:37 AM [facility] Other (Cervical) 01/31/2017 2:59 PM BATHHOUSE KEEPER 01/31/2017 3:00 PM BATHHOUSE KEEPER us Jayla Lee NP PATHOLOGY/CYTOLOG Y Final Result [facility] [address] [place] [address], [place] from Last 3 Months or Most Recently Relevant to Health Maintenance Insurance [facility] Advance Directives * Full Code (Latest Code [...] Code Status Discussion: Reviewed Preferences Care Teams Abrasive Band Winder Relationship Specialty Start Date End Date Nick Kwon II, MD [address] [place] [address] PCP - General Family Practice 02/24/23 Yung Melendrez MD Neurology 10/23/13 Jonnie Nichole DO Rheumatology 10/23/13 Timbo Rosa MD Oncology 10/23/13 Rupert Mcdermott MD [address] [place] [address] Family Practice 10/23/13 Jose Juan Espino MD [address] [place] [address] Sports Medicine 07/24/15 Freeman Ayala MD [address] [place] [address] Internal Medicine 07/24/15
--- OUTSIDE RECORDS SUMMARY | 2024-10-12 12:29 | XMS_ITS | Encounter Summary ---
Author Organization [facility] er Address [address] [place] [address] Care Team Providers Care Industrial X Ray Operator Name Role Phone Nick Kwon MD Primary Care Provider [phone] Reason for Visit * Reason Comments Med Refill Encounter Details Date Type Department Care Team (Late st Contact Info) Description 02/13/2024 Refill [place] [address] [place] [address] Nick Kwon MD [address] [facility] [address] [place] [address] Essential hypertension Social History Tobacco Use Types [...] often do you attend chur ch or yarsanism services? Never 06/08/2023 Do you belong to any clubs o r organizations such as anabaptist groups, unions, fraternal or athletic groups, or [...] Date Recorded PHQ-9 Total Score 14 02/07/2024 [facility] of Occupat ional [facility] - Occupational Stress Questionnaire Answer Date Recorded [...] place to sleep or slept in a correction (including now)? No 06/08/2023 Comments No Sex and Gender Information Value Date Recorded Sex Assigned at Not on file Legal Sex Female 11:28 AM CDT Gender Identity Not on file Sexual Orientation Not on file documented as of this encounter Miscellaneous Notes * Telephone Encounter - Alyssa BartonSHIRA - 02/15/2024 3:12 PM CST Upcoming [...] (CSA): Last Random Urine Drug Screen (RUDS): SCAPE PHOTOGRAPHER documented in this encounter Plan of Treatment Not on file documented as of this encounter Visit Diagnoses Diagnosis Essential hypertension Unspecified essential hypertension documented in this encounter Care Teams Industrial X Ray Operator Relationship Specialty Start Date End Date Nick Kwon MD [address] [place] [address] PCP - General 12/15/22 documented as of this encounter
--- OUTSIDE RECORDS SUMMARY | 2024-10-12 12:29 | XMS_ITS | Encounter Summary ---
Author Organization [facility] er Address [address] [place] [address] Care Team Providers Care Turret Press Operator Name Role Phone Nick Kwon MD Primary Care Provider Reason for Visit * Reason Comments Med Refill Encounter Details Date Type Department Care Team (Late st Contact Info) Description 04/25/2022 Refill [place] [address] [address] Nick Kwon MD 1705 [facility] [address] [place] [address] Diarrhea, unspecified type Social History Tobacco Use [...] Encounters: 04/15/22 (!) 155/98 01/17/22 (!) 152/91 TLE MACHINE OPERATOR documented in this encounter Plan of Treatment Not on file documented as of this encounter Visit Diagnoses Diagnosis Diarrhea, unspecified type documented in this encounter Care Teams Turret Press Operator Relationship Specialty Start Date End Date Nick Kwon MD [address] [address] PCP - General 12/15/22 documented as of this encounter
--- OUTSIDE RECORDS SUMMARY | 2024-10-12 12:29 | XMS_ITS | Encounter Summary ---
Author Organization [facility] er Address [address] [place] [address] Care Team Providers Care Wirer Helper Name Role Phone Nick Kwon MD Primary Care Provider [phone] Encounter Details Date Type Department Care Team ([facility] st Contact Info) Description 11/26/2021 Telephone [place] [address] [facility] [address] [place] [address] Charleen Figueroa MD Social History Tobacco Use [...] on filedocumented in this encounter Care Teams Wirer Helper Relationship Specialty Start Date End Date Nick Kwon MD [address] [facility] 20 [place] [address] PCP - General 12/15/22 documented as of this encounter
--- OUTSIDE RECORDS SUMMARY | 2024-10-12 12:29 | XMS_ITS | Encounter Summary ---
Author Organization [facility] er Address [address] [place] [address] Care Team Providers Care Behavior Specialist Name Role Phone Nick Kwon MD Primary Care Provider [phone] Reason for Visit * Reason Comments Med Refill Encounter Details Date Type Department Care Team (Late st Contact Info) Description 11/29/2021 Refill [place] [address] [address] Nick Kwon MD 1705 [facility] 20 [place] [address] Anxiety disorder, unspecified type Social History Tobacco [...] type documented in this encounter Care Teams Behavior Specialist Relationship Specialty Start Date End Date Nick Kwon MD [address] [place] [address] PCP - General 12/15/22 documented as of this encounter
--- OUTSIDE RECORDS SUMMARY | 2024-10-12 12:29 | XMS_ITS | Encounter Summary ---
Author Organization [facility] er Address [address] [place] [address] Care Team Providers Care Cake Froster Name Role Phone Nick Kwon MD Primary Care Provider [phone] Reason for Visit * Reason Comments Med Refill Encounter Details Date Type Department Care Team (Late st Contact Info) Description 11/21/2023 Refill [place] [address] [place] [address] Nick Kwon MD [address] [facility] 20 [place] [address] Degenerative joint disease of sacroiliac joint Social [...] often do you attend chur ch or hindu services? Never 06/08/2023 Do you belong to any clubs o r organizations such as denominational groups, unions, fraternal or athletic groups, or [...] Date Recorded PHQ-9 Total Score 9 06/08/2023 [facility] of Occupat ional Health - Occupational Stress [...] joint documented in this encounter Care Teams Cake Froster Relationship Specialty Start Date End Date Nick Kwon MD [address] [place] [address] PCP - General 12/15/22 documented as of this encounter
--- OUTSIDE RECORDS SUMMARY | 2024-10-12 12:29 | XMS_ITS | Encounter Summary ---
Author Organization [facility] er Address [address] [place] [address] Care Team Providers Care Terra Cotta Roofer Helper Name Role Phone Nick Kwon MD Primary Care Provider [phone] Reason for Visit * Reason Comments Med Refill Encounter Details Date Type Department Care Team (Late st Contact Info) Description 09/30/2021 Refill [place] [address] [address] Nick Kwon MD 1705 [facility] 20 [place] [address] Diarrhea, unspecified type Social History Tobacco Use [...] type documented in this encounter Care Teams Terra Cotta Roofer Helper Relationship Specialty Start Date End Date Nick Kwon MD [address] [place] [address] PCP - General 12/15/22 documented as of this encounter
--- OUTSIDE RECORDS SUMMARY | 2024-10-12 12:29 | XMS_ITS | Encounter Summary ---
Author Organization [facility] er Address [address] [place] [address] Care Team Providers Care Frozen Pie Maker Name Role Phone Nick Kwon MD Primary Care Provider [phone] Reason for Visit * Reason Comments Med Refill Encounter Details Date Type Department Care Team (Late st Contact Info) Description 08/27/2024 Refill [place] [address] [place] [address] Nick Kwon MD [address]05 [facility] 20 [place] [address] Urge incontinence Social History Tobacco Use Types Packs/Day Years [...] any clubs o r organizations such as pentecostalism groups, unions, fraternal or athletic groups, or [...] Date Recorded PHQ-9 Total Score 14 02/07/2024 [facility] of Occupat ional [facility] - Occupational Stress Questionnaire Answer Date [...] place to sleep or slept in a fdc (including now)? No 06/08/2023 Comments No Sex and Gender Information Value Date Recorded Sex Assigned at Not on file Legal Sex Female 11:28 AM CDT Gender Identity Not on file Sexual Orientation Not on file documented as of this encounter Miscellaneous Notes * Telephone Encounter - Donna Moreira - 09/18/2024 8:45 AM CDT Have attempted to contact patient multiple times throughout the last couple of months with no response to phone calls or messages. Letter sent. * Telephone Encounter - Lashonda López - 09/17/2024 3:31 PM CDT TCB to schedule F/U OV w/Dr. Kwon. * Telephone Encounter - Donna Moreira - 09/09/2024 9:22 AM CDT LMTCB to schedule follow-up with Dr. Kwon. * Telephone Encounter - Noemy Henry APRN - 09/02/2024 3:26 PM CDT Please have patient schedule follow up * Telephone Encounter - Brittany Guzman RN - 09/02/2024 2:46 PM CDT Please review in PCP absence. * Telephone Encounter - Shahla Berger MA - 09/02/2024 12:47 PM CDT Patient is due for Return in about 1 month (around 07/06/2024) appointment. PSR: Please contact patient to assist with scheduling. Upcoming appointment with provider: Visit date not found Last visit in provider department:06/06/24 Last visit requested medication was discussed: 06/06/24 Last Rx: 06/06/24 #60 and 2 refill Requested Prescriptions Pending Prescriptions Disp Refills oxybutynin (DITROPAN) 5 MG tablet [Pharmacy Med Name: OXYBUTYNIN CHLORIDE 5MG TABS] 60 tablet 2 Sig: TAKE ONE TABLET BY MOUTH TWICE A DAY Vitals: BP Readings from Last 2 Encounters: 07/18/24 123/73 06/06/24 118/69 documented in this encounter Plan of Treatment Not on file documented as of this encounter Visit Diagnoses Diagnosis Urge incontinence documented in this encounter Care Teams Frozen Pie Maker Relationship Specialty Start Date End Date Nick Kwon MD [address] [facility] 20 [place] [address] PCP - General 12/15/22 documented as of this encounter
--- NOTE | 2024-10-12 12:42 | ED.FALL ---
HPI - Fall General Time Seen by Provider: 12:42 Date Seen: 10/12/24 Chief Complaint: Fall/Minor Trauma Stated Complaint: fall Time Seen by Provider: 10/12/24 12:30 Source: patient, EMS and RN notes reviewed Mode of arrival: EMS Limitations: no limitations History of Present Illness HPI Narrative: This 59-year-old female was brought in by [facility] from home with complaint of left knee and left lower extremity pain. She states she was up getting something to eat last night and felt lightheaded, got dizzy. She turned and fell onto the left knee. She was able to crawl to the couch and stayed on the couch last night. She is complaining of 10/10 pain. She did get 100 mcg IV fentanyl from [facility], they have an 18 gauge in her right antecubital fossa and blood glucose was 105. She does use a walker at home. She has baseline arthritis and generalized joint pain. She denies any sense of palpitations or chest pain, did not hit her head, no neck or back pain. She does admit to drinking last night, is known to have marijuana dependence and alcohol use disorder in her history. She has no headache, no visual changes, no neck or back pain, no chest or chest wall pain, no difficulty breathing, no sense of palpitations, no abdominal pain, no pelvic or hip pain. She has no pain outside of the left knee and into the left lower extremity. She states she can touch the front of the knee cap and does not really hurt but if she tries to move the knee then she will feel pain. Denies any numbness or tingling in this lower extremity. Related Data Home Medications ?Medication ?Instructions ?Recorded ?Confirmed famotidine 20 mg tablet 20 mg PO BID 10/08/21 10/12/24 metoprolol tartrate 50 mg tablet 50 mg PO BID 10/08/21 10/12/24 sertraline 100 mg tablet 100 mg PO DAILY 10/08/21 10/12/24 cholecalciferol (vitamin D3) 50 2,000 unit PO DAILY 10/09/21 10/12/24 mcg (2,000 unit) capsule loperamide 2 mg capsule 2 mg PO QID PRN 10/09/21 10/12/24 multivitamin with folic acid 400 1 tab PO DAILY 10/09/21 10/12/24 mcg tablet (Tab-A-Bob) acetaminophen 500 mg tablet 500 mg PO TID PRN 10/12/24 10/12/24 meloxicam 15 mg tablet 15 mg PO DAILY 10/12/24 10/12/24 oxybutynin chloride 5 mg tablet 5 mg PO BID 10/12/24 10/12/24 Previous Rx's ?Medication ?Instructions ?Recorded folic acid 1 mg tablet 1 mg PO DAILY #30 tabs 10/11/21 magnesium oxide 400 mg (241.3 mg 400 mg PO TID #90 tabs 01/03/22 magnesium) tablet Allergies Allergy/AdvReac Type Severity Reaction Status Date / Time No Known Allergies Allergy Verified 08/20/24 19:25 Review of Systems Status of ROS: Reports: 6 or more systems reviewed and unremarkable except as noted in History and below [facility] Medical History Substance abuse ?F19.10 - Other psychoactive substance abuse, uncomplicated (ICD-10) Marijuana dependence ?F12.20 - Cannabis dependence, uncomplicated (ICD-10) Edentulous ?K08.109 - Complete loss of teeth, unspecified cause, unspecified class (ICD-10) Chronic diarrhea ?K52.9 - Noninfective gastroenteritis and colitis, unspecified (ICD-10) Personal history of gallstones ?Z87.19 - Personal history of other diseases of the digestive system (ICD-10) Visual impairment ?H54.7 - Unspecified visual loss (ICD-10) Closed fracture of second cervical vertebra without spinal cord injury ?S12.100A - Unspecified displaced fracture of second cervical vertebra, initial encounter for closed fracture (ICD-10) Major depressive disorder ?F32.9 - Major depressive disorder, single episode, unspecified (ICD-10) Generalized anxiety disorder ?F41.1 - Generalized anxiety disorder (ICD-10) Hypertension ?I10 - Essential (primary) hypertension (ICD-10) Hypomagnesemia ?E83.42 - Hypomagnesemia (ICD-10) Sacroiliitis, not elsewhere classified ?M46.1 - Sacroiliitis, not elsewhere classified (ICD-10) Peripheral neuropathy ?G62.9 - Polyneuropathy, unspecified (ICD-10) Monoclonal gammopathy ?D47.2 - Monoclonal gammopathy (ICD-10) Gastroesophageal reflux disease ?K21.9 - Gastro-esophageal reflux disease without esophagitis (ICD-10) Nontoxic single thyroid nodule ?E04.1 - Nontoxic single thyroid nodule (ICD-10) Acalculous cholecystitis ?K81.9 - Cholecystitis, unspecified (ICD-10) Clostridioides difficile diarrhea ?A04.72 - Enterocolitis due to Clostridium difficile, not specified as recurrent (ICD-10) Tobacco dependence ?F17.200 - Nicotine dependence, unspecified, uncomplicated (ICD-10) Pancreatitis, alcoholic, acute ?K85.20 - Alcohol induced acute pancreatitis without necrosis or infection (ICD-10) Gallstone pancreatitis ?K85.10 - Biliary acute pancreatitis without necrosis or infection (ICD-10) Family History Mother Lung cancer Ovarian cancer Social History Narrative: She lives alone in [place]. She sees a doctor at the [facility] in [place] for primary care. Her daughter Lauren Cordoba is healthcare power of workers compensation attorney. Code status is full. She drinks about 5 alcoholic beverages a day. She uses cannabis about twice a day. She has 2 children and 5 grandchildren. She is disabled. What is your current living situation?: I presently have a place to live Highest level of school completed/degree received: GED or equivalent Smoking Status: Current every day smoker What tobacco products do you use: cigarettes Smoking packs per day: 20 Smoking cigarettes per day: 400.0 Years smoked: 30 Smoking pack-years: 600.00 Do you use any of these nicotine containing products: None Second hand tobacco smoke exposure: Yes How often do you have a drink containing alcohol: 4 or more times a week Alcohol type: hard liquor Alcohol type details: vodka How many standard drinks containing alcohol do you have on a typical day: 5 or 6 How often do you have six or more drinks on one occasion: Daily or almost daily AUDIT-C Alcohol total score: 10 Non-prescribed substance use: marijuana (any form) Non-prescribed substance use details: 3-4 pinches per day Caffeine: Yes (1 cup a day) Are you now , , , , never or living with a partner: Social isolation score (0-1 are the most socially isolated patients): 0 service: No Exam Const: Vital Signs, click to edit/add: Vital Signs - 24 hr 10/12/24 12:31 Temperature 98.6 F Pulse Rate [Right Pulse Oximeter] 98 Respiratory Rate 16 Blood Pressure [Ri ght Upper Arm] 111/69 Pulse Oximetry 97 Oxygen Delivery Me thod Room Air This 59-year-old female is alert, interactive, no apparent distress as long as she is not trying to move her left knee and left lower extremity. She appears older than stated age but is alert and conversive. Head is atraumatic, sclera clear, pupils are equal and round, conjugate gaze. Face atraumatic, speak in complete sentences. No midline tenderness of her neck, lungs are clear, good air entry, no wheezing or crackles, no tachypnea accessory muscle use. CV regular rate and rhythm, no significant murmur, normal S1-S2, no S3-S4. Abdomen is soft, nontender, nondistended, no organomegaly, rebound or guarding. Left knee does indeed look like there is some generalized swelling but no erythema. She is nontender over the patella and the patella seems to sit midline and looks to be in normal position. Any range of motion at all of the knee is uncomfortable, had patient's stop. She has tenderness over the right lateral malleolus as well, some ecchymosis and swelling. She has got a good dorsalis pedis pulse, can wiggle her toes and feels normal light touch sensation. Right lower extremity in arms without any focal painful areas at this time, seems to mobilize well without any complaints of pain. Documenting provider has reviewed patient's vital signs: yes Course Course ED Course: This patient had lightheadedness or dizziness resulting in fall last night. Unclear exactly with the etiology was but certainly I am suspicious that alcohol could have played a role. Will get a full complement of labs as well as alcohol level. We need to do imaging of the knee and this left lower extremity, have ordered tib-fib as well as ankle. If patient is a surgical candidate, I absolutely would consider doing a head CT given her baseline alcoholism. At this time, feel we are safe to watch clinically as she is not undergoing any anesthesia at this time. She states she did not hit her head but does report alcohol was on board last night, may not be able to trust her history. Reevaluation(s) Time of Reevaluation #1: 13:39 Reevaluation #1: Have reached out to orthopedics regarding looking at images; will be doing head and cervical spine CT given concerns of fall when altered last night. Time of Reevaluation #2: 14:08 Reevaluation #2: Magnesium is 0.8 on this patient, potassium is low at 2.9. Have ordered 2 g IV magnesium, 25 mEq to start oral replacement of potassium. Patient is going to need to come in for these electrolyte abnormalities. Likely from alcoholism and nutritional deficiencies from this. Also have significant concerns about immobilization of her left lower extremity and nonweightbearing with her reported the being walker dependent at home. Time of Reevaluation #3: 14:25 Reevaluation #3: Patient refusing oral potassium. Will place a 2nd IV and give her IV potassium. Have talked to the hospitalist Dr. Floyd and tentatively will plan on hospitalizing this patient here for her lack to light abnormalities an EKG changes. Her troponin is normal and thus the electrolyte abnormalities could be causing the EKG changes or underlying non symptomatic ischemic disease. Certainly in echo could be done while hospitalized here if these do not resolve. Right now she is considered nonsurgical but Orthopedics needs to re-evaluate, did talk to Cliff a couple of times on this patient. We will splinter being careful to not put the stir up overlying the proximal fibula. I do think she might need a posterior splint behind the knee for stabilization of the knee joint, she seems to be quite symptomatic moving the knee. Awaiting her head CT, cervical spine CT. Additional Reevaluation(s): 3:24 p.m.: Have completed splinting patient. Did do a posterior splint and took it just above the need to give her knee some stability. She does seem to have pain along that proximal fibula with any knee movement. 4 in ortho glass was used for that. The 2 in ortho glass was used to make U splint being careful to not go very high on the lateral aspect because of that proximal fibula fracture. Patient tolerated this well, no immediate complications. Will be ordering oxycodone for patient. Consultations Consultation #1: Did update Dr. Floyd on the CT imaging. Also reviewed with her patient has a history of MGUS. Patient will be admitted. Time: 15:46 Vital Signs Vital signs: Initial Vital Signs Temperature 98.6 F 10/12/24 12:31 Temperature Source Oral 10/12/24 12:31 Pulse Rate 98 10/12/24 12:31 Pulse Rhythm Regular 10/12/24 12:31 Respiratory Rate 16 10/12/24 12:31 Blood Pressure 111/69 10/12/24 12:31 Blood Pressure Mean 83 10/12/24 12:31 Pulse Oximetry 97 10/12/24 12:31 Oxygen Delivery Method Room Air 10/12/24 12:31 Vital Signs Temperature 98.6 F 10/12/24 12:31 Pulse Rate 98 10/12/24 12:31 Respiratory Rate 16 10/12/24 12:31 Blood Pressure 111/69 10/12/24 12:31 Pulse Oximetry 97 10/12/24 12:31 Oxygen Delivery Method Room Air 10/12/24 12:31 Temperature 98.6 F 10/12/24 12:31 Pulse Rate 98 10/12/24 12:31 Respiratory Rate 16 10/12/24 12:31 Blood Pressure 111/69 10/12/24 12:31 Pulse Oximetry 97 10/12/24 12:31 Oxygen Delivery Method Room Air 10/12/24 12:31 Medications Administered Medications: Generic Name Dose Route Start Last Admin Trade Name Freq PRN Reason Stop Dose Admin Fentanyl 25 mcg 10/12/24 14:25 10/12/24 14:49 Fentanyl 100 Mcg/2 Ml Inj IVP 25 mcg Q2H PRN Administration Potassium Chloride 10 meq in 100 mls @ 100 mls/hr 10/12/24 14:30 10/12/24 14:55 Potassium Chloride IVPB 10/12/24 16:59 100 mls/hr Q90M DEVEN Administration Discontinued Medications Generic Name Dose Route Start Last Admin Trade Name Freq PRN Reason Stop Dose Admin Sodium Chloride 1,000 mls @ 500 mls/hr 10/12/24 13:47 10/12/24 13:52 0.9 % Sodium Chloride 1000 Ml IV 10/12/24 15:46 500 mls/hr .Q2H DEVEN Administration Magnesium Sulfate 2 gm in 50 mls @ 25 mls/hr 10/12/24 14:07 10/12/24 14:18 Magnesium Iv IVPB 10/12/24 16:06 25 mls/hr ONCE ONE Administration Oxycodone HCl 5 mg 10/12/24 15:26 10/12/24 15:38 Oxycodone 5 Mg Tablet PO 10/12/24 15:27 5 mg ONCE ONE Administration Potassium Bicarbonate 25 meq 10/12/24 14:07 10/12/24 14:18 Potassium Bicarb 25 Meq Effervescent Tab PO 10/12/24 14:08 Not Given ONCE ONE MDM - Fall Medical Records Attestation: I reviewed the patient's medical records. Medical records narrative: In outside records, patient does have history of anemia and MGUS. There is history of C difficile colitis 2021. She is noted to have a closed fracture of 2nd cervical vertebrae noted May 2021. Lab Data Attestation: I reviewed the patient's lab results. Labs: Lab Results 10/12/24 Range/Units 13:32 WBC 10.25 (4.50-11.00) K/uL RBC 3.58 L (4.00-5.20) m/uL Hgb 12.0 (12.0-16.0) gm/dL Hct 35.1 (33.0-51.0) % MCV 98 (80-100) fL MCH 34 (26-34) pg MCHC 34 (32-36) gm/dL RDW Coeff of Silvia 12.4 (11.5-15.5) % Plt Count 251 (140-440) K/uL Neut % (Auto) 73.6 H (42.0-72.0) % Lymph % (Auto) 13.9 L (20-44) % [place] % (Auto) 11.7 H (0.0-11.0) % Eos % (Auto) 0.5 (0.0-7.0) % Baso % (Auto) 0.0 (0.0-3.0) % Neut # (Auto) 7.50 H (1.7-7.0) K/uL Lymph # (Auto) 1.40 (0.90-2.90) K/uL [place] # (Auto) 1.20 H (0.00-0.90) K/UL Eos # (Auto) 0.05 (0.00-0.50) K/uL Baso # (Auto) 0.00 (0.00-0.30) K/uL Abs Immat Gran (auto) 0.03 (0.00-0.30) K/uL Imm/Tot Granulo (auto) 0.3 % INR 0.94 (0.91-1.10) APTT 30 (23-33) Seconds Sodium 132 L (135-149) mmol/L Potassium 2.9 L* (3.6-5.1) mmol/L Chloride 102 (96-114) mmol/L Carbon Dioxide 23 (20-32) mmol/L Anion Gap 7 (7-15) mEq/L BUN 6 L (7-30) mg/dL Creatinine 0.7 (0.5-1.5) mg/dL Estimated Creat Clear 74.36 Estimated GFR 100 ml/min Glucose 111 (60-115) mg/dL Lactate 2.8 H (0.5-1.9) mmol/L Calcium 7.9 L (8.4-10.6) mg/dL Magnesium 0.8 L* (1.5-2.6) mg/dL Total Bilirubin 0.7 (0.1-1.5) mg/dL AST 83 H (12-35) U/L ALT 47 H (4-35) U/L Alkaline Phosphatase 286 H (40-150) U/L Troponin I < 0.01 (0.01-0.04) ng/mL C-Reactive Protein 3.8 H (0.5-1.0) mg/dL Total Protein 6.4 (6.0-8.3) g/dL Albumin 2.7 L (3.3-5.0) g/dL Ethyl Alcohol < 0.01 (0.01-0.03) % Imaging Data XR left knee: Attestation: I have reviewed the pertinent imaging results. My impression: On the lower edge of the fibula on the film, do think I see a transverse fracture, possibly slightly oblique but nonetheless fracture. Radiologist's impression: Patient: ALYX CORDOBA Facility:?[facility] Patient ID:?[id number] Site Patient ID:?[id number]. Site :?1965 Study:?XRay-Knee Left 2V-10/12/2024 1:13:50 PM Ordering Physician:?Aaron Thacker Final Report: INDICATION: Fall. Pain. FINDINGS: Two views of the left knee show a nondisplaced fracture of the upper portion of the left fibula. No other evidence of acute fracture or dislocation. No other bony or soft tissue abnormalities identified. Dictated by Jatinder Naqvi MD @ 10/12/2024 2:42:06 PM Dictated by: Jatinder Naqvi MD @ 10/12/2024 14:42:16 (Electronic Signature) XR left tib-fib: Attestation: I have reviewed the pertinent imaging results. My impression: Do not necessarily appreciate fracture that is seen on the knee imaging. Will await Radiology over-read. Distal fracture of fibula noted. Radiologist's impression: Patient: ALYX CORDOBA Facility:?[facility] Patient ID:?[id number] Site Patient ID:?[id number]. Site :?1965 Study:?XRay-Extremity Left TIB/FIB 2v-10/12/2024 1:13:06 PM Ordering Physician:?Aaron Thacker Final Report: INDICATION: Fall. Pain. FINDINGS: Two views of the left tibia-fibula show a nondisplaced oblique fracture of the distal portion of the fibula. No other evidence of acute fracture or dislocation. Soft tissue swelling over the lateral malleolus. No other bony or soft tissue abnormalities identified. Dictated by Jatinder Naqvi MD @ 10/12/2024 2:40:04 PM Dictated by: Jatinder Naqvi MD @ 10/12/2024 14:40:19 (Electronic Signature) XR left ankle: Attestation: I have reviewed the pertinent imaging results. My impression: See distal fibula and I do question if there is a posterior tibial fracture along the ankle as well. Await Radiology over-read. Radiologist's impression: Patient: ALYX CORDOBA Facility:?[facility] Patient ID:?[id number] Site Patient ID:?[id number]. Site :?1965 Study:?XRay-Extremity Left ANKLE 3V-10/12/2024 1:13:32 PM Ordering Physician:?Aaron Thacker Final Report: INDICATION: Fall. Pain. FINDINGS: Three views of the left ankle show an oblique nondisplaced fracture of the distal fibula. No other evidence of acute fracture or dislocation. Soft tissue swelling over the lateral malleolus. No other bony or soft tissue abnormalities identified. Dictated by Jatinder Naqvi MD @ 10/12/2024 2:44:12 PM Dictated by: Jatinder Naqvi MD @ 10/12/2024 14:44:18 (Electronic Signature) CT scan - head: Attestation: I have reviewed the pertinent imaging results. Radiologist's impression: Patient: ALYX CORDOBA Facility:?[facility] Patient ID:?[id number] Site Patient ID:?[id number]. Site :?1965 Study:?CT-Head WO-10/12/2024 2:19:06 PM Ordering Physician:?Aaron Thacker Final Report: INDICATION: Fall, altered mental status. TECHNIQUE: Noncontrast CT of the head with multiplanar reconstruction utilizing bone and soft tissue algorithms. COMPARISON: CT head dated 06/22/2019. FINDINGS: No acute intracranial hemorrhage. The marte-white matter interface is preserved. Mild diffuse parenchymal volume loss. The ventricles are proportional to the sulci. No abnormal extra-axial fluid collection is identified. Intact skull base and calvarium. Stable probable incidental hemangioma within the left parietal calvarium. Unremarkable orbits. The imaged paranasal sinuses and mastoid air cells are clear. IMPRESSION: No acute intracranial hemorrhage or mass effect. Please note that all CT scans at this facility use dose modulation, iterative reconstruction, and/or weight-based dosing when appropriate to reduce radiation dose to as low as reasonably achievable. Dictated by Tevin Soliz MD @ 10/12/2024 3:27:50 PM (Electronic Signature) CT cervical spine: Attestation: I have reviewed the pertinent imaging results. Radiologist's impression: Patient: ALYX CORDOBA Facility:?[facility] Patient ID:?[id number] Site Patient ID:?[id number]. Site :?1965 Study:?CT-Spine Cervical WO-10/12/2024 2:19:32 PM Ordering Physician:?Suchomel-Frances Kirstie Final Report: Indication: Fall, altered mental status. Technique: Noncontrast CT of the cervical spine with multiplanar reconstruction utilizing bone and soft tissue algorithms. Comparison: CT cervical spine dated 06/22/2019. Findings: No acute fracture or traumatic subluxation. New chronic type 2 odontoid fracture without osseous bridging across the fracture cleft. New chronic depression of the C4 superior endplate. No lytic or blastic lesion. Progressed degenerative reversal of the normal cervical lordosis. New grade 1 3 mm anterolisthesis of C3 on C4. Unremarkable prevertebral soft tissues. No high-grade spinal canal stenosis. Multilevel neural foraminal narrowing, again moderate-severe bilaterally at C6-C7. Impression: 1. No acute fracture or traumatic subluxation. 2. New chronic nonunited type 2 odontoid fracture. 3. New chronic depression of the C4 superior endplate. 4. Progressed degenerative reversal of the normal cervical lordosis with new grade 1 anterolisthesis at C3-C4. 5. At C6-C7, similar moderate-severe bilateral neural foraminal narrowing. Please note that all CT scans at this facility use dose modulation, iterative reconstruction, and/or weight-based dosing when appropriate to reduce radiation dose to as low as reasonably achievable. Dictated by Tevin Soliz MD @ 10/12/2024 3:33:45 PM (Electronic Signature) ECG Data Attestation: I personally reviewed and interpreted this ECG as follows: (Sinus rhythm with reported short GA interval. Inferior ST segment in flipped T-waves, also noted in V3 through V6, definite flattened T-waves [address] segment change.) ECG interpretation date: 10/12/24 ECG interpretation time: 13:15 Prior ECG tracings: available for review (These EKG changes definitely look certainly new from prior in our system.) Discharge Plan Discharge Clinical Impression: Fall, Hypomagnesemia, Hypokalemia, Closed fibular fracture, Fracture, fibula Patient Disposition: Admitted As Inpatient Condition: Stable
--- NOTE | 2024-10-12 12:49 | CRLHL7_ITS ---
For Patients: As a result of the Cures Act, medical imaging exams and procedure reports are released immediately into your electronic medical record. You may view this report before your referring provider. If you have questions, please contact your health care provider. INDICATION: Fall. Pain. FINDINGS: Three views of the left ankle show an oblique nondisplaced fracture of the distal fibula. No other evidence of acute fracture or dislocation. Soft tissue swelling over the lateral malleolus. No other bony or soft tissue abnormalities identified. Dictated by Jatinder Naqvi MD @ 10/12/2024 2:44:12 PM Dictated by: Jatinder Naqvi MD @ 10/12/2024 14:44:18 (Electronically Signed)
--- NOTE | 2024-10-12 12:49 | CRLHL7_ITS ---
For Patients: As a result of the Cures Act, medical imaging exams and procedure reports are released immediately into your electronic medical record. You may view this report before your referring provider. If you have questions, please contact your health care provider. INDICATION: Fall. Pain. FINDINGS: Two views of the left knee show a nondisplaced fracture of the upper portion of the left fibula. No other evidence of acute fracture or dislocation. No other bony or soft tissue abnormalities identified. Dictated by Jatinder Naqvi MD @ 10/12/2024 2:42:06 PM Dictated by: Jatinder Naqvi MD @ 10/12/2024 14:42:16 (Electronically Signed)
--- NOTE | 2024-10-12 12:49 | CRLHL7_ITS ---
For Patients: As a result of the Cures Act, medical imaging exams and procedure reports are released immediately into your electronic medical record. You may view this report before your referring provider. If you have questions, please contact your health care provider. INDICATION: Fall. Pain. FINDINGS: Two views of the left tibia-fibula show a nondisplaced oblique fracture of the distal portion of the fibula. No other evidence of acute fracture or dislocation. Soft tissue swelling over the lateral malleolus. No other bony or soft tissue abnormalities identified. Dictated by Jatinder Naqvi MD @ 10/12/2024 2:40:04 PM Dictated by: Jatinder Naqvi MD @ 10/12/2024 14:40:19 (Electronically Signed)
--- NOTE | 2024-10-12 13:38 | CRLHL7_ITS ---
For Patients: As a result of the Century Cures Act, medical imaging exams and procedure reports are released immediately into your electronic medical record. You may view this report before your referring provider. If you have questions, please contact your health care provider. INDICATION: Fall, altered mental status. TECHNIQUE: Noncontrast CT of the head with multiplanar reconstruction utilizing bone and soft tissue algorithms. COMPARISON: CT head dated 06/22/2019. FINDINGS: No acute intracranial hemorrhage. The marte-white matter interface is preserved. Mild diffuse parenchymal volume loss. The ventricles are proportional to the sulci. No abnormal extra-axial fluid collection is identified. Intact skull base and calvarium. Stable probable incidental hemangioma within the left parietal calvarium. Unremarkable orbits. The imaged paranasal sinuses and mastoid air cells are clear. IMPRESSION: No acute intracranial hemorrhage or mass effect. Please note that all CT scans at this facility use dose modulation, iterative reconstruction, and/or weight-based dosing when appropriate to reduce radiation dose to as low as reasonably achievable. Dictated by Tevin Soliz MD @ 10/12/2024 3:27:50 PM (Electronically Signed)
--- NOTE | 2024-10-12 13:38 | CRLHL7_ITS ---
For Patients: As a result of the Cures Act, medical imaging exams and procedure reports are released immediately into your electronic medical record. You may view this report before your referring provider. If you have questions, please contact your health care provider. Indication: Fall, altered mental status. Technique: Noncontrast CT of the cervical spine with multiplanar reconstruction utilizing bone and soft tissue algorithms. Comparison: CT cervical spine dated 06/22/2019. Findings: No acute fracture or traumatic subluxation. New chronic type 2 odontoid fracture without osseous bridging across the fracture cleft. New chronic depression of the C4 superior endplate. No lytic or blastic lesion. Progressed degenerative reversal of the normal cervical lordosis. New grade 1 3 mm anterolisthesis of C3 on C4. Unremarkable prevertebral soft tissues. No high-grade spinal canal stenosis. Multilevel neural foraminal narrowing, again moderate-severe bilaterally at C6-C7. Impression: 1. No acute fracture or traumatic subluxation. 2. New chronic nonunited type 2 odontoid fracture. 3. New chronic depression of the C4 superior endplate. 4. Progressed degenerative reversal of the normal cervical lordosis with new grade 1 anterolisthesis at C3-C4. 5. At C6-C7, similar moderate-severe bilateral neural foraminal narrowing. Please note that all CT scans at this facility use dose modulation, iterative reconstruction, and/or weight-based dosing when appropriate to reduce radiation dose to as low as reasonably achievable. Dictated by Tevin Soliz MD @ 10/12/2024 3:33:45 PM (Electronically Signed)
[2024-10-12 13:41] LABS: Hematocrit 35.1 % (33.0-51.0); Hemoglobin* 12.0 gm/dL (12.0-16.0); Immature Granulocytes Abs Auto 0.03 K/uL (0.00-0.30); Immature Granulocytes Pct Auto 0.3 %; Mean Corpuscular HGB Conc 34 gm/dL (32-36); Mean Corpuscular Hemoglobin 34 pg (26-34); Mean Corpuscular Volume 98 fL (80-100); RDW Coefficient of Variation % 12.4 % (11.5-15.5); Red Blood Count 3.58 m/uL (4.00-5.20); White Blood Count* 10.25 K/uL (4.50-11.00)
[2024-10-12 13:42] LABS: Lactate* 2.8 mmol/L (0.5-1.9)
[2024-10-12 13:44] LABS: Lymphocytes Absolute Auto 1.40 K/uL (0.90-2.90); Slide Review Reflex No
[2024-10-12 13:58] LABS: Albumin* 2.7 g/dL (3.3-5.0); Chloride* 102 mmol/L (96-114)
[2024-10-12 13:59] LABS: Sodium* 132 mmol/L (135-149)
[2024-10-12 14:01] LABS: Alanine Aminotransferase* 47 U/L (4-35); Aspartate Amino Transferase* 83 U/L (12-35); Blood Urea Nitrogen* 6 mg/dL (7-30); Creatinine* 0.7 mg/dL (0.5-1.5); Est. Creatinine Clearance* 74.36; Estimated Glomerular Filt Rate 100 ml/min; INR 0.94 (0.91-1.10); Prothrombin Time 13.4 Seconds
[2024-10-12 14:02] LABS: Alkaline Phosphatase* 286 U/L (40-150); Bilirubin Total* 0.7 mg/dL (0.1-1.5); Calcium* 7.9 mg/dL (8.4-10.6); Carbon Dioxide* 23 mmol/L (20-32); Glucose* 111 mg/dL (60-115); Potassium* 2.9 mmol/L (3.6-5.1); Total Protein* 6.4 g/dL (6.0-8.3)
[2024-10-12 14:03] LABS: Anion Gap 7 mEq/L (7-15); Ethanol* < 0.01 % (0.01-0.03)
--- NOTE | 2024-10-12 14:07 | ED.NURSE ---
Call from lab, critical Mg and care nurse notified.
[2024-10-12] MEDS: MAGNESIUM IV 2 GM/50 ML PIGGYBACK IVPB (14:18)
[2024-10-12] MEDS: POTASSIUM CHLORIDE 10 MEQ/100 ML PIGGYBACK 100 MEQ IVPB (14:55)
--- NOTE | 2024-10-12 17:23 | PM.IMHP1 ---
Assessment and Plan Assessment and plan (1) Fall: Problem comment: - associated with the dizziness and alcohol use - since she also has EKG changes that are new from 2022, I will obtain an echocardiogram - consult PT, OT, and social work to help with discharge planning Status: Acute (2) Closed fibular fracture: Problem comment: - Proximal and distal fibula fractures - Ortho called by ER doc: nonoperative at this time. I have put in an ortho consult. - Continue splint, NWB. PT and OT evals. Status: Acute (3) Hypokalemia: Problem comment: - Improved from 2.9 to 3.5 after 20 mEq KCL IV. Mg was also replaced. Starting NS with 20mEq KCl at 75 cc/hr. Recheck in am. Status: Acute (4) Hypomagnesemia: Problem comment: Was replaced in ER. Went from 0.8 to 1.5. Continue oral supplementation, recheck in am. Status: Acute (5) Noncompliance with medication regimen: Problem comment: Suspected given low Mg despite having prescription oral supplement TID at home. During previous hospitalizations, patient noted she was not taking supplements because they cause nausea. Status: Suspected (6) Fracture of second cervical vertebra with nonunion: Problem comment: - Original fracture was 10/08/21 - No neck pain at present. No focal neurological deficits. Monitor. May benefit from outpatient neurosurgical consult. Status: Acute (7) Alcohol use disorder: Problem comment: Lacks insight. Not motivated to quit. Status: Chronic (8) Elevated CK: Problem comment: Mild elevation due to prolonged time on floor last night after fall. Cr is 0.7, up from 0.5 previously. Treat with IVF overnight and recheck in am. Status: Acute (9) RODOLFO (acute kidney injury): Problem comment: As above. Status: Acute Hospitalist- H&P: HPI History of Present Illness Time Seen by Provider: 17:23 Date Seen: 10/12/24 Chief complaint: fall Narrative: April Sanabria is a 59 year old female with an extensive past medical history including alcohol, cannabis and tobacco abuse, MGUS, HTN, and anxiety who tells me that she made herself some macaroni and cheese last night and was taking a bowl of it to the other room where she was trying to sit down on the floor so she could do some meditation while eating, but ended up sitting down too quickly and fell, twisting onto her left knee on the way down. She immediately had pain in her left leg and was unable to get up and walk on it. She crawled over to the couch where she fell asleep for the night. In the morning when she woke, she still could not get up so she yelled until the neighbors heard her and came to her apartment. In the ER she was found to have fibula fractures for which she has a splint on and had gotten some oral oxycodone. She tells me that she is still in pain, but the pain is mostly in her back now. She says she has had chronic back pain like this for a while due to degenerative joint disease of the lumbar spine, but sitting down so hard and falling onto it last night has exacerbated it. She denies any recent illness, urinary symptoms, fever, or change in medications. She denies chest pain or shortness of breath. She tells me that she thinks the only thing that has happened since she was last in our hospital was that she had a right hip arthroplasty that then got infected two years ago. She says she then had a revision of that hip and has not been on any antibiotics since. Review of Systems Status of ROS: Reports: 10 or more systems reviewed and unremarkable except as noted in History and below Medical Decision Making Medical Decision Making Code Status: FULL CODE Has patient completed a Health Care Directive: No During This Stay, Who Would You Like To Make Decisions For You In The Event You Are Unable To Make Them For Yourself?: Daughter, Lauren COX BRANSON Medical History (Updated 10/12/24 @ 23:03 by Raine Floyd MD) Osteitis condensans ?M85.30 - Osteitis condensans, unspecified site (ICD-10) Neuropathy ?G62.9 - Polyneuropathy, unspecified (ICD-10) Thyroid nodule ?E04.1 - Nontoxic single thyroid nodule (ICD-10) Infection of right prosthetic hip joint (~05/2023) ?T84.51XA - Infection and inflammatory reaction due to internal right hip prosthesis, initial encounter (ICD-10) Urge incontinence ?N39.41 - Urge incontinence (ICD-10) Exocrine pancreatic insufficiency ?K86.81 - Exocrine pancreatic insufficiency (ICD-10) Protein calorie malnutrition (~05/2024) ?E46 - Unspecified protein-calorie malnutrition (ICD-10) Substance abuse ?F19.10 - Other psychoactive substance abuse, uncomplicated (ICD-10) Marijuana dependence ?F12.20 - Cannabis dependence, uncomplicated (ICD-10) Edentulous ?K08.109 - Complete loss of teeth, unspecified cause, unspecified class (ICD-10) Chronic diarrhea ?K52.9 - Noninfective gastroenteritis and colitis, unspecified (ICD-10) Personal history of gallstones ?Z87.19 - Personal history of other diseases of the digestive system (ICD-10) Visual impairment ?H54.7 - Unspecified visual loss (ICD-10) Closed fracture of second cervical vertebra without spinal cord injury ?S12.100A - Unspecified displaced fracture of second cervical vertebra, initial encounter for closed fracture (ICD-10) Major depressive disorder ?F32.9 - Major depressive disorder, single episode, unspecified (ICD-10) Generalized anxiety disorder ?F41.1 - Generalized anxiety disorder (ICD-10) Hypertension ?I10 - Essential (primary) hypertension (ICD-10) Hypomagnesemia ?E83.42 - Hypomagnesemia (ICD-10) Sacroiliitis, not elsewhere classified ?M46.1 - Sacroiliitis, not elsewhere classified (ICD-10) Peripheral neuropathy ?G62.9 - Polyneuropathy, unspecified (ICD-10) Monoclonal gammopathy ?D47.2 - Monoclonal gammopathy (ICD-10) Gastroesophageal reflux disease ?K21.9 - Gastro-esophageal reflux disease without esophagitis (ICD-10) Nontoxic single thyroid nodule ?E04.1 - Nontoxic single thyroid nodule (ICD-10) Acalculous cholecystitis (~07/11/14) ?K81.9 - Cholecystitis, unspecified (ICD-10) Clostridioides difficile diarrhea ?A04.72 - Enterocolitis due to Clostridium difficile, not specified as recurrent (ICD-10) Tobacco dependence ?F17.200 - Nicotine dependence, unspecified, uncomplicated (ICD-10) Pancreatitis, alcoholic, acute ?K85.20 - Alcohol induced acute pancreatitis without necrosis or infection (ICD-10) Gallstone pancreatitis ?K85.10 - Biliary acute pancreatitis without necrosis or infection (ICD-10) Surgical History (Updated 10/12/24 @ 21:31 by Raine Floyd MD) History of total right hip arthroplasty (02/17/23) ?Z96.641 - Presence of right artificial hip joint (ICD-10) Family History (Updated 10/12/24 @ 21:32 by Raine Floyd MD) Mother Lung cancer Ovarian cancer Stomach cancer Maternal Grandfather High blood pressure Social History Narrative: She lives alone in [place]. She sees a doctor at the [facility] in [place] for primary care. Her daughter Lauren Sanabria is healthcare power of [employer] transactions attorney. Code status is full. She drinks about 5 alcoholic beverages a day. She uses cannabis about twice a day. She has 2 children and 5 grandchildren. She is disabled. What is your current living situation?: I presently have a place to live Problems where you live: no known problems In the past 12 months, utilities in danger of being shut off: no In past 12 months, lack of transportation kept you from medical appts, meetings, work, or getting things needed for daily living: no In the past 12 mos, have been you worried that your food would run out before you had money to buy more?: sometimes true In the past 12 mos, the food you bought just didn't last and you didn't have money to buy more?: sometimes true Highest level of school completed/degree received: high school graduate Smoking Status: Current every day smoker What tobacco products do you use: cigarettes Smoking packs per day: 1 Smoking cigarettes per day: 20.0 Years smoked: 40 Smoking pack-years: 40.00 Do you use any of these nicotine containing products: None Second hand tobacco smoke exposure: Yes How often do you have a drink containing alcohol: 4 or more times a week Alcohol type: hard liquor Alcohol type details: vodka How many standard drinks containing alcohol do you have on a typical day: 3 or 4 How often do you have six or more drinks on one occasion: Weekly AUDIT-C Alcohol total score: 8 Non-prescribed substance use: marijuana (any form) Non-prescribed substance use details: 3-4 pinches per day Caffeine: Yes Are you now , , , , never or living with a partner: Social isolation score (0-1 are the most socially isolated patients): 0 How often does anyone, including family, friends and others, physically hurt you: never How often does anyone, including family, friends and others, insult or talk down to you: never How often does anyone, including family, friends and others, threaten you with harm: never How often does anyone, including family, friends and others, scream or curse at you: never service: No Health Related Social Needs: food insecurity (Z59.41) Meds Home Medications and Allergies Home Medications ?Medication ?Instructions ?Recorded ?Confirmed ?Type famotidine 20 mg tablet 20 mg PO BID 10/08/21 10/12/24 History metoprolol tartrate 50 mg tablet 50 mg PO BID 10/08/21 10/12/24 History sertraline 100 mg tablet 100 mg PO DAILY 10/08/21 10/12/24 History cholecalciferol (vitamin D3) 50 2,000 unit PO DAILY 10/09/21 10/12/24 History mcg (2,000 unit) capsule loperamide 2 mg capsule 2 mg PO QID PRN 10/09/21 10/12/24 History multivitamin with folic acid 400 1 tab PO DAILY 10/09/21 10/12/24 History mcg tablet (Tab-A-Bob) folic acid 1 mg tablet 1 mg PO DAILY #30 tabs 10/11/21 10/12/24 Rx magnesium oxide 400 mg (241.3 mg 400 mg PO TID #90 tabs 01/03/22 10/12/24 Rx magnesium) tablet acetaminophen 500 mg tablet 500 mg PO TID PRN 10/12/24 10/12/24 History meloxicam 15 mg tablet 15 mg PO DAILY 10/12/24 10/12/24 History oxybutynin chloride 5 mg tablet 5 mg PO BID 10/12/24 10/12/24 History Allergies Allergy/AdvReac Type Severity Reaction Status Date / Time No Known Allergies Allergy Verified 08/20/24 19:25 Exam Narrative: Exam Narrative: General: No acute distress. Occasionally grimaces or grunts with pain and tries to reposition. Awake alert oriented x3. HEENT: Normocephalic atraumatic, pupils equally round and reactive to light and accommodation. Oropharynx clear. Mucous membranes are moist. No cervical lymphadenopathy, thyromegaly or carotid bruits. No JVD. Cardiovascular: Regular rate and rhythm. No murmurs, gallops, or rubs. Chest: No increased work of breathing. Clear to auscultation bilaterally. No crackles or wheezes. Abdomen: Bowel sounds present. Soft, nondistended, nontender. No hepatosplenomegaly or masses. Extremities: Left leg is in a splint with Hilton wrap. No edema, no cyanosis or clubbing. Skin: No jaundice, no pallor, no rashes on visible skin. Neuro: Grossly intact. No focal deficits. No tremor noted. Const: Vital Signs, click to edit/add: Vital Signs - 24 hr 10/12/24 12:31 10/12/24 16:15 Temperature 98.6 F 98.5 F Pulse Rate [Right Pulse Oximeter] 98 95 Respiratory Rate 16 18 Blood Pressure [Ri ght Upper Arm] 111/69 Pulse Oximetry 97 96 Oxygen Delivery Me thod Room Air Room Air Hospitalist - H&P: Result Labs Labs: Short CBC 10/12/24 Range/Units 13:32 WBC 10.25 (4.50-11.00) K/uL Hgb 12.0 (12.0-16.0) gm/dL Hct 35.1 (33.0-51.0) % Plt Count 251 (140-440) K/uL BMP 10/12/24 13:32 Sodium 132 L Potassium 2.9 L* Chloride 102 Carbon Dioxide 23 BUN 6 L Creatinine 0.7 Glucose 111 Calcium 7.9 L Cardiac Enzymes 10/12/24 Range/Units 13:32 Troponin I < 0.01 (0.01-0.04) ng/mL Liver Function 10/12/24 Range/Units 13:32 Total Bilirubin 0.7 (0.1-1.5) mg/dL AST 83 H (12-35) U/L ALT 47 H (4-35) U/L Alkaline Phosphatase 286 H (40-150) U/L Albumin 2.7 L (3.3-5.0) g/dL 10/12/2024 1:14 p.m. EKG: Sinus rhythm with short PA, 84 beats per minute, septal infarct, age undetermined, ST and T-wave abnormality, consider inferior ischemia, ST and T-wave abnormality, consider anterolateral ischemia. This has changed from an EKG 07/22/2022. The short PA interval and septal infarct along with ST and T-wave abnormalities possibly associated with inferior and anterior ischemia are new. 10/12/2024 E 10:11 p.m. EKG: EKG is unchanged from earlier today. Ordering Physician: Kirstie Walker M.D. Date of Service: 10/12/24 Procedure(s): XR ankle LT min 3V Accession Number(s): [id number] cc: Nick Kwon M.D.; Kirstie Walker M.D.~ For Patients: As a result of the Cures Act, medical imaging exams and procedure reports are released immediately into your electronic medical record. You may view this report before your referring provider. If you have questions, please contact your health care provider. INDICATION: Fall. Pain. FINDINGS: Three views of the left ankle show an oblique nondisplaced fracture of the distal fibula. No other evidence of acute fracture or dislocation. Soft tissue swelling over the lateral malleolus. No other bony or soft tissue abnormalities identified. Dictated by Jatinder Naqvi MD @ 10/12/2024 2:44:12 PM Dictated by: Jatinder Naqvi MD @ 10/12/2024 14:44:18 (Electronically Signed) Ordering Physician: Kirstie Walker M.D. Date of Service: 10/12/24 Procedure(s): XR knee LT 2V Accession Number(s): [id number] cc: Nick Kwon M.D.; Kirstie Walker M.D.~ For Patients: As a result of the Cures Act, medical imaging exams and procedure reports are released immediately into your electronic medical record. You may view this report before your referring provider. If you have questions, please contact your health care provider. INDICATION: Fall. Pain. FINDINGS: Two views of the left knee show a nondisplaced fracture of the upper portion of the left fibula. No other evidence of acute fracture or dislocation. No other bony or soft tissue abnormalities identified. Dictated by Jatinder Naqvi MD @ 10/12/2024 2:42:06 PM Dictated by: Jatinder Naqvi MD @ 10/12/2024 14:42:16 (Electronically Signed) Ordering Physician: Kirstie Walker M.D. Date of Service: 10/12/24 Procedure(s): XR tibia fibula LT 2V Accession Number(s): [id number] cc: Nick Kwon M.D.; Kirstie Walker M.D.~ For Patients: As a result of the Cures Act, medical imaging exams and procedure reports are released immediately into your electronic medical record. You may view this report before your referring provider. If you have questions, please contact your health care provider. INDICATION: Fall. Pain. FINDINGS: Two views of the left tibia-fibula show a nondisplaced oblique fracture of the distal portion of the fibula. No other evidence of acute fracture or dislocation. Soft tissue swelling over the lateral malleolus. No other bony or soft tissue abnormalities identified. Dictated by Jatinder Naqvi MD @ 10/12/2024 2:40:04 PM Dictated by: Jatinder Naqvi MD @ 10/12/2024 14:40:19 (Electronically Signed) Ordering Physician: Kirstie Walker M.D. Date of Service: 10/12/24 Procedure(s): CT cervical spine wo con Accession Number(s): [id number] cc: Nick Kwon M.D.; Kirstie Walker M.D.~ For Patients: As a result of the Cures Act, medical imaging exams and procedure reports are released immediately into your electronic medical record. You may view this report before your referring provider. If you have questions, please contact your health care provider. Indication: Fall, altered mental status. Technique: Noncontrast CT of the cervical spine with multiplanar reconstruction utilizing bone and soft tissue algorithms. Comparison: CT cervical spine dated 06/22/2019. Findings: No acute fracture or traumatic subluxation. New chronic type 2 odontoid fracture without osseous bridging across the fracture cleft. New chronic depression of the C4 superior endplate. No lytic or blastic lesion. Progressed degenerative reversal of the normal cervical lordosis. New grade 1 3 mm anterolisthesis of C3 on C4. Unremarkable prevertebral soft tissues. No high-grade spinal canal stenosis. Multilevel neural foraminal narrowing, again moderate-severe bilaterally at C6-C7. Impression: 1. No acute fracture or traumatic subluxation. 2. New chronic nonunited type 2 odontoid fracture. 3. New chronic depression of the C4 superior endplate. 4. Progressed degenerative reversal of the normal cervical lordosis with new grade 1 anterolisthesis at C3-C4. 5. At C6-C7, similar moderate-severe bilateral neural foraminal narrowing. Please note that all CT scans at this facility use dose modulation, iterative reconstruction, and/or weight-based dosing when appropriate to reduce radiation dose to as low as reasonably achievable. Dictated by Tevin Soliz MD @ 10/12/2024 3:33:45 PM (Electronically Signed) Ordering Physician: Kirstie Walker M.D. Date of Service: 10/12/24 Procedure(s): CT head/brain wo con Accession Number(s): [id number] cc: Nick Kwon M.D.; Kirstie Walker M.D.~ For Patients: As a result of the Century Cures Act, medical imaging exams and procedure reports are released immediately into your electronic medical record. You may view this report before your referring provider. If you have questions, please contact your health care provider. INDICATION: Fall, altered mental status. TECHNIQUE: Noncontrast CT of the head with multiplanar reconstruction utilizing bone and soft tissue algorithms. COMPARISON: CT head dated 06/22/2019. FINDINGS: No acute intracranial hemorrhage. The marte-white matter interface is preserved. Mild diffuse parenchymal volume loss. The ventricles are proportional to the sulci. No abnormal extra-axial fluid collection is identified. Intact skull base and calvarium. Stable probable incidental hemangioma within the left parietal calvarium. Unremarkable orbits. The imaged paranasal sinuses and mastoid air cells are clear. IMPRESSION: No acute intracranial hemorrhage or mass effect. Please note that all CT scans at this facility use dose modulation, iterative reconstruction, and/or weight-based dosing when appropriate to reduce radiation dose to as low as reasonably achievable. Dictated by Tevin Soliz MD @ 10/12/2024 3:27:50 PM (Electronically Signed)
[2024-10-12] MEDS: POTASSIUM CHLORIDE 10 MEQ/100 ML PIGGYBACK 50 MEQ IVPB (18:19)
--- NOTE | 2024-10-12 19:20 | PC.NURSE ---
Shift Summary: patient pleasant and cooperative. Pain managed with PRN medication, refused ice. Left leg wrapped and elevated on two pillows. Tolerating regular diet. Incontinent with purewick in place when arrived to floor. Attempted x2 straight cath for U/A, unable to attain, patient stated she had just recently voided, encouraged to hold urine for another attempt. Will inform next shift RN that patient still needs sample from straight cath.
[2024-10-12 19:23] LABS: Chloride* 104 mmol/L (96-114); Potassium* 3.5 mmol/L (3.6-5.1); Sodium* 132 mmol/L (135-149)
[2024-10-12 19:26] LABS: Anion Gap 7 mEq/L (7-15); Blood Urea Nitrogen* 6 mg/dL (7-30); Calcium* 7.5 mg/dL (8.4-10.6); Carbon Dioxide* 21 mmol/L (20-32); Creatine Kinase* 1520 U/L (41-117); Creatinine* 0.6 mg/dL (0.5-1.5); Est. Creatinine Clearance* 86.75; Estimated Glomerular Filt Rate 103 ml/min; Glucose* 130 mg/dL (60-115)
[2024-10-12] MEDS: CYCLOBENZAPRINE HCL 10 MG TABLET PO (20:24)
[2024-10-12] MEDS: MAGNESIUM OXIDE 400 MG TABLET PO (21:13)
[2024-10-12] MEDS: FAMOTIDINE 20 MG TABLET PO (21:13)
[2024-10-12] MEDS: METOPROLOL TARTRATE 50 MG TABLET PO (21:14)
[2024-10-12] MEDS: ENOXAPARIN 30 MG/0.3ML INJ SUBCUT (21:21)
[2024-10-12 21:51] LABS: Appearance Urine Turbid (Clear)
[2024-10-12 21:54] LABS: Cannabinoid Screen Urine POSITIVE (Negative); Methamphetamines Screen Urine Negative (Negative)
[2024-10-12 21:55] LABS: Tricyclic Antidepressant Urine Negative (Negative)
[2024-10-12] MEDS: 0.9 % SODIUM CH + KCL 20 mEq/L 1,000 ML 75 ML IV (21:58)
[2024-10-13] VITALS (14 sets, daily range): BP systolic 101–124; BP diastolic 64–84; PULSE 52–87; RESP 14–19; TEMP 35.7–36.7; O2SAT 95–98
[2024-10-13 06:41] LABS: Hematocrit 30.2 % (33.0-51.0); Hemoglobin* 10.0 gm/dL (12.0-16.0); Immature Granulocytes Abs Auto 0.03 K/uL (0.00-0.30); Immature Granulocytes Pct Auto 0.4 %; Lymphocytes Absolute Auto 1.97 K/uL (0.90-2.90); Mean Corpuscular HGB Conc 33 gm/dL (32-36); Mean Corpuscular Hemoglobin 33 pg (26-34); Mean Corpuscular Volume 100 fL (80-100); RDW Coefficient of Variation % 12.7 % (11.5-15.5); Red Blood Count 3.02 m/uL (4.00-5.20); White Blood Count* 8.02 K/uL (4.50-11.00)
[2024-10-13 06:43] LABS: Slide Review Reflex No
[2024-10-13 06:55] LABS: Albumin* 2.0 g/dL (3.3-5.0); Chloride* 109 mmol/L (96-114)
[2024-10-13 06:56] LABS: Potassium* 3.5 mmol/L (3.6-5.1); Sodium* 132 mmol/L (135-149)
[2024-10-13 06:58] LABS: Alanine Aminotransferase* 34 U/L (4-35); Alkaline Phosphatase* 226 U/L (40-150); Anion Gap 3 mEq/L (7-15); Aspartate Amino Transferase* 74 U/L (12-35); Bilirubin Total* 0.8 mg/dL (0.1-1.5); Blood Urea Nitrogen* 4 mg/dL (7-30); Carbon Dioxide* 20 mmol/L (20-32); Creatinine* 0.5 mg/dL (0.5-1.5); Est. Creatinine Clearance* 104.10; Estimated Glomerular Filt Rate 108 ml/min; Total Protein* 4.9 g/dL (6.0-8.3)
[2024-10-13 06:59] LABS: Calcium* 7.2 mg/dL (8.4-10.6); Creatine Kinase* 1478 U/L (41-117); Glucose* 79 mg/dL (60-115)
--- NOTE | 2024-10-13 08:12 | PM.IMPN1 ---
Assessment and Plan Assessment and plan (1) Fall: Problem comment: - associated with the dizziness and alcohol use - since she also has EKG changes that are new from 2022, I will obtain an echocardiogram -10/13 echo: unremarkable. EF 62%. - consult PT, OT, and social work to help with discharge planning Status: Acute (2) Closed fibular fracture: Problem comment: - Proximal and distal fibula fractures - Ortho called by ER doc: nonoperative at this time. stress ankle xrays with ortho next week; to be sure no surgery. - Continue splint, NWB. PT and OT evals. Status: Acute (3) ABLA (acute blood loss anemia): Problem comment: hgb 12 -> 10. from acute fracture of the fibula. monitor. Status: Acute (4) Rhabdomyolysis: Problem comment: Mild elevation due to prolonged time on floor last night after fall. Cr is 0.7, up from 0.5 previously. Treat with IVF overnight and recheck in am. Status: Acute (5) Hypokalemia: Problem comment: - Improved from 2.9 to 3.5 after 20 mEq KCL IV. Mg was also replaced. Starting NS with 20mEq KCl at 75 cc/hr. - follow replace orally Status: Acute (6) Hypomagnesemia: Problem comment: Was replaced in ER. Went from 0.8 to 1.5. Continue oral supplementation - daily monitor and replace prn Status: Acute (7) Noncompliance with medication regimen: Problem comment: Suspected given low Mg despite having prescription oral supplement TID at home. During previous hospitalizations, patient noted she was not taking supplements because they cause nausea. Status: Suspected (8) UTI (urinary tract infection): Problem comment: UC pending. +nitrate/LE and WBCs. Ceftriaxone 1 gram q24. Status: Acute (9) Alcohol use disorder: Problem comment: Lacks insight. Not motivated to quit. Status: Chronic (10) Marijuana dependence: Problem comment: Noted. Uncertain if vomiting is related to chronic cannabis use Status: Chronic (11) Edentulous: Status: Chronic (12) Major depressive disorder: Status: Chronic (13) Generalized anxiety disorder: Status: Chronic (14) Hypertension: Problem comment: Status: Chronic (15) Peripheral neuropathy: Status: Chronic (16) Gastroesophageal reflux disease: Status: Chronic (17) Tobacco dependence: Problem comment: Patient declined tobacco supplementation Status: Chronic Subjective Date Seen: 10/13/24 Interval history: Daily Progress Note - Hospital #: 2 CC: Fall/Fibula Fracture, poor self-care, severe hypokalemia 24 HOUR UPDATE: stable. no withdrawal. pain in the left leg. currently NWB per ortho. getting electrolytes replaced and hydrated. Notable Labs, Micro, Rads, Interventions: Afebrile. Blood pressure 108/64. 113/77. Pulse 83. Respirations 16/ unlabored. Oxygen saturation 95% room air. Weight 54.4 kg. CBCs reviewed. Hemoglobin has dropped from 12-10. Her baseline appears to be, 11.7-12.1. There is no elevation in her white blood cell count. Her platelets are normal. MCV 100. INR normal. Persistent hyponatremia 132. Potassium has increased from 2.9 up to 3.5. Magnesium has increased from 0.8 up to 1.2. Her creatinine has improved from 0.7 down to 0.5. Creatinine clearance is 100. CK has improved from 1500 to 1400 Albumin is significantly depressed at 2.0, total protein 4.9 UA shows positive nitrite positive leukocyte esterase Urine drug screen, positive Oxy, positive marijuana Objective: much older than stated age Vitals: see above Lungs: Clear. Cardiac: S1S2. Disposition/Potential discharge - will need rehab for left fibular fracture. Today I spent 50minutes seeing the patient, reviewing Expanse and EPIC notes/diagnostics, discussing the care plan with our care time that includes social work, PT/OT, pharmacy, RT, intermediate and documenting my impressions and plan in the medical record. Exam Const: Vital Signs, click to edit/add: Vital Signs - 24 hr 10/12/24 12:31 10/12/24 16:15 10/12/24 17:15 Temperature 98.6 F 98.5 F 97.9 F Pulse Rate Pulse Rate [Right Pulse Oximeter] 98 95 96 Respiratory Rate 16 18 18 Blood Pressure [Le ft Arm] 120/73 Blood Pressure [Ri ght Upper Arm] 111/69 Pulse Oximetry 97 96 97 Oxygen Delivery Me thod Room Air Room Air Room Air 10/12/24 17:51 10/12/24 20:12 10/12/24 22:17 Temperature 98.1 F Pulse Rate Pulse Rate [Right Pulse Oximeter] 94 Respiratory Rate 17 16 Blood Pressure [Le ft Arm] 119/88 Blood Pressure [Ri ght Upper Arm] Pulse Oximetry 98 97 96 Oxygen Delivery Me thod Room Air Room Air 10/12/24 22:17 10/12/24 22:53 10/13/24 00:46 Temperature 97.3 F L 97.9 F 97.4 F L Pulse Rate Pulse Rate [Right Pulse Oximeter] 94 96 82 Respiratory Rate 16 16 19 Blood Pressure [Le ft Arm] 117/79 128/85 124/74 Blood Pressure [Ri ght Upper Arm] Pulse Oximetry 96 100 98 Oxygen Delivery Me thod Room Air Room Air Room Air 10/13/24 02:22 10/13/24 03:43 10/13/24 07:00 Temperature 98.0 F Pulse Rate 77 Pulse Rate [Right Pulse Oximeter] 83 52 L Respiratory Rate 18 17 Blood Pressure [Le ft Arm] 124/84 113/77 Blood Pressure [Ri ght Upper Arm] Pulse Oximetry 95 97 Oxygen Delivery Co thod Room Air Room Air 10/13/24 07:00 10/13/24 08:00 Temperature 96.5 F L 96.5 F L Pulse Rate Pulse Rate [Right Pulse Oximeter] 83 83 Respiratory Rate 16 16 Blood Pressure [Le ft Arm] 108/64 108/64 Blood Pressure [Ri ght Upper Arm] Pulse Oximetry 95 95 Oxygen Delivery Me thod Room Air Room Air Labs Labs: Laboratory Results - last 24 hr 10/12/24 10/12/24 10/12/24 09:35 13:32 17:51 WBC 10.25 RBC 3.58 L Hgb 12.0 Hct 35.1 MCV 98 MCH 34 MCHC 34 RDW Coeff of Silvia 12.4 Plt Count 251 Neut % (Auto) 73.6 H Lymph % (Auto) 13.9 L [place] % (Auto) 11.7 H Eos % (Auto) 0.5 Baso % (Auto) 0.0 Neut # (Auto) 7.50 H Lymph # (Auto) 1.40 [place] # (Auto) 1.20 H Eos # (Auto) 0.05 Baso # (Auto) 0.00 Abs Immat Gran (auto) 0.03 Imm/Tot Granulo (auto) 0.3 INR 0.94 APTT 30 Sodium 132 L Potassium 2.9 L* Chloride 102 Carbon Dioxide 23 Anion Gap 7 BUN 6 L Creatinine 0.7 Estimated Creat Clear 74.36 Estimated GFR 100 Glucose 111 Lactate 2.8 H Calcium 7.9 L Magnesium 0.8 L* Total Bilirubin 0.7 AST 83 H ALT 47 H Alkaline Phosphatase 286 H Total Creatine Kinase Troponin I < 0.01 C-Reactive Protein 3.8 H Total Protein 6.4 Albumin 2.7 L Urine Color Yellow Urine Appearance Turbid A Urine pH 6.0 Ur Specific [place] 1.020 Urine Protein 1+ A Urine Glucose (UA) Negative Urine Ketones Negative Urine Blood Trace-lysed A Urine Nitrite Positive A Urine Bilirubin Negative Urine Urobilinogen 0.2 Ur Leukocyte Esterase 3+ A Urine RBC 0-2 Urine WBC >100 A Ur Squamous Epith Cells Moderate A Urine Bacteria Moderate A Urine Opiates Screen Negative Ur Buprenorphine Scrn Negative Ur Oxycodone Screen POSITIVE A Urine Methadone Screen Negative Ur Barbiturates Screen Negative U Tricyclic Antidepress Negative Ur Phencyclidine Scrn Negative Ur Amphetamines Screen Negative U Methamphetamines Scrn Negative U Benzodiazepines Scrn Negative Urine Cocaine Screen Negative U Marijuana (THC) Screen POSITIVE A Ur Drug Screen Comment See Note Ethyl Alcohol < 0.01 Lab Acknowledgement Test Added 10/12/24 10/13/24 19:00 06:05 WBC 8.02 RBC 3.02 L Hgb 10.0 L Hct 30.2 L MCV 100 MCH 33 MCHC 33 RDW Coeff of Silvia 12.7 Plt Count 208 Neut % (Auto) 62.1 Lymph % (Auto) 24.6 [place] % (Auto) 11.2 H Eos % (Auto) 1.7 Baso % (Auto) 0.0 Neut # (Auto) 4.98 Lymph # (Auto) 1.97 [place] # (Auto) 0.90 Eos # (Auto) 0.14 Baso # (Auto) 0.00 Abs Immat Gran (auto) 0.03 Imm/Tot Granulo (auto) 0.4 INR APTT Sodium 132 L 132 L Potassium 3.5 L 3.5 L Chloride 104 109 Carbon Dioxide 21 20 Anion Gap 7 3 L BUN 6 L 4 L Creatinine 0.6 0.5 Estimated Creat Clear 86.75 104.10 Estimated GFR 103 108 Glucose 130 H 79 Lactate Calcium 7.5 L 7.2 L Magnesium 1.5 1.2 L Total Bilirubin 0.8 AST 74 H ALT 34 Alkaline Phosphatase 226 H Total Creatine Kinase 1520 H 1478 H Troponin I C-Reactive Protein Total Protein 4.9 L Albumin 2.0 L Urine Color Urine Appearance Urine pH Ur Specific [place] Urine Protein Urine Glucose (UA) Urine Ketones Urine Blood Urine Nitrite Urine Bilirubin Urine Urobilinogen Ur Leukocyte Esterase Urine RBC Urine WBC Ur Squamous Epith Cells Urine Bacteria Urine Opiates Screen Ur Buprenorphine Scrn Ur Oxycodone Screen Urine Methadone Screen Ur Barbiturates Screen U Tricyclic Antidepress Ur Phencyclidine Scrn Ur Amphetamines Screen U Methamphetamines Scrn U Benzodiazepines Scrn Urine Cocaine Screen U Marijuana (THC) Screen Ur Drug Screen Comment Ethyl Alcohol Lab Acknowledgement
--- NOTE | 2024-10-13 08:15 | PC.NURSE ---
Shift note ([id number]): Patient pleasant, alert and oriented. Remained in bed this shift. Given PRN Oxycodone and Ativan for left leg pain and anxiety. CIWA at 0340 was 3. Pt slept well and reports feels fine this morning. Per pt pain has improved some with PRN pain medications and application of ice packs.?
[2024-10-13] MEDS: FAMOTIDINE 20 MG TABLET PO ×2 (08:30→21:11)
[2024-10-13] MEDS: MAGNESIUM OXIDE 400 MG TABLET PO ×3 (08:30→21:11)
[2024-10-13] MEDS: METOPROLOL TARTRATE 50 MG TABLET PO ×2 (08:30→21:10)
[2024-10-13] MEDS: SERTRALINE 100 MG TABLET PO (08:30)
[2024-10-13] MEDS: FOLIC ACID 1 MG TABLET PO (08:30)
[2024-10-13] MEDS: ENOXAPARIN 30 MG/0.3ML INJ SUBCUT ×2 (08:34→21:10)
[2024-10-13] MEDS: cefTRIAXone 1 GM in 0.9 % SODIUM CHLORIDE Mini-bag 100 ML IVPB (09:35)
[2024-10-13] MEDS: SODIUM CHLORIDE 0.9 % (FLUSH) 10 ML SYRINGE 5 ML IVF ×2 (09:35→21:12)
[2024-10-13] MEDS: 0.9 % SODIUM CH + KCL 20 mEq/L 1,000 ML 75 ML IV (11:27)
--- NOTE | 2024-10-13 13:56 | REH.PT ---
PT orders received. Patient is NWB on left LE. Refused multiple attempts to initiate PT eval/treatment due to pain with any movement of her left leg. Will attempt tomorrow.
[2024-10-13] MEDS: MAGNESIUM IV 2 GM/50 ML PIGGYBACK IVPB (16:24)
[2024-10-13] MEDS: POTASSIUM CHLORIDE 10 MEQ CAPSULE ER 40 MEQ PO (16:24)
--- NOTE | 2024-10-13 16:56 | REH.OT ---
OT: Patient seen on 3rd attempt and was declining to get OOB, however RN working with patient on pain management as patient rating 10/10. After receiving IV Dilaudid, she trialed getting OOB with patient needing mod A x2 for bed mobility. Patient attempted to stand with FWW, however needs staff to support LLE as she is not maintaining NWB LLE and did not stand fully upright despite multiple attempts. She presents as fall risk with impaired balance, pain, cognitive deficits with impaired safety awareness and risk for falls. Recommending use of ceiling lift for transfers as paitent was unable to maintain NWB LLE this afternoon. Patient reports she is resistant to use of ceiling lift due to negative experience in the past in a different hospital with hip surgery. Did obtain sling to trial when patient next OOB. Recommending TCU at discharge.
--- NOTE | 2024-10-13 17:23 | PC.NURSE ---
[id number]: Pt is AOx4. VSS. Pt. reports pain 7 or above. Managed w/ meds and repositioning; see EMAR. PT and RNs attempted to assist in standing. Pt was able to sit on edge of bed; was not able to stand. Pt refused ceiling lift. L leg iced & elevated. Continues to be incontinent. Resting comfortably in bed; call light w/i reach.
[2024-10-14] VITALS (13 sets, daily range): BP systolic 107–129; BP diastolic 56–78; PULSE 78–99; RESP 17–20; TEMP 36.2–36.9; O2SAT 94–99
[2024-10-14 07:27] LABS: Hematocrit 30.9 % (33.0-51.0); Hemoglobin* 10.1 gm/dL (12.0-16.0); Mean Corpuscular HGB Conc 33 gm/dL (32-36); Mean Corpuscular Hemoglobin 33 pg (26-34); Mean Corpuscular Volume 102 fL (80-100); Red Blood Count 3.03 m/uL (4.00-5.20); White Blood Count* 7.91 K/uL (4.50-11.00)
[2024-10-14 07:31] LABS: Slide Review Reflex No
[2024-10-14 07:49] LABS: Albumin* 2.0 g/dL (3.3-5.0); Chloride* 109 mmol/L (96-114); Potassium* 4.5 mmol/L (3.6-5.1); Sodium* 132 mmol/L (135-149)
[2024-10-14 07:51] LABS: Alanine Aminotransferase* 71 U/L (4-35); Alkaline Phosphatase* 334 U/L (40-150); Anion Gap 1 mEq/L (7-15); Aspartate Amino Transferase* 322 U/L (12-35); Bilirubin Total* 1.2 mg/dL (0.1-1.5); Blood Urea Nitrogen* 3 mg/dL (7-30); Carbon Dioxide* 22 mmol/L (20-32); Creatinine* 0.5 mg/dL (0.5-1.5); Est. Creatinine Clearance* 104.10; Estimated Glomerular Filt Rate 108 ml/min
[2024-10-14 07:52] LABS: Calcium* 7.7 mg/dL (8.4-10.6); Glucose* 77 mg/dL (60-115); Total Protein* 5.2 g/dL (6.0-8.3)
[2024-10-14 08:38] LABS: Creatine Kinase* 4254 U/L (41-117)
--- NOTE | 2024-10-14 08:43 | PC.NURSE ---
Shift note ([id number]): Patient pleasant, alert and oriented. Remained in bed this shift. Purewick applied and draining dark erum colored urine. Given PRN Oxycodone for back and left leg pain rated 7/10. Slept well during night. ?
[2024-10-14] MEDS: FOLIC ACID 1 MG TABLET PO (08:46)
[2024-10-14] MEDS: FAMOTIDINE 20 MG TABLET PO ×2 (08:46→21:28)
[2024-10-14] MEDS: POTASSIUM CHLORIDE 10 MEQ CAPSULE ER 20 MEQ PO (08:46)
[2024-10-14] MEDS: MAGNESIUM OXIDE 400 MG TABLET PO ×3 (08:46→21:27)
[2024-10-14] MEDS: ENOXAPARIN 30 MG/0.3ML INJ SUBCUT ×2 (08:46→21:27)
[2024-10-14] MEDS: DOXYCYCLINE HYCLATE 100 MG PO ×2 (08:46→20:15)
[2024-10-14] MEDS: METOPROLOL TARTRATE 50 MG TABLET PO ×2 (08:47→21:28)
[2024-10-14] MEDS: SODIUM CHLORIDE 0.9 % (FLUSH) 10 ML SYRINGE 5 ML IVF (08:47)
[2024-10-14] MEDS: SERTRALINE 100 MG TABLET PO (08:47)
[2024-10-14 11:30] LABS: HCO3 VBG 23 mmol/L (21-28); Lactate* 0.9 mmol/L (0.5-1.9); PCO2 VBG 39 mmHG (40-50); PO2 VBG 35.8 mmHG (25-47); pH VBG 7.383 (7.32-7.43)
--- NOTE | 2024-10-14 12:10 | PM.IMPN1 ---
Assessment and Plan Assessment and plan (1) Closed fibular fracture: Problem comment: Closed treatment of a closed, acute, nondisplaced, oblique fracture of the distal fibula. DOI: 10/12/24. -I appreciate ortho evaluating today. Plan at discharge should follow-up in clinic within about 7-8 days the dated injury for gravity stress view ankle mortise films -pt can heel touch for pivot transfers; no significant weightbearing. Status: Acute (2) ABLA (acute blood loss anemia): Problem comment: hgb 12 -> 10. from acute fracture of the fibula. monitor. Status: Acute (3) Rhabdomyolysis: Problem comment: Mild elevation due to prolonged time on floor last night after fall. Cr is 0.7, up from 0.5 previously. Treat with IVF overnight and recheck in am. CK up dramatically am of 10/14. 1478 --> 4254 (2.8x increase) -took splint off to examine for si/sx of compartment syndrome, hematoma, compression injury. checking lactate, EKG, pH, and troponin, fluids. All reassuring. will hydrate and recheck at 1600 on 10/14 Status: Acute (4) Hypokalemia: Problem comment: -resolved Status: Acute (5) Hypomagnesemia: Problem comment: replace and resolve. Status: Acute (6) Noncompliance with medication regimen: Problem comment: Suspected given low Mg despite having prescription oral supplement TID at home. During previous hospitalizations, patient noted she was not taking supplements because they cause nausea. Status: Suspected (7) UTI (urinary tract infection): Problem comment: UC pending. +nitrate/LE and WBCs. Ceftriaxone 1 gram q24. --> Doxy. culture shows staph species. Status: Acute (8) Alcohol use disorder: Problem comment: Lacks insight. Not motivated to quit. Status: Chronic (9) Marijuana dependence: Problem comment: Noted. Uncertain if vomiting is related to chronic cannabis use Status: Chronic (10) Edentulous: Status: Chronic (11) Major depressive disorder: Status: Chronic (12) Generalized anxiety disorder: Status: Chronic (13) Hypertension: Problem comment: Status: Chronic (14) Peripheral neuropathy: Status: Chronic (15) Gastroesophageal reflux disease: Status: Chronic (16) Tobacco dependence: Problem comment: Patient declined tobacco supplementation Status: Chronic (17) Fall: Problem comment: - associated with the dizziness and alcohol use - since she also has EKG changes that are new from 2022, I will obtain an echocardiogram -10/13 echo: unremarkable. EF 62%. - consult PT, OT, and social work to help with discharge planning Status: Acute Subjective Date Seen: 10/14/24 Interval history: Daily Progress Note - Hospital Medicine #: 3 CC: Fall/Fibula Fracture, poor self-care, severe hypokalemia 24 HOUR UPDATE: CK increased this morning. 2.8x from yesterday. I took down the splint to be sure that there was no evidence of enlarging hematoma, compartment syndrome. EKG was okay. Troponin was okay. Ordered for a fluid bolus. Magnesium is low normal. potassium is normal (falsly high from high Ck?) I suspect just given her overall metabolic health, the CK johnathan from a combination of a tight splint and poor intake. She is now on IV fluids. No evidence of withdrawal. Notable Labs, Micro, Rads, Interventions: Afebrile. Her vital signs are stable. She is on room air. CBCs reviewed. Hemoglobin has dropped from 12-10. Her baseline appears to be, 11.7-12.1. There is no elevation in her white blood cell count. Her platelets are normal. MCV 102. INR normal. Persistent hyponatremia 132. Potassium has normalized. Magnesium has increased from 0.8 up to 1.2. Her creatinine has improved from 0.7 down to 0.5. Creatinine clearance is 100. CK 1520 -> 1478 -> 4254 -> 4872 Albumin is significantly depressed at 2.0, total protein 4.9 UA shows positive nitrite positive leukocyte esterase --> Staph lugdunensis. Switched from ceftriaxone to doxycycline. Urine drug screen, positive Oxy, positive marijuana Objective: much older than stated age Vitals: see above Lungs: Clear. Cardiac: S1S2. MSK: Left leg shows no evidence compartment syndrome, abrasions or hematoma. Appropriately swollen as expected over the dorsum and lateral malleolus. Splint replaced by Ortho. Disposition/Potential discharge - will need rehab for left fibular fracture. Today I spent 50minutes seeing the patient, reviewing Expanse and EPIC notes/diagnostics, discussing the care plan with our care time that includes social work, PT/OT, pharmacy, RT, chcf and documenting my impressions and plan in the medical record. Exam Const: Vital Signs, click to edit/add: Vital Signs - 24 hr 10/13/24 15:00 10/13/24 16:00 10/13/24 16:00 Temperature 97.1 F L Pulse Rate Pulse Rate [Right Pulse Oximeter] 87 87 Respiratory Rate 14 14 Blood Pressure [Le ft Arm] 101/67 Pulse Oximetry 96 97 Oxygen Delivery Me thod Room Air Room Air 10/13/24 16:53 10/13/24 18:03 10/13/24 20:06 Temperature 96.8 F L Pulse Rate 76 Pulse Rate [Right Pulse Oximeter] 78 Respiratory Rate 19 Blood Pressure [Le ft Arm] 116/66 Pulse Oximetry 98 96 Oxygen Delivery Or thod Room Air 10/13/24 20:32 10/14/24 00:05 10/14/24 00:05 Temperature 97.1 F L Pulse Rate 78 Pulse Rate [Right Pulse Oximeter] 84 Respiratory Rate 18 18 Blood Pressure [Le ft Arm] 118/67 Pulse Oximetry 96 [facility] 10/14/24 03:36 10/14/24 07:00 10/14/24 07:00 Temperature 97.9 F 97.7 F Pulse Rate Pulse Rate [Right Pulse Oximeter] 84 79 Respiratory Rate 17 18 18 Blood Pressure [Le ft Arm] 107/56 L 120/66 Pulse Oximetry 94 97 98 [facility] Room [facility] Room Air 10/14/24 07:00 10/14/24 07:49 10/14/24 11:00 Temperature 97.7 F 98.5 F Pulse Rate 85 Pulse Rate [Right Pulse Oximeter] 79 78 Respiratory Rate 18 20 Blood Pressure [Le ft Arm] 120/66 117/70 Pulse Oximetry 98 99 Oxygen Delivery Or thod Room Air Room Air 10/14/24 12:00 Temperature 98.5 F Pulse Rate Pulse Rate [Right Pulse Oximeter] 78 Respiratory Rate 20 Blood Pressure [Le ft Arm] 117/70 Pulse Oximetry 99 Oxygen Delivery Or thod Room Air Labs Labs: Laboratory Results - last 24 hr 10/14/24 10/14/24 10/14/24 07:15 10:26 11:25 WBC 7.91 RBC 3.03 L Hgb 10.1 L Hct 30.9 L MCV 102 H MCH 33 MCHC 33 Plt Count 216 VBG pH 7.383 VBG pCO2 39 L VBG pO2 35.8 VBG HCO3 23 Sodium 132 L Potassium 4.5 Chloride 109 Carbon Dioxide 22 Anion Gap 1 L BUN 3 L Creatinine 0.5 Estimated Creat Clear 104.10 Estimated GFR 108 Glucose 77 Lactate 0.9 Calcium 7.7 L Magnesium 1.6 Total Bilirubin 1.2 AST 322 H ALT 71 H Alkaline Phosphatase 334 H Total Creatine Kinase 4254 H Troponin I < 0.01 Total Protein 5.2 L Albumin 2.0 L Lab Acknowledgement Test Added
--- NOTE | 2024-10-14 12:26 | PM.ORCN ---
History of Present Illness HPI Time Seen by Provider: 12:00 Date Seen: 10/14/24 Consult date: 10/14/24 Requesting physician: Sherry Kirby Chief complaint: fall Narrative: April is a pleasant 59 year-old female with a history of chronic alcoholism and marijuana dependency that presented to our ED after an unwitnessed fall onto her left knee that occurred on Monday. Patient was admitted. Orthopedic consult is requesting recommendations regarding her weightbearing status. Patient has a nondisplaced, oblique fibular fracture. She was placed in a modified long leg splint. Patient s/o severe left ankle pain with movement and minimal pain at rest. She also complains that her splint is sharp and rubbing against her posterior thigh. No open wounds. Denies fever, chills. Associated symptoms include: diffuse left foot and lateral ankle swelling. At baseline, she ambulates with a walker. [facility] Medical History (Updated 10/14/24 @ 12:55 by Francheska Gamez PA-C) Fracture of second cervical vertebra with nonunion ?S12.100K - Unspecified displaced fracture of second cervical vertebra, subsequent encounter for fracture with nonunion (ICD-10) Osteitis condensans ?M85.30 - Osteitis condensans, unspecified site (ICD-10) Neuropathy ?G62.9 - Polyneuropathy, unspecified (ICD-10) Thyroid nodule ?E04.1 - Nontoxic single thyroid nodule (ICD-10) Infection of right prosthetic hip joint (~05/2023) ?T84.51XA - Infection and inflammatory reaction due to internal right hip prosthesis, initial encounter (ICD-10) Urge incontinence ?N39.41 - Urge incontinence (ICD-10) Exocrine pancreatic insufficiency ?K86.81 - Exocrine pancreatic insufficiency (ICD-10) Protein calorie malnutrition (~05/2024) ?E46 - Unspecified protein-calorie malnutrition (ICD-10) Substance abuse ?F19.10 - Other psychoactive substance abuse, uncomplicated (ICD-10) Marijuana dependence ?F12.20 - Cannabis dependence, uncomplicated (ICD-10) Edentulous ?K08.109 - Complete loss of teeth, unspecified cause, unspecified class (ICD-10) Chronic diarrhea ?K52.9 - Noninfective gastroenteritis and colitis, unspecified (ICD-10) Personal history of gallstones ?Z87.19 - Personal history of other diseases of the digestive system (ICD-10) Visual impairment ?H54.7 - Unspecified visual loss (ICD-10) Closed fracture of second cervical vertebra without spinal cord injury ?S12.100A - Unspecified displaced fracture of second cervical vertebra, initial encounter for closed fracture (ICD-10) Major depressive disorder ?F32.9 - Major depressive disorder, single episode, unspecified (ICD-10) Generalized anxiety disorder ?F41.1 - Generalized anxiety disorder (ICD-10) Hypertension ?I10 - Essential (primary) hypertension (ICD-10) Hypomagnesemia ?E83.42 - Hypomagnesemia (ICD-10) Sacroiliitis, not elsewhere classified ?M46.1 - Sacroiliitis, not elsewhere classified (ICD-10) Peripheral neuropathy ?G62.9 - Polyneuropathy, unspecified (ICD-10) Monoclonal gammopathy ?D47.2 - Monoclonal gammopathy (ICD-10) Gastroesophageal reflux disease ?K21.9 - Gastro-esophageal reflux disease without esophagitis (ICD-10) Nontoxic single thyroid nodule ?E04.1 - Nontoxic single thyroid nodule (ICD-10) Acalculous cholecystitis (~07/11/14) ?K81.9 - Cholecystitis, unspecified (ICD-10) Clostridioides difficile diarrhea ?A04.72 - Enterocolitis due to Clostridium difficile, not specified as recurrent (ICD-10) Tobacco dependence ?F17.200 - Nicotine dependence, unspecified, uncomplicated (ICD-10) Pancreatitis, alcoholic, acute ?K85.20 - Alcohol induced acute pancreatitis without necrosis or infection (ICD-10) Gallstone pancreatitis ?K85.10 - Biliary acute pancreatitis without necrosis or infection (ICD-10) Surgical History (Updated 10/12/24 @ 21:31 by Raine Floyd MD) History of total right hip arthroplasty (02/17/23) ?Z96.641 - Presence of right artificial hip joint (ICD-10) Family History (Updated 10/12/24 @ 21:32 by Raine Floyd MD) Mother Lung cancer Ovarian cancer Stomach cancer Maternal Grandfather High blood pressure Social History Narrative: She lives alone in [place]. She sees a doctor at the [facility] in [place] for primary care. Her daughter Lauren Sanabria is healthcare power of real estate associate attorney. Code status is full. She drinks about 5 alcoholic beverages a day. She uses cannabis about twice a day. She has 2 children and 5 grandchildren. She is disabled. What is your current living situation?: I presently have a place to live Problems where you live: no known problems In the past 12 months, utilities in danger of being shut off: no In past 12 months, lack of transportation kept you from medical appts, meetings, work, or getting things needed for daily living: no In the past 12 mos, have been you worried that your food would run out before you had money to buy more?: sometimes true In the past 12 mos, the food you bought just didn't last and you didn't have money to buy more?: sometimes true Highest level of school completed/degree received: high school graduate Smoking Status: Current every day smoker What tobacco products do you use: cigarettes Smoking packs per day: 1 Smoking cigarettes per day: 20.0 Years smoked: 40 Smoking pack-years: 40.00 Do you use any of these nicotine containing products: None Second hand tobacco smoke exposure: Yes How often do you have a drink containing alcohol: 4 or more times a week Alcohol type: hard liquor Alcohol type details: vodka How many standard drinks containing alcohol do you have on a typical day: 3 or 4 How often do you have six or more drinks on one occasion: Weekly AUDIT-C Alcohol total score: 8 Non-prescribed substance use: marijuana (any form) Non-prescribed substance use details: 3-4 pinches per day Caffeine: Yes Are you now , , , , never or living with a partner: Social isolation score (0-1 are the most socially isolated patients): 0 How often does anyone, including family, friends and others, physically hurt you: never How often does anyone, including family, friends and others, insult or talk down to you: never How often does anyone, including family, friends and others, threaten you with harm: never How often does anyone, including family, friends and others, scream or curse at you: never service: No Health Related Social Needs: food insecurity (Z59.41) Meds Home Medications and Allergies Home Medications ?Medication ?Instructions ?Recorded ?Confirmed ?Type famotidine 20 mg tablet 20 mg PO BID 10/08/21 10/12/24 History metoprolol tartrate 50 mg tablet 50 mg PO BID 10/08/21 10/12/24 History sertraline 100 mg tablet 100 mg PO DAILY 10/08/21 10/12/24 History cholecalciferol (vitamin D3) 50 2,000 unit PO DAILY 10/09/21 10/12/24 History mcg (2,000 unit) capsule loperamide 2 mg capsule 2 mg PO QID PRN 10/09/21 10/12/24 History multivitamin with folic acid 400 1 tab PO DAILY 10/09/21 10/12/24 History mcg tablet (Tab-A-Bob) folic acid 1 mg tablet 1 mg PO DAILY #30 tabs 10/11/21 10/12/24 Rx magnesium oxide 400 mg (241.3 mg 400 mg PO TID #90 tabs 01/03/22 10/12/24 Rx magnesium) tablet acetaminophen 500 mg tablet 500 mg PO TID PRN 10/12/24 10/12/24 History meloxicam 15 mg tablet 15 mg PO DAILY 10/12/24 10/12/24 History oxybutynin chloride 5 mg tablet 5 mg PO BID 10/12/24 10/12/24 History Allergies Allergy/AdvReac Type Severity Reaction Status Date / Time No Known Allergies Allergy Verified 08/20/24 19:25 Ortho Exam Narrative Exam Narrative: Patient is alert and oriented x3. Converses with nonlabored breathing. Severe pain with manipulation of her left lower leg. Left ankle exam: No open wounds nor abrasions. No erythema, induration or cutaneous changes. Diffuse left foot and left lateral ankle swelling. Exquisite tenderness to palpation left distal fibula. Mild tenderness: medial malleolus and deltoid ligament. Nontender: proximal fibula. Ankle ROM deferred. PF and DF strength testing deferred. CMS intact with 2+ DP and PT pulses. [place], warm digits with brisk capillary refill. Sensation intact distally. Const Vital Signs, click to edit/add: Vital Signs - 24 hr 10/13/24 15:00 10/13/24 16:00 10/13/24 16:00 Temperature 97.1 F L Pulse Rate Pulse Rate [Right Pulse Oximeter] 87 87 Respiratory Rate 14 14 Blood Pressure [Left Arm] 101/67 Pulse Oximetry 96 97 Oxygen Delivery Method Room Air Room Air 10/13/24 16:53 10/13/24 18:03 10/13/24 20:06 Temperature 96.8 F L Pulse Rate 76 Pulse Rate [Right Pulse Oximeter] 78 Respiratory Rate 19 Blood Pressure [Left Arm] 116/66 Pulse Oximetry 98 96 Oxygen Delivery Method Room Air 10/13/24 20:32 10/14/24 00:05 10/14/24 00:05 Temperature 97.1 F L Pulse Rate 78 Pulse Rate [Right Pulse Oximeter] 84 Respiratory Rate 18 18 Blood Pressure [Left Arm] 118/67 Pulse Oximetry 96 96 Oxygen Delivery Method Room Air Room Air 10/14/24 03:36 10/14/24 07:00 10/14/24 07:00 Temperature 97.9 F 97.7 F Pulse Rate Pulse Rate [Right Pulse Oximeter] 84 79 Respiratory Rate 17 18 18 Blood Pressure [Left Arm] 107/56 L 120/66 Pulse Oximetry 94 97 98 Oxygen Delivery Method Room Air Room Air Room Air 10/14/24 07:00 10/14/24 07:49 10/14/24 11:00 Temperature 97.7 F 98.5 F Pulse Rate 85 Pulse Rate [Right Pulse Oximeter] 79 78 Respiratory Rate 18 20 Blood Pressure [Left Arm] 120/66 117/70 Pulse Oximetry 98 99 Oxygen Delivery Method Room Air Room Air 10/14/24 12:00 Temperature 98.5 F Pulse Rate Pulse Rate [Right Pulse Oximeter] 78 Respiratory Rate 20 Blood Pressure [Left Arm] 117/70 Pulse Oximetry 99 Oxygen Delivery Method Room Air Results Labs Labs: Laboratory Results - last 48 hr 10/12/24 10/12/24 10/12/24 09:35 13:32 17:51 WBC 10.25 RBC 3.58 L Hgb 12.0 Hct 35.1 MCV 98 MCH 34 MCHC 34 RDW Coeff of Silvia 12.4 Plt Count 251 Neut % (Auto) 73.6 H Lymph % (Auto) 13.9 L [place] % (Auto) 11.7 H Eos % (Auto) 0.5 Baso % (Auto) 0.0 Neut # (Auto) 7.50 H Lymph # (Auto) 1.40 [place] # (Auto) 1.20 H Eos # (Auto) 0.05 Baso # (Auto) 0.00 Abs Immat Gran (auto) 0.03 Imm/Tot Granulo (auto) 0.3 INR 0.94 APTT 30 VBG pH VBG pCO2 VBG pO2 VBG HCO3 Sodium 132 L Potassium 2.9 L* Chloride 102 Carbon Dioxide 23 Anion Gap 7 BUN 6 L Creatinine 0.7 Estimated Creat Clear 74.36 Estimated GFR 100 Glucose 111 Lactate 2.8 H Calcium 7.9 L Magnesium 0.8 L* Total Bilirubin 0.7 AST 83 H ALT 47 H Alkaline Phosphatase 286 H Total Creatine Kinase Troponin I < 0.01 C-Reactive Protein 3.8 H Total Protein 6.4 Albumin 2.7 L Urine Color Yellow Urine Appearance Turbid A Urine pH 6.0 Ur Specific [place] 1.020 Urine Protein 1+ A Urine Glucose (UA) Negative Urine Ketones Negative Urine Blood Trace-lysed A Urine Nitrite Positive A Urine Bilirubin Negative Urine Urobilinogen 0.2 Ur Leukocyte Esterase 3+ A Urine RBC 0-2 Urine WBC >100 A Ur Squamous Epith Cells Moderate A Urine Bacteria Moderate A Urine Opiates Screen Negative Ur Buprenorphine Scrn Negative Ur Oxycodone Screen POSITIVE A Urine Methadone Screen Negative Ur Barbiturates Screen Negative U Tricyclic Antidepress Negative Ur Phencyclidine Scrn Negative Ur Amphetamines Screen Negative U Methamphetamines Scrn Negative U Benzodiazepines Scrn Negative Urine Cocaine Screen Negative U Marijuana (THC) Screen POSITIVE A Ur Drug Screen Comment See Note Ethyl Alcohol < 0.01 Lab Acknowledgement Test Added 10/12/24 10/13/24 10/13/24 19:00 06:05 08:36 WBC 8.02 RBC 3.02 L Hgb 10.0 L Hct 30.2 L MCV 100 MCH 33 MCHC 33 RDW Coeff of Silvia 12.7 Plt Count 208 Neut % (Auto) 62.1 Lymph % (Auto) 24.6 [place] % (Auto) 11.2 H Eos % (Auto) 1.7 Baso % (Auto) 0.0 Neut # (Auto) 4.98 Lymph # (Auto) 1.97 [place] # (Auto) 0.90 Eos # (Auto) 0.14 Baso # (Auto) 0.00 Abs Immat Gran (auto) 0.03 Imm/Tot Granulo (auto) 0.4 INR APTT VBG pH VBG pCO2 VBG pO2 VBG HCO3 Sodium 132 L 132 L Potassium 3.5 L 3.5 L Chloride 104 109 Carbon Dioxide 21 20 Anion Gap 7 3 L BUN 6 L 4 L Creatinine 0.6 0.5 Estimated Creat Clear 86.75 104.10 Estimated GFR 103 108 Glucose 130 H 79 Lactate Calcium 7.5 L 7.2 L Magnesium 1.5 1.2 L Total Bilirubin 0.8 AST 74 H ALT 34 Alkaline Phosphatase 226 H Total Creatine Kinase 1520 H 1478 H Troponin I C-Reactive Protein Total Protein 4.9 L Albumin 2.0 L Urine Color Urine Appearance Urine pH Ur Specific [place] Urine Protein Urine Glucose (UA) Urine Ketones Urine Blood Urine Nitrite Urine Bilirubin Urine Urobilinogen Ur Leukocyte Esterase Urine RBC Urine WBC Ur Squamous Epith Cells Urine Bacteria Urine Opiates Screen Ur Buprenorphine Scrn Ur Oxycodone Screen Urine Methadone Screen Ur Barbiturates Screen U Tricyclic Antidepress Ur Phencyclidine Scrn Ur Amphetamines Screen U Methamphetamines Scrn U Benzodiazepines Scrn Urine Cocaine Screen U Marijuana (THC) Screen Ur Drug Screen Comment Ethyl Alcohol Lab Acknowledgement Test Added 10/14/24 10/14/24 10/14/24 07:15 10:26 11:25 WBC 7.91 RBC 3.03 L Hgb 10.1 L Hct 30.9 L MCV 102 H MCH 33 MCHC 33 RDW Coeff of Silvia Plt Count 216 Neut % (Auto) Lymph % (Auto) [place] % (Auto) Eos % (Auto) Baso % (Auto) Neut # (Auto) Lymph # (Auto) [place] # (Auto) Eos # (Auto) Baso # (Auto) Abs Immat Gran (auto) Imm/Tot Granulo (auto) INR APTT VBG pH 7.383 VBG pCO2 39 L VBG pO2 35.8 VBG HCO3 23 Sodium 132 L Potassium 4.5 Chloride 109 Carbon Dioxide 22 Anion Gap 1 L BUN 3 L Creatinine 0.5 Estimated Creat Clear 104.10 Estimated GFR 108 Glucose 77 Lactate 0.9 Calcium 7.7 L Magnesium 1.6 Total Bilirubin 1.2 AST 322 H ALT 71 H Alkaline Phosphatase 334 H Total Creatine Kinase 4254 H Troponin I < 0.01 C-Reactive Protein Total Protein 5.2 L Albumin 2.0 L Urine Color Urine Appearance Urine pH Ur Specific [place] Urine Protein Urine Glucose (UA) Urine Ketones Urine Blood Urine Nitrite Urine Bilirubin Urine Urobilinogen Ur Leukocyte Esterase Urine RBC Urine WBC Ur Squamous Epith Cells Urine Bacteria Urine Opiates Screen Ur Buprenorphine Scrn Ur Oxycodone Screen Urine Methadone Screen Ur Barbiturates Screen U Tricyclic Antidepress Ur Phencyclidine Scrn Ur Amphetamines Screen U Methamphetamines Scrn U Benzodiazepines Scrn Urine Cocaine Screen U Marijuana (THC) Screen Ur Drug Screen Comment Ethyl Alcohol Lab Acknowledgement Test Added Diagnostic results Ankle/Foot x-ray: report reviewed (3-view left ankle images were reviewed dated 10/12/24. These show: an acute, nondisplaced, oblique fracture of the distal fibula. Soft tissue swelling over the lateral malleolus. ) and image reviewed Additional Comments: 2-view left tib-fib images were reviewed dated 10/12/24. These rule out proximal fibular fracture. Assessment and Plan Assessment and plan (1) Fall: Problem comment: - associated with the dizziness and alcohol use - since she also has EKG changes that are new from 2022, I will obtain an echocardiogram -10/13 echo: unremarkable. EF 62%. - consult PT, OT, and social work to help with discharge planning Status: Acute Total time spent: Total time spent is greater than 50% in coordination of care (as documented) at patient's floor/unit and/or counseling patient: (2) Closed fibular fracture: Problem comment: Closed treatment of a closed, acute, nondisplaced, oblique fracture of the distal fibula. DOI: 10/12/24. Status: Acute Assessment and Plan: Non-operative management is recommended. I modified April's splint to remove the sharp edges and also shortened the posterior Orthoglass piece to below the knee joint. Left knee ROM unrestricted. April may do touchdown weightbearing with transfers and pivot turns with staff assist and use of her walker. April has diffuse left foot and left ankle swelling. I recommend she elevate her left lower extremity above the heart. For pain management, I recommend rest, ice, acetaminophen and oxycodone PRN. I'd like April to minimize use of narcotics as much as possible and refrain from drinking alcohol. Patient will follow-up at our Orthopedic in 1-2 weeks with myself, repeat 4-view left ankle images. All questions were answered. Phone Orthopedics with any questions or concerns. Total time spent: Total time spent is greater than 50% in coordination of care (as documented) at patient's floor/unit and/or counseling patient: 15 minutes. (3) Alcohol use disorder: Problem comment: Lacks insight. Not motivated to quit. Status: Chronic Total time spent: Total time spent is greater than 50% in coordination of care (as documented) at patient's floor/unit and/or counseling patient: (4) Marijuana dependence: Problem comment: Noted. Uncertain if vomiting is related to chronic cannabis use Status: Chronic Total time spent: Total time spent is greater than 50% in coordination of care (as documented) at patient's floor/unit and/or counseling patient:
[2024-10-14 12:41] LABS: Creatine Kinase* 4872 U/L (41-117)
[2024-10-14] MEDS: 5 % DEXTROSE IN LAC RINGER'S 1,000 ML 125 ML IV ×2 (13:08→21:09)
--- NOTE | 2024-10-14 13:55 | PC.NURSE ---
End of Shift Note: Started the shift off with wanting to get patient oob with 2 of us. Patient complained that she did not sleep last night. Gave her pain medication for a pain level of 9/10 and allowed her to sleep for 1 1/2 hours. Then went in with PT. We tried to get her to stand up using her arm and putting her weight on her good leg. This did not go well d/t pain and her upper body strength. She has not been eating much either. Offered her a ensure or protein shake and of course she wanted a strawberry ensure called down to the kitchen and they did not have this. Also asked her if she has had a bowel movement or if she is feeling constipated she is denying this. Explain with getting narcotics this is something that we need to watch for. Will continue to monitor until next shift arrives.
--- NOTE | 2024-10-14 15:53 | PC.SOCIAL ---
Discharge planning: SW met with patient to discuss going to TCU for rehab. Patient was unsure if she wanted to go, SW left list of facilities. Patient reports that she has a [facility] lead case manager, but did not want SW to call them at this time. SW asked if patient would like her to call her daughter and patient states no. SW met with patient in the afternoon and patient reports that she does not want to go to rehab and wants to go home. Patient reports that she wants to go home and not to rehab. SW inquired about how patient would get food/meals, get to the bathroom and get around. Patient states that she would have her friend bring meals and that her friend is right down the fall to help her. SW inquired about safety of moving and falling or not moving and getting sores or wounds. Patient states she isn't concerned about this and wants to go home with her cats. SW did ask if anyone would be able to watch her cats and she said yes she does. SW explained that it's likely SW will stop by again. SW informed provider of patient not wanting to go to rehab and instead return home. Provider states they will address in the morning when more labs are back.
[2024-10-14 17:45] LABS: Creatine Kinase* 5170 U/L (41-117)
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
[2024-10-15] VITALS (17 sets, daily range): BP systolic 110–138; BP diastolic 64–84; PULSE 77–98; RESP 15–20; TEMP 36–36.6; O2SAT 92–98; BMI 20.5
[2024-10-15] MEDS: 5 % DEXTROSE IN LAC RINGER'S 1,000 ML 125 ML IV ×3 (06:01→22:55)
[2024-10-15 07:19] LABS: Hematocrit 29.9 % (33.0-51.0); Hemoglobin* 9.7 gm/dL (12.0-16.0); Mean Corpuscular HGB Conc 32 gm/dL (32-36); Mean Corpuscular Hemoglobin 34 pg (26-34); Mean Corpuscular Volume 104 fL (80-100); Red Blood Count 2.88 m/uL (4.00-5.20); White Blood Count* 9.37 K/uL (4.50-11.00)
[2024-10-15 07:31] LABS: Albumin* 2.0 g/dL (3.3-5.0); Chloride* 105 mmol/L (96-114); Potassium* 4.0 mmol/L (3.6-5.1); Sodium* 131 mmol/L (135-149)
[2024-10-15 07:34] LABS: Anion Gap 1 mEq/L (7-15); Carbon Dioxide* 25 mmol/L (20-32); Creatinine* 0.4 mg/dL (0.5-1.5); Est. Creatinine Clearance* 130.77; Estimated Glomerular Filt Rate 114 ml/min; Slide Review Reflex No
[2024-10-15 07:35] LABS: Calcium* 8.0 mg/dL (8.4-10.6); Glucose* 98 mg/dL (60-115)
[2024-10-15 07:46] LABS: Blood Urea Nitrogen* < 2 mg/dL (7-30)
[2024-10-15] MEDS: CELECOXIB 200 MG CAPSULE PO (08:05)
[2024-10-15] MEDS: ACETAMINOPHEN 650 MG TABLET ER 1300 MG PO ×2 (08:05→15:53)
[2024-10-15] MEDS: POTASSIUM CHLORIDE 10 MEQ CAPSULE ER 20 MEQ PO (08:05)
[2024-10-15 08:10] LABS: Creatine Kinase* 4897 U/L (41-117)
--- NOTE | 2024-10-15 08:15 | PC.NURSE ---
Shift note ([id number]): CIWAs done per protocol. CIWAs ranged from 1-15 during the night.?Pt reported she was hearing knocking on the window and seeing people in room at times. At one time thought she was in her own home. Pt was given PRN Ativan x2. Last three CIWAs were 6, 2 and 1. Given Oxycodone for left leg pain rated 8/10. Declined ice packs for pain. Attempted x2 to pivot transfer to use commode to have a BM this morning per pt request. [facility] instead. Did not have a BM, but did urinate at that time. ?
[2024-10-15 08:28] LABS: Alanine Aminotransferase* 86 U/L (4-35); Alkaline Phosphatase* 300 U/L (40-150); Aspartate Amino Transferase* 273 U/L (12-35); Bilirubin Direct* 0.6 mg/dL (0.0-0.5); Bilirubin Total* 0.8 mg/dL (0.1-1.5); Total Protein* 5.2 g/dL (6.0-8.3)
[2024-10-15] MEDS: SODIUM CHLORIDE 0.9 % (FLUSH) 10 ML SYRINGE 5 ML IVF (09:22)
[2024-10-15] MEDS: FOLIC ACID 1 MG TABLET PO (09:22)
[2024-10-15] MEDS: DOXYCYCLINE HYCLATE 100 MG PO ×2 (09:22→21:34)
[2024-10-15] MEDS: THIAMINE 100 MG TABLET PO (09:22)
[2024-10-15] MEDS: METOPROLOL TARTRATE 50 MG TABLET PO ×2 (09:22→21:35)
[2024-10-15] MEDS: FAMOTIDINE 20 MG TABLET PO ×2 (09:22→21:35)
[2024-10-15] MEDS: SERTRALINE 100 MG TABLET PO (09:22)
[2024-10-15] MEDS: MAGNESIUM OXIDE 400 MG TABLET PO ×4 (09:22→19:52)
[2024-10-15] MEDS: MULTIVITAMIN/MINERALS 1 TABLET 1 TAB PO (09:22)
[2024-10-15] MEDS: ENOXAPARIN 30 MG/0.3ML INJ SUBCUT ×2 (09:23→21:36)
[2024-10-15] MEDS: MAGNESIUM IV 2 GM/50 ML PIGGYBACK IVPB (10:13)
--- NOTE | 2024-10-15 10:44 | P.IMPN_ITS ---
Assessment and Plan Assessment and plan (1) Closed fibular fracture: Problem comment: Closed treatment of an acute, nondisplaced, oblique fracture of the distal fibula. DOI: 10/12/24. -I appreciate ortho evaluating today. Plan at discharge should follow-up in clinic within about 7-8 days the dated injury for gravity stress view ankle mortise films -pt can heel touch for pivot transfers; no significant weightbearing. -limit oxy - scheduled tylenol and nsaid -looking for rehab Status: Acute (2) ABLA (acute blood loss anemia): Problem comment: hgb 12 -> 10 -> 9.7. from acute fracture of the fibula. monitor. Status: Acute (3) Rhabdomyolysis: Problem comment: Mild elevation due to prolonged time on floor last night after fall. Cr is 0.7, up from 0.5 previously. Treat with IVF overnight and recheck in am. CK up dramatically am of 10/14. 1478 --> 4254 (2.8x increase) --> peaked at 5170, down 10/15 to 4900. -Splint replaced; EKG/Troponin reassuring -suspect poor intake; poor mobility -continue IVF with D5LR and work on mobility with Pt/OT Status: Acute (4) Hypokalemia: Problem comment: -resolved Status: Acute (5) Hypomagnesemia: Problem comment: replace and monitor Status: Acute (6) Noncompliance with medication regimen: Problem comment: Suspected given low Mg despite having prescription oral supplement TID at home. During previous hospitalizations, patient noted she was not taking supplements b ecause they cause nausea. Status: Suspected (7) UTI (urinary tract infection): Problem comment: UC pending. +nitrate/LE and WBCs. Ceftriaxone 1 gram q24. --> Doxy. culture shows staph species. Status: Acute (8) Alcohol use disorder: Problem comment: Lacks insight. Not motivated to quit. Status: Chronic (9) Marijuana dependence: Problem comment: Noted. Uncertain if vomiting is related to chronic cannabis use Status: Chronic (10) Edentulous: Status: Chronic (11) Major depressive disorder: Status: Chronic (12) Generalized anxiety disorder: Status: Chronic (13) Hypertension: Problem comment: Status: Chronic (14) Peripheral neuropathy: Status: Chronic (15) Gastroesophageal reflux disease: Status: Chronic (16) Tobacco dependence: Problem comment: Patient declined tobacco supplementation Status: Chronic (17) Fall: Problem comment: - associated with the dizziness and alcohol use - since she also has EKG changes that are new from 2022, I will obtain an echocardiogram -10/13 echo: unremarkable. EF 62%. - consult PT, OT, and social work to help with discharge planning Status: Acute Subjective Date Seen: 10/15/24 Interval history: Daily Progress Note - Hospital Medicine #: 4 CC: Fall/Fibula Fracture, poor self-care/malnourished, severe hypokalemia 24 HOUR UPDATE: CK has peaked. back down this morning. Pt is on fluids. troponin and EKG were normal. splint was taken down and made more comfortable. no evidence of ongoing injury or hematoma. appears sleepy today when I visit with her (oxy?) No evidence of withdrawal. Notable Labs, Micro, Rads, Interventions: Afebrile. Her vital signs are stable. She is on room air. CBCs reviewed. Hemoglobin has dropped from 12-9.7 Her baseline appears to be, 11.7-12.1. There is no elevation in her white blood cell count. Her platelets are normal. MCV 104. INR normal. Persistent hyponatremia 131-132. Potassium has normalized. Magnesium has increased from 0.8 up to 1.1. Her creatinine has improved. Creatinine clearance is 100. CK 1520 -> 1478 -> 4254 -> 4872 ->5170 ->4897 Albumin is significantly depressed at 2.0, total protein 5.2 UA shows positive nitrite positive leukocyte esterase --> Staph lugdunensis. Switched from ceftriaxone to doxycycline. Urine drug screen, positive Oxy, positive marijuana Objective: much older than stated age Vitals: see above Lungs: Clear. Cardiac: S1S2. MSK: Left leg shows no evidence compartment syndrome, abrasions or hematoma. Appropriately swollen as expected over the dorsum and lateral malleolus. Splint replaced by Ortho. Disposition/Potential discharge - will need rehab for left fibular fracture. Today I spent 50minutes seeing the patient, reviewing Expanse and EPIC notes/diagnostics, discussing the care plan with our care time that includes social work, PT/OT, pharmacy, RT, assisted and documenting my impressions and plan in the medical record. Exam Const: Vital Signs, click to edit/add: Vital Signs - 24 hr 10/14/24 11:00 10/14/24 12:00 10/14/24 15:00 Temperature 98.5 F 98.5 F 97.3 F L Pulse Rate Pulse Rate [Right Pulse Oximeter] 78 78 99 Respiratory Rate 20 20 20 Blood Pressure [Le ft Arm] 117/70 117/70 118/74 Pulse Oximetry 99 99 99 Oxygen Delivery Me thod Room Air Room Air Room Air 10/14/24 15:00 10/14/24 15:00 10/14/24 15:00 Temperature Pulse Rate 82 Pulse Rate [Right Pulse Oximeter] 82 Respiratory Rate 20 20 Blood Pressure [Le ft Arm] Pulse Oximetry 99 [facility] 10/14/24 16:00 10/14/24 18:00 10/14/24 19:00 Temperature 97.3 F L 97.2 F L Pulse Rate Pulse Rate [Right Pulse Oximeter] 82 84 Respiratory Rate 20 18 Blood Pressure [Le ft Arm] 118/74 115/68 Pulse Oximetry 99 99 99 Oxygen Delivery Me od Room Air Room Air 10/14/24 20:00 10/14/24 23:41 10/14/24 23:41 Temperature 97.2 F L 98.1 F Pulse Rate Pulse Rate [Right Pulse Oximeter] 84 87 Respiratory Rate 18 20 20 Blood Pressure [Le ft Arm] 115/68 129/78 Pulse Oximetry 99 97 98 [facility] Room Air Room Air 10/14/24 23:44 10/15/24 01:00 10/15/24 01:58 Temperature Pulse Rate 89 Pulse Rate [Right Pulse Oximeter] 88 91 Respiratory Rate 20 17 Blood Pressure [Le ft Arm] 129/78 128/67 Pulse Oximetry 97 [facility] 10/15/24 02:00 10/15/24 02:03 10/15/24 02:57 Temperature 97.2 F L 97.2 F L 97.4 F L Pulse Rate Pulse Rate [Right Pulse Oximeter] 94 90 92 Respiratory Rate 17 17 20 Blood Pressure [Le ft Arm] 117/69 117/69 116/77 Pulse Oximetry 96 97 97 Oxygen Delivery Me od Room Air Room Air Room Air 10/15/24 03:53 10/15/24 05:18 10/15/24 06:14 Temperature 97.9 F 97.9 F 97.8 F Pulse Rate Pulse Rate [Right Pulse Oximeter] 87 95 89 Respiratory Rate 20 17 17 Blood Pressure [Le ft Arm] 125/79 131/79 126/84 Pulse Oximetry 95 95 95 Oxygen Delivery Me thod Room Air Room Air Room Air 10/15/24 08:06 10/15/24 08:27 10/15/24 09:45 Temperature 97.8 F Pulse Rate 89 Pulse Rate [Right Pulse Oximeter] 90 Respiratory Rate 16 16 Blood Pressure [Le ft Arm] 134/79 Pulse Oximetry 95 95 Oxygen Delivery Me thod Room Air Room Air Labs Labs: Laboratory Results - last 24 hr 10/14/24 10/14/24 10/14/24 07:15 10:26 11:25 WBC RBC Hgb Hct MCV MCH MCHC Plt Count VBG pH 7.383 VBG pCO2 39 L VBG pO2 35.8 VBG HCO3 23 Sodium Potassium Chloride Carbon Dioxide Anion Gap BUN Creatinine Estimated Creat Clear Estimated GFR Glucose Lactate 0.9 Calcium Phosphorus Magnesium 1.6 Total Bilirubin Direct Bilirubin AST ALT Alkaline Phosphatase Total Creatine Kinase 4872 H Troponin I < 0.01 Total Protein Albumin Lab Acknowledgement Test Added 10/14/24 10/15/24 10/15/24 16:00 07:02 07:53 WBC 9.37 RBC 2.88 L Hgb 9.7 L Hct 29.9 L MCV 104 H MCH 34 MCHC 32 Plt Count 233 VBG pH VBG pCO2 VBG pO2 VBG HCO3 Sodium 131 L Potassium 4.0 Chloride 105 Carbon Dioxide 25 Anion Gap 1 L BUN < 2 L Creatinine 0.4 L Estimated Creat Clear 130.77 Estimated GFR 114 Glucose 98 Lactate Calcium 8.0 L Phosphorus 2.1 L Magnesium 1.1 L Total Bilirubin 0.8 Direct Bilirubin 0.6 H AST 273 H ALT 86 H Alkaline Phosphatase 300 H Total Creatine Kinase 5170 H 4897 H Troponin I Total Protein 5.2 L Albumin 2.0 L Lab Acknowledgement Test Added
--- NOTE | 2024-10-15 15:38 | PC.NURSE ---
Shift note ([id number]): Pt AxO with intermittent confusion. Pt refused therapies in the morning. Tolerating RA. Pt reported L leg pain, conventional mortgage underwriter utilized repositioning, PRN, and scheduled medication. CIWAs done per protocol scoring 0 and 0. Attempted x2 to pivot transfer to use commode to have a BM this morning per pt request. Assist of 2-3 and was unable to pivot self. Tolerated poorly. Purewick in place throughout the day. Pt resting with call light in reach watching television.
--- NOTE | 2024-10-15 15:59 | PC.SOCIAL ---
Discharge planning: SW received voicemail from patient's covering worker Odalis inquiring about how they can support with discharge ([phone]). SW spoke with patient about rehab and patient states that she would go to [facility]. Patient had no other places at this time and was falling asleep during conversation. SW inquired about talking with rn field case manager who called and states SW can talk to her today and would like SW to tell her that her outpatient provider didn't follow through on the chair she was requesting. YESSENIA explained she would come back this afternoon. YESSENIA secure emailed referral to Addis at [facility]. Addis states they decline due to noncompliance and hx substance use. SW called patient's rn field case manager and updated about the chair as well as discharge plan. VERONIKA states that there is no open [facility] case at this time. YESSENIA met with patient in the afternoon and states that she would go to either facility in [place] or a facility in [place]. YESSENIA faxed referrals to [facility] and is awaiting response.
[2024-10-15] MEDS: NICOTINE 21 MG PATCH 1 PATCH TRANSDERMA ×2 (23:09)
--- NOTE | 2024-10-15 23:10 | PC.NURSE ---
[id number]: Pt. is AOx3. VSS. Intermittent verbalization of drones and guys outside my window. CIWA consistently <9 throughout shift. Low appetite; consumed 25 % supper. Tolerated nutritional supplement drink. Pt. up to chair w/ [employer] x2 assist and gaitbelt. Pt. is cooperative. Education on meds and mobility done and received.
[2024-10-16] VITALS (16 sets, daily range): BP systolic 112–142; BP diastolic 73–85; PULSE 88–108; RESP 20–24; TEMP 35.9–37.3; O2SAT 88–92
[2024-10-16] MEDS: ACETAMINOPHEN 650 MG TABLET ER 1300 MG PO ×3 (00:25→16:51)
[2024-10-16] MEDS: SODIUM CHLORIDE 0.9 % (FLUSH) 10 ML SYRINGE 5 ML IVF ×2 (03:29→09:02)
--- NOTE | 2024-10-16 03:36 | PC.NURSE ---
End of Shift (): Patient pleasant and cooperative. Alert and oriented. Afebrile. Turn and reposition in bed. Dressing to left leg C/D/I. CMS intact. CIWA 0.
[2024-10-16] MEDS: 5 % DEXTROSE IN LAC RINGER'S 1,000 ML 125 ML IV (06:09)
[2024-10-16 07:18] LABS: Hematocrit 35.3 % (33.0-51.0); Hemoglobin* 11.3 gm/dL (12.0-16.0); Immature Granulocytes Pct Auto 0.5 %; Mean Corpuscular HGB Conc 32 gm/dL (32-36); Mean Corpuscular Hemoglobin 34 pg (26-34); Mean Corpuscular Volume 105 fL (80-100); RDW Coefficient of Variation % 13.0 % (11.5-15.5); Red Blood Count 3.37 m/uL (4.00-5.20); White Blood Count* 18.31 K/uL (4.50-11.00)
[2024-10-16 07:21] LABS: Immature Granulocytes Abs Auto 0.10 K/uL (0.00-0.30); Lymphocytes Absolute Auto 1.50 K/uL (0.90-2.90); Slide Review Reflex No
[2024-10-16 07:30] LABS: Albumin* 2.3 g/dL (3.3-5.0); Chloride* 103 mmol/L (96-114); Potassium* 4.0 mmol/L (3.6-5.1); Sodium* 133 mmol/L (135-149)
[2024-10-16 07:32] LABS: Creatinine* 0.4 mg/dL (0.5-1.5); Est. Creatinine Clearance* 130.77; Estimated Glomerular Filt Rate 114 ml/min
[2024-10-16 07:33] LABS: Alanine Aminotransferase* 106 U/L (4-35); Alkaline Phosphatase* 318 U/L (40-150); Anion Gap 2 mEq/L (7-15); Aspartate Amino Transferase* 182 U/L (12-35); Bilirubin Direct* 0.7 mg/dL (0.0-0.5); Bilirubin Total* 0.8 mg/dL (0.1-1.5); Blood Urea Nitrogen* < 2 mg/dL (7-30); Calcium* 8.8 mg/dL (8.4-10.6); Carbon Dioxide* 28 mmol/L (20-32); Glucose* 129 mg/dL (60-115); Total Protein* 5.8 g/dL (6.0-8.3)
[2024-10-16] MEDS: FAMOTIDINE 20 MG TABLET PO ×2 (08:51→20:52)
[2024-10-16] MEDS: FOLIC ACID 1 MG TABLET PO (08:51)
[2024-10-16] MEDS: DOXYCYCLINE HYCLATE 100 MG PO ×2 (08:52→20:55)
[2024-10-16] MEDS: MULTIVITAMIN/MINERALS 1 TABLET 1 TAB PO (08:52)
[2024-10-16] MEDS: MAGNESIUM OXIDE 400 MG TABLET PO ×3 (08:53→20:54)
[2024-10-16] MEDS: CELECOXIB 200 MG CAPSULE PO (08:53)
[2024-10-16] MEDS: METOPROLOL TARTRATE 50 MG TABLET PO ×2 (08:53→20:54)
[2024-10-16] MEDS: ENOXAPARIN 30 MG/0.3ML INJ SUBCUT ×2 (08:54→20:56)
[2024-10-16] MEDS: POTASSIUM CHLORIDE 10 MEQ CAPSULE ER 20 MEQ PO (09:19)
[2024-10-16] MEDS: SERTRALINE 100 MG TABLET PO (09:20)
[2024-10-16] MEDS: THIAMINE 100 MG TABLET PO (09:20)
--- NOTE | 2024-10-16 12:32 | CRLHL7_ITS ---
For Patients: As a result of the Century Cures Act, medical imaging exams and procedure reports are released immediately into your electronic medical record. You may view this report before your referring provider. If you have questions, please contact your health care provider. Indication: Possible pneumonia Comparison: Single-view chest January 02, 2022 Technique: Single AP view chest Findings: There is hyperinflation. There are diffuse interstitial and airspace opacities throughout the bilateral hemithoraces likely representing multifocal infiltrates and/or pulmonary edema. No pneumothorax. The cardiac silhouette is partially obscured. The bony thorax is grossly intact. Impression: Diffusely increased interstitial and airspace opacities throughout the bilateral hemithoraces representing multifocal infiltrates and/or pulmonary edema. Dictated by Rodrigo Wray MD @ 10/16/2024 1:08:29 PM (Electronically Signed)
--- NOTE | 2024-10-16 13:19 | PM.IMPN1 ---
Assessment and Plan Assessment and plan (1) Closed fibular fracture: Problem comment: Nonsurgical treatment of an acute, closed, nondisplaced, oblique fracture of the distal fibula. DOI: 10/12/24. Ortho has evaluated, recommending follow-up in clinic within about 7-8 days the dated injury for gravity stress view ankle mortise films Okay to heel touch for pivot transfers; no significant weightbearing. Limit oxy - scheduled tylenol and nsaid procurement services manager assisting with SNF placement Status: Acute (2) Rhabdomyolysis: Problem comment: Mild elevation due to prolonged time on floor last night after fall. Cr is 0.7, up from 0.5 previously. Treat with IVF overnight and recheck in am. CK up dramatically am of 10/14. 1478 --> 4254 (2.8x increase) --> peaked at 5170, down 10/15 to 4900. -Splint replaced; EKG/Troponin reassuring -suspect poor intake; poor mobility -continue IVF with D5LR and work on mobility with PT/OT Status: Acute (3) Fall: Problem comment: - associated with the dizziness and alcohol use - new EKG changes since 2022 - 10/13 echo: unremarkable. EF 62%. -PT/OT consults. procurement services manager assisting with SNF placement Status: Acute (4) ABLA (acute blood loss anemia): Problem comment: hgb 12 -> 10 -> 9.7. from acute fracture of the fibula Stabilized at 11.3. Consider discontinuing NSAIDs if trends down Status: Acute (5) Hypokalemia: Problem comment: -resolved Status: Resolved (6) Hypomagnesemia: Problem comment: Continue to replace and monitor Status: Acute (7) Noncompliance with medication regimen: Problem comment: Suspected given low Mg despite having prescription oral supplement TID at home. During previous hospitalizations, patient noted she was not taking supplements because they cause nausea. Status: Suspected (8) UTI (urinary tract infection): Problem comment: UC growing Staph lugdunensis, sensitive to doxycycline Continue doxycycline Status: Acute (9) Alcohol use disorder: Problem comment: Lacks insight. Not motivated to quit. Status: Chronic (10) Marijuana dependence: Problem comment: Noted. Uncertain if vomiting is related to chronic cannabis use Status: Chronic (11) Major depressive disorder: Problem comment: Continue sertraline Status: Chronic (12) Generalized anxiety disorder: Problem comment: Continue sertraline Status: Chronic (13) Hypertension: Problem comment: Continue metoprolol Status: Chronic (14) Hypophosphatemia: Problem comment: Phosphorus 2.1, replace with 3 doses oral supplement Status: Acute (15) Pneumonia: Problem comment: Leukocytosis noted 10/16. Lactate 2.9. BC x2 pending CXR shows diffuse interstitial and airspace opacities throughout bilateral hemithoraces - multifocal infiltrates and/or pulmonary edema Add ceftriaxone, already on doxycycline for UTI, continue incentive spirometry Bolus IVF, repeat lactate, monitor for fluid overload Status: Acute (16) Transaminitis: Problem comment: Acute on chronic, chronic alcohol use Trending down Status: Acute Total Time Spent Total Time Spent: Today I spent 75 minutes seeing the patient, reviewing Expanse and EPIC notes/diagnostics, discussing the care plan with our care time that includes social work, PT/OT, pharmacy, RT, correction and documenting my impressions and plan in the medical record. Subjective Date Seen: 10/16/24 Interval history: Patient is seen lying flat in bed this morning. Interactive though speech, at baseline, is poor. Mumbles. Is able to answer questions appropriately. Denies headache or dizziness. Denies chest pain or shortness of breath. When asked if she has a new or worsening cough, she denies this. No abdominal pain. Denies UTI symptoms. New leukocytosis, WBC 18.31, previously 9.37, with left shift. Afebrile. Will add BC x2, lactate, CXR. Sodium 133, up from 131 Phosphorus 2.1, will replace with oral supplement Magnesium 1.1, despite 2 g IV dose and oral supplement. Will give additional IV dose Transaminitis, acute on chronic CK trending down Exam Narrative: Exam Narrative: PHYSICAL EXAM General: Appears older than stated age, otherwise NAD HEENT: Normocephalic, atraumatic, sclera white, EOMI Cardiovascular: RRR currently. No pitting edema Pulmonary: CTA bilaterally without rhonchi, rales, expiratory wheezes. No dyspnea on room air Abdominal: Soft, nondistended, NTTP Neurological: Alert, answering questions appropriately, speech at baseline is mumbled, cranial nerves intact, no focal findings Extremities: Splint in place LLE, dry. Digits warm. Neurovascularly intact Skin: Warm, dry. Const: Vital Signs, click to edit/add: Vital Signs - 24 hr 10/15/24 15:00 10/15/24 15:00 10/15/24 15:00 Temperature 97 F L Pulse Rate Pulse Rate [Right Pulse Oximeter] 83 83 Respiratory Rate 15 15 15 Blood Pressure [Le ft Arm] 110/68 Blood Pressure [Ri ght Arm] Pulse Oximetry 97 97 Oxygen Delivery Me thod Room Air Room Air Oxygen Flow Rate 10/15/24 15:00 10/15/24 18:00 10/15/24 18:00 Temperature 96.8 F L Pulse Rate 77 Pulse Rate [Right Pulse Oximeter] 85 Respiratory Rate 18 Blood Pressure [Le ft Arm] 138/78 Blood Pressure [Ri ght Arm] Pulse Oximetry 96 96 Oxygen Delivery Me thod Room Air Oxygen Flow Rate 10/15/24 19:00 10/15/24 22:00 10/15/24 23:00 Temperature 96.8 F L 96.8 F L 97.9 F Pulse Rate Pulse Rate [Right Pulse Oximeter] 85 85 97 Respiratory Rate 18 18 20 Blood Pressure [Le ft Arm] 138/78 138/78 Blood Pressure [Ri ght Arm] 137/75 Pulse Oximetry 96 96 92 Oxygen Delivery Me thod Room Air Room Air Room Air Oxygen Flow Rate 10/15/24 23:00 10/15/24 23:00 10/15/24 23:00 Temperature 97.9 F Pulse Rate Pulse Rate [Right Pulse Oximeter] 97 97 Respiratory Rate 20 20 Blood Pressure [Le ft Arm] Blood Pressure [Ri ght Arm] 137/75 Pulse Oximetry 92 92 Oxygen Delivery Me thod Room Air Room Air Oxygen Flow Rate 10/15/24 23:00 10/16/24 03:00 10/16/24 05:00 Temperature 96.6 F L 96.6 F L Pulse Rate 97 Pulse Rate [Right Pulse Oximeter] 98 98 Respiratory Rate 22 22 Blood Pressure [Le ft Arm] 132/83 132/83 Blood Pressure [Ri ght Arm] 137/75 Pulse Oximetry 89 89 Oxygen Delivery Me thod Room Air Room Air Oxygen Flow Rate 10/16/24 06:10 10/16/24 06:25 10/16/24 07:00 Temperature 99.1 F 99.1 F Pulse Rate Pulse Rate [Right Pulse Oximeter] 102 H 102 H Respiratory Rate 20 20 Blood Pressure [Le ft Arm] 137/84 137/84 Blood Pressure [Ri ght Arm] Pulse Oximetry 89 89 92 Oxygen Delivery Me thod Room Air Room Air Nasal Cannula Oxygen Flow Rate 2 10/16/24 07:10 10/16/24 07:45 10/16/24 10:00 Temperature 97.2 F L 97.3 F L Pulse Rate 107 H Pulse Rate [Right Pulse Oximeter] 108 H 93 Respiratory Rate 20 21 Blood Pressure [Le ft Arm] Blood Pressure [Ri ght Arm] 142/82 H 130/85 Pulse Oximetry 92 92 Oxygen Delivery Me thod Nasal Cannula Nasal Cannula Oxygen Flow Rate 2 1 10/16/24 11:00 10/16/24 11:00 Temperature 97.4 F L 97.4 F L Pulse Rate Pulse Rate [Right Pulse Oximeter] 92 92 Respiratory Rate 20 20 Blood Pressure [Le ft Arm] Blood Pressure [Ri ght Arm] 112/73 112/73 Pulse Oximetry 91 91 Oxygen Delivery Me thod Nasal Cannula Nasal Cannula Oxygen Flow Rate 1.5 Labs Labs: Laboratory Results - last 24 hr 10/16/24 06:45 WBC 18.31 H RBC 3.37 L Hgb 11.3 L Hct 35.3 MCV 105 H MCH 34 MCHC 32 RDW Coeff of Silvia 13.0 Plt Count 276 Neut % (Auto) 85.5 H Lymph % (Auto) 8.3 L [place] % (Auto) 5.2 Eos % (Auto) 0.4 Baso % (Auto) 0.1 Neut # (Auto) 15.70 H Lymph # (Auto) 1.50 [place] # (Auto) 1.00 H Eos # (Auto) 0.10 Baso # (Auto) 0.00 Abs Immat Gran (auto) 0.10 Imm/Tot Granulo (auto) 0.5 Sodium 133 L Potassium 4.0 Chloride 103 Carbon Dioxide 28 Anion Gap 2 L BUN < 2 L Creatinine 0.4 L Estimated Creat Clear 130.77 Estimated GFR 114 Glucose 129 H Calcium 8.8 Total Bilirubin 0.8 Direct Bilirubin 0.7 H AST 182 H ALT 106 H Alkaline Phosphatase 318 H Total Protein 5.8 L Albumin 2.3 L
[2024-10-16 13:20] LABS: Lactate* 2.9 mmol/L (0.5-1.9)
[2024-10-16] MEDS: cefTRIAXone 1 GM in 0.9 % SODIUM CHLORIDE Mini-bag 100 ML IVPB (13:34)
[2024-10-16] MEDS: MAGNESIUM IV 2 GM/50 ML PIGGYBACK IVPB (14:47)
--- NOTE | 2024-10-16 15:50 | PC.SOCIAL ---
Discharge planning: YESSENIA spoke with the admissions person at [facility] who state they do have an opening , but need to review patient. YESSENIA sent referral to [facility] in [place] - fax [phone] and is awaiting response. YESSENIA emailed Sarah at [facility] and requested an update. YESSENIA received response in the afternoon that they can't take her due to ETOH, cigarette, and THC use. [facility] and have not heard back. YESSENIA completed PAS, as YESSENIA was unsure if patient would trigger a level 2 assessment. Patient did not trigger a level 2. PAS number is [id number].
[2024-10-16 16:05] LABS: Lactate* 2.3 mmol/L (0.5-1.9)
--- NOTE | 2024-10-16 19:33 | PC.NURSE ---
Pt is oriented. On 1-2L of oxygen via NC, O2 sats 90%- 92%. other VSS. Tele. Pt has been an assist of 2 with bed hernandez. Pt only had nutritional supplements for meals.
[2024-10-17] VITALS (14 sets, daily range): BP systolic 107–141; BP diastolic 64–98; PULSE 79–99; RESP 22–46; TEMP 36.1–36.5; O2SAT 87–94
[2024-10-17] MEDS: ACETAMINOPHEN 650 MG TABLET ER 1300 MG PO (01:59)
--- NOTE | 2024-10-17 05:01 | P.CCN_ITS ---
Subjective Subjective Interval history: received a call from nursing that patient requiring additional oxygen. D esatting while awake. patient appears to hyperventilate or breathe more rapidly while awake. When resting the rapid breathing stops. While at rest sating 88% on 3LNC. Nursing also noticed crackles earlier in the evening. repeat CXR showed signs of pulmonary edema vs diffuse pneumonia. Given imaging. per my review of CXR, I decided to give lasix. will also order BNP and lytes if not already ordered
[2024-10-17] MEDS: FUROSEMIDE 10 MG/ML inj 20 MG IVP ×2 (05:23→08:13)
[2024-10-17] MEDS: SODIUM CHLORIDE 0.9 % (FLUSH) 10 ML SYRINGE 5 ML IVF ×3 (05:24→11:26)
[2024-10-17 06:40] LABS: Hematocrit 35.4 % (33.0-51.0); Hemoglobin* 11.5 gm/dL (12.0-16.0); Mean Corpuscular HGB Conc 33 gm/dL (32-36); Mean Corpuscular Hemoglobin 33 pg (26-34); Mean Corpuscular Volume 102 fL (80-100); Red Blood Count 3.46 m/uL (4.00-5.20); White Blood Count* 23.98 K/uL (4.50-11.00)
[2024-10-17 06:45] LABS: Slide Review Reflex No
[2024-10-17 06:57] LABS: Chloride* 105 mmol/L (96-114); Potassium* 3.9 mmol/L (3.6-5.1); Sodium* 136 mmol/L (135-149)
[2024-10-17 06:59] LABS: Blood Urea Nitrogen* 2 mg/dL (7-30); Creatinine* 0.5 mg/dL (0.5-1.5); Est. Creatinine Clearance* 104.61; Estimated Glomerular Filt Rate 108 ml/min
[2024-10-17 07:00] LABS: Anion Gap 5 mEq/L (7-15); Calcium* 8.6 mg/dL (8.4-10.6); Carbon Dioxide* 26 mmol/L (20-32); Glucose* 77 mg/dL (60-115)
[2024-10-17 08:03] LABS: NT Pro B Type NatriureticPept* 11600 pg/mL (See Note)
--- NOTE | 2024-10-17 08:07 | PC.NURSE ---
Shift note ([id number]): Patient pleasant and alert. Oriented to name, , place and situation.?Hallucinating at times, seeing people in room. CIWAs 4-6 this shift. Given PRN Ativan for anxiety and Oxycodone for pain rated 9/10. Needed 3-4 LPM O2 to keep sats above 88%.?O2 sats would increase when Pt reminded to take slow deep breaths. Yung ROGER called and updated. New orders for IV Lasix given at that time. ?
[2024-10-17] MEDS: ONDANSETRON 2 MG/ML inj 4 MG IVP (08:28)
[2024-10-17] MEDS: PHENobarbitaL 130 MG in 0.9 % SODIUM CHLORIDE 100 ml 100 ML 204 MG IVPB (08:53)
[2024-10-17] MEDS: THIAMINE 250 MG in 0.9 % SODIUM CHLORIDE 100 ml 100 ML 102.5 MG IVPB ×2 (09:31→14:33)
--- NOTE | 2024-10-17 09:36 | CT_ITS ---
Patient: ALYX CORDOBA Facility:?[facility] Patient ID:?[id number] Site Patient ID:?[id number]. Site :?[id number] Study:?CT-Chest/Abd/Pelvis WITH 79 CC'S ISOVUE 370-10/17/2024 11:11:16 AM Ordering Physician:Angela Shaw Final Report: INDICATION: Confusion, leukocytosis, evaluate for infectious source, distended abdomen TECHNIQUE: CT chest, abdomen and pelvis acquired 79 cc Omnipaque 350 IV contrast. COMPARISON: CT abdomen and pelvis 12/31/2022. FINDINGS: CHEST: Cardiovascular structures: Heart size is normal. Thoracic aorta and main pulmonary artery are normal in caliber. Mediastinum and [place]ent[place]: Multiple prominent to mildly enlarged mediastinal lymph nodes, likely reactive. Lungs and pleura: There is extensive multifocal ground-glass opacification bilaterally. Upper lung predominant emphysema. Small bilateral pleural effusions with adjacent atelectasis, [id number]. No pneumothorax. Chest wall and axilla: No mass or adenopathy. Coarse calcifications within the breasts bilaterally, right greater than left. Bones: No acute or suspicious bone lesions. Unremarkable for age. ABDOMEN AND PELVIS: Liver: Generalized hypoattenuation of the liver may reflect hepatic steatosis. Multiple hypoattenuating lesions throughout the liver as before, several which are too small to characterize. Gallbladder and bile ducts: Unremarkable. Pancreas: Unremarkable. Spleen: Unremarkable. Adrenal glands: Unremarkable. Kidneys: No hydronephrosis or calculi. Right upper pole cortical hypodensity too small to characterize though likely compatible with cyst. GI tract: No evidence bowel obstruction or inflammation. Colonic diverticulosis without acute diverticulitis. Large stool ball within the rectum. Vascular structures: Unremarkable. Lymph nodes: Unremarkable. Peritoneum/Retroperitoneum/Abdominal Wall: Small volume simple density fluid within the pelvis, nonspecific. No free air. Pelvic Organs: Unremarkable. Bones and superficial soft tissues: No acute or suspicious abnormality. Unchanged buckling of the anterior cortex of the S3 vertebral body. Partially imaged right total hip arthroplasty. Degenerative changes of the bilateral sacroiliac joints. Asymmetric fatty atrophy of the right gluteal musculature. IMPRESSION: 1. Extensive bilateral ground-glass opacities highly suspicious for pneumonia given clinical history. 2. Small bilateral pleural effusions. Please note that all CT scans at this facility use dose modulation, iterative reconstruction, and/or weight-based dosing when appropriate to reduce radiation dose to as low as reasonably achievable. Dictated by Hamida Yadav MD @ 10/17/2024 11:33:59 AM (Electronic Signature)
--- NOTE | 2024-10-17 09:36 | CT_ITS ---
Patient: ALYX CORDOBA Facility:?[facility] Patient ID:?[id number] Site Patient ID:?[id number] Site :?[id number] Study:?CT-Head WITHOUT-10/17/2024 11:10:23 AM Ordering Physician:Angela Shaw Final Report: INDICATION: Increased confusion, leukocytosis, evaluate for infectious source TECHNIQUE: Head CT without contrast. COMPARISON: CT head without contrast 10/12/2024. FINDINGS: CSF spaces: Within normal limits for age. Brain parenchyma and extra-axial spaces: Unchanged generalized volume loss, greater than expected for patient age. Rodriguez-white differentiation is maintained. No sign of mass, hemorrhage, or midline shift. Skull base and calvarium: The visualized paranasal sinuses are clear. Trace left mastoid tip effusion. The right mastoid air cells are clear. The visualized orbits are grossly unremarkable. No skull fractures. IMPRESSION: No acute intracranial abnormality. Please note that all CT scans at this facility use dose modulation, iterative reconstruction, and/or weight-based dosing when appropriate to reduce radiation dose to as low as reasonably achievable. Dictated by Hamida Yadav MD @ 10/17/2024 11:21:18 AM (Electronic Signature)
[2024-10-17 09:58] LABS: Lactate* 2.0 mmol/L (0.5-1.9)
[2024-10-17 10:13] LABS: Albumin* 2.3 g/dL (3.3-5.0)
[2024-10-17 10:16] LABS: Total Protein* 5.8 g/dL (6.0-8.3)
[2024-10-17 10:17] LABS: Alkaline Phosphatase* 330 U/L (40-150); Bilirubin Direct* 1.6 mg/dL (0.0-0.5); Bilirubin Total* 1.7 mg/dL (0.1-1.5)
[2024-10-17 10:46] LABS: Alanine Aminotransferase* 894 U/L (4-35); Aspartate Amino Transferase* 4540 U/L (12-35)
[2024-10-17] MEDS: DOXYCYCLINE HYCLATE 100 MG in 0.9 % SODIUM CHLORIDE Mini-bag 100 ML IVPB (11:23)
[2024-10-17 11:25] LABS: Ammonia* 17.4 umol/L (13.1-30.0)
[2024-10-17] MEDS: METOPROLOL TARTRATE 1 MG/ML inj 5 MG IVP ×2 (11:26→15:43)
[2024-10-17] MEDS: ENOXAPARIN 30 MG/0.3ML INJ SUBCUT (11:27)
--- NOTE | 2024-10-17 12:13 | PM.IMPN1 ---
Assessment and Plan Assessment and plan Plan Acuity is characterized as high and reflected in: Encephalopathy, hospital-acquired pneumonia with hypoxia, malnourished, failure to thrive This patient will require hospital services as outlined in the assessment and plan in order to stabilize and be safely discharged to a lower level of care. Because of the risk and acuity as described above, this patient cannot be managed at a lower level of care. Total Time Spent Total Time Spent: Today I spent 90 critical care minutes seeing the patient, reviewing Expanse and EPIC notes/diagnostics, discussing the care plan with our care time that includes social work, PT/OT, pharmacy, RT, long-term and documenting my impressions and plan in the medical record. Exam Const: Vital Signs, click to edit/add: Vital Signs - 24 hr 10/16/24 15:00 10/16/24 15:00 10/16/24 15:05 Temperature 97.1 F L 97.1 F L Pulse Rate Pulse Rate [Pulse Oximeter] 95 Pulse Rate [Right Pulse Oximeter] 88 Respiratory Rate 20 20 20 Blood Pressure [Le ft Arm] Blood Pressure [Ri ght Arm] 129/75 129/75 Pulse Oximetry 90 90 90 Oxygen Delivery Me thod Nasal Cannula Nasal Cannula Nasal Cannula Oxygen Flow Rate 1.5 1.5 1.5 10/16/24 15:21 10/16/24 18:00 10/16/24 19:48 Temperature 97.4 F L Pulse Rate 95 Pulse Rate [Pulse Oximeter] 94 Pulse Rate [Right Pulse Oximeter] Respiratory Rate Blood Pressure [Le ft Arm] 126/78 Blood Pressure [Ri ght Arm] Pulse Oximetry 91 89 Oxygen Delivery Me thod Room Air Oxygen Flow Rate 10/16/24 22:09 10/16/24 22:09 10/16/24 22:22 Temperature 97.1 F L Pulse Rate 91 Pulse Rate [Pulse Oximeter] 92 Pulse Rate [Right Pulse Oximeter] Respiratory Rate 24 24 Blood Pressure [Le ft Arm] 135/77 Blood Pressure [Ri ght Arm] Pulse Oximetry 88 88 Oxygen Delivery Me thod Nasal Cannula Nasal Cannula Oxygen Flow Rate 2 2 10/17/24 02:01 10/17/24 07:00 10/17/24 07:00 Temperature 96.9 F L 97.6 F Pulse Rate Pulse Rate [Pulse Oximeter] 96 99 Pulse Rate [Right Pulse Oximeter] Respiratory Rate 22 46 H 46 H Blood Pressure [Le ft Arm] 130/82 Blood Pressure [Ri ght Arm] 141/98 H Pulse Oximetry 88 91 91 Oxygen Delivery Me thod Nasal Cannula Nasal Cannula Nasal Cannula Oxygen Flow Rate 4 4 4 10/17/24 07:40 10/17/24 07:56 Temperature Pulse Rate Pulse Rate [Pulse Oximeter] 99 99 Pulse Rate [Right Pulse Oximeter] Respiratory Rate 46 H 46 H Blood Pressure [Le ft Arm] Blood Pressure [Ri ght Arm] 141/98 H Pulse Oximetry 91 Oxygen Delivery Me thod Nasal Cannula Oxygen Flow Rate 4 Labs Labs: Laboratory Results - last 24 hr 10/16/24 10/16/24 10/17/24 13:00 16:01 06:08 WBC 23.98 H RBC 3.46 L Hgb 11.5 L Hct 35.4 MCV 102 H MCH 33 MCHC 33 Plt Count 288 Sodium 136 Potassium 3.9 Chloride 105 Carbon Dioxide 26 Anion Gap 5 L BUN 2 L Creatinine 0.5 Estimated Creat Clear 104.61 Estimated GFR 108 Glucose 77 Lactate 2.9 H 2.3 H Calcium 8.6 Magnesium 1.5 Total Bilirubin Direct Bilirubin AST ALT Alkaline Phosphatase Ammonia NT-Pro-B Natriuret Pep 26239 H Total Protein Albumin Lab Acknowledgement 10/17/24 10/17/24 09:36 09:51 WBC RBC Hgb Hct MCV MCH MCHC Plt Count Sodium Potassium Chloride Carbon Dioxide Anion Gap BUN Creatinine Estimated Creat Clear Estimated GFR Glucose Lactate 2.0 H Calcium Magnesium Total Bilirubin 1.7 H Direct Bilirubin 1.6 H AST 4540 H ALT 894 H Alkaline Phosphatase 330 H Ammonia 17.4 NT-Pro-B Natriuret Pep Total Protein 5.8 L Albumin 2.3 L Lab Acknowledgement Test Added
[2024-10-17] MEDS: METHYLPREDNISOLONE SOD SUCC 62.5 MG/ML (125) 125 MG IVP (12:15)
[2024-10-17 12:19] LABS: HCO3 VBG 26 mmol/L (21-28); PCO2 VBG 45 mmHG (40-50); PO2 VBG 32.9 mmHG (25-47); pH VBG 7.374 (7.32-7.43)
[2024-10-17] MEDS: AMPICILLIN/SULBACTAM 3 GM in 0.9 % SODIUM CHLORIDE Mini-bag 100 ML IVPB (12:31)
--- NOTE | 2024-10-17 13:03 | P.IMPN_ITS ---
Assessment and Plan Assessment and plan (1) Closed fibular fracture: Problem comment: Nonsurgical treatment of an acute, closed, nondisplaced, oblique fracture of the distal fibula. DOI: 10/12/24. Ortho has evaluated, recommending follow-up in clinic within about 7-8 days the dated injury for gravity stress view ankle mortise films Okay to heel touch for pivot transfers; no significant weightbearing. Limit oxy - scheduled tylenol and nsaid client services specialist assisting with SNF placement - this may be difficult given active alcohol use and smoker Status: Acute (2) Rhabdomyolysis: Problem comment: Mild elevation due to prolonged time on floor last night after fall. Cr is 0.7, up from 0.5 previously. Treat with IVF overnight and recheck in am. CK up dramatically am of 10/14. 1478 --> 4254 (2.8x increase) --> peaked at 5170, down 10/15 to 4900. -Splint replaced; EKG/Troponin reassuring -suspect poor intake; poor mobility Improving, CK down trending, decrease fluids given fluid overload Status: Acute (3) Fall: Problem comment: - associated with the dizziness and alcohol use - new EKG changes since 2022 - 10/13 echo: unremarkable. EF 62%. -PT/OT consults. client services specialist assisting with SNF placement Status: Acute (4) ABLA (acute blood loss anemia): Problem comment: hgb 12 -> 10 -> 9.7. from acute fracture of the fibula Stabilized at 11.5. Consider discontinuing NSAIDs if trends down Status: Acute (5) Hypokalemia: Problem comment: -resolved Status: Resolved (6) Hypomagnesemia: Problem comment: Improved 1.5, continue oral supplement (hold with encephalopathy) Status: Acute (7) Noncompliance with medication regimen: Problem comment: Suspected given low Mg despite having prescription oral supplement TID at home. During previous hospitalizations, patient noted she was not taking supplements because they cause nausea. Status: Suspected (8) UTI (urinary tract infection): Problem comment: UC growing Staph lugdunensis, pansensitive Continue doxycycline - discontinued as starting Unasyn for hospital-acquired pneumonia Status: Acute (9) Alcohol use disorder: Problem comment: Lacks insight. Not motivated to quit. May interfere with placement per social science manager Status: Chronic (10) Marijuana dependence: Problem comment: Noted. Uncertain if vomiting is related to chronic cannabis use Status: Chronic (11) Major depressive disorder: Problem comment: Continue sertraline Status: Chronic (12) Generalized anxiety disorder: Problem comment: Continue sertraline Status: Chronic (13) Hypertension: Problem comment: Continue metoprolol - holding oral given encephalopathy, scheduled IV metoprolol 5 mg q.6 hours. Adjust dose as necessary Status: Chronic (14) Hypophosphatemia: Problem comment: Phosphorus 2.1, replaced with 3 doses oral supplement Status: Acute (15) Pneumonia: Problem comment: 10/17 CT confirmed extensive bilateral ground-glass opacities, leukocytosis, BC x2 NGTD Hospital-acquired. Stop doxycycline and ceftriaxone Unasyn 3 g q.6 hours Prednisone given history of smoker, emphysema noted on CT Status: Acute (16) Hypoxia: Problem comment: In setting of hospital-acquired pneumonia, acute fluid overload (BNP 78340) Echocardiogram 10/12/2024 EF 62%, normal wall thickness normal global systolic function no aortic stenosis or regurgitation VBG unremarkable RT consult - high-flow. Patient unable to manage incentive spirometry, aerobika currently Pneumonia management as above, diuresis for fluid overload Status: Acute (17) Transaminitis: Problem comment: Acute on chronic, chronic alcohol use 10/17 acutely elevated total bili 1.7, direct bili 1.6, AST 4540, ALT 894, alk- phos 330 - continue monitor CT suspected hepatic steatosis, gallbladder and bile ducts, pancreas unremarkable Ultrasound ordered - unable to cooperate at this time, proceed when able Hepatic panel ordered Diuresis, albumin 25% x1 ordered DC Tylenol for now Status: Acute (18) Wernickes encephalopathy: Problem comment: Hospital day 6, change to critical care CT head 10/17 without intracranial abnormalities. Ammonia 17.4 DC oral thiamine, start IV Status: Acute Total Time Spent Total Time Spent: Today I spent 100 minutes critical care time seeing the patient, reviewing Expanse and EPIC notes/diagnostics, discussing the care plan with our care time that includes social work, PT/OT, pharmacy, RT, half-way and documenting my impressions and plan in the medical record. Subjective Date Seen: 10/17/24 Interval history: Patient is acutely confused this morning, which is a change from yesterday. Much more restless. Is not agitated. Is pleasant and cooperative otherwise. Has moments of lucidity and able to answer questions appropriately otherwise quite confused. Attempting to get out of bed. Denies headache. Still has some left lower extremity pain. Has become hypoxic suspected in fluid overload following fluid resuscitation for pneumonia and elevated lactate. Hypoxic - requiring 4 L. RT consulted. Now on high-flow to maintain saturations 88-90%. CT today confirms extensive bilateral ground-glass opacities suspicious for pneumonia. Small bilateral pleural effusions. Elevated BNP. VBG is unremarkable. Fluid overload. Diuresis started. Albumin dose ordered Leukocytosis - continues to trend up, stop doxycycline and ceftriaxone, start Unasyn for hospital-acquired pneumonia Transaminitis - worsening, suspected in setting of fluid overload. CT abdomen pelvis - hepatic steatosis, pancreas and gallbladder, bile ducts unremarkable. Ultrasound abdomen ordered - unable to cooperate at this time, proceed when able. Diuresis. Albumin. Wernicke encephalopathy suspected. Hospital day 6 Exam Narrative: Exam Narrative: PHYSICAL EXAM General: Confused, restless, agitated Cardiovascular: RRR, S1S2. No pitting edema Pulmonary: Slightly diminished, not terribly course or wet, high-flow Abdominal: Soft, minimal distention, NTTP Neurological: Alert, confused, restless, agitated cranial nerves intact, no focal findings Extremities: No gross joint deformity or swelling. AROMI. Neurovascularly intact Skin: Warm, dry. Const: Vital Signs, click to edit/add: Vital Signs - 24 hr 10/16/24 15:00 10/16/24 15:00 10/16/24 15:05 Temperature 97.1 F L 97.1 F L Pulse Rate Pulse Rate [Pulse Oximeter] 95 Pulse Rate [Right Pulse Oximeter] 88 Respiratory Rate 20 20 20 Blood Pressure [Le ft Arm] Blood Pressure [Ri ght Arm] 129/75 129/75 Pulse Oximetry 90 90 90 Oxygen Delivery Me thod Nasal Cannula Nasal Cannula Nasal Cannula Oxygen Flow Rate 1.5 1.5 1.5 10/16/24 15:21 10/16/24 18:00 10/16/24 19:48 Temperature 97.4 F L Pulse Rate 95 Pulse Rate [Pulse Oximeter] 94 Pulse Rate [Right Pulse Oximeter] Respiratory Rate Blood Pressure [Le ft Arm] 126/78 Blood Pressure [Ri ght Arm] Pulse Oximetry 91 89 Oxygen Delivery Me thod Room Air Oxygen Flow Rate 10/16/24 22:09 10/16/24 22:09 10/16/24 22:22 Temperature 97.1 F L Pulse Rate 91 Pulse Rate [Pulse Oximeter] 92 Pulse Rate [Right Pulse Oximeter] Respiratory Rate 24 24 Blood Pressure [Le ft Arm] 135/77 Blood Pressure [Ri ght Arm] Pulse Oximetry 88 88 Oxygen Delivery Me thod Nasal Cannula Nasal Cannula Oxygen Flow Rate 2 2 10/17/24 02:01 10/17/24 07:00 10/17/24 07:00 Temperature 96.9 F L 97.6 F Pulse Rate Pulse Rate [Pulse Oximeter] 96 99 Pulse Rate [Right Pulse Oximeter] Respiratory Rate 22 46 H 46 H Blood Pressure [Le ft Arm] 130/82 Blood Pressure [Ri ght Arm] 141/98 H Pulse Oximetry 88 91 91 Oxygen Delivery Me thod Nasal Cannula Nasal Cannula Nasal Cannula Oxygen Flow Rate 4 4 4 10/17/24 07:40 10/17/24 07:56 Temperature Pulse Rate Pulse Rate [Pulse Oximeter] 99 99 Pulse Rate [Right Pulse Oximeter] Respiratory Rate 46 H 46 H Blood Pressure [Le ft Arm] Blood Pressure [Ri ght Arm] 141/98 H Pulse Oximetry 91 Oxygen Delivery Me thod Nasal Cannula Oxygen Flow Rate 4 Labs Labs: Laboratory Results - last 24 hr 10/16/24 10/16/24 10/17/24 13:00 16:01 06:08 WBC 23.98 H RBC 3.46 L Hgb 11.5 L Hct 35.4 MCV 102 H MCH 33 MCHC 33 Plt Count 288 VBG pH VBG pCO2 VBG pO2 VBG HCO3 Sodium 136 Potassium 3.9 Chloride 105 Carbon Dioxide 26 Anion Gap 5 L BUN 2 L Creatinine 0.5 Estimated Creat Clear 104.61 Estimated GFR 108 Glucose 77 Lactate 2.9 H 2.3 H Calcium 8.6 Magnesium 1.5 Total Bilirubin Direct Bilirubin AST ALT Alkaline Phosphatase Ammonia NT-Pro-B Natriuret Pep 21211 H Total Protein Albumin Lab Acknowledgement 10/17/24 10/17/24 10/17/24 09:36 09:51 12:15 WBC RBC Hgb Hct MCV MCH MCHC Plt Count VBG pH 7.374 VBG pCO2 45 VBG pO2 32.9 VBG HCO3 26 Sodium Potassium Chloride Carbon Dioxide Anion Gap BUN Creatinine Estimated Creat Clear Estimated GFR Glucose Lactate 2.0 H Calcium Magnesium Total Bilirubin 1.7 H Direct Bilirubin 1.6 H AST 4540 H ALT 894 H Alkaline Phosphatase 330 H Ammonia 17.4 NT-Pro-B Natriuret Pep Total Protein 5.8 L Albumin 2.3 L Lab Acknowledgement Test Added
--- NOTE | 2024-10-17 14:03 | PM.DST ---
Transfer Discharge Sum: Prov Provider Date Seen: 10/17/24 Date of admission: 10/12/24 17:38 Primary care physician: Nick Kwon MD Attending physician on admission: Raine Floyd Consults: 10/12/24 17:51 Consult to Occupational Therapy [CONS] Routine Comment: Reason(s) for OT Consult:: Evaluate and Treat Any Restrictions?:: Non Wt Bearing Consult to Physical Therapy [CONS] Routine Comment: Reason(s) for PT Consult:: Evaluate and Treat Any Restrictions?:: Non Wt Bearing Consult to Physician [CONS] Routine Comment: Consulting Provider: Cliff Montero Has provider been notified: Yes Consult to Yard Driver [CONS] Routine Comment: Reason for Consult:: Discharge Planning Needs Attending physician on discharge: Valeria Gomez Anticipated date of transfer: 10/17/24 Receiving physician/facility: [facility] ICU DS: Diagnosis Discharge Diagnosis (1) Closed fibular fracture: Status: Acute Problem details: Nonsurgical treatment of an acute, closed, nondisplaced, oblique fracture of the distal fibula. DOI: 10/12/24. Ortho has evaluated, recommending follow-up in clinic within about 7-8 days the dated injury for gravity stress view ankle mortise films Okay to heel touch for pivot transfers; no significant weightbearing. Limit oxy - scheduled tylenol and nsaid manager of allied health services assisting with SNF placement - this may be difficult given active alcohol use and smoker (2) Rhabdomyolysis: Status: Acute Problem details: Mild elevation due to prolonged time on floor last night after fall. Cr is 0.7, up from 0.5 previously. Treat with IVF overnight and recheck in am. CK up dramatically am of 10/14. 1478 --> 4254 (2.8x increase) --> peaked at 5170, down 10/15 to 4900. -Splint replaced; EKG/Troponin reassuring -suspect poor intake; poor mobility Improving, CK down trending, decrease fluids given fluid overload (3) Fall: Status: Acute Problem details: - associated with the dizziness and alcohol use - new EKG changes since 2022 - 10/13 echo: unremarkable. EF 62%. -PT/OT consults. manager of allied health services assisting with SNF placement (4) ABLA (acute blood loss anemia): Status: Acute Problem details: hgb 12 -> 10 -> 9.7. from acute fracture of the fibula Stabilized at 11.5. Consider discontinuing NSAIDs if trends down (5) Hypokalemia: Status: Resolved Problem details: -resolved (6) Hypomagnesemia: Status: Acute Problem details: Improved 1.5, continue oral supplement (hold with encephalopathy) (7) Noncompliance with medication regimen: Status: Suspected Problem details: Suspected given low Mg despite having prescription oral supplement TID at home. During previous hospitalizations, patient noted she was not taking supplements because they cause nausea. (8) UTI (urinary tract infection): Status: Acute Problem details: UC growing Staph lugdunensis, pansensitive Continue doxycycline - discontinued as starting Unasyn for hospital-acquired pneumonia - discharged/transferred on zosyn and vanc (9) Alcohol use disorder: Status: Chronic Problem details: Lacks insight. Not motivated to quit. May interfere with placement per social media assistant (10) Marijuana dependence: Status: Chronic Problem details: Noted. Uncertain if vomiting is related to chronic cannabis use (11) Major depressive disorder: Status: Chronic Problem details: Continue sertraline (12) Generalized anxiety disorder: Status: Chronic Problem details: Continue sertraline (13) Hypertension: Status: Chronic Problem details: Continue metoprolol - holding oral given encephalopathy, scheduled IV metoprolol 5 mg q.6 hours. Adjust dose as necessary (14) Hypophosphatemia: Status: Acute Problem details: Phosphorus 2.1, replaced with 3 doses oral supplement 10/16 (15) Pneumonia: Status: Acute Problem details: 10/17 CT confirmed extensive bilateral ground-glass opacities, leukocytosis, BC x2 NGTD Hospital-acquired. Stop doxycycline and ceftriaxone Unasyn 3 g q.6 hours Prednisone given history of smoker, emphysema noted on CT (16) Hypoxia: Status: Acute Problem details: 10/17 In setting of hospital-acquired pneumonia, acute fluid overload (BNP 44128) Echocardiogram 10/12/2024 EF 62%, normal wall thickness normal global systolic function no aortic stenosis or regurgitation VBG unremarkable RT consult - high-flow. Patient unable to manage incentive spirometry, aerobika currently Pneumonia management as above, diuresis for fluid overload (17) Transaminitis: Status: Acute Problem details: Acute on chronic, chronic alcohol use 10/17 acutely elevated total bili 1.7, direct bili 1.6, AST 4540, ALT 894, alk-phos 330 - continue monitor CT shows suspected hepatic steatosis, gallbladder and bile ducts, pancreas unremarkable Ultrasound ordered - unable to cooperate at this time, proceed when able Hepatic panel ordered Diuresis, albumin 25% x1 ordered DC Tylenol for now (18) Wernickes encephalopathy: Status: Acute Problem details: Hospital day 6, change to critical care. Given significant progression despite ativan and use of narcotics for pain, concern for ability to protect airway, harm to self as agitated despite 1:1. Call to track layer head for transfer to ICU CT head 10/17 without intracranial abnormalities. Ammonia 17.4 DC oral thiamine, start IV (19) Constipation: Status: Acute Problem details: Large stool burden noted on CT 10/17. Unable to tolerate orals given encephalopathy. With growing confusion and agitation, suppository/enema deferred Transfer Discharge Sum: Med Medications Active and Home Medications: Home Medications famotidine 20 mg tablet 20 mg PO BID 10/08/21 [History Confirmed 10/12/24] metoprolol tartrate 50 mg tablet 50 mg PO BID 10/08/21 [History Confirmed 10/12/24] sertraline 100 mg tablet 100 mg PO DAILY 10/08/21 [History Confirmed 10/12/24] cholecalciferol (vitamin D3) 50 mcg (2,000 unit) capsule 2,000 unit PO DAILY 10/09/21 [History Confirmed 10/12/24] loperamide 2 mg capsule 2 mg PO QID PRN 10/09/21 [History Confirmed 10/12/24] multivitamin with folic acid 400 mcg tablet (Tab-A-Bob) 1 tab PO DAILY 10/09/21 [History Confirmed 10/12/24] folic acid 1 mg tablet 1 mg PO DAILY #30 tabs 10/11/21 [Rx Confirmed 10/12/24] magnesium oxide 400 mg (241.3 mg magnesium) tablet 400 mg PO TID #90 tabs 01/03/22 [Rx Confirmed 10/12/24] acetaminophen 500 mg tablet 500 mg PO TID PRN 10/12/24 [History Confirmed 10/12/24] meloxicam 15 mg tablet 15 mg PO DAILY 10/12/24 [History Confirmed 10/12/24] oxybutynin chloride 5 mg tablet 5 mg PO BID 10/12/24 [History Confirmed 10/12/24] Active Medications Acetaminophen (Acetaminophen 650 Mg Tablet Er) 1,300 mg PO Q8H DEVEN On Hold: 10/17/24 12:16 Last Admin: 10/17/24 11:14 Dose: Not Given Celecoxib (Celecoxib 200 Mg Capsule) 200 mg PO DAILY DEVEN On Hold: 10/17/24 09:42 Last Admin: 10/17/24 11:07 Dose: Not Given Cyclobenzaprine HCl (Cyclobenzaprine Hcl 10 Mg Tablet) 10 mg PO TID PRN PRN Reason: Spasms Last Admin: 10/12/24 20:24 Dose: 10 mg Enoxaparin Sodium (Enoxaparin 30 Mg/0.3ml Inj) 30 mg SUBCUT Q12H DEVEN Last Admin: 10/17/24 11:27 Dose: 30 mg Famotidine (Famotidine 20 Mg Tablet) 20 mg PO BID DEVEN On Hold: 10/17/24 09:46 Last Admin: 10/17/24 11:12 Dose: Not Given Folic Acid (Folic Acid 1 Mg Tablet) 1 mg PO DAILY [facility] Last Admin: 10/17/24 11:12 Dose: Not Given Furosemide (Furosemide 10 Mg/Ml Inj) 40 mg IVP BID@0900,1400 [facility] Sodium Chloride (0.9 % Sodium Chloride 1000 Ml) 1,000 mls @ 75 mls/hr IV .[id number] [facility] Last Admin: 10/17/24 05:33 Dose: 75 mls/hr Thiamine HCl 250 mg/ Sodium (Chloride) 102.5 mls @ 102.5 mls/hr IVPB TID DEVEN Stop: 10/19/24 21:01 Last Infusion: 10/17/24 10:41 Dose: Infused Ampicillin Sodium/Sulbactam (Sodium 3 gm/ Sodium Chloride) 100 mls @ 200 mls/hr IVPB Q6H [facility] Last Admin: 10/17/24 12:31 Dose: 200 mls/hr Loperamide HCl (Loperamide Hcl 2 Mg Capsule) 2 mg PO QID PRN Lorazepam (Lorazepam 1 Mg Tablet) 1 - 4 mg PO Q1H PRN; Protocol PRN Reason: Alcohol Withdrawal Last Admin: 10/16/24 22:37 Dose: 1 mg Lorazepam (Lorazepam 2 Mg/Ml Inj) 1 - 4 mg IVP Q1H PRN; Protocol PRN Reason: Alcohol Withdrawal Magnesium Oxide (Magnesium Oxide 400 Mg Tablet) 400 mg PO TID [facility] Last Admin: 10/17/24 11:13 Dose: Not Given Methylprednisolone Sodium Succinate (Methylprednisolone Sod Succ 40 Mg/Ml) 40 mg IVP DAILY [facility] Metoprolol Tartrate (Metoprolol Tartrate 50 Mg Tablet) 50 mg PO BID [facility] On Hold: 10/17/24 09:46 Last Admin: 10/17/24 11:13 Dose: Not Given Metoprolol Tartrate (Metoprolol Tartrate 1 Mg/Ml Inj) 5 mg IVP Q6H [facility] Last Admin: 10/17/24 11:26 Dose: 5 mg Miscellaneous Medication (Doc/Min Oil/Mag Cit/Sod Phos 376 Ml Enema) 376 ml ID ONCE PRN Morphine Sulfate (Morphine 2 Mg/Ml Inj) 2 mg IVP Q2H PRN Last Admin: 10/17/24 12:26 Dose: 2 mg Multivitamins/Minerals (Multivitamin/Minerals 1 Tablet) 1 tab PO DAILY [facility] Last Admin: 10/17/24 11:13 Dose: Not Given Nicotine (Nicotine 21 Mg Patch) 1 patch TRANSDERMA Q24H [facility] Last Admin: 10/17/24 01:53 Dose: Not Given Ondansetron HCl (Ondansetron 2 Mg/Ml Inj) 4 mg IVP Q6H PRN PRN Reason: Nausea Last Admin: 10/17/24 08:28 Dose: 4 mg Oxybutynin Chloride (Oxybutynin Chloride 5 Mg Tablet) 5 mg PO BID [facility] Last Admin: 10/17/24 11:14 Dose: Not Given Oxycodone HCl (Oxycodone 5 Mg Tablet) 5 - 10 mg PO Q4H PRN PRN Reason: Pain Last Admin: 10/16/24 20:55 Dose: 10 mg Pantoprazole Sodium (Pantoprazole Sodium 40 Mg Inj) 40 mg IVP DAILY [facility] Potassium Chloride (Potassium Chloride 10 Meq Capsule Er) 20 meq PO DAILYWM [facility] Last Admin: 10/17/24 11:07 Dose: Not Given Sertraline HCl (Sertraline 100 Mg Tablet) 100 mg PO DAILY [facility] Last Admin: 10/17/24 11:14 Dose: Not Given Sodium Chloride (Sodium Chloride 0.9 % (Flush) 10 Ml Syringe) 5 ml IVF .FLUSH PRN Last Admin: 10/17/24 08:30 Dose: 5 ml Sodium Chloride (Sodium Chloride 0.9 % (Flush) 10 Ml Syringe) 5 ml IVF BID DEVEN Last Admin: 10/17/24 11:26 Dose: 5 ml Transfer Discharge Sum: Hosp Hospital Course Hospital course: Hospital day 6, noted deterioration, now with Wernicke is encephalopathy, very confused, agitated, restless. Withdrawal less likely given length of hospital stay. Now requiring high-flow oxygen currently at 30/50, respiratory rate remains in the 40s, O2 saturations remain low 80s. Has been started on IV thiamine. Avoiding further sedation to protect airway. CT scan confirming pneumonia, hospital acquired suspected. Started on Unasyn. Changed to Zosyn and Vanc per Board Hammer Operator request. Strep pneumo and legionella to be collected with urine. Fluid overload following fluid resuscitation (1 L over 2 hours yesterday) now requiring IV diuresis, albumin 1 dose given. Significant transaminitis, worsening over hospital course today, suspected fluid overload. Management with diuresis and albumin. CT abdomen pelvis with hepatic steatosis, gallbladder, bile ducts, pancreas unremarkable. Ultrasound abdomen ordered but unable to complete as patient not cooperative. Hepatitis panel pending. Discussed with critical care track layer head, recommends trial of CPAP which was considered earlier today but thought to be ineffective as suspected patient would not tolerate and attempt to remove. Given Ativan 1mg IV. Monitoring for increased sedation, loss of airway support. If not tolerated, would require intubation and transfer. Transfered on BiPap. Accepting, Dr. Aissatou ZAVALETA, and Dr. Parker, track layer head [facility]. Time Spent with Patient Time attestation: Total time spent providing and/or coordinating transfer services: 100 minutes critical care time Exam Narrative: Exam Narrative: PHYSICAL EXAM General: Confused, restless, agitated Cardiovascular: Intermittent tachycardia Pulmonary: Dyspneic on high-flow Neurological: Confused restless agitated Skin: Warm, dry. Const: Vital Signs, click to edit/add: Vital Signs - 24 hr 10/16/24 15:00 10/16/24 15:00 10/16/24 15:05 Temperature 97.1 F L 97.1 F L Pulse Rate Pulse Rate [Pulse Oximeter] 95 Pulse Rate [Right Pulse Oximeter] 88 Respiratory Rate 20 20 20 Blood Pressure [Le ft Arm] Blood Pressure [Ri ght Arm] 129/75 129/75 Pulse Oximetry 90 90 90 Oxygen Delivery Me thod Nasal Cannula Nasal Cannula Nasal Cannula Oxygen Flow Rate 1.5 1.5 1.5 Fraction of Inspir ed Oxygen 10/16/24 15:21 10/16/24 18:00 10/16/24 19:48 Temperature 97.4 F L Pulse Rate 95 Pulse Rate [Pulse Oximeter] 94 Pulse Rate [Right Pulse Oximeter] Respiratory Rate Blood Pressure [Le ft Arm] 126/78 Blood Pressure [Ri ght Arm] Pulse Oximetry 91 89 Oxygen Delivery Me thod Room Air Oxygen Flow Rate Fraction of Inspir ed Oxygen 10/16/24 22:09 10/16/24 22:09 10/16/24 22:22 Temperature 97.1 F L Pulse Rate 91 Pulse Rate [Pulse Oximeter] 92 Pulse Rate [Right Pulse Oximeter] Respiratory Rate 24 24 Blood Pressure [Le ft Arm] 135/77 Blood Pressure [Ri ght Arm] Pulse Oximetry 88 88 Oxygen Delivery Me thod Nasal Cannula Nasal Cannula Oxygen Flow Rate 2 2 Fraction of Inspir ed Oxygen 10/17/24 02:01 10/17/24 07:00 10/17/24 07:00 Temperature 96.9 F L 97.6 F Pulse Rate Pulse Rate [Pulse Oximeter] 96 99 Pulse Rate [Right Pulse Oximeter] Respiratory Rate 22 46 H 46 H Blood Pressure [Le ft Arm] 130/82 Blood Pressure [Ri ght Arm] 141/98 H Pulse Oximetry 88 91 91 Oxygen Delivery Me thod Nasal Cannula Nasal Cannula Nasal Cannula Oxygen Flow Rate 4 4 4 Fraction of Inspir ed Oxygen 10/17/24 07:40 10/17/24 07:56 10/17/24 09:00 Temperature Pulse Rate 86 Pulse Rate [Pulse Oximeter] 99 99 Pulse Rate [Right Pulse Oximeter] Respiratory Rate 46 H 46 H Blood Pressure [Le ft Arm] Blood Pressure [Ri ght Arm] 141/98 H Pulse Oximetry 91 Oxygen Delivery Me thod Nasal Cannula Oxygen Flow Rate 4 Fraction of Inspir ed Oxygen 10/17/24 09:00 10/17/24 09:00 10/17/24 10:26 Temperature 97.4 F L 97.4 F L Pulse Rate Pulse Rate [Pulse Oximeter] 87 87 91 Pulse Rate [Right Pulse Oximeter] Respiratory Rate 40 H 40 H 40 H Blood Pressure [Le ft Arm] Blood Pressure [Ri ght Arm] 129/82 124/81 Pulse Oximetry 90 91 Oxygen Delivery Me thod Nasal Cannula Oxygen Flow Rate 4 Fraction of Inspir ed Oxygen 10/17/24 12:55 10/17/24 13:00 10/17/24 13:00 Temperature Pulse Rate 97 Pulse Rate [Pulse Oximeter] 97 97 Pulse Rate [Right Pulse Oximeter] Respiratory Rate 40 H 40 H Blood Pressure [Le ft Arm] Blood Pressure [Ri ght Arm] 114/75 Pulse Oximetry 87 L Oxygen Delivery Me thod High Flow Nasal Ca nnula Oxygen Flow Rate 30 Fraction of Inspir ed Oxygen 50 10/17/24 13:25 Temperature Pulse Rate Pulse Rate [Pulse Oximeter] Pulse Rate [Right Pulse Oximeter] Respiratory Rate Blood Pressure [Le ft Arm] Blood Pressure [Ri ght Arm] Pulse Oximetry Oxygen Delivery Me thod Oxygen Flow Rate 30 Fraction of Inspir ed Oxygen 0.50 Transfer Discharge Sum: Data Imaging CT scan - head: Attestation: I have reviewed the pertinent imaging results. Radiologist's impression: CSF spaces: Within normal limits for age. Brain parenchyma and extra-axial spaces: Unchanged generalized volume loss, greater than expected for patient age. Rodriguez-white differentiation is maintained. No sign of mass, hemorrhage, or midline shift. Skull base and calvarium: The visualized paranasal sinuses are clear. Trace left mastoid tip effusion. The right mastoid air cells are clear. The visualized orbits are grossly unremarkable. No skull fractures. IMPRESSION: No acute intracranial abnormality. CT Chest/Ab/Pelvis: Attestation: I have reviewed the pertinent imaging results. Radiologist's impression: Cardiovascular structures: Heart size is normal. Thoracic aorta and main pulmonary artery are normal in caliber. Mediastinum and valentina: Multiple prominent to mildly enlarged mediastinal lymph nodes, likely reactive. Lungs and pleura: There is extensive multifocal ground-glass opacification bilaterally. Upper lung predominant emphysema. Small bilateral pleural effusions with adjacent atelectasis, [id number]. No pneumothorax. Chest wall and axilla: No mass or adenopathy. Coarse calcifications within the breasts bilaterally, right greater than left. Bones: No acute or suspicious bone lesions. Unremarkable for age. ABDOMEN AND PELVIS: Liver: Generalized hypoattenuation of the liver may reflect hepatic steatosis. Multiple hypoattenuating lesions throughout the liver as before, several which are too small to characterize. Gallbladder and bile ducts: Unremarkable. Pancreas: Unremarkable. Spleen: Unremarkable. Adrenal glands: Unremarkable. Kidneys: No hydronephrosis or calculi. Right upper pole cortical hypodensity too small to characterize though likely compatible with cyst. GI tract: No evidence bowel obstruction or inflammation. Colonic diverticulosis without acute diverticulitis. Large stool ball within the rectum. Vascular structures: Unremarkable. Lymph nodes: Unremarkable. Peritoneum/Retroperitoneum/Abdominal Wall: Small volume simple density fluid within the pelvis, nonspecific. No free air. Pelvic Organs: Unremarkable. Bones and superficial soft tissues: No acute or suspicious abnormality. Unchanged buckling of the anterior cortex of the S3 vertebral body. Partially imaged right total hip arthroplasty. Degenerative changes of the bilateral sacroiliac joints. Asymmetric fatty atrophy of the right gluteal musculature. IMPRESSION: 1. Extensive bilateral ground-glass opacities highly suspicious for pneumonia given clinical history. 2. Small bilateral pleural effusions. Chest x-ray: Attestation: I have reviewed the pertinent imaging results. Radiologist's impression: There is hyperinflation. There are diffuse interstitial and airspace opacities throughout the bilateral hemithoraces likely representing multifocal infiltrates and/or pulmonary edema. No pneumothorax. The cardiac silhouette is partially obscured. The bony thorax is grossly intact. Impression: Diffusely increased interstitial and airspace opacities throughout the bilateral hemithoraces representing multifocal infiltrates and/or pulmonary edema. knee xray: Attestation: I have reviewed the pertinent imaging results. Radiologist's impression: Two views of the left knee show a nondisplaced fracture of the upper portion of the left fibula. No other evidence of acute fracture or dislocation. No other bony or soft tissue abnormalities identified. tib fib xray: Attestation: I have reviewed the pertinent imaging results. Radiologist's impression: Two views of the left tibia-fibula show a nondisplaced oblique fracture of the distal portion of the fibula. No other evidence of acute fracture or dislocation. Soft tissue swelling over the lateral malleolus. No other bony or soft tissue abnormalities identified. ankle xray: Attestation: I have reviewed the pertinent imaging results. Radiologist's impression: Three views of the left ankle show an oblique nondisplaced fracture of the distal fibula. No other evidence of acute fracture or dislocation. Soft tissue swelling over the lateral malleolus. No other bony or soft tissue abnormalities identified. ct head 10/12: Attestation: I have reviewed the pertinent imaging results. Radiologist's impression: Noncontrast CT of the head with multiplanar reconstruction utilizing bone and soft tissue algorithms. COMPARISON: CT head dated 06/22/2019. FINDINGS: No acute intracranial hemorrhage. The rodriguez-white matter interface is preserved. Mild diffuse parenchymal volume loss. The ventricles are proportional to the sulci. No abnormal extra-axial fluid collection is identified. Intact skull base and calvarium. Stable probable incidental hemangioma within the left parietal calvarium. Unremarkable orbits. The imaged paranasal sinuses and mastoid air cells are clear. IMPRESSION: No acute intracranial hemorrhage or mass effect. CT c spine: Attestation: I have reviewed the pertinent imaging results. Radiologist's impression: Noncontrast CT of the cervical spine with multiplanar reconstruction utilizing bone and soft tissue algorithms. Comparison: CT cervical spine dated 06/22/2019. Findings: No acute fracture or traumatic subluxation. New chronic type 2 odontoid fracture without osseous bridging across the fracture cleft. New chronic depression of the C4 superior endplate. No lytic or blastic lesion. Progressed degenerative reversal of the normal cervical lordosis. New grade 1 3 mm anterolisthesis of C3 on C4. Unremarkable prevertebral soft tissues. No high-grade spinal canal stenosis. Multilevel neural foraminal narrowing, again moderate-severe bilaterally at C6-C7. Impression: 1. No acute fracture or traumatic subluxation. 2. New chronic nonunited type 2 odontoid fracture. 3. New chronic depression of the C4 superior endplate. 4. Progressed degenerative reversal of the normal cervical lordosis with new grade 1 anterolisthesis at C3-C4. 5. At C6-C7, similar moderate-severe bilateral neural foraminal narrowing. Discharge Plan Discharge Disposition: [facility] Discharge Location: [facility] Date of Admission: 10/12/24 17:38 Attending Provider on Discharge: Robert Darling Primary Care Provider: Nick Kwon Condition: Guarded Discharge Orders: Transfer of Care to Other Hospital (ORDER); Ordered 10/17/24 Ordered By: Robert Darling Oxygen: Yes Oxygen Delivery Method: BiPap 14/10 Oxygen Flow Rate: FiO2 40 Urinary Catheter: No (pure wick) Drips/Lines: peripheral IV Services not available here: ICU
[2024-10-17] MEDS: FUROSEMIDE 10 MG/ML inj 40 MG IVP (14:16)
--- NOTE | 2024-10-17 14:19 | PC.NURSE ---
Shift note (): Patient cooperative this morning. Patient was alert to self. Came into patients room this morning to find increased work of breathing, accessory muscle use/abdominal breathing. Pt was on 4L O2 via NC to maintain SpO2 above 88%. Attempted to sit patient up, she then got nauseous and started dry heaving. Pt reported feeling anxious, as well as some moderate tremors noted. CIWAS 16. notified. Patient elevated to critical care status, gave report to Brandy DAVIS.
[2024-10-17] MEDS: ALBUMIN HUMAN 25% 25 GM/100 ML VIAL IVPB (14:25)
--- NOTE | 2024-10-17 15:09 | RESP.RT ---
Patient placed on CPAP, but patient Vt was only 300 and she needed to be placed on BiPAP for pressure support to get Vt of 430. Patient is now comfortable on .40BiPAP 10/12.
[2024-10-17] MEDS: VANCOMYCIN 1.25 GM/250 ML 1.25 GM/250 ML PIGGYBACK IVPB (15:43)
[2024-10-17] MEDS: PIPERACILLIN/TAZOBACTAM 3.375 GM in 0.9 % SODIUM CHLORIDE Mini-bag 100 ML IVPB (16:34)
--- NOTE | 2024-10-17 17:47 | PC.NURSE ---
Addendum entered by Ciera Nayak RN 10/17/24 19:13: ON bipap not cpap as stated in previous note. Original Note: PATIENT ALERT TO SELF AND BIRTHDAY WHEN ASKED IF SHE KNEW WHERE SHE WAS [facility] AFTER REORIENTING TO CURRENT HOSPITAL PT WOULD ANSWER CORRECTLY BUT A FEW HOURS LATER WOULD AGAIN STATE [facility] WHEN ASKED, INITIALLY COMPLIANT WITH LIMITED MOBILITY AND NOT TRYING TO GET UP WITHOUT HELP BUT THROUGHOUT SHIFT PATIENT BECOME INCREASINGLY MORE AGITATED AND WAS ATTEMPTING TO GET OUT OF BED AND PULLING AT HER OXYGEN TUBING, GRABBING AT STAFF TRYING TO ASSIST. GET ME OUT OF HERE GET OUT OF MY WAY, I AM GOING HOME, I AM NOT SICK. PRN ATIVAN GIVEN WITH RELIEF. AFTER GOING TO A CT SCAN AROUND 1100 PATIENT O2 SATURATIONS WOULD NOT COME UP FROM 83% WAS INITIALLY AT 75% WHEN BACK FROM CT ON NC AT 4L. RR 36-40 THROUGHOUT MORNING AND MOST OF AFTERNOON UNTIL CPAP APPLIED AROUND 1500. RT IN ROOM AND HELPED REPOSITION PATIENT WITH MINIMAL RELIEF AFTER SATURATIONS WOULD NOT COME UP. THEN TRANSITIONED TO HFNC WITH SATURATIONS IN THE 90S. AT THIS TIME PATIENT ON CPAP SATS 95% AND RR MID 20S. A FRIEND CAME TO VISIT THIS AFTERNOON. PRN DILAUDID AND MORPHINE GIVEN FOR BACK AND LEG PAIN.
--- NOTE | 2024-10-17 19:40 | PC.NURSE ---
PATIENT LEFT VIA EMS AT 1940.
[2024-10-18 18:36] LABS: Hep B Surface Antigen Negative (Negative); Hep C Ab by CIA Interp Negative (Negative)
== END 2024-10-17 19:41 | disposition short-term general hospital (02) | DRG 351 ==
LOC: ED 15:51 → MEDSURG 16:55
PROVIDERS: Family Medicine; Internal Medicine; Physician Assistant; Admitting Provider Family Medicine; Emergency Provider Family Medicine; PCP Family Medicine; Visit Provider Family Medicine
DX: M62.82 Rhabdomyolysis (principal); E87.6 Hypokalemia; S82.434A Nondisplaced oblique fracture of shaft of right fibula, initial encounter for closed fracture; E51.2 Wernicke's encephalopathy; J18.9 Pneumonia, unspecified organism; R09.02 Hypoxemia; N17.9 Acute kidney failure, unspecified; N39.0 Urinary tract infection, site not specified; B95.7 Other staphylococcus as the cause of diseases classified elsewhere; E83.42 Hypomagnesemia; R74.01 Elevation of levels of liver transaminase levels; R74.8 Abnormal levels of other serum enzymes; D62 Acute posthemorrhagic anemia; J43.9 Emphysema, unspecified; Z91.148 Patient's other noncompliance with medication regimen for other reason; W01.0XXA Fall on same level from slipping, tripping and stumbling without subsequent striking against object, initial encounter; F10.288 Alcohol dependence with other alcohol-induced disorder; F12.20 Cannabis dependence, uncomplicated; K59.00 Constipation, unspecified; K76.0 Fatty (change of) liver, not elsewhere classified; Y92.038 Other place in apartment as the place of occurrence of the external cause; S12.100K Unspecified displaced fracture of second cervical vertebra, subsequent encounter for fracture with nonunion; E83.39 Other disorders of phosphorus metabolism; R42 Dizziness and giddiness; F32.9 Major depressive disorder, single episode, unspecified; K08.109 Complete loss of teeth, unspecified cause, unspecified class; F41.1 Generalized anxiety disorder; I10 Essential (primary) hypertension; G62.9 Polyneuropathy, unspecified; F17.210 Nicotine dependence, cigarettes, uncomplicated; D47.2 Monoclonal gammopathy; K21.9 Gastro-esophageal reflux disease without esophagitis
CPT/HCPCS: 29505; 36415; 51701; 51798; 70450; 71045; 71260; 72125; 73560; 73590; 73610; 74177; 80048; 80053; 80069; 80074; 80076; 80306; 81001; 82077; 82140; 82550; 82803; 83605; 83735; 83880; 84484; 85025; 85027; 85610; 85730; 86140; 87040; 87086; 87186; 87449; 87899; 93005; 93306; 94660; 94761; 97162; 97166; 97530; 97535; 99285; A9153; A9270; J0295; J0696; J1171; J1650; J1938; J2060; J2270; J2405; J2543; J2560; J2919; J3010; J3375; J3411; J3475; J3480; J7030; P9047; Q9967; S4990